=== PATIENT | male | born 1955 | race Caucasian/White ===

== ENCOUNTER 2016-09-08 05:26 | Inpatient (IN) | payer MEDICAID, MEDICARE ==
[~2016-09-08] VITALS: Ht 170.2 cm; Wt 78.7 kg
[2016-09-08] MEDS ORDERED: MODA200T39 PO (05:39)
[2016-09-08] MEDS ORDERED: NFMET1000 PO (05:39)
[2016-09-08] MEDS ORDERED: LACT20SO2 PO (05:39)
[2016-09-08] MEDS ORDERED: PROP20TA5 PO (05:39)
[2016-09-08] MEDS ORDERED: INSU100V16 SQ (05:39)
[2016-09-08] MEDS ORDERED: LOSA25TA21 PO (05:39)
[2016-09-08] MEDS ORDERED: ASPI-586 PO (05:39)
[2016-09-08] MEDS ORDERED: PARO30TA3 PO (05:39)
--- NOTE | 2016-09-08 05:45 | ED Fall/Injury ---
General Chief Complaint: Hip/Pelvic Problems Stated Complaint: HIP PAIN Source: patient, EMS Exam Limitations: no limitations (JOHN BARRON) History of Present Illness Time seen by provider: 05:44 Initial Comments Patient presents to ER by EMS, Michaela with chief complaint of being in the assisted found on the floor in the hallway complaining of pain in his right hip. EMS noted that his right hip was shortened and rotated outwards. He is received 150 g of fentanyl so far and fluids. Patient reportedly still having quite a bit of pain and would like more pain medicines however he is mostly nonverbal and not able to give a hypertensive review of systems. He does deny any chest pain or shortness of breath however he states he is having some pain in his arms as well. Everywhere I touch he indicates there is pain. The patient denies nausea. Nursing records indicate that he is allergic to lisinopril. (JOHN BARRON) Allergies and Home Medications Allergies Coded Allergies: lisinopril (Verified Allergy, Unknown, 09/08/16) Home Medications Aspirin 81 Mg Tablet.dr, 81 MG PO, (Reported) Insulin Aspart 100 Unit/1 Ml Susp, 1,000 UNIT SQ, (Reported) Lactulose 20 Gm/30 Ml Solution, 20 GM PO TID, (Reported) Losartan Potassium 25 Mg Tablet, 25 MG PO DAILY, (Reported) Metformin HCl 1,000 Mg Tab, 1,000 MG PO BID, (Reported) Modafinil 200 Mg Tablet, 200 MG PO, (Reported) Paroxetine HCl 30 Mg Tablet, 30 MG PO, (Reported) Propranolol HCl 20 Mg Tablet, 20 MG PO TID, (Reported) Constitutional: see HPI (unable to give a complete review of systems secondary to baseline nonverbal medication) Respiratory: No cough, No short of breath Cardiovascular: No chest pain, No syncope Gastrointestinal: No diarrhea, No nausea Genitourinary: No discharge, No dysuria Musculoskeletal: see HPI, joint pain (right hip) (JOHN BARRON) Past Kncteep-Oxolgk-Aelbmu Hx Patient Social History Alcohol Use: Denies Use Recreational Drug Use: No Smoking Status: Unknown if Ever Smoked Recent Foreign Travel: No Contact w/Someone Who Travel: No (JOHN BARRON) Surgeries HX Surgeries: Yes Surgeries: Orthopedic (ABHINAV BAHENA MD) Respiratory Hx Respiratory Disorders: No (ABHINAV BAHENA MD) Cardiovascular Hx Cardiac Disorders: Yes Cardiac Disorders: Hypertension (ABHINAV BAHENA MD) Neurological Hx Neurological Disorders: Yes (Dysphasia, Dysarthria) Neurological Disorders: Stroke, TIA (ABHINAV BAHENA MD) Endocrine Hx Endocrine Disorders: Yes Endocrine Disorders: Diabetes, Insulin dep (ABHINAV BAHENA MD) Psychosocial Hx Psychiatric Problems: Yes Behavioral Health Disorders: Sleep Difficulties, Depression (ABHINAV BAHENA MD) Physical Exam Vital Signs Vital Sign - Last 12Hours 09/08/16 05:26 Temp 97.8 Pulse 65 Resp 16 B/P (MAP) 175/93 Pulse Ox 94 O2 Delivery Nasal Cannula O2 Flow Rate 3.00 (ABHINAV BAHENA MD) Vital Signs Capillary Refill : (JOHN BARRON) General Appearance: WD/WN, no apparent distress HEENT: PERRL/EOMI, pharynx normal Neck: supple, normal inspection Cardiovascular: normal peripheral pulses, regular rate, rhythm Respiratory: chest non-tender, lungs clear, normal breath sounds Peripheral Pulses: 3+ Dorsalis Pedis (R), 3+ Left Dors-Pedis (L), 3+ Radial Pulses (R), 3+ Radial Pulses (L) Gastrointestinal: normal bowel sounds, non tender, soft Extremities: no pedal edema, normal capillary refill, other (right leg is shortened by one to 2 inches compared to left and rotated externally. Tenderness to palpation along the femur and hip) Neurologic/Psychiatric: no motor/sensory deficits, alert, oriented x 3 Skin: normal color, warm/dry (JOHN BARRON) Raoul Coma Score Best Eye Response: (4) Open Spontaneously Best Verbal Response: (5) Oriented (nonverbal communicates by shaking head yes or no) Best Motor Response: (6) Obeys Commands [place] Total: 15 (JOHN BARRON) Progress/Results/Core Measures Results/Orders Lab Results Laboratory Tests Test 09/08/16 06:12 09/08/16 07:01 Range/Units White Blood Count 7.5 4.3-11.0 10^3/uL Red Blood Count 3.88 L 4.35-5.85 10^6/uL Hemoglobin 12.9 L 13.3-17.7 G/DL Hematocrit 36 L 40-54 % Mean Corpuscular Volume 94 80-99 FL Mean Corpuscular Hemoglobin 33 25-34 PG Mean Corpuscular Hemoglobin Concent 36 32-36 G/DL Red Cell Distribution Width 14.1 10.0-14.5 % Platelet Count 94 L 130-400 10^3/uL Mean Platelet Volume 11.4 H 7.4-10.4 FL Neutrophils (%) (Auto) 67 42-75 % Lymphocytes (%) (Auto) 19 12-44 % Monocytes (%) (Auto) 10 0-12 % Eosinophils (%) (Auto) 3 0-10 % Basophils (%) (Auto) 1 0-10 % Neutrophils # (Auto) 5.1 1.8-7.8 X 10^3 Lymphocytes # (Auto) 1.4 1.0-4.0 X 10^3 Monocytes # (Auto) 0.8 0.0-1.0 X 10^3 Eosinophils # (Auto) 0.2 0.0-0.3 10^3/uL Basophils # (Auto) 0.0 0.0-0.1 10^3/uL Prothrombin Time 13.5 12.2-14.7 SEC INR Comment 1.1 0.8-1.4 Activated Partial Thromboplast Time 33 24-35 SEC Sodium Level 138 135-145 MMOL/L Potassium Level 4.2 3.6-5.0 MMOL/L Chloride Level 109 H 98-107 MMOL/L Carbon Dioxide Level 20 L 21-32 MMOL/L Anion Gap 9 5-14 MMOL/L Blood Urea Nitrogen 9 7-18 MG/DL Creatinine 0.68 0.60-1.30 MG/DL Estimat Glomerular Filtration Rate > 60 BUN/Creatinine Ratio 13 Glucose Level 156 H 70-105 MG/DL Calcium Level 9.0 8.5-10.1 MG/DL Phosphorus Level 2.8 2.3-4.7 MG/DL Magnesium Level 1.4 L 1.8-2.4 MG/DL Total Bilirubin 1.1 H 0.1-1.0 MG/DL Aspartate Amino Transf (AST/SGOT) 32 5-34 U/L Alanine Aminotransferase (ALT/SGPT) 30 0-55 U/L Alkaline Phosphatase 135 40-136 U/L C-Reactive Protein High Sensitivity 0.29 0.00-0.50 MG/DL Total Protein 6.7 6.4-8.2 GM/DL Albumin 3.4 3.2-4.5 GM/DL Urine Color YELLOW Urine Clarity CLEAR Urine pH 7 5-9 Urine Specific [place] 1.010 L 1.016-1.022 Urine Protein NEGATIVE NEGATIVE Urine Glucose (UA) NEGATIVE NEGATIVE Urine Ketones NEGATIVE NEGATIVE Urine Nitrite NEGATIVE NEGATIVE Urine Bilirubin NEGATIVE NEGATIVE Urine Urobilinogen NORMAL NORMAL MG/DL Urine Leukocyte Esterase NEGATIVE NEGATIVE Urine RBC (Auto) NEGATIVE NEGATIVE Urine RBC NONE /HPF Urine WBC NONE /HPF Urine Squamous Epithelial Cells 0-2 /HPF Urine Crystals NONE /LPF Urine Bacteria NEGATIVE /HPF Urine Casts NONE /LPF Urine Mucus NEGATIVE /LPF Urine Culture Indicated NO (ABHINAV BAHENA MD) My Orders Orders - ABHINAV BAHENA MD Ct Head/Cervical Spine Wo (09/08/16 06:18) Chest 1 View, Ap/Pa Only (09/08/16 06:18) Pelvis (09/08/16 06:18) Hs C Reactive Protein (09/08/16 06:53) Flores Cath Insertion (09/08/16 06:59) Ekg Tracing (09/08/16 06:59) Morphine Injection (Morphine Injection (09/08/16 07:15) (ABHINAV BAHENA MD) Medications Given in ED Current Medications Medications Dose Ordered Sig/[place] Route Start Time Stop Time Status Last Admin Dose Admin Morphine Sulfate 5 mg ONCE ONCE IVP 09/08/16 07:15 09/08/16 07:16 DC 09/08/16 07:30 5 MG Ondansetron HCl 4 mg ONCE ONCE IVP 09/08/16 06:00 09/08/16 06:01 DC 09/08/16 05:55 4 MG (ABHINAV BAHENA MD) Vital Signs/I&O Vital Sign - Last 12Hours 09/08/16 05:26 Temp 97.8 Pulse 65 Resp 16 B/P (MAP) 175/93 Pulse Ox 94 O2 Delivery Nasal Cannula O2 Flow Rate 3.00 (ABHINAV BAHENA MD) Progress Note : Time: 06:22 Progress Note We'll get x-rays of his hip and probably need referral to orthopedics. He is nonverbal so we'll look for reasons for his fall such as UTI or other infection. (JOHN BARRON) Progress Note #1: Time: 06:27 Progress Note Care of this patient was assumed from Dr. Barron at shift change checkout. He was reexamined by this provider. He was found to be alert and responsive. He elaborates that he is actually able to walk independently with walker or cane and fell while walking this morning. He reports that he did strike his head and has some headache. History is very limited due to patient's difficulty with verbal communication from prior CVA. Head was normocephalic and atraumatic. Tympanic membranes normal. Oropharynx normal. Chest was clear to auscultation bilaterally with normal effort. Abdomen was soft and nontender. Patient denies pain anywhere other than head and right hip. There was obvious disfigurement of the right hip. Movement, capillary refill, and sensation distally were intact. Pedal pulse is weakly palpable. CT of head and C-spine as well as pelvis x-ray were added to the orders. Labs are pending. Progress Note #2: Time: 07:38 Progress Note Patient has required additional pain medication. Morphine has been ordered. I spoke with the radiologist regarding CT of the head. There was question of subacute infarct. I discussed with the patient and he denies any new neurologic symptoms. He moves all 4 extremities. He has dysarthria and dysphasia at baseline. I have left multiple messages with Dr. Fernandez starting at 07:16 and am awaiting a call back. I spoke with his partner Dr. Yin who suggested contacting the office. I left a message with the answering service at the office phone number. Progress Note #3: Time: 08:23 Progress Note I was able to contact Dr. Fernandez and discussed the case. He does not perform hip surgeries but Dr. Mcrae will be available this evening. He will communicate the case information to Dr. Mcrae. He requests the patient be nothing by mouth after a breakfast. (ABHINAV BAHENA MD) ECG Initial ECG Impression Date: Sep 08, 2016 Initial ECG Impression Time: 07:05 Initial ECG Rate: 60 Initial ECG Rhythm: Normal Sinus Initial ECG Impression: Normal Comment Normal sinus rhythm with no ST elevation or depression. No abnormal intervals or axis deviation. (ABHINAV BAHENA MD) Diagnostic Imaging Diagonstic Imaging: CT Plain Films/CT/US/NM/MRI: c-spine, head Comments CT head and C-spine viewed by me and report reviewed. Discussed with radiologist. See report below: NAME: JONAH MILLARD [facility] REC#: [id number] PT STATUS: REG ER : 1955 PHYSICIAN: ABHINAV BAHENA MD ADMIT DATE: 09/08/16/ER Draft Date of Exam:09/08/16 CT HEAD/CERVICAL SPINE WO PROCEDURE: CT head and CT cervical spine without contrast. TECHNIQUE: Multiple contiguous axial images were obtained through the brain and cervical spine without the use of intravenous contrast. Sagittal and coronal reformations through the cervical spine were then performed. INDICATION: Status post fall, head pain. CORRELATION STUDY: None FINDINGS: CT HEAD: There is prominence of the ventricles and sulci compatible with atrophic changes. Scattered areas of decreased attenuation, nonspecific favor probable changes small vessel ischemic disease. Findings compatible with prior lacunar type infarct in the right basal ganglia and centrum semiovale. Also prior infarcts in the left basal ganglia extending into the caudate head. Additional low-density within the more posterior aspect left basal ganglia. There is an additional geographic area of decreased attenuation involving the inferior posterior left frontal lobe and posterior lateral temporal lobe. This area measures approximately 3.5 x 3 cm. No intracranial hemorrhage. There is presence of intracranial vascular calcification. Paranasal sinus and mastoid air cells are clear. CT CERVICAL SPINE: Straightening and reversal normal cervical lordosis present. Mild anterolisthesis C3 on C4. Cervical vertebral body heights demonstrate slight loss of height C4, C5-C6 levels. Moderate to marked disc space narrowing C3-C4, C5-C6 and C6-C7 levels. There does appear to be disc bulge at C4-C5 as well as C3-C4 levels resulting in spinal canal narrowing. Additional osseous encroachment on the foramina particularly at the C5-C6 and C6-C7 levels results in significant osseous narrowing of the neural foramina as well as spinal canal. Asymmetric hypertrophic facet arthropathy. A moderate calcification of the bilateral carotid bifurcations. Lung apices unremarkable. A few scattered small cervical lymph nodes are present. IMPRESSION: CT HEAD: 1. Negative for acute traumatic intracranial abnormality. 2. Changes likely chronic small vessel ischemic disease and generalized atrophic changes. Prior areas of infarct are noted. More focal area noted about the posterior inferior left frontal lobe and posterior lateral temporal lobe. While this could be reflective of a previous area of infarct, more subacute infarct would be difficult to exclude. If further assessment is desired, MRI would be recommended. CT CERVICAL SPINE: 1. Negative for acute fracture or traumatic subluxation. 2. Rather pronounced multilevel cervical spondylosis. Additional areas of asymmetric disc bulge particularly at C3-C4 and C4-C5 levels. Scattered areas of foraminal and canal stenosis are noted. Telephone call has been made to the emergency department. Dictated on workstation # [id number] Dict: 09/08/16 07 Trans: 09/08/16740 [facility] [place] [id number] Interpreted by: MAX ASHER DO Diagonstic Imaging: Xray Plain Films/CT/US/NM/MRI: pelvis Comments Pelvis x-ray viewed by me and report reviewed. See report below: NAME: VENICEJONAH [facility] REC#: [id number] PT STATUS: REG ER : 1955 PHYSICIAN: ABHINAV BAHENA MD ADMIT DATE: 09/08/16/ER Draft Date of Exam:09/08/16 PELVIS INDICATION: Fall, right hip pain. TECHNIQUE: AP pelvis 6:41 AM. CORRELATION STUDY: None FINDINGS: The pectineal lines and obturator rings maintained. Left hip joint is maintained. Advanced degenerative changes at the L4-L5 and L5-S1 disc space. SI joints with slight sclerosis. There is a comminuted impacted angulated right proximal femur fracture. IMPRESSION: 1. Comminuted impacted angulated right proximal femur fracture. Dictated on workstation # [id number] Dict: 09/08/1613 Trans: 09/08/16718 [id number] Interpreted by: MAX ASHER DO Diagonstic Imaging: Xray Plain Films/CT/US/NM/MRI: chest Comments Chest x-ray viewed by me and report reviewed. See report below: NAME: JONAH MILLARD [facility] REC#: [id number] PT STATUS: REG ER : 1955 PHYSICIAN: ABHINAV BAHENA MD ADMIT DATE: 09/08/16/ER Draft Date of Exam:09/08/16 CHEST 1 VIEW, AP/PA ONLY INDICATION: Trauma, hip fracture. TECHNIQUE: Single view chest 6:41 AM. CORRELATION STUDY: None FINDINGS: Heart size is enlarged. Mediastinum is prominent. Vasculature is slightly prominent as well. Lung pool demonstrate likely chronic type changes. Deformity about the left ribs compatible with prior fractures. Two screws over the scapula with degenerative changes of the left shoulder. High density in the right upper quadrant, nonspecific but could be reflective of perhaps a large gallstone or even perhaps a staghorn type calculus of the kidney. IMPRESSION: 1. Cardiac enlargement. Vasculature slightly prominent. Dictated on workstation # [id number] Dict: 09/08/16709 Trans: 09/08/16722 [facility] [phone] Interpreted by: MAX ASHER DO Diagonstic Imaging: Xray Plain Films/CT/US/NM/MRI: hip Comments Right hip x-ray viewed by me and report reviewed. See report below: NAME: JONAH MILLARD [facility] REC#: [id number] PT STATUS: REG ER : 1955 PHYSICIAN: JOHN BARRON MD ADMIT DATE: 09/08/16/ER Draft Date of Exam:09/08/16 HIP, RIGHT, 2 VIEWS INDICATION: Fall, pain, fracture. TECHNIQUE: 2 views right hip, 6:43 AM. CORRELATION STUDY: None FINDINGS: There is a multipart comminuted fracture of the right intertrochanteric portion of the proximal femur. Coxa Vera alignment is present. The shaft is retracted and displaced laterally. Lesser trochanter displaced medially. Femoral head acetabular relationship appears to be maintained. IMPRESSION: 1. Comminuted impacted and displaced proximal right femur fracture. Dictated on workstation # [id number] Dict: 09/08/16711 Trans: 09/08/16725 [id number] Interpreted by: MAX ASHER DO Diagonstic Imaging: Xray Plain Films/CT/US/NM/MRI: femur Comments Femur x-ray viewed by me and report reviewed. See report below: NAME: JONAH MILLARD [facility] REC#: [id number] PT STATUS: REG ER : 1955 PHYSICIAN: JOHN BARRON MD ADMIT DATE: 09/08/16/ER Draft Date of Exam:09/08/16 FEMUR, RIGHT, 2 VIEWS INDICATION: Fall, hip pain, fracture. TECHNIQUE: AP and lateral views of the right femur 6:54 AM. CORRELATION STUDY: None FINDINGS: There is a comminuted impacted multipart fracture through the right intertrochanteric region. Coxa vera alignment. Impaction noted. Femoral head acetabular relationship appears maintained. The shaft is displaced laterally. Lesser trochanter displaced medially. The remainder of the femur is intact. Degenerative changes and narrowing at the knee. Vascular calcifications present. IMPRESSION: 1. Comminuted impacted angulated and displaced right proximal femur fracture. Dictated on workstation # [id number] Dict: 09/08/16 0711 Trans: 09/08/16 0727 [facility] [phone] Interpreted by: MAX ASHER DO (ABHINAV BAHENA MD) Transfer of Care Transfer of Care Time: 06:22 Care transferred to: Deandre (JOHN BARRON) Departure Communication Time/Spoke to Admitting Phy: 08:[address] Crooks Time/Spoke to Consulting Physi: 08:20 Communication/Consulting Dr. Fernandez (ABHINAV BAHNEA MD) Impression Impression: Primary Impression: Closed right hip fracture Qualified Codes: S72.001A - Fracture of unspecified part of neck of right femur, initial encounter for closed fracture Additional Impression: Fall on same level Qualified Codes: W18.30XA - Fall on same level, unspecified, initial encounter Disposition: ADMITTED INPATIENT Condition: Stable Decision to Admit Reason: Admit from ER (General) Decision to Admit/Date: Sep 08, 2016 (JOHN BARRON) Decision to Admit Reason: Admit from ER (Trauma) (ABHINAV BAHENA MD) Departure-Patient Inst. Referrals: DARRICK SULTANA MD (PCP/Family) Primary Care Physician Copy Copies To 1: DARRICK SULTANA MD, TITUS J Sep 08, 2016 05:45 ABHINAV BAHENA MD Sep 08, 2016 06:29
[2016-09-08] MEDS ORDERED: KETOROLAC 30 MG/ML VIAL IVP STA (05:48)
[2016-09-08] MEDS ORDERED: ONDANSETRON 4 MG/2 ML (SDV) Z0FRAN IVP ONE (06:00)
[2016-09-08 06:22] LABS: BASOPHILS % (AUTO) 1 % (0-10); EOSINOPHILS # (AUTO) 0.2 10^3/uL (0.0-0.3); EOSINOPHILS % (AUTO) 3 % (0-10); LYMPHOCYTES # (AUTO) 1.4 X 10^3 (1.0-4.0); LYMPHOCYTES % (AUTO) 19 % (12-44); MEAN CORPUSCULAR HEMOGLOBIN 33 PG (25-34); MEAN CORPUSCULAR HGB CONC 36 G/DL (32-36); MEAN CORPUSCULAR VOLUME 94 FL (80-99); MEAN PLATELET VOLUME 11.4 FL (7.4-10.4); MONOCYTES # (AUTO) 0.8 X 10^3 (0.0-1.0); MONOCYTES % (AUTO) 10 % (0-12); NEUTROPHILS # (AUTO) 5.1 X 10^3 (1.8-7.8); NEUTROPHILS % (AUTO) 67 % (42-75); PLATELET COUNT 94 10^3/uL (130-400); RED BLOOD COUNT 3.88 10^6/uL (4.35-5.85); RED CELL DISTRIBUTION WIDTH 14.1 % (10.0-14.5); WHITE BLOOD COUNT 7.5 10^3/uL (4.3-11.0)
[2016-09-08 06:50] LABS: INR 1.1 (0.8-1.4); PROTHROMBIN TIME PATIENT 13.5 SEC (12.2-14.7)
[2016-09-08 07:03] LABS: ALANINE AMINOTRANSFERASE 30 U/L (0-55); ALBUMIN 3.4 GM/DL (3.2-4.5); ANION GAP 9 MMOL/L (5-14); ASPARTATE AMINO TRANSFERASE 32 U/L (5-34); BILIRUBIN,TOTAL 1.1 MG/DL (0.1-1.0); BLOOD UREA NITROGEN 9 MG/DL (7-18); BUN/CREATININE RATIO 13; CARBON DIOXIDE 20 MMOL/L (21-32); CHLORIDE 109 MMOL/L (98-107); CREATININE SERUM 0.68 MG/DL (0.60-1.30); GFR ESTIMATED > 60; GLUCOSE 156 MG/DL (70-105); MAGNESIUM 1.4 MG/DL (1.8-2.4); PHOSPHORUS 2.8 MG/DL (2.3-4.7); POTASSIUM 4.2 MMOL/L (3.6-5.0); SODIUM 138 MMOL/L (135-145); TOTAL PROTEIN 6.7 GM/DL (6.4-8.2)
[2016-09-08 07:12] LABS: BILIRUBIN,URINE NEGATIVE (NEGATIVE); KETONES,URINE NEGATIVE (NEGATIVE); LEUKOCYTE ESTERASE ,URINE NEGATIVE (NEGATIVE); NITRITE,URINE NEGATIVE (NEGATIVE); PH,URINE 7 (5-9); PROTEIN,URINE NEGATIVE (NEGATIVE); UROBILINOGEN,URINE NORMAL (NORMAL)
[2016-09-08] MEDS ORDERED: morphine INJ 10 MG/ML 1ML (SYR OR VIAL) IVP ONE (07:15)
--- NOTE | 2016-09-08 07:19 | Diagnostic Imaging Report ---
INDICATION: Fall, right hip pain. TECHNIQUE: AP pelvis 6:41 AM. CORRELATION STUDY: None FINDINGS: The pectineal lines and obturator rings maintained. Left hip joint is maintained. Advanced degenerative changes at the L4-L5 and L5-S1 disc space. SI joints with slight sclerosis. There is a comminuted impacted angulated right proximal femur fracture. IMPRESSION: 1. Comminuted impacted angulated right proximal femur fracture. Dictated by: Dictated on workstation # [id number]
[2016-09-08 07:20] LABS: SQUAMOUS EPITHELIAL CELL,UR 0-2 /HPF
--- NOTE | 2016-09-08 07:23 | Diagnostic Imaging Report ---
INDICATION: Trauma, hip fracture. TECHNIQUE: Single view chest 6:41 AM. CORRELATION STUDY: None FINDINGS: Heart size is enlarged. Mediastinum is prominent. Vasculature is slightly prominent as well. Lung pool demonstrate likely chronic type changes. Deformity about the left ribs compatible with prior fractures. Two screws over the scapula with degenerative changes of the left shoulder. High density in the right upper quadrant, nonspecific but could be reflective of perhaps a large gallstone or even perhaps a staghorn type calculus of the kidney. IMPRESSION: 1. Cardiac enlargement. Vasculature slightly prominent. Dictated by: Dictated on workstation # [id number]
--- NOTE | 2016-09-08 07:27 | Diagnostic Imaging Report ---
INDICATION: Fall, pain, fracture. TECHNIQUE: 2 views right hip, 6:43 AM. CORRELATION STUDY: None FINDINGS: There is a multipart comminuted fracture of the right intertrochanteric portion of the proximal femur. Coxa Vera alignment is present. The shaft is retracted and displaced laterally. Lesser trochanter displaced medially. Femoral head acetabular relationship appears to be maintained. IMPRESSION: 1. Comminuted impacted and displaced proximal right femur fracture. Dictated by: Dictated on workstation # [id number]
--- NOTE | 2016-09-08 07:27 | Diagnostic Imaging Report ---
INDICATION: Fall, hip pain, fracture. TECHNIQUE: AP and lateral views of the right femur 6:54 AM. CORRELATION STUDY: None FINDINGS: There is a comminuted impacted multipart fracture through the right intertrochanteric region. Coxa vera alignment. Impaction noted. Femoral head acetabular relationship appears maintained. The shaft is displaced laterally. Lesser trochanter displaced medially. The remainder of the femur is intact. Degenerative changes and narrowing at the knee. Vascular calcifications present. IMPRESSION: 1. Comminuted impacted angulated and displaced right proximal femur fracture. Dictated by: Dictated on workstation # [id number]
--- NOTE | 2016-09-08 07:41 | Diagnostic Imaging Report ---
PROCEDURE: CT head and CT cervical spine without contrast. TECHNIQUE: Multiple contiguous axial images were obtained through the brain and cervical spine without the use of intravenous contrast. Sagittal and coronal reformations through the cervical spine were then performed. INDICATION: Status post fall, head pain. CORRELATION STUDY: None FINDINGS: CT HEAD: There is prominence of the ventricles and sulci compatible with atrophic changes. Scattered areas of decreased attenuation, nonspecific favor probable changes small vessel ischemic disease. Findings compatible with prior lacunar type infarct in the right basal ganglia and centrum semiovale. Also prior infarcts in the left basal ganglia extending into the caudate head. Additional low-density within the more posterior aspect left basal ganglia. There is an additional geographic area of decreased attenuation involving the inferior posterior left frontal lobe and posterior lateral temporal lobe. This area measures approximately 3.5 x 3 cm. No intracranial hemorrhage. There is presence of intracranial vascular calcification. Paranasal sinus and mastoid air cells are clear. CT CERVICAL SPINE: Straightening and reversal normal cervical lordosis present. Mild anterolisthesis C3 on C4. Cervical vertebral body heights demonstrate slight loss of height C4, C5-C6 levels. Moderate to marked disc space narrowing C3-C4, C5-C6 and C6-C7 levels. There does appear to be disc bulge at C4-C5 as well as C3-C4 levels resulting in spinal canal narrowing. Additional osseous encroachment on the foramina particularly at the C5-C6 and C6-C7 levels results in significant osseous narrowing of the neural foramina as well as spinal canal. Asymmetric hypertrophic facet arthropathy. A moderate calcification of the bilateral carotid bifurcations. Lung apices unremarkable. A few scattered small cervical lymph nodes are present. IMPRESSION: CT HEAD: 1. Negative for acute traumatic intracranial abnormality. 2. Changes likely chronic small vessel ischemic disease and generalized atrophic changes. Prior areas of infarct are noted. More focal area noted about the posterior inferior left frontal lobe and posterior lateral temporal lobe. While this could be reflective of a previous area of infarct, more subacute infarct would be difficult to exclude. If further assessment is desired, MRI would be recommended. CT CERVICAL SPINE: 1. Negative for acute fracture or traumatic subluxation. 2. Rather pronounced multilevel cervical spondylosis. Additional areas of asymmetric disc bulge particularly at C3-C4 and C4-C5 levels. Scattered areas of foraminal and canal stenosis are noted. Telephone call has been made to the emergency department. Dictated by: Dictated on workstation # [id number]
[2016-09-08] MEDS ORDERED: ACET325T38 PO (09:53)
[2016-09-08 10:00] VITALS: BP 121/79
--- NOTE | 2016-09-08 11:58 | History & Physical-Hospitalist ---
HPI History of Present Illness: HPI/Chief Complaint CC: Acute right hip fracture HPI: This is a 61-year-old white male snf patient that presents after a fall at the snf sustaining a right hip fracture. He has had a stroke in the past and is aphasic so minimal details are obtained from the patient. He does smoke and he is willing to apply a nicotine patch. Wheezes are noted on exam so Nebs are ordered. Source: RN/MD Exam Limitations: language barrier (aphasic) Date Seen 09/08/16 Time Seen by Provider: 11:45 Attending Physician Melly Crooks Pankaj K MD Referring Physician Date of Admission Sep 08, 2016 at 08:42 Home Medications & Allergies Home Medications Reviewed patient Home Medication Reconciliation Form Allergies Allergies Coded Allergies lisinopril (Verified Allergy, Unknown, 09/08/16) Past Vkfngcr-Ghufxr-Ppxzce Hx Patient Social History Marrital Status: single Employed/Student: unemployed Alcohol Use: Denies Use Recreational Drug Use: No Smoking Status: Current Everyday Smoker Physical Abuse Screen: No Sexual Abuse: No Recent Foreign Travel: No Contact w/other who traveled: No Recent Hopitalizations: No Recent Infectious Disease Expo: No Seasonal Allergies Seasonal Allergies: No Surgeries HX Surgeries: Yes Surgeries: Orthopedic Respiratory Hx Respiratory Disorders: Yes Respiratory Disorders: COPD Cardiovascular Hx Cardiovascular Disorders: Yes Cardiac Disorders: High Cholesterol, Hypertension Neurological Hx Neurological Disorders: Yes (Dysphasia, Dysarthria) Neurological Disorders: Stroke, TIA Genitourinary Hx Genitourinary Disorders: No Gastrointestinal Hx Gastrointestinal Disorders: Yes Gastrointestinal Disorders: Chronic Constipation Musculoskeletal Hx Musculoskeletal Disorders: Yes Musculoskeletal Disorders: Fractures Endocrine Hx Endocrine Disorders: Yes Endocrine Disorders: Diabetes, Insulin dep HEENT HX ENT Disorders: No Loss of Vision: Denies Hearing Impairment: Denies Cancer Hx Cancer: No Psychosocial Hx Psychiatric Problems: Yes Behavioral Health Disorders: Sleep Difficulties, Depression Integumentary HX Skin/Integumentary Disorder: No Family Medical History Family Hx: Diabetes mellitus 19 FATHER Neoplasm 19 MOTHER (LUNG CANCER) Review of Systems ROS-Unable to Obtain: aphasia Constitutional: see HPI, weakness Musculoskeletal: joint pain Physical Exam Physical Exam Vital Signs Vital Sign - Last 12Hours 09/08/16 05:26 Temp 97.8 Pulse 65 Resp 16 B/P (MAP) 175/93 Pulse Ox 94 O2 Delivery Nasal Cannula O2 Flow Rate 3.00 Capillary Refill : Less Than 3 SecondsLess Than 3 Seconds General Appearance: No Apparent Distress, WD/WN, Chronically ill Eyes: Bilateral Eye Normal Inspection, Bilateral Eye PERRL HEENT: PERRL/EOMI, Normal ENT Inspection, Pharynx Normal Neck: Full Range of Motion, Normal Inspection, Non Tender, Supple, Carotid Bruit Respiratory: Chest Non Tender, Lungs Clear, Normal Breath Sounds, No Accessory Muscle Use, No Respiratory Distress Cardiovascular: Regular Rate, Rhythm, No Edema, No Gallop, No JVD, No Murmur, Normal Peripheral Pulses Gastrointestinal: Normal Bowel Sounds, No Organomegaly, No Pulsatile Mass, Non Tender, Soft Back: Normal Inspection, No CVA Tenderness, No Vertebral Tenderness Extremity: Normal Capillary Refill, Normal Inspection, Normal Range of Motion ( except right leg due to fx), Non Tender, No Calf Tenderness, No Pedal Edema Neurologic/Psychiatric: Alert, Oriented x3, Normal Mood/Affect, Aphasia Skin: Normal Color, Warm/Dry Lymphatic: No Adenopathy Results Results/Procedures Lab Laboratory Tests 09/08/16 06:12 Assessment/Plan Admission Diagnosis Assessment: Acute right hip fracture Diabetes mellitus insulin-dependent Current smoker with wheezing on exam Hypertension Remote stroke causing aphasia Assessment and Plan Plan: Reconcile all home meds Nebulizer treatments 4 times a day Pain medication Nicoderm Patch monitor labs Proceed on with surgery since benefits outweigh medical risks Clinical Quality Measures DVT/VTE Risk/Contraindication: Risk Factor Score Per Nursin RFS Level Per Nursing on Admit: 4+=Very High MELLY CROOKS DO Sep 08, 2016 11:58
[2016-09-08 12:00] VITALS: BP 133/88
[2016-09-08] MEDS ORDERED: ACETAMINOPHEN 325 MG TABLET/CAPLET (TYLENOL) PO PRN (12:00)
[2016-09-08] MEDS ORDERED: inSUlin ASPART (NovoLOG) 1 UNIT/0.01 ML (CHARGE PER UNIT) SQ PRN (12:00)
[2016-09-08] MEDS: RT-ALBUTEROL/IPRATROPIUM 3 ML (DUONEB) VIAL INH SCH ×4 (12:00→22:00)
[2016-09-08] MEDS ORDERED: CATHETER FLUSH 10 ML SYR IV PRN (12:30)
[2016-09-08] MEDS ORDERED: ONDANSETRON 4 MG/2 ML (SDV) Z0FRAN IV PRN (12:30)
[2016-09-08] MEDS: LACTULOSE SYRUP 10GM/15ML (ENULOSE) 30ML UDC PO SCH ×2 (12:54→16:13)
[2016-09-08] MEDS: NICOTINE 21 MG (NICODERM) PATCH TD SCH (12:54)
[2016-09-08] MEDS: PROPRANOLOL 20 MG (INDERAL) TABLET PO SCH ×2 (12:54→16:12)
[2016-09-08] MEDS: NS IV 1000 ML 1,000 ML IV SCH ×2 (12:54→22:52)
[2016-09-08] MEDS: morphine INJ 10 MG/ML 1ML (SYR OR VIAL) IV PRN ×2 (13:15→22:53)
[2016-09-08 16:00] VITALS: BP 108/64
[2016-09-08] MEDS: inSUlin ASPART (NovoLOG) 1 UNIT/0.01 ML (CHARGE PER UNIT) SC SCH ×2 (16:11→22:47)
[2016-09-08 19:20] VITALS: BP 130/72
[2016-09-08 23:50] VITALS: BP 126/56
[2016-09-09] MEDS: RT-ALBUTEROL/IPRATROPIUM 3 ML (DUONEB) VIAL INH SCH ×6 (02:19→21:55)
[2016-09-09 03:25] VITALS: BP 123/65
[2016-09-09] MEDS: inSUlin ASPART (NovoLOG) 1 UNIT/0.01 ML (CHARGE PER UNIT) SC SCH ×4 (05:44→20:45)
[2016-09-09 07:32] LABS: BASOPHILS % (AUTO) 0 % (0-10); EOSINOPHILS # (AUTO) 0.3 10^3/uL (0.0-0.3); EOSINOPHILS % (AUTO) 3 % (0-10); LYMPHOCYTES # (AUTO) 2.6 X 10^3 (1.0-4.0); LYMPHOCYTES % (AUTO) 30 % (12-44); MEAN CORPUSCULAR HEMOGLOBIN 34 PG (25-34); MEAN CORPUSCULAR HGB CONC 35 G/DL (32-36); MEAN CORPUSCULAR VOLUME 96 FL (80-99); MEAN PLATELET VOLUME 11.4 FL (7.4-10.4); MONOCYTES # (AUTO) 1.2 X 10^3 (0.0-1.0); MONOCYTES % (AUTO) 14 % (0-12); NEUTROPHILS # (AUTO) 4.6 X 10^3 (1.8-7.8); NEUTROPHILS % (AUTO) 53 % (42-75); PLATELET COUNT 77 10^3/uL (130-400); RED BLOOD COUNT 3.39 10^6/uL (4.35-5.85); RED CELL DISTRIBUTION WIDTH 14.3 % (10.0-14.5); WHITE BLOOD COUNT 8.7 10^3/uL (4.3-11.0)
[2016-09-09 07:48] LABS: ALANINE AMINOTRANSFERASE 23 U/L (0-55); ANION GAP 9 MMOL/L (5-14); ASPARTATE AMINO TRANSFERASE 26 U/L (5-34); BILIRUBIN,TOTAL 1.6 MG/DL (0.1-1.0); BLOOD UREA NITROGEN 13 MG/DL (7-18); BUN/CREATININE RATIO 19; CALCIUM 8.5 MG/DL (8.5-10.1); CARBON DIOXIDE 18 MMOL/L (21-32); CHLORIDE 111 MMOL/L (98-107); CREATININE SERUM 0.67 MG/DL (0.60-1.30); GFR ESTIMATED > 60; GLUCOSE 114 MG/DL (70-105); POTASSIUM 4.1 MMOL/L (3.6-5.0); SODIUM 138 MMOL/L (135-145); TOTAL PROTEIN 5.6 GM/DL (6.4-8.2)
[2016-09-09 08:00] VITALS: BP 121/74
--- NOTE | 2016-09-09 08:09 | CONSULTATION REPORT ---
DATE OF CONSULTATION: 09/08/2016 REFERRING PHYSICIAN: Dr. Fernandez Inpatient consultation at the request of Dr. Fernandez: Right hip fracture. HISTORY OF THE PRESENT ILLNESS: This gentleman apparently fell earlier today and Dr. Fernandez was called and he called myself to take over the patient. PERTINENT ORTHOPEDIC PAST MEDICAL HISTORY: The patient has sustained trauma in the past and is not verbal. He does appear to be alert and oriented and understands. ORTHOPEDIC: Right lower extremity is flexed and shortened and externally rotated. The skin is intact over the hip area. Distally, grossly, neurovascularly intact with some spontaneous motion present. X-RAY: X-ray shows a comminuted intertrochanteric fracture. The number of major pieces is difficult to visualize. PLAN: We would like to get him to the operating room tomorrow for open reduction and internal fixation with Synthes intertrochanteric nail. Due to the comminuted nature of the fracture, we are going to try to get a CT tonight or tomorrow morning prior to the procedure. He is tentatively scheduled for 12:45 tomorrow. CONSENT: I have discussed the diagnosis, procedure, risks, benefits, alternatives, likely brunson for success as well as rehab. The major risk is chronic discomfort, shortening of the leg, toes turned in or out, failure of the procedure and need to redo it again, damage to adjacent structures and the small chance of problems with the heart or lungs and other systems. The patient had all of his questions answered which he indicated by nodding that he had no questions. Job ID: [id number] Dictated Date: 09/08/2016 21:48:18 Supervisor [employer] Date: 09/09/2016 07:54:58/aguila
--- NOTE | 2016-09-09 08:24 | Diagnostic Imaging Report ---
PROCEDURE: CT right lower extremity without contrast. TECHNIQUE: Axially acquired CT was obtained through the right lower extremity without intravenous contrast. Coronal and sagittal reformations were also performed. INDICATION: Right hip fracture. FINDINGS: There is a displaced intertrochanteric right femur fracture with comminution seen at the lesser trochanter region. The femoral shaft is displaced superiorly and there is a slight coxa valga. There is no subluxation or dislocation of the hip joint. There is a significant joint space narrowing and subchondral sclerosis compatible with moderate osteoarthritis. There is a also an os acetabulum which is probably degenerative or from old injury. The possibility of an acute injury component, however, cannot be ruled out. This is located at the lateral margin of the acetabulum. There is a 1 cm sclerotic lesion in the right femoral neck, probably a bony island. The acetabulum itself otherwise is unremarkable. IMPRESSION: 1. Comminuted displaced right intertrochanteric fracture. 2. Near the lateral margin of the acetabulum, there is a subcentimeter ossification probably an os acetabulum from prior trauma or injury. An acute injury component is not ruled out. The rest of the acetabulum itself, however, demonstrated no fractures. 3. Moderate right hip osteoarthritis. Dictated by: Dictated on workstation # [id number]
[2016-09-09] MEDS: PARoxetine 10 MG (PAXIL) TAB PO SCH (08:55)
[2016-09-09] MEDS: LACTULOSE SYRUP 10GM/15ML (ENULOSE) 30ML UDC PO SCH ×3 (08:55→16:25)
[2016-09-09] MEDS: PROPRANOLOL 20 MG (INDERAL) TABLET PO SCH ×3 (08:55→16:25)
[2016-09-09] MEDS: PARoxetine 20 MG (PAXIL) TAB PO SCH (08:55)
[2016-09-09] MEDS: MODAFINIL 100 MG TAB (PROVIGIL) NON-FORMULARY PO SCH (08:56)
[2016-09-09] MEDS: NICOTINE 21 MG (NICODERM) PATCH TD SCH (08:56)
[2016-09-09] MEDS: NS IV 1000 ML 1,000 ML IV SCH ×2 (09:05→21:50)
[2016-09-09] MEDS: NICOTINE PATCH REMOVAL TP SCH (09:06)
[2016-09-09] MEDS: morphine INJ 10 MG/ML 1ML (SYR OR VIAL) IV PRN (09:06)
[2016-09-09] MEDS: LOSARTAN 25 MG (COZAAR) TAB PO SCH (09:08)
[2016-09-09 12:00] VITALS: BP 130/75
[2016-09-09] MEDS ORDERED: ROCURONIUM 50 MG/5 ML (ZEMURON) VIAL IV ONE (12:19)
[2016-09-09] MEDS ORDERED: LIDOCAINE PF 2% 5 ML (XYLOCAINE) VIAL ONE (12:19)
[2016-09-09] MEDS ORDERED: MIDAZOLAM 2 MG/2 ML (VERSED) VIAL ONE (12:19)
[2016-09-09] MEDS ORDERED: fentaNYL INJECTION 100 MCG/2 ML AMP ONE (12:19)
[2016-09-09] MEDS ORDERED: ONDANSETRON 4 MG/2 ML (SDV) Z0FRAN ONE (12:19)
[2016-09-09] MEDS ORDERED: proPOfol 200 MG/20 ML (DIPRIVAN) VIAL IV ONE (12:19)
[2016-09-09] MEDS ORDERED: LACTATED RINGERS 1,000 ML IV ONE (12:19)
[2016-09-09] MEDS ORDERED: ceFAZolin 1,000 MG (ANCEF) VIAL ONE (12:37)
--- NOTE | 2016-09-09 12:50 | Progress Note-Hospitalist ---
Progress Note HPI/CC on Admission CC: Acute right hip fracture HPI: This is a 61-year-old white male long term patient that presents after a fall at the long term sustaining a right hip fracture. He has had a stroke in the past and is aphasic so minimal details are obtained from the patient. He does smoke and he is willing to apply a nicotine patch. Wheezes are noted on exam so Nebs are ordered. Progress Notes/Assess & Plan Date Seen 09/09/16 Time Seen by Provider: 11:45 Admission Dx/Process Assessment: Acute right hip fracture Diabetes mellitus insulin-dependent Current smoker with wheezing on exam Hypertension Remote stroke causing aphasia Diagonsis/Assessment & Plan Patient ready for surgery Brief conversation due to aphasia Understands questions and nods appropriately Checked meds and labs AFVSS, Pleasant, O x 3, aphasic RRR, CTAB no edema Assessment: Acute right hip fracture in need of repair Diabetes mellitus insulin-dependent Current smoker with wheezing on exam yesterday so ordered Nebs and now improved Hypertension Remote stroke causing aphasia Plan: Reconciled all home meds Nebulizer treatments 4 times a day Pain medication Nicoderm Patch Monitor labs Proceed on with surgery since benefits outweigh medical risks LIBIA GARCIA DO Sep 09, 2016 12:50
[2016-09-09] MEDS ORDERED: TRANEXAMIC ACID 100 MG/ML 10 ML INJECTION IV ONE (12:52)
[2016-09-09] MEDS ORDERED: BUP/EPI 0.5% 1:200,000 (MARCAINE) 10ML VIAL IJ ONE (13:18)
[2016-09-09] MEDS ORDERED: SEVOFLURANE (ULTANE) 15 ML INHAL SOLN ONE ×4 (13:53→14:15)
[2016-09-09] MEDS ORDERED: morphine INJ 10 MG/ML 1ML (SYR OR VIAL) IVP PRN (14:45)
[2016-09-09] MEDS ORDERED: HYDROmorphone (DILAUDID) 2 MG/ML VIAL IVP PRN (14:45)
[2016-09-09] MEDS ORDERED: ONDANSETRON 4 MG/2 ML (SDV) Z0FRAN IVP PRN (14:45)
--- NOTE | 2016-09-09 14:59 | Progress Note-Post Operative ---
Post-Operative Progess Note Surgeon (s)/Burr Bench Operator (s) Surgeon DIANNA MC MD Burr Bench Operator: N/A Pre-Operative Diagnosis Intertroch fracture displaced unstable Post-Operative Diagnosis Same Procedure & Operative Findings Date of Procedure 09/09/16 Procedure Performed/Findings ORIF of rigt hip using synthes\ TFN intramedullary nail Anesthesia Type GETA Estimated Blood Loss Estimated blood loss (mL): 250ml Specimens/Packing Specimens Removed None Packing: None DIANNA MC MD Sep 09, 2016 14:59
[2016-09-09] MEDS ORDERED: ACETAMINOPHEN 325 MG TABLET/CAPLET (TYLENOL) PO PRN (15:00)
--- NOTE | 2016-09-09 15:10 | Physical Therapy Progress Note ---
Therapy Progress Note Patient currently in recovery. PT to begin in [facility] Moctez[place] PT Sep 09, 2016 15:10
[2016-09-09 16:00] VITALS: BP 156/80
[2016-09-09] MEDS: morphine INJ 4 MG/ML 1 ML (VIAL/SYRINGE) IV PRN ×2 (16:26→21:50)
[2016-09-09] MEDS: ceFAZolin INJECTION 1,000 MG in NS (IVPB) 50 ML IV SCH (18:51)
[2016-09-09] MEDS ORDERED: ceFAZolin INJECTION 1 MG in NS (IVPB) 50 ML IV SCH (19:00)
[2016-09-09] MEDS ORDERED: ceFAZolin 2 GM/50 ML NS 50 ML IV SCH (19:00)
--- NOTE | 2016-09-09 19:15 | Diagnostic Imaging Report ---
Clinical indication: Patient with internal fixation of right femur. Exam: There are 3 limited intraoperative spot x-ray images of the right femur. Comparison: CT scan of the right lower extremity dated 09/08/2016. Findings and impression: There are interval postop changes with placement of intramedullary nail internally fixing the right intertrochanteric fracture. Again seen is medially displaced lesser trochanter fracture fragment. Hardware appears to be in good position and fracture fragments are otherwise near anatomical. Please see surgeon's report for more detail. Fluoroscopy was provided for surgeons and a total of 133.5 seconds and 10.18 mGy was provided. Dictated by: Dictated on workstation # [id number]
[2016-09-09 19:23] VITALS: BP 118/74
[2016-09-10 00:08] VITALS: BP 138/83
[2016-09-10] MEDS: morphine INJ 4 MG/ML 1 ML (VIAL/SYRINGE) IV PRN (01:52)
[2016-09-10] MEDS: RT-ALBUTEROL/IPRATROPIUM 3 ML (DUONEB) VIAL INH SCH ×6 (02:15→22:22)
[2016-09-10] MEDS: ceFAZolin INJECTION 1,000 MG in NS (IVPB) 50 ML IV SCH ×2 (03:13→12:27)
[2016-09-10 04:15] VITALS: BP 115/65
[2016-09-10] MEDS: NS IV 1000 ML 1,000 ML IV SCH ×2 (04:57→08:24)
[2016-09-10] MEDS: inSUlin ASPART (NovoLOG) 1 UNIT/0.01 ML (CHARGE PER UNIT) SC SCH ×4 (05:43→20:24)
[2016-09-10 06:07] LABS: BASOPHILS % (AUTO) 0 % (0-10); EOSINOPHILS # (AUTO) 0.3 10^3/uL (0.0-0.3); EOSINOPHILS % (AUTO) 3 % (0-10); LYMPHOCYTES # (AUTO) 2.6 X 10^3 (1.0-4.0); LYMPHOCYTES % (AUTO) 23 % (12-44); MEAN CORPUSCULAR HEMOGLOBIN 33 PG (25-34); MEAN CORPUSCULAR HGB CONC 35 G/DL (32-36); MEAN CORPUSCULAR VOLUME 95 FL (80-99); MEAN PLATELET VOLUME 11.3 FL (7.4-10.4); MONOCYTES % (AUTO) 18 % (0-12); NEUTROPHILS # (AUTO) 6.3 X 10^3 (1.8-7.8); NEUTROPHILS % (AUTO) 56 % (42-75); PLATELET COUNT 103 10^3/uL (130-400); RED BLOOD COUNT 2.87 10^6/uL (4.35-5.85); WHITE BLOOD COUNT 11.2 10^3/uL (4.3-11.0)
[2016-09-10 06:31] LABS: ALANINE AMINOTRANSFERASE 19 U/L (0-55); ALBUMIN 2.8 GM/DL (3.2-4.5); ANION GAP 8 MMOL/L (5-14); ASPARTATE AMINO TRANSFERASE 29 U/L (5-34); BILIRUBIN,TOTAL 1.8 MG/DL (0.1-1.0); BLOOD UREA NITROGEN 14 MG/DL (7-18); BUN/CREATININE RATIO 22; CALCIUM 8.1 MG/DL (8.5-10.1); CARBON DIOXIDE 20 MMOL/L (21-32); CHLORIDE 108 MMOL/L (98-107); CREATININE SERUM 0.64 MG/DL (0.60-1.30); GFR ESTIMATED > 60; GLUCOSE 119 MG/DL (70-105); POTASSIUM 4.1 MMOL/L (3.6-5.0); SODIUM 136 MMOL/L (135-145); TOTAL PROTEIN 5.4 GM/DL (6.4-8.2)
[2016-09-10 08:00] VITALS: BP 106/59
[2016-09-10] MEDS: PARoxetine 20 MG (PAXIL) TAB PO SCH (08:22)
[2016-09-10] MEDS: LOSARTAN 25 MG (COZAAR) TAB PO SCH (08:22)
[2016-09-10] MEDS: oxyCODONE/APAP 5/325MG (PERCOCET 5) TABLET PO PRN ×3 (08:22→20:48)
[2016-09-10] MEDS: NICOTINE 21 MG (NICODERM) PATCH TD SCH (08:22)
[2016-09-10] MEDS: MODAFINIL 100 MG TAB (PROVIGIL) NON-FORMULARY PO SCH (08:22)
[2016-09-10] MEDS: PARoxetine 10 MG (PAXIL) TAB PO SCH (08:22)
[2016-09-10] MEDS: PROPRANOLOL 20 MG (INDERAL) TABLET PO SCH ×3 (08:22→18:07)
[2016-09-10] MEDS: NICOTINE PATCH REMOVAL TP SCH (08:23)
[2016-09-10] MEDS: LACTULOSE SYRUP 10GM/15ML (ENULOSE) 30ML UDC PO SCH ×3 (08:23→18:07)
--- NOTE | 2016-09-10 11:12 | Anesthesia-General Post-Op ---
General Patient Condition Mental Status/LOC: Same as Preop Cardiovascular: Satisfactory Nausea/Vomiting: Absent Respiratory: Satisfactory Pain: Controlled Complications: Absent Post Op Complications Complications None Follow Up Care/Instructions Patient Instructions None needed. Anesthesia/Patient Condition Patient Condition Patient is doing well, no complaints, stable vital signs, no apparent adverse anesthesia problems. No complications reported per nursing. JADEN ROSE CRNA Sep 10, 2016 11:12
--- NOTE | 2016-09-10 11:27 | Progress Note-Hospitalist ---
Progress Note HPI/CC on Admission CC: Acute right hip fracture HPI: This is a 61-year-old white male snf patient that presents after a fall at the snf sustaining a right hip fracture. He has had a stroke in the past and is aphasic so minimal details are obtained from the patient. He does smoke and he is willing to apply a nicotine patch. Wheezes are noted on exam so Nebs are ordered. Progress Notes/Assess & Plan Date Seen 09/10/16 Time Seen by Provider: 10:30 Admission Dx/Process Assessment: Acute right hip fracture Diabetes mellitus insulin-dependent Current smoker with wheezing on exam Hypertension Remote stroke causing aphasia Diagonsis/Assessment & Plan Patient had uncomplicated surgery yesterday to repair hip Brief conversation due to aphasia Understands questions and nods appropriately Checked meds and labs AFVSS, Pleasant, O x 3, aphasic RRR, CTAB no edema Assessment: Acute right hip fracture s/p uncomplicated repair POD # 1 Mild post op anemia Diabetes mellitus insulin-dependent Current smoker with wheezing on exam 2 days ago so ordered Nebs but now more coarse on exam requiring HLIVF and Lasix 20mg IV now Hypertension Remote stroke causing aphasia Plan: Nebulizer treatments 4 times a day HLIVF and give Lasix Pain medication Nicoderm Patch Monitor labs NH on Monday BM regimen LIBIA GARCIA DO Sep 10, 2016 11:27
[2016-09-10 12:00] VITALS: BP 98/64
[2016-09-10] MEDS: FUROSEMIDE 40 MG/4 ML INJ (LASIX) IVP SCH (12:28)
[2016-09-10] MEDS: SENNA W/DOCUSATE (SENOKOT S) TABLET PO SCH ×2 (12:28→20:48)
--- NOTE | 2016-09-10 12:48 | Physical Therapy Evaluation ---
PT Evaluation-General Medical Diagnosis Admission Date Sep 08, 2016 at 08:42 Medical Diagnosis: s/p (R) hip ORIF Onset Date: Sep 08, 2016 Therapy Diagnosis Therapy Diagnosis: limited mobility Height/Weight Height (Feet): 5 Height (Inches): 7.00 Weight (Pounds): 173 Weight (Ounces): 7.0 Precautions Precautions/Isolations: Fall Prevention, Standard Precautions Referral Reason for Referral: Evaluation/Treatment Medical History Pertinent Medical History: COPD, CVA, DM, HTN Additional Medical History insulin dependent, aphasic, depression Current History Fell at the alf where he resides. Reviewed History: Yes Social History Home: Group Home Current Living Status: Prior/Core FIM Prior Level of Function Functional [place] Measure 0=Not Assessed/NA 4=Minimal Assistance 1=Total Assistance 5=Supervision or Setup 2=Maximal Assistance 6=Modified [place] 3=Moderate Assistance 7=Complete [place] Bed Mobility: 5 Transfers (B,C,W/C) (FIM): 5 Gait: 5 Per nursing, he was ambulatory in the NH, but they were unsure if he used a walker. PT Evaluation-Current Subjective Pt is only able to intermittently respond verbally. He was able to nod appropriately to yes/no questions. Pain Numeric Pain Scale: 5-Moderate Pain Location: Right Location Body Site: Hip Pain Description: Sharp Comment: Based on his appearance during transfer. Pt/Family Goals Return to NH Objective Patient Orientation: Non-Verbal/Aphasic Problem Solving: Poor Attachments: Oxygen, IV ROM/Strength ROM Upper Extremities WFL ROM Lower Extremities Limited (R) hip ROM tolerance. Strength Upper Extremities 3/5 for shoulders, 4/5 biceps/triceps. Strenght Lower Extremities Pt was able to perform (R) heel slide with 25% assist, unable to perform SLR or hip abduct without at least 80% assist. Neuromuscular (Tone, Coordination, Reflexes) Reflexes for (B) LEs are intact. Sensory Vision: Functional Hearing: Functional Sensation Right Upper Extremit: Intact Sensation Left Upper Extremity: Intact Sensation Right Lower Extremit: Intact Sensation Left Lower Extremity: Intact Transfers Functional [place] Measure 0=Not Assessed/NA 4=Minimal Assistance 1=Total Assistance 5=Supervision or Setup 2=Maximal Assistance 6=Modified [place] 3=Moderate Assistance 7=Complete [place] Transfers (B, C, W/C) (FIM): 2 Scootin Rollin Supine to/from Sit: 2 Sit to/from Stand: 2 Gait Mode of Locomotion: Walk Anticipated Mode of Locomotion: Walk Distance (FIM): 1=up to 49 ft Distance: 2 steps to the (R) Gait Level of Assist: 1 Gait Persons Needed: 1 Gait Assistive Device: FWW Comments/Gait Description Very weak and limited by (R) hip pain. Balance Sitting Static: Fair (Pt able to sit edge of bed, but during first attempt to stand he lost balance to (L).) Sitting Dynamic: Poor Standing Static: Poor Standing Dynamic: Poor Assessment/Needs Pt has poor (B) LE strength and diminished balance. Rehab Potential: Fair PT Short Term Goals Short Term Goals Time Frame: Sep 24, 2016 Transfers (B,C,W/C) (FIM): 4 Gait (FIM): 3 Distance (FIM): 3=150 ft Gait Level of Assist: 3 Gait Assistive Device: FWW PT Plan Problem List Problem List: Activity Tolerance, Safety, Balance, Gait, Transfer, Bed Mobility , ROM Treatment/Plan Treatment Plan: Continue Plan of Care Treatment Plan: Bed Mobility, Functional Activity Mavis, Functional Strength, Gait, Safety, Therapeutic Exercise, Transfers Treatment Duration: Sep 24, 2016 Frequency: At least 5-7 days/Wk (IRF) Estimated Hrs Per Day: 1 hour per day Patient and/or Family Agrees t: Yes Time/GCodes Time In: 0915 Time Out: 0940 Total Billed Treatment Time: 25 Total Billed Treatment efe [place] Codes Necessary: VU Dougherty PT Sep 10, 2016 12:48
[2016-09-10 16:00] VITALS: BP 100/62
--- NOTE | 2016-09-10 16:05 | Progress Note-Standard ---
Standard Progress Note Progress Notes/Assess & Plan Date Seen by Provider: Sep 10, 2016 Time Seen by Provider: 15:57 Progress/Assessment & Plan Lab, HGB 9.6 Dressing: clean and dry. Hip: gentle PROM to hip without undue discomfort, and with smooth motion. Assessment: Stable POD #1 with post op anemia. Plan: Continue Phy Therapy, Full weight bearing. Final Diagnosis R Hip intertroch Fx, S/P ORIF, Stable DIANNA MC MD Sep 10, 2016 16:05
[2016-09-10 19:41] VITALS: BP 110/64
[2016-09-11 00:10] VITALS: BP 104/61
[2016-09-11] MEDS: oxyCODONE/APAP 5/325MG (PERCOCET 5) TABLET PO PRN ×3 (01:47→17:56)
[2016-09-11] MEDS: morphine INJ 4 MG/ML 1 ML (VIAL/SYRINGE) IV PRN (01:47)
[2016-09-11] MEDS: RT-ALBUTEROL/IPRATROPIUM 3 ML (DUONEB) VIAL INH SCH ×6 (02:07→22:28)
[2016-09-11] MEDS: inSUlin ASPART (NovoLOG) 1 UNIT/0.01 ML (CHARGE PER UNIT) SC SCH ×4 (05:33→21:47)
[2016-09-11 06:19] LABS: BASOPHILS % (AUTO) 0 % (0-10); EOSINOPHILS # (AUTO) 0.3 10^3/uL (0.0-0.3); EOSINOPHILS % (AUTO) 4 % (0-10); LYMPHOCYTES # (AUTO) 2.5 X 10^3 (1.0-4.0); LYMPHOCYTES % (AUTO) 30 % (12-44); MEAN CORPUSCULAR HEMOGLOBIN 33 PG (25-34); MEAN CORPUSCULAR HGB CONC 35 G/DL (32-36); MEAN CORPUSCULAR VOLUME 94 FL (80-99); MEAN PLATELET VOLUME 11.5 FL (7.4-10.4); MONOCYTES # (AUTO) 1.6 X 10^3 (0.0-1.0); MONOCYTES % (AUTO) 19 % (0-12); NEUTROPHILS # (AUTO) 3.8 X 10^3 (1.8-7.8); NEUTROPHILS % (AUTO) 47 % (42-75); PLATELET COUNT 83 10^3/uL (130-400); RED CELL DISTRIBUTION WIDTH 13.6 % (10.0-14.5); WHITE BLOOD COUNT 8.2 10^3/uL (4.3-11.0)
[2016-09-11 06:38] LABS: ALANINE AMINOTRANSFERASE 17 U/L (0-55); ALBUMIN 2.8 GM/DL (3.2-4.5); ANION GAP 9 MMOL/L (5-14); ASPARTATE AMINO TRANSFERASE 30 U/L (5-34); BILIRUBIN,TOTAL 1.9 MG/DL (0.1-1.0); BLOOD UREA NITROGEN 15 MG/DL (7-18); BUN/CREATININE RATIO 24; CALCIUM 8.3 MG/DL (8.5-10.1); CARBON DIOXIDE 19 MMOL/L (21-32); CHLORIDE 107 MMOL/L (98-107); CREATININE SERUM 0.62 MG/DL (0.60-1.30); GFR ESTIMATED > 60; GLUCOSE 109 MG/DL (70-105); POTASSIUM 3.7 MMOL/L (3.6-5.0); SODIUM 135 MMOL/L (135-145); TOTAL PROTEIN 5.5 GM/DL (6.4-8.2)
[2016-09-11 08:00] VITALS: BP 118/58
[2016-09-11] MEDS: PARoxetine 20 MG (PAXIL) TAB PO SCH (08:22)
[2016-09-11] MEDS: LACTULOSE SYRUP 10GM/15ML (ENULOSE) 30ML UDC PO SCH ×3 (08:22→17:56)
[2016-09-11] MEDS: PARoxetine 10 MG (PAXIL) TAB PO SCH (08:22)
[2016-09-11] MEDS: NICOTINE 21 MG (NICODERM) PATCH TD SCH (08:23)
[2016-09-11] MEDS: SENNA W/DOCUSATE (SENOKOT S) TABLET PO SCH ×2 (08:23→21:47)
[2016-09-11] MEDS: NICOTINE PATCH REMOVAL TP SCH (08:23)
[2016-09-11] MEDS: LOSARTAN 25 MG (COZAAR) TAB PO SCH (08:23)
[2016-09-11] MEDS: FUROSEMIDE 40 MG/4 ML INJ (LASIX) IVP SCH (08:23)
[2016-09-11] MEDS: MODAFINIL 100 MG TAB (PROVIGIL) NON-FORMULARY PO SCH (08:23)
[2016-09-11] MEDS: PROPRANOLOL 20 MG (INDERAL) TABLET PO SCH ×3 (08:23→17:59)
--- NOTE | 2016-09-11 09:19 | Physical Therapy Daily Note ---
PT Daily Note-Current Subjective Pt is aphasic. No signs of pain or distress on arrival or during treatment. Appearance Awake and alert Mental Status Attachments: Oxygen Transfers Functional [place] Measure 0=Not Assessed/NA 4=Minimal Assistance 1=Total Assistance 5=Supervision or Setup 2=Maximal Assistance 6=Modified [place] 3=Moderate Assistance 7=Complete IndependenceIRFPAI Quality Coding Scale 6 Independent with activity with or without an assistive device 5 Patient requires set up or clean up by helper. Patient completes activity by themselves 4 Supervision or touching assist (CGA). [place] provide cues , steadying assist 3 The helper provides less than half the effort to complete the activity 2 The helper provides more than half the effort to complete the activity 1 Dependent. The helper does all the effort to complete an activity 7 Patient refused to complete or attempt activity 9 The patient did not perform the activity before the current illness or injury 88 Not attempted due to Medical conditions or safety concerns Transfers (B, C, W/C) (FIM): 2 Scootin Rollin Supine to/from Sit: 2 Sit to/from Stand: 3 Bed to/from Chair: 3 Pt was able to stand and bear wt with only minimal assist once standing. Stand pivot transfer required more assist due to pt not wanting to turn due to (R) hip pain while turning. Weight Bearing Weight Bearing Restriction: Weight Bearing/Tolerated Location Restriction: R LE Exercises Supine Ex: Heel Slides Supine Reps: 20 Assessment Good strength once standing. Pt resists transfers and bed mobility due to pain. PT Short Term Goals Short Term Goals Time Frame: Sep 24, 2016 Transfers (B,C,W/C) (FIM): 4 Gait (FIM): 3 Distance (FIM): 3=150 ft Gait Level of Assist: 3 Gait Assistive Device: FWW PT Plan Treatment/Plan Treatment Plan: Continue Plan of Care Treatment Plan: Bed Mobility, Functional Activity Mavis, Functional Strength, Gait, Safety, Therapeutic Exercise, Transfers Treatment Duration: Sep 24, 2016 Frequency: At least 5-7 days/Wk (IRF) Estimated Hrs Per Day: 1 hour per day Patient and/or Family Agrees t: Yes Time/GCodes Time In: 0840 Time Out: 0855 Total Billed Treatment Time: 15 Total Billed Treatment 1, fa 15 VU EDDY PT Sep 11, 2016 09:19
--- NOTE | 2016-09-11 11:52 | Progress Note-Hospitalist ---
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 He has had a stroke in the past and is aphasic so minimal details are obtained from the patient. He does smoke and he is willing to apply a nicotine patch. Wheezes are noted on exam so Nebs are ordered. Progress Notes/Assess & Plan Date Seen 09/11/16 Time Seen by Provider: 11:00 Admission Dx/Process Assessment: Acute right hip fracture Diabetes mellitus insulin-dependent Current smoker with wheezing on exam Hypertension Remote stroke causing aphasia Diagonsis/Assessment & Plan Brief conversation due to aphasia Understands questions and nods appropriately Checked meds and labs Gave Lasix yesterday and HLIVF due to mild congestion on exam and it appears he is doing ok and some of this could be his recent smoking cessation since admission AFVSS, Pleasant, O x 3, aphasic RRR, CTAB no edema Laboratory Tests 09/11/16 05:50 Assessment: Acute right hip fracture s/p uncomplicated repair POD # 2 Mild post op anemia stable and no indication for transfusion Diabetes mellitus insulin-dependent Current smoker with wheezing on exam 3 days ago so ordered Nebs but was more coarse on exam yesterday requiring HLIVF and Lasix 20mg IV yesterday and today Hypertension Remote stroke causing aphasia Thrombocytopenia Post op constipation Plan: Nebulizer treatments 4 times a day HLIVF and maintain Lasix Pain medication Nicoderm Patch Monitor labs NH on Monday BM regimen with LIBIA SCHULTZ DO Sep 11, 2016 11:52
[2016-09-11 15:42] VITALS: BP 92/55
--- NOTE | 2016-09-11 15:44 | Progress Note-Standard ---
Standard Progress Note Progress Notes/Assess & Plan Date Seen by Provider: Sep 11, 2016 Time Seen by Provider: 15:39 Progress/Assessment & Plan Lab, HGB 9.6 Dressing: clean and dry. Hip: gentle PROM to hip without undue discomfort, and with smooth motion. Lab: HGb change from 9.6 - 8.6 Assessment: Stable POD #2 with post op anemia. Plan: Continue Phy Therapy, Full weight bearing. Final Diagnosis Status post ORIF of hip intertrochanteric Fracture DIANNA MC MD Sep 11, 2016 3:44 pm
[2016-09-11 23:55] VITALS: BP 116/61
[2016-09-12] MEDS: oxyCODONE/APAP 5/325MG (PERCOCET 5) TABLET PO PRN ×2 (00:32→08:50)
--- NOTE | 2016-09-12 01:05 | OPERATIVE REPORT ---
PROCEDURE PHYSICIAN: DIANNA MC DATE OF PROCEDURE: 09/09/2016 PREOPERATIVE DIAGNOSIS: Right hip intertrochanteric fracture, with comminution up into the greater trochanter. POSTOPERATIVE DIAGNOSIS: Right hip intertrochanteric fracture, with comminution up into the greater trochanter. PROCEDURE: Surgery on right hip to lineup bone and fix with hardware (open reduction and internal fixation). Synthes TFN was used. FINDINGS: The comminution made it difficult to get the right rotation. He may be a little externally rotated in the final count strike, (s/l that this way) the shaft and base of the femoral neck were the most lined up based on x-rays taken parallel to the neck which was not the standard flat lateral but about 20 to 25 degrees short of that. Final count strike looked good and adequate. I did get some compression of the femoral neck onto the shaft using the compression technique for this TFN nail with helical screw. ANESTHESIA: General endotracheal. COMPLICATIONS: None. BLOOD LOSS: 250 SPECIMENS: None. PERIOPERATIVE MEDICATIONS: 2 grams of Ancef preoperatively. Also a gram of tranexamic acid preoperatively. He was given local anesthetic into the area of the incision, 35 mL of 0.5% Marcaine with epinephrine. NARRATIVE SUMMARY: The patient was taken to operating room number 1 after the standard nursing and anesthesia, preoperative identification, evaluation and counseling, the patient's right lower extremity was prepared and draped in the usual orthopedic fashion. Using a vertical drape, timeout was completed and a longitudinal incision was made proximal to the greater trochanteric after determining the nail length using x-ray prior to the prep. Soft tissue dissection was accomplished down to the tip of the greater trochanter and C-arm was used to pick a good entry point with a guidewire. Guidewire was into the femur and then the position was checked and it was then reamed proximally. We ended up reaming the shaft because the intramedullary canal was only 10 mm wide and we were putting a 10 mm wide Synthes screw in. It was reamed up to 11 1/2 mm. This went down adequately and nicely. Alignment was good. We checked ____ (s/l orthoginal) [place] and got a wire down the neck in the inferior portion up into the central portion of the head. X-rays were taken all around a 90 degree ark and placement looked good. This was followed by placing a helical screw in the standard technique which was then dynamized. Traction was taken off of the leg and the fracture was compressed using the dynamization and compression technique specified by the manufacture. Attention was turned to the knee and a single static and a single dynamic screw were placed in the distal holes. The patient was then awakened and returned to the recovery room in stable condition after closing the wounds in 2 layers. Job ID: [id number] Dictated Date: 09/09/2016 15:54:24 T[employer] Manager Date: 09/12/2016 00:44:08 / aguila [facility]
[2016-09-12] MEDS: RT-ALBUTEROL/IPRATROPIUM 3 ML (DUONEB) VIAL INH SCH ×3 (02:09→11:04)
[2016-09-12] MEDS: inSUlin ASPART (NovoLOG) 1 UNIT/0.01 ML (CHARGE PER UNIT) SC SCH ×2 (06:09→11:21)
[2016-09-12 08:00] VITALS: BP 105/56
[2016-09-12] MEDS: LACTULOSE SYRUP 10GM/15ML (ENULOSE) 30ML UDC PO SCH ×2 (08:49→12:40)
[2016-09-12] MEDS: PARoxetine 10 MG (PAXIL) TAB PO SCH (08:49)
[2016-09-12] MEDS: PARoxetine 20 MG (PAXIL) TAB PO SCH (08:49)
[2016-09-12] MEDS: MODAFINIL 100 MG TAB (PROVIGIL) NON-FORMULARY PO SCH (08:49)
[2016-09-12] MEDS: LOSARTAN 25 MG (COZAAR) TAB PO SCH (08:49)
[2016-09-12] MEDS: SENNA W/DOCUSATE (SENOKOT S) TABLET PO SCH (08:50)
[2016-09-12] MEDS: PROPRANOLOL 20 MG (INDERAL) TABLET PO SCH ×2 (08:50→12:43)
[2016-09-12] MEDS: FUROSEMIDE 40 MG/4 ML INJ (LASIX) IVP SCH (08:50)
[2016-09-12] MEDS: NICOTINE 21 MG (NICODERM) PATCH TD SCH (08:50)
[2016-09-12] MEDS: NICOTINE PATCH REMOVAL TP SCH (09:00)
--- NOTE | 2016-09-12 09:22 | Physical Therapy Daily Note ---
PT Daily Note-Current Subjective Patient agrees to PT. Pain Numeric Pain Scale: 5-Moderate Pain Location: Right Location Body Site: Thigh Pain Description: Acute Comment: FLACC Mental Status Patient Orientation: Non-Verbal/Aphasic Transfers Functional [place] Measure 0=Not Assessed/NA 4=Minimal Assistance 1=Total Assistance 5=Supervision or Setup 2=Maximal Assistance 6=Modified [place] 3=Moderate Assistance 7=Complete IndependenceIRFPAI Quality Coding Scale 6 Independent with activity with or without an assistive device 5 Patient requires set up or clean up by helper. Patient completes activity by themselves 4 Supervision or touching assist (CGA). [place] provide cues , steadying assist 3 The helper provides less than half the effort to complete the activity 2 The helper provides more than half the effort to complete the activity 1 Dependent. The helper does all the effort to complete an activity 7 Patient refused to complete or attempt activity 9 The patient did not perform the activity before the current illness or injury 88 Not attempted due to Medical conditions or safety concerns Transfers (B, C, W/C) (FIM): 2 Scootin Rollin Supine to/from Sit: 2 Sit to/from Stand: 2 Bed to/from Chair: 2 Patient unable to weight shift to right to advance left LE. requires SPT max assist Weight Bearing Weight Bearing Restriction: Full Weight Bearing Location Restriction: R LE Exercises Supine Ex: Ankle pumps, Heel Slides Supine Reps: 15 (AAROM) Seated Therapy Exercises: Ankle pumps, Long arc quads Seated Reps: 15 (AAROM) Assessment Patient is up in recliner with breakfast in place. Patient tolerated treatment and was able to follow simple direction. PT Short Term Goals Short Term Goals Time Frame: Sep 24, 2016 Transfers (B,C,W/C) (FIM): 4 Gait (FIM): 3 Distance (FIM): 3=150 ft Gait Level of Assist: 3 Gait Assistive Device: FWW PT Plan Treatment/Plan Treatment Plan: Continue Plan of Care Treatment Plan: Bed Mobility, Functional Activity Mavis, Functional Strength, Gait, Safety, Therapeutic Exercise, Transfers Treatment Duration: Sep 24, 2016 Frequency: At least 5-7 days/Wk (IRF) Estimated Hrs Per Day: 1 hour per day Patient and/or Family Agrees t: Yes Time/GCodes Time In: 820 Time Out: 843 Total Billed Treatment Time: 23 Total Billed Treatment 1 visit FA 15 min EX 8 min THEA HORNE PT Sep 12, 2016 09:22
[2016-09-12] MEDS ORDERED: SENN-20 PO (09:51)
[2016-09-12] MEDS ORDERED: OXYC-471 PO (09:51)
--- NOTE | 2016-09-12 09:52 | Discharge Summary-Hospitalist ---
Diagnosis/Chief Complaint Date of Admission Sep 08, 2016 at 08:42 Date of Discharge Discharge Date: Sep 12, 2016 Admission Diagnosis Assessment: Acute right hip fracture Diabetes mellitus insulin-dependent Current smoker with wheezing on exam Hypertension Remote stroke causing aphasia Discharge Diagnosis Assessment: Acute right hip fracture s/p uncomplicated repair POD # 3 Mild post op anemia stable and no indication for transfusion Diabetes mellitus insulin-dependent Current smoker with wheezing on exam 4 days ago so ordered Nebs but was more coarse on exam requiring HLIVF and Lasix 20mg IV for 2 days now resolved Hypertension Remote stroke causing aphasia Thrombocytopenia Post op constipation resolved Plan: Nebulizer treatments 4 times a day HLIVF and maintain Lasix Pain medication Nicoderm Patch Monitor labs [place] on Monday BM regimen with SSE Hospital course: patient had an uneventful hospital course. He feel at [place] sustained a hip fracture and that was repaired in an uncomplicated manner. Aphasia precluded any details throughout the hospital course. Constipation was resolved with meds and eventhough hgb did drop to 8.6 there was no indication for transfusion. He will be placed on Lovenox 40mg SQ daily for 14 days at [place]. Nebs ordered for wheezing on exam and smoking cessation was counseled. Lasix was given for mild fluid overload due to IVF which resolved the rales on exam. Overall prognosis poor given prior CVA and high risk for more falls and continued smoking. Discharge Summary Discharge Physical Examination Allergies: Coded Allergies: lisinopril (Verified Allergy, Unknown, 09/08/16) Vitals & I&Os Vital Signs Date Time Temp Pulse Resp B/P (MAP) Pulse Ox O2 Delivery O2 Flow Rate FiO2 09/12/16 11:04 98 Room Air 09/12/16 08:00 99.7 64 16 105/56 09/12/16 07:06 2.00 Hospital Course Labs (last 24 hrs) Laboratory Tests 09/11/16 15:54: Glucometer 119H 09/11/16 21:10: Glucometer 234H 09/12/16 05:32: Glucometer 128H 09/12/16 11:08: Glucometer 243H Microbiology 09/08/16 MRSA Screen - Final, Complete MRSA not isolated Pending Labs Laboratory Tests 09/12/16 05:32: Glucometer 128 09/12/16 11:08: Glucometer 243 Discharge Home Medications: Active Scripts Active Ferrous Sulfate 325 Mg Tablet 325 Mg PO DAILY 30 Days Senna-Time S Tablet (Sennosides/Docusate Sodium) 1 Each Tablet 1 Ea PO BID 30 Days Oxycodone-Acetaminophen 5-325 (Oxycodone HCl/Acetaminophen) 1 Each Tablet 1-2 Tab PO Q4H PRN Reported Tylenol (Acetaminophen) 325 Mg Tablet 650 Mg PO Q6H PRN TAKES 2 (325MG) TABLETS Novolog (Insulin Aspart) 100 Unit/1 Ml Susp 15 Unit SQ AC PRN Modafinil 200 Mg Tablet 200 Mg PO DAILY Lactulose 20 Gm/30 Ml Solution 30 Ml PO 0800,1200,1700 Propranolol HCl 20 Mg Tablet 20 Mg PO 0800,1200,1700 Glucophage (Metformin HCl) 1,000 Mg Tab 1,000 Mg PO BID Paroxetine HCl 30 Mg Tablet 30 Mg PO DAILY Losartan Potassium 25 Mg Tablet 25 Mg PO DAILY Aspir 81 (Aspirin) 81 Mg Tablet.dr 81 Mg PO DAILY Instructions to patient/family Please see electonic discharge instructions given to patient. Clinical Quality Measures DVT/VTE Risk/Contraindication: Risk Factor Score Per Nursin RFS Level Per Nursing on Admit: 4+=Very High LIBIA GARCIA DO Sep 12, 2016 09:52
[2016-09-12] MEDS ORDERED: FERR-74 PO (09:54)
[2016-09-12] MEDS ORDERED: FERROUS SULF 325 MG (IRON) TAB PO SCH (09:55)
[2016-09-12] MEDS ORDERED: ENOX40DI13 SQ (11:53)
[2016-09-12 13:35] VITALS: BP 105/56
== END 2016-09-12 13:37 | DRG 482 ==
LOC: ER 05:36 → 4TH 08:42
PROVIDERS: ADMIT Internal Medicine; ATTEND Internal Medicine
PROC: 0QS606Z Reposition Right Upper Femur with Intramedullary Internal Fixation Device, Open Approach (ICD-10-PCS; principal; 2016-09-09 12:45)
DX: S72.141A Displaced intertrochanteric fracture of right femur, initial encounter for closed fracture (principal); S72.111A Displaced fracture of greater trochanter of right femur, initial encounter for closed fracture; I10 Essential (primary) hypertension; E11.9 Type 2 diabetes mellitus without complications; I69.320 Aphasia following cerebral infarction; I69.321 Dysphasia following cerebral infarction; I69.322 Dysarthria following cerebral infarction; F32.9 Major depressive disorder, single episode, unspecified; G47.9 Sleep disorder, unspecified; J44.9 Chronic obstructive pulmonary disease, unspecified; E78.00 Pure hypercholesterolemia, unspecified; K59.09 Other constipation; F17.200 Nicotine dependence, unspecified, uncomplicated; Z79.4 Long term (current) use of insulin; W18.30XA Fall on same level, unspecified, initial encounter; Y92.128 Other place in nursing home as the place of occurrence of the external cause; D64.9 Anemia, unspecified; D69.6 Thrombocytopenia, unspecified
CPT/HCPCS: 36415; 51702; 70450; 71010; 72125; 72170; 73502; 73552; 73700; 80053; 81000; 82962; 83735; 84100; 85025; 85610; 85730; 86141; 86850; 86900; 86901; 87081; 93005; 94640; 94664; 94760; 96374; 96375

== ENCOUNTER 2016-09-12 12:48 | Inpatient (IN) | payer MEDICARE ==
[~2016-09-12] VITALS: Ht 170.2 cm; Wt 71.0 kg
[~2016-09-12 12:48] MED LIST: ACET325T38 PO; ASPI-586 PO; ENOX40DI13 SQ; FERR-74 PO; INSU100V16 SQ; LACT20SO2 PO; LOSA25TA21 PO; MODA200T39 PO; NFMET1000 PO; OXYC-471 PO; PARO30TA3 PO; PROP20TA5 PO; SENN-20 PO
[2016-09-12 13:45] VITALS: BP 107/66
[2016-09-12] MEDS: RT-ALBUTEROL/IPRATROPIUM 3 ML (DUONEB) VIAL INH SCH ×3 (15:14→22:27)
[2016-09-12] MEDS: ENOXAPARIN 40 MG/0.4 ML (LOVENOX) SYR SC SCH (15:16)
[2016-09-12] MEDS: oxyCODONE/APAP 5/325MG (PERCOCET 5) TABLET PO PRN (15:17)
--- NOTE | 2016-09-12 16:09 | Occupational Therapy Eval ---
OT Evaluation-General/PLF Medical Diagnosis Admission Date Sep 12, 2016 at 14:21 Medical Diagnosis: Right hip fx s/p ORIF Onset Date: Sep 08, 2016 Therapy Diagnosis Therapy Diagnosis: Weakness Height/Weight Height (Feet): 5 Height (Inches): 7.00 Weight (Pounds): 173 Weight (Ounces): 7.0 Precautions Precautions/Isolations: Fall Prevention, Standard Precautions Weight Bear Status Weight Bearing Restriction: Weight Bearing/Tolerated Referral Physician: Dr. Mcrae Referral Reason: Activity Tolerance, Self Care, Evaluation/Treatment, Strengthening/ROM Medical History Pertinent Medical History: COPD, CVA, DM, HTN Additional Medical History Aphasia, Dysphagia, chronic constipation, depression Current History Pt. lives with niece. Had CVA and went to [place] for skilled treatment. Fell sustaining hip fx. Transferred to rehab to gain strength, and return to niece' s home. Social History Current Living Status: Other Family Pt. aphasic and unable to answer questions. No family here at this time. Unable to determine what pt's previous home set up was. ADL-Prior Level of Function ADL PLOF Comments Unable to determine prior level of function. Will speak to niece when available. DME/Equipment Comments Pt. is unable to state what equipment he has or uses at this time. OT Current Status Subjective Pt. will continually nod head during treatment. Does indicate that he is having pain, but unable to give a pain level. Nursing gives pt. pain medication. Appearance Pt. in bed. Alert during evaluation. Mental Status/Objective Patient Orientation: Unable to Assess Pt. aphasic. Does have a few words, but unintelligible most of the time. Difficult to understand. Current Hand Dominance: Left Upper Extremity ROM Pt. is able to follow the cue of raising his arms. Demonstrates 90 degrees of shoulder flexion in left UE, and 45 degrees of right shoulder flexion. Upper Extremity Coordination Unable to follow cues to test. Is able to hold a spoon. Upper Extremity Strength Unable to follow cues to test. ADL-Treatment Functional [place] Measure 0=Not Assessed/NA 4=Minimal Assistance 1=Total Assistance 5=Supervision or Setup 2=Maximal Assistance 6=Modified [place] 3=Moderate Assistance 7=Complete IndependenceIRFPAI Quality Coding Scale 6 Independent with activity with or without an assistive device 5 Patient requires set up or clean up by helper. Patient completes activity by themselves 4 Supervision or touching assist (CGA). [place] provide cues , steadying assist 3 The helper provides less than half the effort to complete the activity 2 The helper provides more than half the effort to complete the activity 1 Dependent. The helper does all the effort to complete an activity 7 Patient refused to complete or attempt activity 9 The patient did not perform the activity before the current illness or injury 88 Not attempted due to Medical conditions or safety concerns Eating (FIM): 4 (Pt. requires frequent cues and min assist at times to swallow his food, and to find his food on plate. Will stir his tea constantly without cues to move on, or will swirl meat on plate without cues to bring to his mouth. Will often masticate without swallowing, and requires cues to take drinks.) Eating (QC): 4 Bathing (FIM): 3 (Pt. needs constant CGA on side of bed to bathe self for balance. Requires assistance to bathe bilateral feet, and to bathe rear abelardo area in stance.) Shower/Bathe Self (QC): 2 Lower Body Dressing (FIM): 2 (Max assist to doff/don socks.) Lower Body Dressing (QC): 2 On/Off Footwear (QC): 2 Transfers (B, C, W/C) (FIM): 2 (Max assist stand pivot. ) Other Treatments Co-treat with PT/OT due to pt's fatigue level, and need for skilled assistance. PT focused on balance side of bed, dynamic and static balance, transfers, foot placement/strength, and sequencing. OT focused on feeding assessment while seated side of bed (PT worked on postural control during this task), ADL tasks with bathing, sequencing and following directions, and attention to task. Pt. fatigues easily, and at one point began to fall asleep. Pt. aphasic, and is unable to fully communicate. Will often nod head yes even if the answer is no. Will fully speak with family when present regarding previous set up, and discharge goals. Education OT Patient Education: Correct positioning, Modified ADL techniques, Progress toward Goal/Update tx plan, Purpose of tx/functional activities, Reviewed precautions, Rehab process, Transfer techniques Teaching Recipient: Patient Teaching Methods: Demonstration, Discussion Response to Teaching: Verbalize Understanding, Return Demonstration OT Short Term Goals Short Term Goals Time Frame: Sep 26, 2016 Eating(FIM): 5 Grooming(FIM): 4 Bathing(FIM): 4 Upper Body Dressing(FIM): 4 Lower Body Dressing(FIM): 4 Toileting(FIM): 3 Transfers (B,C,W/C) (FIM): 3 Toilet/Commode Transfer(FIM): 3 Shower Transfer(FIM): 3 Additional Short Term Goals: 1-Demonstrate ADL Tasks, 2-Verbalize Understanding , 3-ImproveStrength/Mavis 1=Demonstrate adherence to instructed precautions during ADL tasks. 2=Patient will verbalize/demonstrate understanding of assistive devices/ modifications for ADL. 3=Patient will improve strength/tolerance for activity to enable patient to perform ADL's. OT Spooling Machine Operator Goals Spooling Machine Operator Goals Time Frame: Oct 10, 2016 Eating (FIM): 5 Eating (QC): 5 Groomin Oral Hygiene (QC): 5 Bathing(FIM): 4 Shower/Bathe Self (QC): 4 Upper Body Dressing(FIM): 5 Upper Body Dressing (QC): 5 Lower Body Dressing(FIM): 4 Lower Body Dressing (QC): 4 On/Off Footwear (QC): 4 Toileting(FIM): 5 Toileting Hygiene (QC): 4 Transfers (B,C,W/C) (FIM): 5 Toilet/Commode Transfer(FIM): 5 Toilet/Commode Transfer (QC): 4 Shower Transfer(FIM): 4 Additional Goals: 1-Demonstrate ADL Tasks, 2-Verbalize Understanding, 3- ImproveStrength/Mavis 1=Demonstrate adherence to instructed precautions during ADL tasks. 2=Patient will verbalize/demonstrate understanding of assistive devices/ modifications for ADL. 3=Patient will improve strength/tolerance for activity to enable patient to perform ADL's. OT Education/Plan Problem List/Assessment Assessment: Decreased Activ Tolerance, Decreased UE Strength, Dependent Transfers, Impaired Bed Mobility, Impaired Cognition, Impaired Coordination, Impaired Funct Balance, Impaired I ADL's, Impaired Self-Care Skills, Restricted Funct UE ROM Discharge Recommendations Plan/Recommendations: Continue POC Therapy D/C Recommendations: Home w/ Family Support, Occupational Therapy Home Care, Scheduled Assistance Comment Will have better idea of equipment needs or set up needs for home when family is available to speak to. Treatment Plan/Plan of Care Treatment,Training & Education: Yes Patient would benefit from OT for education, treatment and training to promote independence in ADL's, mobility, safety and/or upper extremity function for ADL' s. Plan of Care: ADL Retraining, Caregiver Training, Cognitive Retraining, Functional Mobility, UE Funct Exercise/Act, UE Neuromus Re-Ed/Coord Treatment Duration: Oct 10, 2016 Frequency: At least 5-7 days/Wk (IRF) Estimated Hrs Per Day: 1.5 hours per day Agreement: Yes Rehab Potential: Fair Time/GCodes Start Time: 14:35 Stop Time: 16:05 Total Time Billed (hr/min): 90 Billed Treatment Time [id number]- OT eval 1, EVH x 10minutes 1200-0999 Co-treat with PT (Please see above for designated roles) ADL x 45minutes, FA x 35minutes ANNALISE SMITH OT Sep 12, 2016 16:09
[2016-09-12] MEDS: inSUlin ASPART (NovoLOG) 1 UNIT/0.01 ML (CHARGE PER UNIT) SC SCH (16:11)
[2016-09-12] MEDS: metFORMIN 500 MG (GLUCOPHAGE) TAB PO SCH (16:11)
[2016-09-12] MEDS: LACTULOSE SYRUP 10GM/15ML (ENULOSE) 30ML UDC PO SCH (16:11)
--- NOTE | 2016-09-12 16:12 | Physical Therapy Evaluation ---
PT Evaluation-General Medical Diagnosis Admission Date Sep 12, 2016 at 14:21 Medical Diagnosis: right hip fx Onset Date: Sep 10, 2016 Therapy Diagnosis Therapy Diagnosis: weakness; abn gait Height/Weight Height (Feet): 5 Height (Inches): 7.00 Weight (Pounds): 173 Weight (Ounces): 7.0 Precautions Precautions/Isolations: Fall Prevention, Standard Precautions Weight Bear Status Weight Bearing Restriction: Full Weight Bearing Location Restriction: R LE Referral Physician: adriano Reason for Referral: Evaluation/Treatment Medical History Pertinent Medical History: COPD, CVA, DM, HTN Additional Medical History Nurse reports hx of TBI as well. Current History This is a 61-year-old white male [facility] patient that presents after a [facility] sustaining a right hip fracture. He has had a stroke in the past and is aphasic. Post ORIF right hip. Reviewed History: Yes Social History Home: Care Home Chart notes that pt was recently admitted to [facility] post CVA, but his and his family plan is for him to discharge home to his Niece's home when completed stay on ARU> Prior/Core FIM Prior Level of Function Functional [place] Measure 0=Not Assessed/NA 4=Minimal Assistance 1=Total Assistance 5=Supervision or Setup 2=Maximal Assistance 6=Modified [place] 3=Moderate Assistance 7=Complete [place] Report indicates that he was ambulatory prior but exact function not obtained this visit as pt aphasic and unable to provide details. Pt nods but not sure of accuracy of information. PT Evaluation-Current Subjective Pt seems agreeable to PT. Nods to agree that he understands what therapy is. Pain Numeric Pain Scale: 5-Moderate Pain Location: Right Location Body Site: Hip Comment: [facility] Pt/Family Goals Chart indicates the pt and family plan for pt to discharge to his niece's home upon completion of ARU stay. Objective Patient Orientation: Person, Unable to Assess Problem Solving: Fair ROM/Strength ROM Lower Extremities Left LE is WFL with AAROM; right LE is functional for transfers in/out of bed but he is resistant to movement due to pain. ROM is limited at this time. Strenght Lower Extremities Did not fully assess as pt had difficulty following cues to participate in Manual muscle testing. Pt was able to stand and bear weight on both legs. Integumentary/Posture Integumentary Refer to nursing notes. Posture Tends to sit with rounded shoulders and head down, however is able to achieve normal and symmetrical posture. Neuromuscular (Tone, Coordination, Reflexes) Tone noted left LE with intentional or stressful movement such as transfers; diminshed coordination B LE's. Sensory Vision: Functional Hearing: Functional Hand Dominance: Left (pt indicates he is left handed.) Sensation Lower Extremities Unsure of sensation; appears intact and functional but pt does not appear to be able to give accurate information with testing. Transfers Functional [place] Measure 0=Not Assessed/NA 4=Minimal Assistance 1=Total Assistance 5=Supervision or Setup 2=Maximal Assistance 6=Modified [place] 3=Moderate Assistance 7=Complete IndependenceIRFPAI Quality Coding Scale 6 Independent with activity with or without an assistive device 5 Patient requires set up or clean up by helper. Patient completes activity by themselves 4 Supervision or touching assist (CGA). [place] provide cues , steadying assist 3 The helper provides less than half the effort to complete the activity 2 The helper provides more than half the effort to complete the activity 1 Dependent. The helper does all the effort to complete an activity 7 Patient refused to complete or attempt activity 9 The patient did not perform the activity before the current illness or injury 88 Not attempted due to Medical conditions or safety concerns Transfers (B, C, W/C) (FIM): 2 Scootin Roll Left to Right (QC): 2 Supine to/from Sit: 2 Sit to/from Stand: 2 Sit to Lying (QC): 2 Lying to Sitting/Side of Bed(Q: 2 Sit to Stand (QC): 2 Chair/Txx-yl-Mwyvj Xfer(QC): 2 (dance style with max assist; unable to use a FWW this visit ) Car Transfer (QC): 88 Pt requires near constant cues for transfer and sequencing and need cues to initiate as well. Gait Does the Patient Walk?: Yes Mode of Locomotion: Walk Anticipated Mode of Locomotion: Walk Gait (FIM): 0 Distance (FIM): 0=does not occure Walk 10 feet (QC): 88 Walk 50 ft with 2 Turns(QC): 88 Walk 150 ft (QC): 88 Walking 10ft/uneven surface-QC: 88 Comments/Gait Description Pt unable to unweight and weight shift to perform ambulation at this time. Wheelchair Training Does the Pt Use a Wheelchair?: No Wheelchair (FIM): 0 Stairs Stairs (FIM): 0 (unable to take a step to attempt.) 1 Step (curb) (QC): 88 4 Steps (QC): 88 12 Steps (QC): 88 If not tested on admit;explain Unable to take a step to even attempt Balance Sitting Static: Fair Sitting Dynamic: Fair Standing Static: Fair Standing Dynamic: Fair Picking up an Object (QC): 88 Special Test Comments Delayed anticipatory response but it is present. Treatment Co Treat with OT due to the need for near 100% cuing to complete all tasks. Worked on functional transfers, up to chair and seated EOB. PT addressed seated static and dynamic balance activities with verbal and tactile cues while OT addressed ADL"s and self care. Pt needed cues for safety awareness and min assist with seated balance as he performed dynamic UE activities to bathe himself. Pt tends to perseverate on 1 task, such as wash the same area of his leg over and over and required skilled to cues and tactile cues to re direct. PT focused on core control and awareness during dynamic mobility. Also worked on functional transfers, pt unable to take steps to transfer and ultimately requires max asssit at this time. PT/OT addressed overall functional care and mobility jointly as pt required heavy cues as well as heavy tactile/physical assist. Pt responded well to work together to fully treat his individual needs. Assessment/Needs Pt presents post fall with right hip fracture that has significantly impaired his mobility. In addition, he recently experienced a CVA and was receiving skilled PT intervention for htis. He currently has difficulty initiating and staying on task and needs much assist with functional mobility and self care. He may benefit from co treatment as well as individual treatment initially due to the high need of care and need for intensive skilled intervnetion. He needs assist with all functional mobility and demonstrates gross functional weakness that impairs his mobility status. Pt's plans are to discharge to his Niece's home and he will need to be able to mobilize with less assist to manage in her home. Eval of moderate intensity due to : Hx of TBI, recently in a NH, recent CVA; areas affected: Pain, LE weakness; decreased ability to transfer; decreased problem solving; changing characteristic due to recent hip fx as well as recent CVA. Rehab Potential: Guarded Post Rehab Potential-Barriers: Physician noted poor rehab potential in her acute documentation. PT Short Term Goals Short Term Goals Time Frame: Sep 26, 2016 Transfers (B,C,W/C) (FIM): 4 Gait (FIM): 2 Distance (FIM): 5=521-73 ft Gait Assistive Device: FWW PT [facility] Goals [facility] Goals PT [facility] Goals Time Frame: Oct 10, 2016 Transfers (B,C,W/C) (FIM): 5 Sit to Lying (QC): 5 Lying-Sitting on Side/Bed(QC): 5 Sit to Stand (QC): 5 Roll Left to Right (QC): 5 Chair/Pzz-ct-Llnds Xfer(QC): 5 Car Transfer (QC): 5 Does the Patient Walk: Yes Gait (FIM): 5 Gait distance (FIM): 3=150 ft Walk 10 feet (QC): 5 Walk 10ft-Uneven Surface(QC): 5 Walk 50ft with 2 Turns (QC): 5 Walk 150 ft (QC): 5 Gait Level of Assist: 5 Gait Assistive Device: FWW Does the Pt use WC or Scooter?: No Stairs (FIM): 5 # of Steps: 12 1 Step (curb) (QC): 5 4 Steps (QC): 5 12 Steps (QC): 5 Picking up an Object (QC): 88 All goals are set with the pt to be at a supervision level upon discharge; concern that he may not be mod indep due to need for cues and decreased safety awareness. PT Plan Problem List Problem List: Activity Tolerance, Functional Strength, Safety, Balance, Gait, Transfer, Bed Mobility, ROM Treatment/Plan Treatment Plan: Continue Plan of Care Treatment Plan: Bed Mobility, Education, Functional Activity Mavis, Functional Strength, Group Therapy, Gait, Safety, Therapeutic Exercise, Transfers Treatment Duration: Oct 10, 2016 Frequency: At least 5-7 days/Wk (IRF) Estimated Hrs Per Day: 1.5 hours per day Patient and/or Family Agrees t: Yes Safety Risks/Education Patient Education: Transfer Techniques, Safety Issues Teaching Recipient: Patient Teaching Methods: Demonstration, Discussion Response to Teaching: Reinforcement Needed Discharge Recommendations Therapy D/C Recommendations: Physical Therapy Home Care Time/GCodes Time In: 1425 (1445) Time Out: 1435 (1605) Total Billed Treatment Time: 90 Total Billed Treatment visit EVM 10 FA 80 Co treat with OT, see above for details. AISHWARYA ANDERSON PT Sep 12, 2016 16:12
[2016-09-12 17:25] VITALS: BP 89/56
[2016-09-12] MEDS: PROPRANOLOL 20 MG (INDERAL) TABLET PO SCH (17:25)
[2016-09-12] MEDS: SENNA W/DOCUSATE (SENOKOT S) TABLET PO SCH (20:38)
[2016-09-12] MEDS ORDERED: NICOTINE 21 MG (NICODERM) PATCH ONE (22:08)
[2016-09-12] MEDS: NICOTINE 21 MG (NICODERM) PATCH TD SCH (22:15)
[2016-09-13] MEDS: RT-ALBUTEROL/IPRATROPIUM 3 ML (DUONEB) VIAL INH SCH ×5 (02:32→21:56)
[2016-09-13 05:00] VITALS: BP 139/62
[2016-09-13] MEDS: FERROUS SULF 325 MG (IRON) TAB PO SCH (06:26)
[2016-09-13] MEDS: metFORMIN 500 MG (GLUCOPHAGE) TAB PO SCH ×2 (06:27→16:28)
[2016-09-13] MEDS: inSUlin ASPART (NovoLOG) 1 UNIT/0.01 ML (CHARGE PER UNIT) SC SCH ×3 (06:54→16:29)
[2016-09-13 07:51] LABS: BASOPHILS % (AUTO) 0 % (0-10); EOSINOPHILS # (AUTO) 0.4 10^3/uL (0.0-0.3); EOSINOPHILS % (AUTO) 4 % (0-10); LYMPHOCYTES # (AUTO) 2.9 X 10^3 (1.0-4.0); LYMPHOCYTES % (AUTO) 33 % (12-44); MEAN CORPUSCULAR HEMOGLOBIN 33 PG (25-34); MEAN CORPUSCULAR HGB CONC 35 G/DL (32-36); MEAN CORPUSCULAR VOLUME 95 FL (80-99); MEAN PLATELET VOLUME 10.3 FL (7.4-10.4); MONOCYTES # (AUTO) 1.3 X 10^3 (0.0-1.0); MONOCYTES % (AUTO) 15 % (0-12); NEUTROPHILS # (AUTO) 4.1 X 10^3 (1.8-7.8); NEUTROPHILS % (AUTO) 48 % (42-75); PLATELET COUNT 155 10^3/uL (130-400); RED BLOOD COUNT 2.52 10^6/uL (4.35-5.85); RED CELL DISTRIBUTION WIDTH 14.5 % (10.0-14.5); WHITE BLOOD COUNT 8.7 10^3/uL (4.3-11.0)
[2016-09-13 08:14] LABS: ALANINE AMINOTRANSFERASE 18 U/L (0-55); ALBUMIN 2.9 GM/DL (3.2-4.5); ANION GAP 10 MMOL/L (5-14); ASPARTATE AMINO TRANSFERASE 33 U/L (5-34); BILIRUBIN,TOTAL 1.7 MG/DL (0.1-1.0); BLOOD UREA NITROGEN 22 MG/DL (7-18); BUN/CREATININE RATIO 32; CALCIUM 8.7 MG/DL (8.5-10.1); CARBON DIOXIDE 21 MMOL/L (21-32); CHLORIDE 105 MMOL/L (98-107); CREATININE SERUM 0.68 MG/DL (0.60-1.30); GFR ESTIMATED > 60; GLUCOSE 103 MG/DL (70-105); POTASSIUM 3.5 MMOL/L (3.6-5.0); SODIUM 136 MMOL/L (135-145); TOTAL PROTEIN 6.1 GM/DL (6.4-8.2)
[2016-09-13] MEDS: MODAFINIL 100 MG TAB (PROVIGIL) NON-FORMULARY PO SCH (08:16)
[2016-09-13] MEDS: PARoxetine 10 MG (PAXIL) TAB PO SCH (08:16)
[2016-09-13] MEDS: SENNA W/DOCUSATE (SENOKOT S) TABLET PO SCH ×2 (08:16→20:54)
[2016-09-13] MEDS: PARoxetine 20 MG (PAXIL) TAB PO SCH (08:16)
[2016-09-13] MEDS: ASPIRIN E.C. 81 MG (ECOTRIN) TAB PO SCH (08:17)
[2016-09-13] MEDS: NICOTINE 21 MG (NICODERM) PATCH TD SCH (08:17)
[2016-09-13] MEDS: oxyCODONE/APAP 5/325MG (PERCOCET 5) TABLET PO PRN ×3 (08:18→16:30)
--- NOTE | 2016-09-13 08:33 | HISTORY AND PHYSICAL ---
DATE OF SERVICE: 09/12/2016 CHIEF COMPLAINT: The patient is aphasic. HISTORY OF PRESENT ILLNESS: The patient is a 61-year-old male recently [facility] to a prison due to decline in his functional independence following a stroke who is on a mechanical soft diet and thickened liquids who was reported to have been ambulatory prior to fall with a resulting right hip fracture but has had a decline in functional mobility since. He is aphasic due to a stroke. He is able to follow simple commands. He has a residual left-sided weakness, dysphagia and aphasia secondary to his stroke. He was followed by orthopedics and the hospitalist service while on surgical floor and had ORIF with a TFN on 09/09/[address] Mcrae. Currently he requires assistance for his ADLs and mobility skills.He is currently max assist for transfers and has difficulty bearing weight on lower extremities.He is max assist for bed mobility.He is min assist for eating Max assist for dressing.Mod assist for bathing.He is able to follow simple one step commands for the most part but has both expressive and receptive aphasia. PAST MEDICAL HISTORY: Hypertension, stroke with residual aphasia, dysphagia and left-sided weakness on modified consistency diet, insulin dependent diabetes mellitus, insomnia, depression, tobaccoism.COPD PAST SURGICAL HISTORY: As per above. ALLERGIES: LISINOPRIL. FAMILY HISTORY: Noncontributory. SOCIAL HISTORY: Had been residing in [facility] until recent admission to prison. PCP: Michaela Campos at [facility]. PLAN: To be discharged to his niece's home in [facility] upon completion of rehab program. REVIEW OF SYSTEMS: A 10-point review of systems significant for left-sided weakness, swallowing difficulty, aphasia, hip pain. MEDICATIONS: Nicotine patch 21 mg q. day, losartan 25 mg p.o. q. day, Provigil 200 mg p.o. q. day, Paxil 30 mg p.o. q. day, ASA 81 mg p.o. q. day, ferrous sulfate 325 mg p.o. q. day, Senokot S 1 tablet p.o. b.i.d., lactulose 20 gm p.o. t.i.d., NovoLog insulin 15 units with meals subcutaneous, Glucophage 1000 mg p.o. b.i.d., Lovenox 40 mg subcu q. day for DVT prophylaxis, DuoNeb treatments q. 4 hours and q. 2 hours p.r.n. shortness of breath or wheezing, Percocet 5/325 1-2 tablets p.o. q. 4 hours p.r.n. severe pain, Tylenol 325 mg p.o. q. 6 hours p.r.n. mild pain or fever. PHYSICAL EXAMINATION: GENERAL: Significant for a male lying in bed in no acute distress, largely mute. He does speak but it is not comprehendible. VITAL SIGNS: Blood pressure 89/56, respirations 20, pulse 66, he is afebrile, O2 sat 92% on room air. HEENT: Vision and hearing appear functional but the patient is aphasic so difficult to fully determine. No oral lesion is noted. NECK: Supple without mass. HEART: Regular rhythm. LUNGS: Clear. ABDOMEN: Soft, nontender. Bowel sounds present. EXTREMITIES: Trace edema right ankle, no calf tenderness. MUSCULOSKELETAL: He has a functional PROM all 4 limbs. . Strength is diminished to both lower legs, difficult to fully determine. The patient has difficulty when standing to bear weight on legs. He is left hand dominant. He is able to hold a spoon but has difficulty with following manual muscle testing exam. Sensation appears grossly intact to touch. Cognition difficult to fully assess.He has mild left HP and severe aphasia both expressive and receptive,He has a mild left labial droop.Dysphagia documented. IMPRESSION: 1. Ambulatory dysfunction secondary to fall with right hip fracture, intertrochanteric fracture with comminution status post TFN, open reduction internal fixation right hip, Dr. Mcrae. 2. Tobaccoism, currently abstaining. 3. Diabetes mellitus, insulin dependent. 4. Mild postoperative anemia. 5. Hypertension, controlled with medication. 6. Late effects of stroke with left-sided weakness, aphasia and dysphagia. 7. Thrombocytopenia. 8. Postoperative constipation, treated. 9. COPD PLAN: The patient is admitted to IRU for a comprehensive program of inpatient orthopedic rehabilitation with goal of maximizing level of functional dependence prior to discharge home with his niece in [facility] taking into consideration his Prior level of function due to previous stroke.. The patient will have PT and OT 90 minutes per day each discipline, 5 days a week for 2 weeks when not being seen by speech therapy for gait, strengthening, conditioning, energy conservation, ADLs and any patient family caregiver training as necessary, any adaptive equipment training as necessary, speech therapy to do ongoing speech and swallow assessment and treat as indicated 3-5 times a week for 30-45 minutes per session for 2 weeks. Rehabilitation nursing to assist with bowel, bladder, skin, wound care, medication administration, pain management. resident services manager to assist with discharge planning, community reentry . Follow up with Hospitalist service and orthopedics as per their schedule. Recheck blood pressure, may need to adjust medications as he had a somewhat hypotensive reading upon admission. Check labs in a.m. Continue Lovenox subcu for DVT prophylaxis. Estimated length of stay 2 weeks. REHAB PROGNOSIS: Appears fair for goal of enhancing level of functional independence, hopefully to standby assist for mobility and some of his ADLs prior to discharge home with his niece so as to lessen the burden of the caregivers. DIET: Mechanically altered, thickened liquids. CODE STATUS: Full code. Job ID: [id number] DocumentID: [id number] Dictated Date: 09/12/2016 20:57:30 Elephant Keeper Date: 09/13/2016 08:33:04 Dictated By: STEPHON ZAMORA MD [facility]
--- NOTE | 2016-09-13 08:42 | PM&R Post Admission Assessment ---
Post Admission Physician Asses The preadmission screen agrees with the post admission assessment that the patient is a good candidate for inpatient rehabilitation. The patient will have a comprehensive program of inpatient rehabilitation with a goal of maximizing level of functional independence prior to discharge home with his niece. The patient will have PT/OT ninety minutes per day, each discipline, five days a week for gait, strengthening, conditioning, balance, ADLs, any patient/family/caregiver training as necessary. Speech therapy to do cognitive speech and swallow assessment and treat 3 to 5 times a week for 2 weeks. Rehabilitation nursing to assist with bowel, bladder, skin, wound care, medication administration, pain management. Marine Diver to assist with discharge planning, community reentry. SCD's for DVT prophylaxis. He appears to be well motivated to participate in three hours of therapy a day. He should be able to tolerate three hours of therapy a day from a medical and orthopedic standpoint. He should benefit from the three hours of therapy a day. He has a reasonable discharge plan, reasonable discharge rehabilitation goals and a supportive family. He has various comorbidities that need to be closely monitored with medications and treatments adjusted on a daily basis as needed. These include: Prior stroke with aphasia and dysphagia HX of TBI Hypokalemia Postop anemia HTN Tobaccoism Insulin Dependent DM Barriers to discharge for this patient who had been independent prior to this are for him to be modified independent to supervision for ADLs and mobility skills prior to discharge home with his niece, so as to lessen the burden of the caregivers. Risks for this patient include: 1. Fall 2. Fracture 3. DVT 4. Pulmonary embolism 5. Wound infection 6. Skin breakdown 7. Contractures 8. Poorly controlled pain 9. Urinary retention 10. UTI 11. Respiratory infection 12. Aspiration 13. Poorly controlled HTN 14. Poorly controlled DM 15. recurrent stroke Estimated Length of Stay: 18 days Prognosis: Rehab prognosis appears good for goal of discharge home with niece modified independent to supervision for mobility skills. and at supervision to min assist for adls taking into consideration his PLOF due to prior stroke STEPHON ZAMORA MD Sep 13, 2016 08:42
[2016-09-13] MEDS ORDERED: KCL 20 MEQ TAB (K-DUR) PO NR (08:45)
--- NOTE | 2016-09-13 08:57 | Physical Therapy Daily Note ---
PT Daily Note-Current Subjective Patient in recliner pre tx, agrees to PT. He is non-verbal but shakes his head yes when asked if he has enough pain to warrant getting pain meds. Nurse notified. Appearance Patient in recliner post tx with nurse call, chair alarm, tray, all needs met. Mental Status Patient Orientation: Unable to Assess Transfers Functional [place] Measure 0=Not Assessed/NA 4=Minimal Assistance 1=Total Assistance 5=Supervision or Setup 2=Maximal Assistance 6=Modified [place] 3=Moderate Assistance 7=Complete IndependenceIRFPAI Quality Coding Scale 6 Independent with activity with or without an assistive device 5 Patient requires set up or clean up by helper. Patient completes activity by themselves 4 Supervision or touching assist (CGA). [place] provide cues , steadying assist 3 The helper provides less than half the effort to complete the activity 2 The helper provides more than half the effort to complete the activity 1 Dependent. The helper does all the effort to complete an activity 7 Patient refused to complete or attempt activity 9 The patient did not perform the activity before the current illness or injury 88 Not attempted due to Medical conditions or safety concerns Transfers (B, C, W/C) (FIM): 2 Sit to/from Stand: 2 Bed to/from Chair: 2 Wheelchair Training Wheelchair (FIM): 3 Distance: 100'x2 Wheelchair Level of Assist: 3 Wheel 50 ft with 2 turns (QC): 2 Wheel 150 ft (QC): 88 Type of Wheelchair: Manual Patient propels a manual wheelchair 100' with mod assist. He can assist with both arms but the left is weaker and he tends to turn in circles and needs quite a bit of therapist assist to correct and keep on track. Exercises Seated Therapy Exercises: Ankle pumps, Hip flexion Seated Reps: 20 Standing in parallel bars x4 for approx 1 min each time with rest breaks between , LAQ for 5 min Treatments transfers, wheelchair mobility, functional strengthening, standing in parallel bars Assessment Current Status: Poor Progress no change in mobility PT Short Term Goals Short Term Goals Time Frame: Sep 26, 2016 Transfers (B,C,W/C) (FIM): 4 Gait (FIM): 2 Distance (FIM): 4=739-56 ft Gait Assistive Device: FWW PT Duct Cleaner Goals Prison Goals PT Duct Cleaner Goals Time Frame: Oct 10, 2016 Transfers (B,C,W/C) (FIM): 5 Sit to Lying (QC): 5 Lying-Sitting on Side/Bed(QC): 5 Sit to Stand (QC): 5 Roll Left to Right (QC): 5 Chair/Shw-wh-Uinqo Xfer(QC): 5 Car Transfer (QC): 5 Does the Patient Walk: Yes Gait (FIM): 5 Gait distance (FIM): 3=150 ft Walk 10 feet (QC): 5 Walk 10ft-Uneven Surface(QC): 5 Walk 50ft with 2 Turns (QC): 5 Walk 150 ft (QC): 5 Gait Level of Assist: 5 Gait Assistive Device: FWW Does the Pt use WC or Scooter?: No Stairs (FIM): 5 # of Steps: 12 1 Step (curb) (QC): 5 4 Steps (QC): 5 12 Steps (QC): 5 Picking up an Object (QC): 88 PT Plan Problem List Problem List: Activity Tolerance, Functional Strength, Safety, Balance, Gait, Transfer, Bed Mobility, ROM Treatment/Plan Treatment Plan: Continue Plan of Care Treatment Plan: Bed Mobility, Education, Functional Activity Mavis, Functional Strength, Group Therapy, Gait, Safety, Therapeutic Exercise, Transfers Treatment Duration: Oct 10, 2016 Frequency: At least 5-7 days/Wk (IRF) Estimated Hrs Per Day: 1.5 hours per day Patient and/or Family Agrees t: Yes Safety Risks/Education Patient Education: Transfer Techniques, Correct Positioning, W/C Management, Safety Issues Teaching Recipient: Patient Teaching Methods: Demonstration, Discussion Response to Teaching: Reinforcement Needed Time/GCodes Time In: 800 Time Out: 900 Total Billed Treatment Time: 60 Total Billed Treatment 1 visit EX 15' FA 15' WCH 30' RUSSELL KNOWLES PT Sep 13, 2016 08:57
[2016-09-13] MEDS ORDERED: LOSARTAN 25 MG (COZAAR) TAB PO SCH (09:00)
[2016-09-13] MEDS ORDERED: IRON SUCROSE INJECTION 200 MG in NS (IVPB) 100 ML IV NR (09:15)
--- NOTE | 2016-09-13 09:39 | ST Cognitive Linguistic Eval ---
Speech Evaluation-General Medical Diagnosis Right Hip Fracture Onset Date: Sep 08, 2016 Therapy Diagnosis Therapy Diagnosis: Moderate Expressive and Receptive Aphasia, Moderate Dysarthria Precautions Precautions/Isolations: Fall Prevention, Standard Precautions Referral Referring Physician: Dr. Perry Stover Reason for Referral: Evaluation/Treatment Cognitive, Speech, and Language Evaluation Medical History Pertinent Medical History: COPD, CVA, DM, HTN Reviewed History: Yes Social History Current Living Status: Other Family Speech PLF-Current Status Prior Level of Function The patient recently experienced a CVA [place] in [facility]. Upon admission, the patient demonstrated dysphagia, aphasia, and dysarthria. Subjective The patient was recently admitted to [facility] with a diagnosis of a right hip fracture. The patient recently resided in a [facility] [place] following a CVA which resulted in aphasia, dysphagia, and dysarthria. The patient was seated upright in bed upon entrance. The patient made eye contact upon entrance and was agreeable to participation in the cognitive evaluation on this date. Language Eval: Auditory Comprehends Simple Yes/No Ques: Functional (The patient completes a more exaggerated head nod "yes" for yes responses, however, is able to verbalize yes and no, as well. The patient demonstrates a "tic" like behavior of "yes" head nodding at rest.) Indent/Objects Multiple Jacob: Moderate (The patient makes eye gaze towards the accurate object, however, does not specifically identify the object by name or touch.) Follows 1-Step Commands: Functional Follows Complex Directions: Moderate (The patient is able to follow simple, two step commands, however, is unable to follow two step complex ideas.) Follows General Conversations: Severe Language Eval: Verbal Language Completes Spontaneous Greeting: Moderate Produces Auto, Serial Info: Severe Imitates Simple Words/Phrases: Moderate (The patient demonstrates a five to ten second delay with responses, however, is able to repeat single words with additional time.) Word Finding: Severe Requests Basic Needs: Moderate States Basic Personal Info: Moderate (The patient is able to identify personal information with yes and no responses.) Expresses Complex Ideas: Severe Language Evaluation: Reading Comprehends Single Nouns: Functional Follows Simple Written Direct: Moderate Language Evaluation: Writing Writes Personal Information: Severe (The patient was unable to write his name legibly for the clinician.) Cognitive Patient Orientation The patient accurately stated the year. The patient stated the month was May and the day of the week was Monday. Objective Cognitive Domain Memory: Moderate (The patient was able to recall one of three single words following a five minute delay.) Clock Drawing Severity Rating: Moderate (The patient transcribed an accurate saint regis, however, demonstrated slight right neglect, as well as, displayed numbers in reverse order.) Objective Oral Motor/Speech Production The patient demonstrated a slight left, labial droop, as well as, imprecise articulation throughout single word repetition. Impression The patient demonstrates moderate to severe expressive aphasia, moderate receptive aphasia, and moderate dysarthria. Communication/Social Cognition Comprehension: 2 Expression: 1 Social Interaction: 2 Problem Solvin Memory: 2 Speech Patient Assess Expression of Ideas/Wants: Rarely/Never (1) Understanding [place]al Content: Sometimes Understands(2) Brief Interview-Mental Status: Yes Repetition of Three Words: Three (3) Temporal Orientation: Year: Correct (3) Temporal Orientation: Month: No answer (0) Temporal Orientation: Day: Incorrect or No Answer(0) Recall : Wear to say "Sock": No, could not recall (0) Recall : Color: Yes, after cueing (1) Recall : Bed: No, could not recall (0) Speech Short Term Goals Short Term Goals Short Term Goals 1. The patient will repeat functional phrases with 90% accuracy and moderate clinician verbal prompting. 2. The patient will verbally identify ADL items with 90% accuracy and mild clinician verbal prompting. 3. The patient will state basic orientation information (including personal information) with 90% accuracy and mild clinician verbal prompting. Time Frame-STG: One Week Speech Longterm Goals Crayon Grader Goals 1. The patient will improve expressive and receptive communication for increased function and safety with ADL's in the least restrictive setting. Time Frame: Three Weeks Comprehension: 3 Expression: 2 Social Interaction: 3 Problem Solvin Memory: 3 Speech-Plan Treatment Plan Speech Therapy Treatment Plan: Continue Plan of Care Continue skilled speech pathology to target verbal and receptive communication improvement. Frequency: Modified Program (IRF) (Five Times per Week) Estimated Hrs Per Day: .5 hour per day (45 Minutes Per Day) Rehab Potential: Guarded Safety Risks/Education Teaching Recipient: Patient Teaching Methods: Discussion Response to Teaching: Reinforcement Needed Education Topics Provided: Results, Recommendations, Plan of Care Time Speech Therapy Time In: 09:00 Speech Therapy Time Out: 09:15 Total Billed Time: 15 Billed Treatment Time 1, MILAD ROCA Sep 13, 2016 09:39
[2016-09-13] MEDS: LACTULOSE SYRUP 10GM/15ML (ENULOSE) 30ML UDC PO SCH ×3 (09:53→16:28)
--- NOTE | 2016-09-13 09:59 | ST Dysphagia Evaluation ---
Speech Evaluation-General Medical Diagnosis Right Hip Fracture Onset Date: Sep 08, 2016 Therapy Diagnosis Therapy Diagnosis: Moderate Oropharyngeal Dysphagia Precautions Precautions: Aspiration Precautions/Isolations: Fall Prevention, Standard Precautions Referral Referring Physician: Dr. Perry Stover Reason for Referral: Evaluation/Treatment Clinical Bedside Swallowing Evaluation Medical History Pertinent Medical History: COPD, CVA, DM, HTN Reviewed History: Yes Social History Current Living Status: Other Family Speech PLF/Current-Dysphagia Prior Level of Function The patient recently experienced a CVA and was admitted to a skilled nursing in [facility]. Upon admission, the patient demonstrated dysphagia, aphasia, and dysarthria. The patient was admitted on a mechanical soft diet with honey-thick liquids. Subjective The patient was recently admitted to [facility] with a diagnosis of a right hip fracture. The patient recently resided in a [facility] skilled nursing following a CVA which resulted in aphasia, dysphagia, and dysarthria. The patient was seated upright in bed upon entrance. The patient made eye contact upon entrance and was agreeable to participation in the cognitive evaluation on this date. Cognitive Status Patient Orientation: Person Oral Motor Skills Dentition: Edentalous Current Food Consistancy: Mechanical Soft, Honey Liquids Ability to Follow Directions: Fair Oral Expression Ability: Moderate Impairment Voice Voice Phonatory-Based Quality: Harsh, Glottal Barry Voice Pitch: Normal Voice Loudness: Normal Face Facial Symmetry: Asymmetrical (Left labial droop.) Oral-Facial Assessment Oral-Facial Dentition: Normal Labial Seal Description: Droops Left Smile: Droops Left Puff Cheeks: Reduced Strength (Left) Lingual Protrusion: Abnormal Lingual ROM: Normal Lingual Strength: Abnormal (Reduced left-sided, lingual strength.) Pharynx Velopharyngeal Move.: Normal Volitional Dry Swallow: Yes Dysphagia Evaluation Consistencies Presented: Mechanical Soft, Gotham Thick Liquid, Honey Thick Liquid, Pureed Oral Phase: Oral Residue - The patient demonstrated mild lingual residue with puree and mechanical soft consistencies following the swallow. While pocketing was not visualized, due to the patient's reduced awareness and left buccal weakness, assessment for left pocketing of residual material is recommended following intake. - Delayed laryngeal elevation was noted with all consistencies tested during the evaluation. - Gotham-Thick Liquid: While no signs/symptoms of aspiration were demonstrated with teaspoons, the patient demonstrated an immediate cough with nectar-thick liquids via straw. - Honey-Thick Liquid: No signs/symptoms of aspiration were demonstrated with multiple boluses of honey-thick liquid via teaspoon or straw. - Puree: No signs/symptoms of aspiration were demonstrated with multiple boluses of puree consistency. - Mechanical Soft (crushed ellie cracker/pudding): No signs/symptoms of aspiration were demonstrated with mechanical soft consistencies. Dietary Recommendations: Mechanical Soft Liquid Recommendations: Honey Consistancy Swallowing Precautions: Small Bites and Sips, Sitting Upright 90 Degrees - Crush medication and place in puree for administration. - Assess for left oral pocketing following intake. Dysphagia Evaluation Summary The patient presents with moderate oropharyngeal dysphagia. Speech Short Term Goals Short Term Goals Short Term Goals 1. The patient will repeat functional phrases with 90% accuracy and moderate clinician verbal prompting. 2. The patient will verbally identify ADL items with 90% accuracy and mild clinician verbal prompting. 3. The patient will state basic orientation information (including personal information) with 90% accuracy and mild clinician verbal prompting. 4. The patient will demonstrate swallowing strategies with 80% accuracy and mild clinician verbal prompting. 5. The patient will demonstrate laryngeal, pharyngeal, and base of tongue strengthening exercises with 80% accuracy and moderate clinician verbal prompting. Time Frame-STG: One Week Speech Diploma Medical Assistant Goals Diploma Medical Assistant Goals 1. The patient will improve expressive and receptive communication for increased function and safety with ADL's in the least restrictive setting. 2. The patient will tolerate the least restrictive diet without signs/symptoms of aspiration or laryngeal penetration. Time Frame: Three Weeks Comprehension: 3 Expression: 2 Social Interaction: 3 Problem Solvin Memory: 3 Speech-Plan Treatment Plan Speech Therapy Treatment Plan: Continue Plan of Care Skilled speech pathology to target dysphagia exercises and swallowing safety. Treatment Duration: Oct 04, 2016 Frequency: Modified Program (IRF) (Five Times per Week) Estimated Hrs Per Day: .5 hour per day (45 Minutes Per Day) Rehab Potential: Guarded Safety Risks/Education Teaching Recipient: Patient Teaching Methods: Handout, Discussion Response to Teaching: Reinforcement Needed Education Topics Provided: Results, Recommendations, Plan of Care Time Speech Therapy Time In: 09:15 Speech Therapy Time Out: 09:30 Total Billed Time: 15 Billed Treatment Time ALVAREZ Sabillon ELIZABETH Sep 13, 2016 09:59
--- NOTE | 2016-09-13 11:42 | PM & R (SOAP) Progress Note ---
Subjective Time Seen by Provider: 08:00 Subjective/Events-last exam Patient was seen in his room this AM Patient more alert and responsive this AM Labs noted Patient anemic Iron sucrose ordered Patient with mild hypokalemia K supplement ordered,Patient max assist for transfers PT/OT/ST notes reviewed Review of Systems Musculoskeletal: leg pain Neurological: Change in speech, Weakness Objective Exam Last Set of Vital Signs Vital Signs Date Time Temp Pulse Resp B/P (MAP) Pulse Ox O2 Delivery O2 Flow Rate FiO2 09/13/16 09:00 Room Air 09/13/16 06:37 93 09/13/16 05:00 99.6 80 20 139/62 Capillary Refill : Less Than 3 Seconds I&O Bad tableGeneral: Alert, Cooperative HEENT: Atraumatic, PERRLA, EOMI, Mucous Memb Moist/[place], Other (mild left labila droop) Neck: Supple, No JVD Lungs: Clear to Auscultation Heart: Regular Rate Abdomen: Normal Bowel Sounds, Soft, No Tenderness Extremities: Other (trace edema rt ankle) Neuro: Other (Mild left HP Aphasia and dysphagia Weakness prox rt leg due to frx and repair) Results Lab Laboratory Tests 09/12/16 15:59: Glucometer 145H 09/12/16 17:11: Glucometer 168H 09/12/16 20:27: Glucometer 130H 09/13/16 05:14: Glucometer 146H 09/13/16 07:31: White Blood Count 8.7, Red Blood Count 2.52L, Hemoglobin 8.4L, Hematocrit 24L, Mean Corpuscular Volume 95, Mean Corpuscular Hemoglobin 33, Mean Corpuscular Hemoglobin Concent 35, Red Cell Distribution Width 14.5, Platelet Count 155, Mean Platelet Volume 10.3, Neutrophils (%) (Auto) 48, Lymphocytes (%) (Auto) 33 , Monocytes (%) (Auto) 15H, Eosinophils (%) (Auto) 4, Basophils (%) (Auto) 0, Neutrophils # (Auto) 4.1, Lymphocytes # (Auto) 2.9, Monocytes # (Auto) 1.3H, Eosinophils # (Auto) 0.4H, Basophils # (Auto) 0.0, Sodium Level 136, Potassium Level 3.5L, Chloride Level 105, Carbon Dioxide Level 21, Anion Gap 10, Blood Urea Nitrogen 22H, Creatinine 0.68, Estimat Glomerular Filtration Rate > 60, BUN /Creatinine Ratio 32, Glucose Level 103, Calcium Level 8.7, Total Bilirubin 1.7H , Aspartate Amino Transf (AST/SGOT) 33, Alanine Aminotransferase (ALT/SGPT) 18, Alkaline Phosphatase 86, Total Protein 6.1L, Albumin 2.9L Assessment/Plan Assessment Fall with rt hip frx s/p repair ortho 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
--- NOTE | 2016-09-13 11:46 | Physical Therapy Daily Note ---
PT Daily Note-Current Subjective Patient in bed pre tx, just got through with OT. Appearance Patient in bed post tx with nurse call, phone, tray, bed alarm on. Mental Status Patient Orientation: Unable to Assess Transfers Functional [place] Measure 0=Not Assessed/NA 4=Minimal Assistance 1=Total Assistance 5=Supervision or Setup 2=Maximal Assistance 6=Modified [place] 3=Moderate Assistance 7=Complete IndependenceIRFPAI Quality Coding Scale 6 Independent with activity with or without an assistive device 5 Patient requires set up or clean up by helper. Patient completes activity by themselves 4 Supervision or touching assist (CGA). [place] provide cues , steadying assist 3 The helper provides less than half the effort to complete the activity 2 The helper provides more than half the effort to complete the activity 1 Dependent. The helper does all the effort to complete an activity 7 Patient refused to complete or attempt activity 9 The patient did not perform the activity before the current illness or injury 88 Not attempted due to Medical conditions or safety concerns Exercises Supine Ex: Ankle pumps, Quad Set, Glut sets, Heel Slides, Short Arc Quads, Straight leg raise, Hip abd/add Supine Reps: 20 Treatments functional strengthening Assessment Current Status: Poor Progress Patient participated very minimally during these exercises PT Short Term Goals Short Term Goals Time Frame: Sep 26, 2016 Transfers (B,C,W/C) (FIM): 4 Gait (FIM): 2 Distance (FIM): 6=294-10 ft Gait Assistive Device: FWW Wheelchair Distance: 100'x2 PT [facility] Goals [facility] Goals PT [facility] Goals Time Frame: Oct 10, 2016 Transfers (B,C,W/C) (FIM): 5 Sit to Lying (QC): 5 Lying-Sitting on Side/Bed(QC): 5 Sit to Stand (QC): 5 Roll Left to Right (QC): 5 Chair/Iip-ld-Robli Xfer(QC): 5 Car Transfer (QC): 5 Does the Patient Walk: Yes Gait (FIM): 5 Gait distance (FIM): 3=150 ft Walk 10 feet (QC): 5 Walk 10ft-Uneven Surface(QC): 5 Walk 50ft with 2 Turns (QC): 5 Walk 150 ft (QC): 5 Gait Level of Assist: 5 Gait Assistive Device: FWW Does the Pt use WC or Scooter?: No Stairs (FIM): 5 # of Steps: 12 1 Step (curb) (QC): 5 4 Steps (QC): 5 12 Steps (QC): 5 Picking up an Object (QC): 88 PT Plan Problem List Problem List: Activity Tolerance, Functional Strength, Safety, Balance, Gait, Transfer, Bed Mobility, ROM Treatment/Plan Treatment Plan: Continue Plan of Care Treatment Plan: Bed Mobility, Education, Functional Activity Mavis, Functional Strength, Group Therapy, Gait, Safety, Therapeutic Exercise, Transfers Treatment Duration: Oct 10, 2016 Frequency: At least 5-7 days/Wk (IRF) Estimated Hrs Per Day: 1.5 hours per day Patient and/or Family Agrees t: Yes Safety Risks/Education Patient Education: Correct Positioning, Safety Issues Teaching Recipient: Patient Teaching Methods: Demonstration, Discussion Response to Teaching: Reinforcement Needed Time/GCodes Time In: 1130 Time Out: 1145 Total Billed Treatment Time: 15 Total Billed Treatment 1 visit EX 15' RUSSELL KNOWLES PT Sep 13, 2016 11:46
--- NOTE | 2016-09-13 11:47 | Occupational Ther Daily Note ---
OT Current Status-Daily Note Subjective Pt alert, lying in bed. Pt agreed to therapy. Unable to make known, at this time, any c/o pain. Mental Status/Objective Patient Orientation: Non-Verbal/Aphasic Functional [place] Measure 0=Not Assessed/NA 4=Minimal Assistance 1=Total Assistance 5=Supervision or Setup 2=Maximal Assistance 6=Modified [place] 3=Moderate Assistance 7=Complete [place] ADL-Treatment Pt was eating food lying in bed. Pt was able to scoop and bring food to mouth by self. Pt was able to reach all over tray, no cues needed during breakfast. With cue of ' if finished with (item) hand it to me', pt was able to do this consistently. Max A for supine to sitting EOB. SBA for sitting EOB. Min A to go from sit to stand, Max A with stand pivot transfer (dancing movement). Physician and lab was in room during treatment. Set up pt with sponge bath. Pt able to complete upper body and abelardo area in sitting. Nrsg assisted pt to stand while assist was given to cleanse buttocks and hike pants over hips. Pt does not have clothing here at hospital. Hospital gown donned and shorts given to pt to wear. Max A for donning lower body clothing. After therapy, pt sitting in recliner with call light/phone in reach. All needs met in room. Functional [place] Measure 0=Not Assessed/NA 4=Minimal Assistance 1=Total Assistance 5=Supervision or Setup 2=Maximal Assistance 6=Modified [place] 3=Moderate Assistance 7=Complete IndependenceIRFPAI Quality Coding Scale 6 Independent with activity with or without an assistive device 5 Patient requires set up or clean up by helper. Patient completes activity by themselves 4 Supervision or touching assist (CGA). [place] provide cues , steadying assist 3 The helper provides less than half the effort to complete the activity 2 The helper provides more than half the effort to complete the activity 1 Dependent. The helper does all the effort to complete an activity 7 Patient refused to complete or attempt activity 9 The patient did not perform the activity before the current illness or injury 88 Not attempted due to Medical conditions or safety concerns Eating (FIM): 5 Eating (QC): 5 Bathing (FIM): 3 Bathing Location: L Arm, R Arm, Chest, Abdomen, Perineal Area Lower Body Dressing (FIM): 2 OT Short Term Goals Short Term Goals Time Frame: Sep 26, 2016 Eating(FIM): 5 Grooming(FIM): 4 Bathing(FIM): 4 Upper Body Dressing(FIM): 4 Lower Body Dressing(FIM): 4 Toileting(FIM): 3 Transfers (B,C,W/C) (FIM): 4 Toilet/Commode Transfer(FIM): 3 Shower Transfer(FIM): 3 Additional Short Term Goals: 1-Demonstrate ADL Tasks, 2-Verbalize Understanding , 3-ImproveStrength/Mavis 1=Demonstrate adherence to instructed precautions during ADL tasks. 2=Patient will verbalize/demonstrate understanding of assistive devices/ modifications for ADL. 3=Patient will improve strength/tolerance for activity to enable patient to perform ADL's. OT Whiskey Regauger Goals Whiskey Regauger Goals Time Frame: Oct 10, 2016 Eating (FIM): 6 Eating (QC): 5 Groomin Oral Hygiene (QC): 5 Bathing(FIM): 4 Shower/Bathe Self (QC): 4 Upper Body Dressing(FIM): 5 Upper Body Dressing (QC): 5 Lower Body Dressing(FIM): 4 Lower Body Dressing (QC): 4 On/Off Footwear (QC): 4 Toileting(FIM): 5 Toileting Hygiene (QC): 4 Transfers (B,C,W/C) (FIM): 5 Toilet/Commode Transfer(FIM): 5 Toilet/Commode Transfer (QC): 4 Shower Transfer(FIM): 4 Comprehension(FIM): 3 Expression (FIM): 2 Social Interaction(FIM): 3 Problem Solving(FIM): 3 Memory(FIM): 3 Additional Goals: 1-Demonstrate ADL Tasks, 2-Verbalize Understanding, 3- ImproveStrength/Mavis 1=Demonstrate adherence to instructed precautions during ADL tasks. 2=Patient will verbalize/demonstrate understanding of assistive devices/ modifications for ADL. 3=Patient will improve strength/tolerance for activity to enable patient to perform ADL's. OT Education/Plan Discharge Recommendations Plan/Recommendations: Continue POC Treatment Plan/Plan of Care Patient would benefit from OT for education, treatment and training to promote independence in ADL's, mobility, safety and/or upper extremity function for ADL' s. Plan of Care: ADL Retraining, Caregiver Training, Cognitive Retraining, Functional Mobility, UE Funct Exercise/Act, UE Neuromus Re-Ed/Coord Treatment Duration: Oct 10, 2016 Frequency: At least 5-7 days/Wk (IRF) Estimated Hrs Per Day: 1.5 hours per day Agreement: Yes Rehab Potential: Guarded Time/GCodes Start Time: 07:00 Stop Time: 08:00 Total Time Billed (hr/min): 60 Billed Treatment Time 1 visit-FA 3 (45 min) ADL 1 (15 min) AISHWARYA VÁZQUEZ Sep 13, 2016 11:47
--- NOTE | 2016-09-13 11:57 | Occupational Ther Daily Note ---
OT Current Status-Daily Note Subjective Pt alert, lying in bed. Pt unable to voice pain. Mental Status/Objective Patient Orientation: Person, Place, Time, Situation Functional [place] Measure 0=Not Assessed/NA 4=Minimal Assistance 1=Total Assistance 5=Supervision or Setup 2=Maximal Assistance 6=Modified [place] 3=Moderate Assistance 7=Complete [place] ADL-Treatment Functional [place] Measure 0=Not Assessed/NA 4=Minimal Assistance 1=Total Assistance 5=Supervision or Setup 2=Maximal Assistance 6=Modified [place] 3=Moderate Assistance 7=Complete IndependenceIRFPAI Quality Coding Scale 6 Independent with activity with or without an assistive device 5 Patient requires set up or clean up by helper. Patient completes activity by themselves 4 Supervision or touching assist (CGA). [place] provide cues , steadying assist 3 The helper provides less than half the effort to complete the activity 2 The helper provides more than half the effort to complete the activity 1 Dependent. The helper does all the effort to complete an activity 7 Patient refused to complete or attempt activity 9 The patient did not perform the activity before the current illness or injury 88 Not attempted due to Medical conditions or safety concerns Other Treatment Pt able to follow simple one step directions. Pt was able to bend L LE up to assist scooting up in bed, assist x2. Pt then was able to follow directions for UE exercises. Pt was able to stay on task up to 5 reps then needed to be redirected to finish 10 reps and directed to stop at 10. Pt was able to make a choice between two options if given a visual to look at to choose or reach towards. After therapy, pt in bed with nrsg present in room. Call light/phone in reach. All needs met in room. OT Short Term Goals Short Term Goals Time Frame: Sep 26, 2016 Eating(FIM): 5 Grooming(FIM): 4 Bathing(FIM): 4 Upper Body Dressing(FIM): 4 Lower Body Dressing(FIM): 4 Toileting(FIM): 3 Transfers (B,C,W/C) (FIM): 4 Toilet/Commode Transfer(FIM): 3 Shower Transfer(FIM): 3 Additional Short Term Goals: 1-Demonstrate ADL Tasks, 2-Verbalize Understanding , 3-ImproveStrength/Mavis 1=Demonstrate adherence to instructed precautions during ADL tasks. 2=Patient will verbalize/demonstrate understanding of assistive devices/ modifications for ADL. 3=Patient will improve strength/tolerance for activity to enable patient to perform ADL's. OT [facility] Goals Usp Goals Time Frame: Oct 10, 2016 Eating (FIM): 6 Eating (QC): 5 Groomin Oral Hygiene (QC): 5 Bathing(FIM): 4 Shower/Bathe Self (QC): 4 Upper Body Dressing(FIM): 5 Upper Body Dressing (QC): 5 Lower Body Dressing(FIM): 4 Lower Body Dressing (QC): 4 On/Off Footwear (QC): 4 Toileting(FIM): 5 Toileting Hygiene (QC): 4 Transfers (B,C,W/C) (FIM): 5 Toilet/Commode Transfer(FIM): 5 Toilet/Commode Transfer (QC): 4 Shower Transfer(FIM): 4 Comprehension(FIM): 3 Expression (FIM): 2 Social Interaction(FIM): 3 Problem Solving(FIM): 3 Memory(FIM): 3 Additional Goals: 1-Demonstrate ADL Tasks, 2-Verbalize Understanding, 3- ImproveStrength/Mavis 1=Demonstrate adherence to instructed precautions during ADL tasks. 2=Patient will verbalize/demonstrate understanding of assistive devices/ modifications for ADL. 3=Patient will improve strength/tolerance for activity to enable patient to perform ADL's. OT Education/Plan Discharge Recommendations Plan/Recommendations: Continue POC Treatment Plan/Plan of Care Patient would benefit from OT for education, treatment and training to promote independence in ADL's, mobility, safety and/or upper extremity function for ADL' s. Plan of Care: ADL Retraining, Caregiver Training, Cognitive Retraining, Functional Mobility, UE Funct Exercise/Act, UE Neuromus Re-Ed/Coord Treatment Duration: Oct 10, 2016 Frequency: At least 5-7 days/Wk (IRF) Estimated Hrs Per Day: 1.5 hours per day Agreement: Yes Rehab Potential: Guarded Time/GCodes Start Time: 11:00 Stop Time: 11:30 Total Time Billed (hr/min): 30 Billed Treatment Time 1 visit-NM 2 (30 min) AISHWARYA VÁZQUEZ Sep 13, 2016 11:57
[2016-09-13] MEDS: ENOXAPARIN 40 MG/0.4 ML (LOVENOX) SYR SC SCH (16:29)
[2016-09-13 18:19] VITALS: BP 98/56
[2016-09-14 06:15] VITALS: BP 119/78
[2016-09-14] MEDS: FERROUS SULF 325 MG (IRON) TAB PO SCH (06:54)
[2016-09-14] MEDS: metFORMIN 500 MG (GLUCOPHAGE) TAB PO SCH ×2 (06:57→16:59)
[2016-09-14] MEDS: RT-ALBUTEROL/IPRATROPIUM 3 ML (DUONEB) VIAL INH SCH ×3 (07:00→20:10)
[2016-09-14] MEDS: inSUlin ASPART (NovoLOG) 1 UNIT/0.01 ML (CHARGE PER UNIT) SC SCH ×3 (07:02→17:26)
[2016-09-14] MEDS: MODAFINIL 100 MG TAB (PROVIGIL) NON-FORMULARY PO SCH (09:09)
[2016-09-14] MEDS: ASPIRIN E.C. 81 MG (ECOTRIN) TAB PO SCH (09:10)
[2016-09-14] MEDS: PARoxetine 10 MG (PAXIL) TAB PO SCH (09:10)
[2016-09-14] MEDS: SENNA W/DOCUSATE (SENOKOT S) TABLET PO SCH ×2 (09:10→20:44)
[2016-09-14] MEDS: PARoxetine 20 MG (PAXIL) TAB PO SCH (09:10)
[2016-09-14] MEDS: oxyCODONE/APAP 5/325MG (PERCOCET 5) TABLET PO PRN ×2 (09:10→18:45)
[2016-09-14] MEDS: LACTULOSE SYRUP 10GM/15ML (ENULOSE) 30ML UDC PO SCH ×3 (09:10→16:22)
[2016-09-14] MEDS: NICOTINE 21 MG (NICODERM) PATCH TD SCH (09:10)
--- NOTE | 2016-09-14 09:28 | PM & R (SOAP) Progress Note ---
Subjective Time Seen by Provider: 08:10 Subjective/Events-last exam Patient was seen in his room this AM Patient Max assist for transfers Objective Exam Last Set of Vital Signs Vital Signs Date Time Temp Pulse Resp B/P (MAP) Pulse Ox O2 Delivery O2 Flow Rate FiO2 09/14/16 07:00 92 Room Air 09/14/16 06:15 98.4 87 20 119/78 Capillary Refill : Less Than 3 Seconds I&O Intake and Output 09/14/16 00:00 Intake Total 300 ml Balance 300 ml Intake Oral 200 ml IV Total 100 ml # Voids 3 General: Alert, Cooperative HEENT: Atraumatic, PERRLA, EOMI, Mucous Memb Moist/[place], Other (mild left labila droop) Neck: Supple, No JVD Lungs: Clear to Auscultation Heart: Regular Rate Abdomen: Normal Bowel Sounds, Soft, No Tenderness Extremities: Other (trace edema rt ankle) Neuro: Other (Mild left HP Aphasia and dysphagia Weakness prox rt leg due to frx and repair) Results Lab Laboratory Tests 09/12/16 15:59: Glucometer 145H 09/12/16 17:11: Glucometer 168H 09/12/16 20:27: Glucometer 130H 09/13/16 05:14: Glucometer 146H 09/13/16 07:31: White Blood Count 8.7, Red Blood Count 2.52L, Hemoglobin 8.4L, Hematocrit 24L, Mean Corpuscular Volume 95, Mean Corpuscular Hemoglobin 33, Mean Corpuscular Hemoglobin Concent 35, Red Cell Distribution Width 14.5, Platelet Count 155, Mean Platelet Volume 10.3, Neutrophils (%) (Auto) 48, Lymphocytes (%) (Auto) 33 , Monocytes (%) (Auto) 15H, Eosinophils (%) (Auto) 4, Basophils (%) (Auto) 0, Neutrophils # (Auto) 4.1, Lymphocytes # (Auto) 2.9, Monocytes # (Auto) 1.3H, Eosinophils # (Auto) 0.4H, Basophils # (Auto) 0.0, Sodium Level 136, Potassium Level 3.5L, Chloride Level 105, Carbon Dioxide Level 21, Anion Gap 10, Blood Urea Nitrogen 22H, Creatinine 0.68, Estimat Glomerular Filtration Rate > 60, BUN /Creatinine Ratio 32, Glucose Level 103, Calcium Level 8.7, Total Bilirubin 1.7H , Aspartate Amino Transf (AST/SGOT) 33, Alanine Aminotransferase (ALT/SGPT) 18, Alkaline Phosphatase 86, Total Protein 6.1L, Albumin 2.9L 09/13/16 12:04: Glucometer 139H 09/13/16 16:03: Glucometer 102 09/13/16 20:18: Glucometer 152H 09/14/16 05:36: Glucometer 134H Assessment/Plan Assessment Fall with rt hip frx s/p repair ortho 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
--- NOTE | 2016-09-14 09:57 | Speech Therapy Daily Note ---
Speech Daily Progress Note Subjective Date Seen by Provider: Sep 14, 2016 Time Seen by Provider: 08:45 The patient was laying in bed, asleep, upon entrance. The patient was easily roused with minimal verbal prompting. The patient agreed to participate in the speech, language, and dysphagia therapy session on this date via eye gaze and "yes" head nod. To note, The patient demonstrated significant fatigue on this date, requiring maximum verbal prompting for continued alertness. In correlation, the patient displayed reduced accuracy, comprehension, and expression which may be secondary to the noted fatigue. Objective Orientation Information: The patient was unable to independently state or repeat simple orientation information. The day prior the patient was able to state the year, as well as, repeat accurate information provided by the clinician. The patient's white board was reviewed on this date, as well as, discussion of use. Regardless of maximum repetition and prompts, the patient was unable to repeat orientation information. Phrase Completion: The patient was provided short, simple phrases and was asked to complete the phrases with one word. The patient demonstrated poor accuracy on this task, regardless of repetition (26%). Confrontational Naming: The patient was provided physical ADL objects (cup, straw, brush, toothbrush, and socks). The patient was able to name cup and spoon. The patient was unable to name remaining objects, however, consistently identified objects in a field of two. Dysphagia Exercises: Base of tongue, pharyngeal contraction, and laryngeal elevation exercises were initiated and attempted on this date. The patient displayed poor accuracy with all exercises, being able to minimally complete/ follow instructions and direct modeling for lingual protrusion. Assessment Assessment Current Status: Poor Progress Treatment Plan Continue Plan of Care Communication Comprehension: 2 Expression: 1 Social Cognition Social Interaction: 1 Problem Solvin Memory: 1 Speech Short Term Goals Short Term Goals Short Term Goals 1. The patient will repeat functional phrases with 90% accuracy and moderate clinician verbal prompting. 2. The patient will verbally identify ADL items with 90% accuracy and mild clinician verbal prompting. 3. The patient will state basic orientation information (including personal information) with 90% accuracy and mild clinician verbal prompting. 4. The patient will demonstrate swallowing strategies with 80% accuracy and mild clinician verbal prompting. 5. The patient will demonstrate laryngeal, pharyngeal, and base of tongue strengthening exercises with 80% accuracy and moderate clinician verbal prompting. Time Frame-STG: One Week Speech Vascular Ultrasound Technician Goals Half-Way Goals 1. The patient will improve expressive and receptive communication for increased function and safety with ADL's in the least restrictive setting. 2. The patient will tolerate the least restrictive diet without signs/symptoms of aspiration or laryngeal penetration. Time Frame: Three Weeks Comprehension: 3 Expression: 2 Social Interaction: 3 Problem Solvin Memory: 3 Speech-Plan Treatment Plan Speech Therapy Treatment Plan: Continue Plan of Care Continue skilled speech pathology to target oral expression and receptive language improvement. Treatment Duration: Oct 04, 2016 Frequency: Modified Program (IRF) (Five Times per Week) Estimated Hrs Per Day: .5 hour per day (45 Minutes Per Day) Rehab Potential: Guarded Safety Risks/Education Teaching Recipient: Patient Teaching Methods: Demonstration, Discussion Response to Teaching: Reinforcement Needed Education Topics Provided: Orientation Strategies/Information, Repetion of Single Words, Phrase Completion Time Speech Therapy Time In: 08:45 Speech Therapy Time Out: 09:45 Total Billed Time: 60 Billed Treatment Time 1, RAÚL, MILAD REED Sep 14, 2016 09:57
[2016-09-14] MEDS: PATCH REMOVAL TP SCH (10:16)
--- NOTE | 2016-09-14 10:36 | Progress Note-Hospitalist ---
Progress Note Progress Notes/Assess & Plan Date Seen 09/14/16 Time Seen by Provider: 10:00 Diagonsis/Assessment & Plan Chart Review: BP vika all around presser: Pt cannot talk Pt is still having breathing treatments Last BM on 09/12 Venofer administered once dose to help post op anemia along with PO supp Pain meds will be given after pt interview Patient Interview: Pt confirms experiencing pain in his hip. Pt appears to be in a considerable amount of pain. Physical exam stable AFVSS, in distress due to pain RRR, CTAB no rales noted Assessment: Acute right hip fracture s/p uncomplicated repair Mild post op anemia stable and no indication for transfusion Diabetes mellitus insulin-dependent Current smoker with wheezing on exam so ordered Nebs but was more coarse on exam requiring HLIVF and Lasix 20mg IV for 2 days now resolved Hypertension Remote stroke causing aphasia Thrombocytopenia Post op constipation resolved Plan: Continue pain meds Monitor pt Scribed by Sintia Reyes under the direct supervision of Dr. Crooks. LIBIA CROOKS DO Sep 14, 2016 10:36
--- NOTE | 2016-09-14 13:19 | Occupational Ther Daily Note ---
OT Current Status-Daily Note Subjective Pt. is unable to report pain, but does indicate pain when right LE is moved by wincing. Appearance Pt. in bed. Agrees to shower. Mental Status/Objective Patient Orientation: Unable to Assess Functional [place] Measure 0=Not Assessed/NA 4=Minimal Assistance 1=Total Assistance 5=Supervision or Setup 2=Maximal Assistance 6=Modified [place] 3=Moderate Assistance 7=Complete [place] Pt. nods continually during treatment. Is able to follow some cues, but does require frequent to continue with tasks, or to transition to another task. Pt.' s comprehension seems inconsistent. ADL-Treatment Functional [place] Measure 0=Not Assessed/NA 4=Minimal Assistance 1=Total Assistance 5=Supervision or Setup 2=Maximal Assistance 6=Modified [place] 3=Moderate Assistance 7=Complete IndependenceIRFPAI Quality Coding Scale 6 Independent with activity with or without an assistive device 5 Patient requires set up or clean up by helper. Patient completes activity by themselves 4 Supervision or touching assist (CGA). Rewey provide cues , steadying assist 3 The helper provides less than half the effort to complete the activity 2 The helper provides more than half the effort to complete the activity 1 Dependent. The helper does all the effort to complete an activity 7 Patient refused to complete or attempt activity 9 The patient did not perform the activity before the current illness or injury 88 Not attempted due to Medical conditions or safety concerns Bathing (FIM): 3 (With cues, pt. able to wash right UE, chest, front abelardo area , and upper leg region. Requires assist to wash all other parts.) Shower/Bathe Self (QC): 3 Upper Body (FIM): 4 (Pt. able to don shirt over head and put arms through holes , but requires assist to pull down in back.) Upper Body Dressing (QC): 4 Lower Body Dressing (FIM): 2 (Pt. requires max assist overall to don socks, underwear, and pants. Pt. is able to pull up on grab bars in shower to stand while OT pulls pants up over hips.) Lower Body Dressing (QC): 2 On/Off Footwear (QC): 1 Transfers (B, C, W/C) (FIM): 2 (Mod assist for supine-sit, max assist for sit- stand and transfer to shower chair.) Shower Transfer(FIM): 1 (Dependent to roll into shower.) Other Treatment After shower task, pt. is taken to gym via wheelchair. Is able to complete bilateral UE task on armbike. Tolerated 10 minutes to increase overall strength and independence. Pt. began to fall asleep at armbike. Required cues to stay awake. All needs met and PT took over. Education OT Patient Education: Correct positioning, Exercise program, Modified ADL techniques, Progress toward Goal/Update tx plan, Purpose of tx/functional activities, Reviewed precautions, Rehab process, Transfer techniques Teaching Recipient: Patient Teaching Methods: Demonstration, Discussion Response to Teaching: Verbalize Understanding, Return Demonstration OT Short Term Goals Short Term Goals Time Frame: Sep 26, 2016 Eating(FIM): 5 Grooming(FIM): 4 Bathing(FIM): 4 Upper Body Dressing(FIM): 4 Lower Body Dressing(FIM): 4 Toileting(FIM): 3 Transfers (B,C,W/C) (FIM): 4 Toilet/Commode Transfer(FIM): 3 Shower Transfer(FIM): 3 Additional Short Term Goals: 1-Demonstrate ADL Tasks, 2-Verbalize Understanding , 3-ImproveStrength/Mavis 1=Demonstrate adherence to instructed precautions during ADL tasks. 2=Patient will verbalize/demonstrate understanding of assistive devices/ modifications for ADL. 3=Patient will improve strength/tolerance for activity to enable patient to perform ADL's. OT Mcfp Goals Mcfp Goals Time Frame: Oct 10, 2016 Eating (FIM): 6 Eating (QC): 5 Groomin Oral Hygiene (QC): 5 Bathing(FIM): 4 Shower/Bathe Self (QC): 4 Upper Body Dressing(FIM): 5 Upper Body Dressing (QC): 5 Lower Body Dressing(FIM): 4 Lower Body Dressing (QC): 4 On/Off Footwear (QC): 4 Toileting(FIM): 5 Toileting Hygiene (QC): 4 Transfers (B,C,W/C) (FIM): 5 Toilet/Commode Transfer(FIM): 5 Toilet/Commode Transfer (QC): 4 Shower Transfer(FIM): 4 Comprehension(FIM): 3 Expression (FIM): 2 Social Interaction(FIM): 3 Problem Solving(FIM): 3 Memory(FIM): 3 Additional Goals: 1-Demonstrate ADL Tasks, 2-Verbalize Understanding, 3- ImproveStrength/Mavis 1=Demonstrate adherence to instructed precautions during ADL tasks. 2=Patient will verbalize/demonstrate understanding of assistive devices/ modifications for ADL. 3=Patient will improve strength/tolerance for activity to enable patient to perform ADL's. OT Education/Plan Problem List/Assessment Assessment: Decreased Activ Tolerance, Decreased Safety Aware, Decreased UE Strength, Dependent Transfers, Impaired Bed Mobility, Impaired Cognition, Impaired Funct Balance, Impaired I ADL's, Impaired Self-Care Skills, Restricted Funct UE ROM Discharge Recommendations Plan/Recommendations: Continue POC Therapy D/C Recommendations: Bath Aide, Home w/ Family Support, Occupational Therapy Home Care, Scheduled Assistance Treatment Plan/Plan of Care Treatment,Training & Education: Yes Patient would benefit from OT for education, treatment and training to promote independence in ADL's, mobility, safety and/or upper extremity function for ADL' s. Plan of Care: ADL Retraining, Caregiver Training, Cognitive Retraining, Functional Mobility, UE Funct Exercise/Act, UE Neuromus Re-Ed/Coord Treatment Duration: Oct 10, 2016 Frequency: At least 5-7 days/Wk (IRF) Estimated Hrs Per Day: 1.5 hours per day Agreement: Yes Rehab Potential: Fair Time/GCodes Start Time: 10:00 Stop Time: 11:00 Total Time Billed (hr/min): 60 Billed Treatment Time 1, ADL x 45minutes, Ex x 15minutes ANNALISE SMITH OT Sep 14, 2016 13:18
--- NOTE | 2016-09-14 15:09 | Physical Therapy Daily Note ---
PT Daily Note-Current Subjective Pt sitting in [facility] in Therapy Gym after just finishing w/OT tx. Pt agrees to PT. Pain Location: Right Location Body Site: Hip Comment: Pt unable to vocalize pain level but will grimace and groan w/pain. Mental Status Patient Orientation: Person, Unable to Assess Transfers Functional [place] Measure 0=Not Assessed/NA 4=Minimal Assistance 1=Total Assistance 5=Supervision or Setup 2=Maximal Assistance 6=Modified [place] 3=Moderate Assistance 7=Complete IndependenceIRFPAI Quality Coding Scale 6 Independent with activity with or without an assistive device 5 Patient requires set up or clean up by helper. Patient completes activity by themselves 4 Supervision or touching assist (CGA). [place] provide cues , steadying assist 3 The helper provides less than half the effort to complete the activity 2 The helper provides more than half the effort to complete the activity 1 Dependent. The helper does all the effort to complete an activity 7 Patient refused to complete or attempt activity 9 The patient did not perform the activity before the current illness or injury 88 Not attempted due to Medical conditions or safety concerns Scootin Rollin Supine to/from Sit: 2 Sit to/from Stand: 2 Sit to Stand (QC): 2 Chair/Dxn-zm-Hliyu Xfer(QC): 2 Bed to/from Chair: 2 Weight Bearing Weight Bearing Restriction: Full Weight Bearing Location Restriction: LE Bilateral Wheelchair Training Does the Pt Use a Wheelchair?: Yes Wheelchair Distance: 3=150 ft Distance: 150' Wheelchair Level of Assist: 3 Wheel 50 ft with 2 turns (QC): 3 Wheel 150 ft (QC): 3 Type of Wheelchair: Manual Pt needs Mod A to help make adjustments keeping WC in straight line. Pt tends to propel toward L side due to L side weakness. Exercises Supine Ex: Ankle pumps, Quad Set, Heel Slides, Straight leg raise, Hip abd/add Supine Reps: 15 Seated Therapy Exercises: Ankle pumps, Long arc quads, Hip flexion, Kicking activity Seated Reps: 10 Treatments Pt transfers from [facility] to [facility] using SPT at [facility]. Pt completes Supine EX followed by Seated Ex in [facility]. Pt practices propelling [facility] in hallway. Pt returns to room to rest at end of tx with all needs met. Assessment Current Status: Fair Progress Pt is very drowsy due to pain med given as well as seeing OT & ST for tx already this morning. Pt needs to keep being awoken during tx. PT Short Term Goals Short Term Goals Time Frame: Sep 26, 2016 Transfers (B,C,W/C) (FIM): 4 Gait (FIM): 2 Distance (FIM): 0=715-87 ft Gait Assistive Device: FWW Wheelchair Distance: 100'x2 PT Boat Detailer Goals Boat Detailer Goals PT Boat Detailer Goals Time Frame: Oct 10, 2016 Transfers (B,C,W/C) (FIM): 5 Sit to Lying (QC): 5 Lying-Sitting on Side/Bed(QC): 5 Sit to Stand (QC): 5 Roll Left to Right (QC): 5 Chair/Kjg-dz-Xijuu Xfer(QC): 5 Car Transfer (QC): 5 Does the Patient Walk: Yes Gait (FIM): 5 Gait distance (FIM): 3=150 ft Walk 10 feet (QC): 5 Walk 10ft-Uneven Surface(QC): 5 Walk 50ft with 2 Turns (QC): 5 Walk 150 ft (QC): 5 Gait Level of Assist: 5 Gait Assistive Device: FWW Does the Pt use WC or Scooter?: No Stairs (FIM): 5 # of Steps: 12 1 Step (curb) (QC): 5 4 Steps (QC): 5 12 Steps (QC): 5 Picking up an Object (QC): 88 PT Plan Problem List Problem List: Activity Tolerance, Functional Strength, Safety, Balance, Gait, Transfer, Bed Mobility Treatment/Plan Treatment Plan: Continue Plan of Care Treatment Plan: Bed Mobility, Education, Functional Activity Mavis, Functional Strength, Group Therapy, Gait, Safety, Therapeutic Exercise, Transfers Treatment Duration: Oct 10, 2016 Frequency: At least 5-7 days/Wk (IRF) Estimated Hrs Per Day: 1.5 hours per day Patient and/or Family Agrees t: Yes Safety Risks/Education Patient Education: Transfer Techniques, Correct Positioning, W/C Management, Safety Issues Teaching Recipient: Patient Teaching Methods: Discussion Response to Teaching: Reinforcement Needed Time/GCodes Time In: 1100 Time Out: 1200 Total Billed Treatment Time: 60 Total Billed Treatment visit, EX x2 (30m), [facility]CH (20m) & FA (10m) ENRIQUE SOLIS PTA Sep 14, 2016 15:09
[2016-09-14] MEDS: ENOXAPARIN 40 MG/0.4 ML (LOVENOX) SYR SC SCH (16:22)
[2016-09-14 18:29] VITALS: BP 115/72
[2016-09-14] MEDS: MELATONIN 3 MG TABLET PO SCH (20:44)
[2016-09-15] MEDS: oxyCODONE/APAP 5/325MG (PERCOCET 5) TABLET PO PRN ×5 (00:01→23:28)
[2016-09-15 05:42] VITALS: BP 157/78
[2016-09-15] MEDS: inSUlin ASPART (NovoLOG) 1 UNIT/0.01 ML (CHARGE PER UNIT) SC SCH ×4 (06:29→17:42)
[2016-09-15] MEDS: metFORMIN 500 MG (GLUCOPHAGE) TAB PO SCH ×2 (06:30→17:42)
[2016-09-15] MEDS: FERROUS SULF 325 MG (IRON) TAB PO SCH (06:30)
--- NOTE | 2016-09-15 07:29 | PM & R (SOAP) Progress Note ---
Subjective Time Seen by Provider: 07:10 Subjective/Events-last exam Patient was seen in his room this AM Patient more alert and animated Eating breakfast with set up in his bed this AM Patient Max assist for transfers. Objective Exam Last Set of Vital Signs Vital Signs Date Time Temp Pulse Resp B/P (MAP) Pulse Ox O2 Delivery O2 Flow Rate FiO2 09/15/16 05:42 98.9 81 18 157/78 93 Room Air Capillary Refill : Less Than 3 Seconds I&O Intake and Output 09/15/16 00:00 Intake Total 740 ml Balance 740 ml Intake Oral 640 ml Tube Feeding 100 ml # Voids 8 # Bowel Movements 1 General: Alert, Cooperative HEENT: Atraumatic, PERRLA, EOMI, Mucous Memb Moist/[place], Other (mild left labila droop) Neck: Supple, No JVD Lungs: Clear to Auscultation Heart: Regular Rate Abdomen: Normal Bowel Sounds, Soft, No Tenderness Extremities: Other (trace edema rt ankle) Neuro: Other (Mild left HP Aphasia and dysphagia Weakness prox rt leg due to frx and repair) Results Lab Laboratory Tests 09/12/16 15:59: Glucometer 145H 09/12/16 17:11: Glucometer 168H 09/12/16 20:27: Glucometer 130H 09/13/16 05:14: Glucometer 146H 09/13/16 07:31: White Blood Count 8.7, Red Blood Count 2.52L, Hemoglobin 8.4L, Hematocrit 24L, Mean Corpuscular Volume 95, Mean Corpuscular Hemoglobin 33, Mean Corpuscular Hemoglobin Concent 35, Red Cell Distribution Width 14.5, Platelet Count 155, Mean Platelet Volume 10.3, Neutrophils (%) (Auto) 48, Lymphocytes (%) (Auto) 33 , Monocytes (%) (Auto) 15H, Eosinophils (%) (Auto) 4, Basophils (%) (Auto) 0, Neutrophils # (Auto) 4.1, Lymphocytes # (Auto) 2.9, Monocytes # (Auto) 1.3H, Eosinophils # (Auto) 0.4H, Basophils # (Auto) 0.0, Sodium Level 136, Potassium Level 3.5L, Chloride Level 105, Carbon Dioxide Level 21, Anion Gap 10, Blood Urea Nitrogen 22H, Creatinine 0.68, Estimat Glomerular Filtration Rate > 60, BUN /Creatinine Ratio 32, Glucose Level 103, Calcium Level 8.7, Total Bilirubin 1.7H , Aspartate Amino Transf (AST/SGOT) 33, Alanine Aminotransferase (ALT/SGPT) 18, Alkaline Phosphatase 86, Total Protein 6.1L, Albumin 2.9L 09/13/16 12:04: Glucometer 139H 09/13/16 16:03: Glucometer 102 09/13/16 20:18: Glucometer 152H 09/14/16 05:36: Glucometer 134H 09/14/16 11:05: Glucometer 123H 09/14/16 16:11: Glucometer 76 09/14/16 21:05: Glucometer 122H 09/15/16 05:30: Glucometer 109 Assessment/Plan Assessment Fall with rt hip frx s/p repair ortho 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
--- NOTE | 2016-09-15 07:34 | Individualized Plan of Care ---
Individualized Plan of Care Rehab Nursing IPOC Order Admission Date Sep 12, 2016 at 14:21 Current Orders Orders Patient Visit (09/14/16 ) Exercise Therap, Ea 15 Min (09/14/16 ) Wheelchair Mgmt/Propulsn 15min (09/14/16 ) Functional Activities, Ea 15 (09/14/16 ) Melatonin Tablet (Melatonin Tablet) (09/14/16 21:00) Other Nursing Orders: Monitor for postop urinary retention and constipation PT IPOC Problem List: Activity Tolerance, Functional Strength, Safety, Balance, Gait, Transfer, Bed Mobility Treatment Plan: Continue Plan of Care Bed Mobility, Education, Functional Activity Mavis, Functional Strength, Group Therapy, Gait, Safety, Therapeutic Exercise, Transfers Treatment Duration: Oct 10, 2016 Frequency: At least 5-7 days/Wk (IRF) Estimated Hrs Per Day: 1.5 hours per day OT IPOC Problems: Decreased Activ Tolerance, Decreased Safety Aware, Decreased UE Strength, Dependent Transfers, Impaired Bed Mobility, Impaired Cognition, Impaired Funct Balance, Impaired I ADL's, Impaired Self-Care Skills, Restricted Funct UE ROM Plan of Care: ADL Retraining, Caregiver Training, Cognitive Retraining, Functional Mobility, UE Funct Exercise/Act, UE Neuromus Re-Ed/Coord Treatment Duration: Oct 10, 2016 Frequency: At least 5-7 days/Wk (IRF) Estimated Hrs Per Day: 1.[address] IPOC Speech Therapy Treatment Plan: Continue Plan of Care Treatment Duration: Oct 04, 2016 Frequency: Modified Program (IRF) (Five Times per Week) Estimated Hrs Per Day: .5 hour per day (45 Minutes Per Day) Physician IPOC Medical Issues being managed closely and that require the 24 hour availability of a physician:Postop anemia Hypokalemia DM Medical Issues: DVT Prophylaxis, Falls Precautions, Fluid/Electrolyte/ Nutrition Balance, Infection Protection, Pain Management, Swallowing Precautions , Wound Care, Other (List) (as per above) Brief Synthesis of Preadmission Screen, Post-Admission Evaluation, and Therapy Evaluations:61 yo male with prior hx of stroke who fell with rsulting hip frx and a decline in Functional [place] Patient had been living with niece until recently and was reported to have been Modified Independent for transfers with a gait aide.Currently has postop anmeia and is on modified diet for Dysphagia Has fairly severe aphasia as well but able to follow simple commands Medical Prognosis: good Anticipated Length of Stay: 10-04-16 Rehab Goals Return to PLOF Anticipated discharge destinat: Home with niece and HHC STEPHON ZAMORA MD Sep 15, 2016 07:34
[2016-09-15] MEDS: RT-ALBUTEROL/IPRATROPIUM 3 ML (DUONEB) VIAL INH SCH ×3 (08:00→21:15)
--- NOTE | 2016-09-15 09:17 | Speech Therapy Daily Note ---
Speech Daily Progress Note Subjective Date Seen by Provider: Sep 15, 2016 Time Seen by Provider: 08:05 The patient was laying in bed, asleep, upon entrance. The patient was easily roused with minimal verbal prompting. The patient agreed to participate in the speech, language, and dysphagia therapy session on this date via eye gaze and "yes" head nod. Objective Orientation Information: The patient was able to state name, month (with yes and no) and year (with phonemic cue). The patient was unable to recall the rationale for his hospitalization, however, could state he was in the hospital with a yes or no response. At the close of the session, the patient was able to state the day was "." Phrase Completion: The patient was provided short, simple phrases and was asked to complete the phrases with one word. The patient demonstrated poor accuracy on this task, regardless of repetition (7%). Confrontational Naming: The patient was provided physical ADL objects (cup, straw, brush, toothbrush, and socks). The patient demonstrated 56% accuracy with maximum clinician cueing including phonemic cues and repetition. Dysphagia Exercises: Base of tongue, pharyngeal contraction, and laryngeal elevation exercises were initiated and attempted on this date. The patient displayed poor accuracy with all exercises, being able to minimally complete/ follow instructions and direct modeling for lingual protrusion (consistent). Melodic Training and Automatics: Oral expressive therapy techniques were initiated on this date with limited accuracy. Assessment Assessment Current Status: Poor Progress Treatment Plan Continue Plan of Care Communication Comprehension: 3 Expression: 1 Social Cognition Social Interaction: 1 Problem Solvin Memory: 1 Speech Short Term Goals Short Term Goals Short Term Goals 1. The patient will repeat functional phrases with 90% accuracy and moderate clinician verbal prompting. 2. The patient will verbally identify ADL items with 90% accuracy and mild clinician verbal prompting. 3. The patient will state basic orientation information (including personal information) with 90% accuracy and mild clinician verbal prompting. 4. The patient will demonstrate swallowing strategies with 80% accuracy and mild clinician verbal prompting. 5. The patient will demonstrate laryngeal, pharyngeal, and base of tongue strengthening exercises with 80% accuracy and moderate clinician verbal prompting. Time Frame-STG: One Week Speech Long-Term Goals Log Tumbler Goals 1. The patient will improve expressive and receptive communication for increased function and safety with ADL's in the least restrictive setting. 2. The patient will tolerate the least restrictive diet without signs/symptoms of aspiration or laryngeal penetration. Time Frame: Three Weeks Comprehension: 3 Expression: 2 Social Interaction: 3 Problem Solvin Memory: 3 Speech-Plan Treatment Plan Speech Therapy Treatment Plan: Continue Plan of Care Continue skilled speech pathology to target improved expressive and receptive communication. Treatment Duration: Oct 04, 2016 Frequency: Modified Program (IRF) (Five Times per Week) Estimated Hrs Per Day: .5 hour per day (45 Minutes Per Day) Rehab Potential: Fair Safety Risks/Education Teaching Recipient: Patient Teaching Methods: Demonstration, Discussion Response to Teaching: Reinforcement Needed Education Topics Provided: Phrase Completion, Automatics Time Speech Therapy Time In: 08:05 Speech Therapy Time Out: 09:05 Total Billed Time: 60 Billed Treatment Time 1MICAELA ELIZABETH ST Sep 15, 2016 09:17
[2016-09-15] MEDS: NICOTINE 21 MG (NICODERM) PATCH TD SCH (09:51)
[2016-09-15] MEDS: SENNA W/DOCUSATE (SENOKOT S) TABLET PO SCH ×2 (09:51→20:10)
[2016-09-15] MEDS: MODAFINIL 100 MG TAB (PROVIGIL) NON-FORMULARY PO SCH (09:51)
[2016-09-15] MEDS: ASPIRIN E.C. 81 MG (ECOTRIN) TAB PO SCH (09:51)
[2016-09-15] MEDS: PARoxetine 20 MG (PAXIL) TAB PO SCH (09:51)
[2016-09-15] MEDS: PARoxetine 10 MG (PAXIL) TAB PO SCH (09:51)
[2016-09-15] MEDS: LACTULOSE SYRUP 10GM/15ML (ENULOSE) 30ML UDC PO SCH ×3 (09:52→17:42)
[2016-09-15] MEDS: PATCH REMOVAL TP SCH (09:52)
--- NOTE | 2016-09-15 10:57 | Physical Therapy Daily Note ---
PT Daily Note-Current Subjective Pt laying Supine in bed upon arrival. Pt communicating by shaking head to yes/ no questions. Pt needs to use urinal but is unable to go. Pt agrees to PT. Pain Comment: Pt shakes head yes to pain but can't rate or indicate where. Mental Status Patient Orientation: Person, Unable to Assess Transfers Functional [place] Measure 0=Not Assessed/NA 4=Minimal Assistance 1=Total Assistance 5=Supervision or Setup 2=Maximal Assistance 6=Modified [place] 3=Moderate Assistance 7=Complete IndependenceIRFPAI Quality Coding Scale 6 Independent with activity with or without an assistive device 5 Patient requires set up or clean up by helper. Patient completes activity by themselves 4 Supervision or touching assist (CGA). [place] provide cues , steadying assist 3 The helper provides less than half the effort to complete the activity 2 The helper provides more than half the effort to complete the activity 1 Dependent. The helper does all the effort to complete an activity 7 Patient refused to complete or attempt activity 9 The patient did not perform the activity before the current illness or injury 88 Not attempted due to Medical conditions or safety concerns Scootin Rollin Roll Left to Right (QC): 2 Supine to/from Sit: 2 Sit to/from Stand: 3 Sit to Stand (QC): 2 Chair/Uwh-fu-Udjcb Xfer(QC): 2 Bed to/from Chair: 2 Pt needs assistance for advancing feet for SPT to [facility] from [facility]. Weight Bearing Weight Bearing Restriction: Full Weight Bearing Location Restriction: LE Bilateral Exercises Supine Ex: Ankle pumps, Rolling, Hip abd/add Supine Reps: 15 Treatments Pt needs urinal upon entering room for tx. Pt attempts for a while but is unable to urinate. Pt's daughter (Nel from ) inquires as to how pt is doing, medication use, how pt is communicating with staff. Pt gives nod to being able to talk to daughter and this information is given to nursing & ST. Pt rolls from side to side to remove dirty brief and replace with new one. Pt completes Supine to [facility] transfer then SPT into [facility] at [facility] and needs assist to advance feet and weight shift. Pt sits in [facility] at end of tx with all needs met to see OT shortly. Assessment Current Status: Fair Progress Pt is again drowsy and trouble following directions during tx. PT Short Term Goals Short Term Goals Time Frame: Sep 26, 2016 Transfers (B,C,W/C) (FIM): 4 Gait (FIM): 2 Distance (FIM): 4=269-90 ft Gait Assistive Device: FWW Wheelchair Distance: 150' PT Custodial Goals Custodial Goals PT Language Assistant Goals Time Frame: Oct 10, 2016 Transfers (B,C,W/C) (FIM): 5 Sit to Lying (QC): 5 Lying-Sitting on Side/Bed(QC): 5 Sit to Stand (QC): 5 Rollin Roll Left to Right (QC): 5 Chair/Uwh-wx-Iwsyn Xfer(QC): 5 Car Transfer (QC): 5 Does the Patient Walk: Yes Gait (FIM): 5 Gait distance (FIM): 3=150 ft Walk 10 feet (QC): 5 Walk 10ft-Uneven Surface(QC): 5 Walk 50ft with 2 Turns (QC): 5 Walk 150 ft (QC): 5 Gait Level of Assist: 5 Gait Assistive Device: FWW Does the Pt use WC or Scooter?: No Stairs (FIM): 5 # of Steps: 12 1 Step (curb) (QC): 5 4 Steps (QC): 5 12 Steps (QC): 5 Picking up an Object (QC): 88 PT Plan Problem List Problem List: Activity Tolerance, Functional Strength, Safety, Balance, Gait, Transfer, Bed Mobility Treatment/Plan Treatment Plan: Continue Plan of Care Treatment Plan: Bed Mobility, Education, Functional Activity Mavis, Functional Strength, Group Therapy, Gait, Safety, Therapeutic Exercise, Transfers Treatment Duration: Oct 10, 2016 Frequency: At least 5-7 days/Wk (IRF) Estimated Hrs Per Day: 1.5 hours per day Patient and/or Family Agrees t: Yes Safety Risks/Education Patient Education: Transfer Techniques, Correct Positioning, Safety Issues Teaching Recipient: Patient Teaching Methods: Discussion Response to Teaching: Reinforcement Needed Time/GCodes Time In: 915 Time Out: 1000 Total Billed Treatment Time: 45 Total Billed Treatment visit, FA x2 (30m) & Ex (15m) ENRIQUE SOLIS SOFTWARE CONFIGURATION ENGINEER Sep 15, 2016 10:57
--- NOTE | 2016-09-15 14:06 | Occupational Ther Daily Note ---
OT Current Status-Daily Note Subjective Pt winces with pain when right LE is moved, but does not report a pain level. Nursing has given pt. pain medicine. Appearance Pt. up in wheelchair. Agrees to work with OT. Mental Status/Objective Patient Orientation: Person Functional [place] Measure 0=Not Assessed/NA 4=Minimal Assistance 1=Total Assistance 5=Supervision or Setup 2=Maximal Assistance 6=Modified [place] 3=Moderate Assistance 7=Complete [place] Pt. is unable to verbalize throughout most of treatment session. However, when asked how many kids he has, he is able to state, "three." ADL-Treatment Functional [place] Measure 0=Not Assessed/NA 4=Minimal Assistance 1=Total Assistance 5=Supervision or Setup 2=Maximal Assistance 6=Modified [place] 3=Moderate Assistance 7=Complete IndependenceIRFPAI Quality Coding Scale 6 Independent with activity with or without an assistive device 5 Patient requires set up or clean up by helper. Patient completes activity by themselves 4 Supervision or touching assist (CGA). [place] provide cues , steadying assist 3 The helper provides less than half the effort to complete the activity 2 The helper provides more than half the effort to complete the activity 1 Dependent. The helper does all the effort to complete an activity 7 Patient refused to complete or attempt activity 9 The patient did not perform the activity before the current illness or injury 88 Not attempted due to Medical conditions or safety concerns Bathing (FIM): 3 (Pt. is able to wash bilateral UE, trunk, front abelardo area, and upper thighs while seated in wheelchair. OT bathes rear abelardo area, bilateral feet.) Shower/Bathe Self (QC): 3 Upper Body (FIM): 4 (Pt. is able to don shirt. Is able to pull down over back and chest. However, is unable to situate it for comfort. OT does this for him.) Upper Body Dressing (QC): 4 Lower Body Dressing (FIM): 2 (Pt. requires max assist overall to don depends, shorts, socks, and shoes with AFO brace.) Lower Body Dressing (QC): 2 On/Off Footwear (QC): 1 Transfers (B, C, W/C) (FIM): 2 (Pt. is able to stand out of wheelchair with max assist. Is able to transfer to bed with max assist to pivot. Has difficulty picking up left LE and moving it. Requires max assist to lay supine. All needs met in bed.) Other Treatment After initial ADL session, pt. agrees to go to therapy gym. Pt. given fine motor task to complete, in which pt. had to problem solve and attend to match colors of small clothespins. Pt. able to do this approximately 75% of time. Noted that pt. falling asleep throughout treatment. When asked if he was tired , pt. nods yes. Nursing states that pt. slept much better last night. Pt. practices self propelling wheelchair to room. Has difficulty initiating use of left UE to propel wheelchair forward. Requires mod assistance to do this. Once to room, transferred to bed. Please see above for level of skilled care required for transfer. Education OT Patient Education: Correct positioning, Exercise program, Modified ADL techniques, Progress toward Goal/Update tx plan, Purpose of tx/functional activities, Reviewed precautions, Rehab process, Transfer techniques Teaching Recipient: Patient Teaching Methods: Demonstration, Discussion Response to Teaching: Verbalize Understanding, Return Demonstration OT Short Term Goals Short Term Goals Time Frame: Sep 26, 2016 Eating(FIM): 5 Grooming(FIM): 4 Bathing(FIM): 4 Upper Body Dressing(FIM): 4 Lower Body Dressing(FIM): 4 Toileting(FIM): 3 Transfers (B,C,W/C) (FIM): 4 Toilet/Commode Transfer(FIM): 3 Shower Transfer(FIM): 3 Additional Short Term Goals: 1-Demonstrate ADL Tasks, 2-Verbalize Understanding , 3-ImproveStrength/Mavis 1=Demonstrate adherence to instructed precautions during ADL tasks. 2=Patient will verbalize/demonstrate understanding of assistive devices/ modifications for ADL. 3=Patient will improve strength/tolerance for activity to enable patient to perform ADL's. OT Senior Care Goals Senior Care Goals Time Frame: Oct 10, 2016 Eating (FIM): 6 Eating (QC): 5 Groomin Oral Hygiene (QC): 5 Bathing(FIM): 4 Shower/Bathe Self (QC): 4 Upper Body Dressing(FIM): 5 Upper Body Dressing (QC): 5 Lower Body Dressing(FIM): 4 Lower Body Dressing (QC): 4 On/Off Footwear (QC): 4 Toileting(FIM): 5 Toileting Hygiene (QC): 4 Transfers (B,C,W/C) (FIM): 5 Toilet/Commode Transfer(FIM): 5 Toilet/Commode Transfer (QC): 4 Shower Transfer(FIM): 4 Comprehension(FIM): 3 Expression (FIM): 2 Social Interaction(FIM): 3 Problem Solving(FIM): 3 Memory(FIM): 3 Additional Goals: 1-Demonstrate ADL Tasks, 2-Verbalize Understanding, 3- ImproveStrength/Mavis 1=Demonstrate adherence to instructed precautions during ADL tasks. 2=Patient will verbalize/demonstrate understanding of assistive devices/ modifications for ADL. 3=Patient will improve strength/tolerance for activity to enable patient to perform ADL's. OT Education/Plan Problem List/Assessment Assessment: Decreased Activ Tolerance, Decreased UE Strength, Dependent Transfers, Impaired Bed Mobility, Impaired Cognition, Impaired Coordination, Impaired Funct Balance, Impaired I ADL's, Impaired Self-Care Skills Discharge Recommendations Plan/Recommendations: Continue POC Therapy D/C Recommendations: 24 hr Supervision, Home w/ Family Support, Occupational Therapy Home Care, Scheduled Assistance Treatment Plan/Plan of Care Treatment,Training & Education: Yes Patient would benefit from OT for education, treatment and training to promote independence in ADL's, mobility, safety and/or upper extremity function for ADL' s. Plan of Care: ADL Retraining, Caregiver Training, Cognitive Retraining, Functional Mobility, UE Funct Exercise/Act, UE Neuromus Re-Ed/Coord Treatment Duration: Oct 10, 2016 Frequency: At least 5-7 days/Wk (IRF) Estimated Hrs Per Day: 1.5 hours per day Agreement: Yes Rehab Potential: Fair Time/GCodes Start Time: 10:00 Stop Time: 11:00 Total Time Billed (hr/min): 60 Billed Treatment Time 1, ADL x 30minutes, FA x 30minutes ANNALISE SMITH OT Sep 15, 2016 14:06
--- NOTE | 2016-09-15 14:10 | Physical Therapy Daily Note ---
PT Daily Note-Current Subjective Pt sitting up at 90' and assisted with lunch by Aide. Pt fatigues easy, falling asleep. Pt shakes head yes for agreement to PT. Pain Numeric Pain Scale: 5-Moderate Pain Location: Right, Incisional Location Body Site: Thigh Comment: Pt doesn't verbally communicate other than shaking head. Mental Status Patient Orientation: Person, Unable to Assess Transfers Functional [place] Measure 0=Not Assessed/NA 4=Minimal Assistance 1=Total Assistance 5=Supervision or Setup 2=Maximal Assistance 6=Modified [place] 3=Moderate Assistance 7=Complete IndependenceIRFPAI Quality Coding Scale 6 Independent with activity with or without an assistive device 5 Patient requires set up or clean up by helper. Patient completes activity by themselves 4 Supervision or touching assist (CGA). [place] provide cues , steadying assist 3 The helper provides less than half the effort to complete the activity 2 The helper provides more than half the effort to complete the activity 1 Dependent. The helper does all the effort to complete an activity 7 Patient refused to complete or attempt activity 9 The patient did not perform the activity before the current illness or injury 88 Not attempted due to Medical conditions or safety concerns Scootin Rollin Roll Left to Right (QC): 2 Exercises Supine Ex: Ankle pumps, Quad Set, Heel Slides, Hip abd/add Supine Reps: 15 Treatments Pt completes Supine Ex in bed due to drowsiness. PT assisted aide with rolling pt to take dirty brief off. Pt resting Supine in bed with all needs met at end of tx. Assessment Current Status: Fair Progress Pt fatigues easy, continues to have lack of strength and very drowsy. PT Short Term Goals Short Term Goals Time Frame: Sep 26, 2016 Transfers (B,C,W/C) (FIM): 4 Gait (FIM): 2 Distance (FIM): 8=690-76 ft Gait Assistive Device: FWW Wheelchair Distance: 150' PT Customer Resource Specialist Goals [place] Goals PT Customer Resource Specialist Goals Time Frame: Oct 10, 2016 Transfers (B,C,W/C) (FIM): 5 Sit to Lying (QC): 5 Lying-Sitting on Side/Bed(QC): 5 Sit to Stand (QC): 5 Rollin Roll Left to Right (QC): 5 Chair/Rni-we-Vwgpd Xfer(QC): 5 Car Transfer (QC): 5 Does the Patient Walk: Yes Gait (FIM): 5 Gait distance (FIM): 3=150 ft Walk 10 feet (QC): 5 Walk 10ft-Uneven Surface(QC): 5 Walk 50ft with 2 Turns (QC): 5 Walk 150 ft (QC): 5 Gait Level of Assist: 5 Gait Assistive Device: FWW Does the Pt use WC or Scooter?: No Stairs (FIM): 5 # of Steps: 12 1 Step (curb) (QC): 5 4 Steps (QC): 5 12 Steps (QC): 5 Picking up an Object (QC): 88 PT Plan Problem List Problem List: Activity Tolerance, Functional Strength, Safety, Balance, Gait, Transfer, Bed Mobility Treatment/Plan Treatment Plan: Continue Plan of Care Treatment Plan: Bed Mobility, Education, Functional Activity Mavis, Functional Strength, Group Therapy, Gait, Safety, Therapeutic Exercise, Transfers Treatment Duration: Oct 10, 2016 Frequency: At least 5-7 days/Wk (IRF) Estimated Hrs Per Day: 1.5 hours per day Patient and/or Family Agrees t: Yes Safety Risks/Education Patient Education: Transfer Techniques, Correct Positioning, Safety Issues Teaching Recipient: Patient Teaching Methods: Discussion Response to Teaching: Reinforcement Needed Time/GCodes Time In: 1345 Time Out: 1400 Total Billed Treatment Time: 15 Total Billed Treatment visit, EX (15m) ENRIQUE SOLIS PTA Sep 15, 2016 14:10
[2016-09-15] MEDS: ENOXAPARIN 40 MG/0.4 ML (LOVENOX) SYR SC SCH (16:07)
[2016-09-15 16:28] LABS: KETONES,URINE 1+ (NEGATIVE); LEUKOCYTE ESTERASE ,URINE 2+ (NEGATIVE); NITRITE,URINE NEGATIVE (NEGATIVE); PH,URINE 7 (5-9); PROTEIN,URINE 1+ (NEGATIVE); UROBILINOGEN,URINE 12 MG/DL (NORMAL)
[2016-09-15 16:39] LABS: WBC,URINE 25-50 /HPF
[2016-09-15 17:11] VITALS: BP 127/80
[2016-09-15] MEDS: MELATONIN 3 MG TABLET PO SCH (20:10)
[2016-09-16 05:00] VITALS: BP 119/61
[2016-09-16] MEDS: FERROUS SULF 325 MG (IRON) TAB PO SCH (06:25)
[2016-09-16] MEDS: metFORMIN 500 MG (GLUCOPHAGE) TAB PO SCH ×2 (06:26→17:51)
[2016-09-16] MEDS: RT-ALBUTEROL/IPRATROPIUM 3 ML (DUONEB) VIAL INH SCH ×3 (06:43→21:26)
[2016-09-16 07:09] LABS: BILIRUBIN,URINE 2+ (NEGATIVE)
[2016-09-16 07:57] LABS: BASOPHILS % (AUTO) 0 % (0-10); EOSINOPHILS # (AUTO) 0.1 10^3/uL (0.0-0.3); EOSINOPHILS % (AUTO) 1 % (0-10); LYMPHOCYTES # (AUTO) 2.2 X 10^3 (1.0-4.0); LYMPHOCYTES % (AUTO) 18 % (12-44); MEAN CORPUSCULAR HEMOGLOBIN 34 PG (25-34); MEAN CORPUSCULAR HGB CONC 34 G/DL (32-36); MEAN CORPUSCULAR VOLUME 99 FL (80-99); MEAN PLATELET VOLUME 9.3 FL (7.4-10.4); MONOCYTES # (AUTO) 1.2 X 10^3 (0.0-1.0); MONOCYTES % (AUTO) 10 % (0-12); NEUTROPHILS # (AUTO) 8.9 X 10^3 (1.8-7.8); NEUTROPHILS % (AUTO) 72 % (42-75); PLATELET COUNT 188 10^3/uL (130-400); RED BLOOD COUNT 2.75 10^6/uL (4.35-5.85); RED CELL DISTRIBUTION WIDTH 16.2 % (10.0-14.5); WHITE BLOOD COUNT 12.4 10^3/uL (4.3-11.0)
[2016-09-16] MEDS: MODAFINIL 100 MG TAB (PROVIGIL) NON-FORMULARY PO SCH (08:02)
[2016-09-16] MEDS: PARoxetine 10 MG (PAXIL) TAB PO SCH (08:02)
[2016-09-16] MEDS: NICOTINE 21 MG (NICODERM) PATCH TD SCH (08:02)
[2016-09-16] MEDS: SENNA W/DOCUSATE (SENOKOT S) TABLET PO SCH ×2 (08:03→20:22)
[2016-09-16] MEDS: oxyCODONE/APAP 5/325MG (PERCOCET 5) TABLET PO PRN ×4 (08:03→23:30)
[2016-09-16] MEDS: ASPIRIN E.C. 81 MG (ECOTRIN) TAB PO SCH (08:03)
[2016-09-16] MEDS: LACTULOSE SYRUP 10GM/15ML (ENULOSE) 30ML UDC PO SCH ×3 (08:05→17:51)
[2016-09-16] MEDS: PATCH REMOVAL TP SCH (08:05)
[2016-09-16] MEDS: inSUlin ASPART (NovoLOG) 1 UNIT/0.01 ML (CHARGE PER UNIT) SC SCH ×3 (08:05→17:50)
[2016-09-16] MEDS: PARoxetine 20 MG (PAXIL) TAB PO SCH (08:06)
[2016-09-16 08:18] LABS: ALANINE AMINOTRANSFERASE 24 U/L (0-55); ALBUMIN 3.1 GM/DL (3.2-4.5); ANION GAP 10 MMOL/L (5-14); ASPARTATE AMINO TRANSFERASE 42 U/L (5-34); BLOOD UREA NITROGEN 18 MG/DL (7-18); BUN/CREATININE RATIO 27; CALCIUM 8.9 MG/DL (8.5-10.1); CARBON DIOXIDE 19 MMOL/L (21-32); CHLORIDE 109 MMOL/L (98-107); CREATININE SERUM 0.67 MG/DL (0.60-1.30); GFR ESTIMATED > 60; GLUCOSE 148 MG/DL (70-105); POTASSIUM 3.9 MMOL/L (3.6-5.0); SODIUM 138 MMOL/L (135-145); TOTAL PROTEIN 6.8 GM/DL (6.4-8.2)
--- NOTE | 2016-09-16 09:22 | PM & R (SOAP) Progress Note ---
Subjective Time Seen by Provider: 08:15 Subjective/Events-last exam Patient was seen in his room this AM Discussed case with RN Called by Evening RN at 3AM repatient spiking a fever to>101.CXR ordered as well as labs U/A abnormal WBC count elevated DR Crooks to asess this AM.Patient warm to touch calves nontender Review of Systems Musculoskeletal: leg pain Neurological: Weakness Objective Exam Last Set of Vital Signs Vital Signs Date Time Temp Pulse Resp B/P (MAP) Pulse Ox O2 Delivery O2 Flow Rate FiO2 09/16/16 06:43 94 Room Air 09/16/16 05:00 98.9 107 24 119/61 Capillary Refill : Less Than 3 Seconds I&O Intake and Output 09/16/16 00:00 Intake Total 1050 ml Output Total 400 ml Balance 650 ml Intake Oral 1050 ml Output Urine Total 400 ml # Voids 7 # Urine Diapers 3 # Bowel Movements 1 General: Alert, Cooperative HEENT: Atraumatic, PERRLA, EOMI, Mucous Memb Moist/[place], Other (mild left labila droop) Neck: Supple, No JVD Lungs: Clear to Auscultation Heart: Regular Rate Abdomen: Normal Bowel Sounds, Soft, No Tenderness Extremities: Other (trace edema rt ankle) Neuro: Other (Mild left HP Aphasia and dysphagia Weakness prox rt leg due to frx and repair) Results Lab Laboratory Tests 09/13/16 12:04: Glucometer 139H 09/13/16 16:03: Glucometer 102 09/13/16 20:18: Glucometer 152H 09/14/16 05:36: Glucometer 134H 09/14/16 11:05: Glucometer 123H 09/14/16 16:11: Glucometer 76 09/14/16 21:05: Glucometer 122H 09/15/16 05:30: Glucometer 109 09/15/16 10:57: Glucometer 111H 09/15/16 15:43: Glucometer 142H 09/15/16 16:17: Urine Color AMBERH, Urine Clarity CLEAR, Urine pH 7, Urine Specific [place] 1.010L, Urine Protein 1+H, Urine Glucose (UA) NEGATIVE, Urine Ketones 1+H, Urine Nitrite NEGATIVE, Urine Bilirubin 2+H, Urine Urobilinogen 12H, Urine Leukocyte Esterase 2+H, Urine RBC (Auto) NEGATIVE, Urine RBC NONE, Urine WBC 25- 50H, Urine Squamous Epithelial Cells 2-5, Urine Crystals NONE, Urine Bacteria LARGEH, Urine Casts NONE, Urine Mucus SMALLH, Urine Culture Indicated YES 09/15/16 21:35: Glucometer 126H 09/16/16 06:24: Glucometer 213H 09/16/16 07:50: White Blood Count 12.4H, Red Blood Count 2.75L, Hemoglobin 9.3L, Hematocrit 27L , Mean Corpuscular Volume 99, Mean Corpuscular Hemoglobin 34, Mean Corpuscular Hemoglobin Concent 34, Red Cell Distribution Width 16.2H, Platelet Count 188, Mean Platelet Volume 9.3, Neutrophils (%) (Auto) 72, Lymphocytes (%) (Auto) 18, Monocytes (%) (Auto) 10, Eosinophils (%) (Auto) 1, Basophils (%) (Auto) 0, Neutrophils # (Auto) 8.9H, Lymphocytes # (Auto) 2.2, Monocytes # (Auto) 1.2H, Eosinophils # (Auto) 0.1, Basophils # (Auto) 0.0, Sodium Level 138, Potassium Level 3.9, Chloride Level 109H, Carbon Dioxide Level 19L, Anion Gap 10, Blood Urea Nitrogen 18, Creatinine 0.67, Estimat Glomerular Filtration Rate > 60, BUN/ Creatinine Ratio 27, Glucose Level 148H, Calcium Level 8.9, Total Bilirubin 2.0H , Aspartate Amino Transf (AST/SGOT) 42H, Alanine Aminotransferase (ALT/SGPT) 24 , Alkaline Phosphatase 101, Total Protein 6.8, Albumin 3.1L Microbiology 09/15/16 Urine Culture - Preliminary, Resulted Enterococcus Species Assessment/Plan Assessment Fall with rt hip frx s/p repair ortho 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
--- NOTE | 2016-09-16 09:53 | Speech Therapy Daily Note ---
Speech Daily Progress Note Subjective Date Seen by Provider: Sep 16, 2016 Time Seen by Provider: 08:00 The patient was laying in bed, asleep, upon entrance. The patient was easily roused with minimal verbal prompting. The patient agreed to participate in the dysphagia therapy session on this date via eye gaze and "yes" head nod. Objective - The patient was observed consuming his morning meal (banana, Cheerios (with honey-thickened milk), biscuit, and scrambled eggs). Following the initial evaluation, the speech pathologist recommended a mechanical soft diet (which is currently entered into the computer accurately) due to the patient's edentulous state and left oral pocketing. Due to this recommendation, the biscuit was set aside and the RN was notified. - The patient's banana was cut-up by the clinician, however, the patient was able to self-feed. Moderate left oral pocketing was noted, however, the patient was able to clear the material following verbal prompting with a left lingual sweep. No signs/symptoms of aspiration were demonstrated with the banana, cereal , or honey-thickened milk. The patient consumed morning medications crushed and in puree without difficulty. The patient received lactulose in liquid form which caused immediate coughing. The RN stated she would request an alternative for the liquid medication. - The patient's family members have provided jell-o to the patient, as well as, requested vanilla milk shakes. The speech pathologist placed the jell-o in the refrigerator and discussed with the RN the rationale behind not providing the patient with jell-o or milkshakes (both of these consistencies melt into a thin liquid). Assessment Assessment Current Status: Fair Progress Treatment Plan Continue Plan of Care Communication Comprehension: 3 Expression: 1 Social Cognition Social Interaction: 2 Problem Solvin Memory: 1 Speech Short Term Goals Short Term Goals Short Term Goals 1. The patient will repeat functional phrases with 90% accuracy and moderate clinician verbal prompting. 2. The patient will verbally identify ADL items with 90% accuracy and mild clinician verbal prompting. 3. The patient will state basic orientation information (including personal information) with 90% accuracy and mild clinician verbal prompting. 4. The patient will demonstrate swallowing strategies with 80% accuracy and mild clinician verbal prompting. 5. The patient will demonstrate laryngeal, pharyngeal, and base of tongue strengthening exercises with 80% accuracy and moderate clinician verbal prompting. Time Frame-STG: One Week Speech Intermediate Goals Sugar Chipper Machine Operator Goals 1. The patient will improve expressive and receptive communication for increased function and safety with ADL's in the least restrictive setting. 2. The patient will tolerate the least restrictive diet without signs/symptoms of aspiration or laryngeal penetration. Time Frame: Three Weeks Comprehension: 3 Expression: 2 Social Interaction: 3 Problem Solvin Memory: 3 Speech-Plan Treatment Plan Speech Therapy Treatment Plan: Continue Plan of Care Continue skilled speech pathology to target improved swallowing safety and oral lingual strengthening. Treatment Duration: Oct 04, 2016 Frequency: Modified Program (IRF) (Five Times per Week) Estimated Hrs Per Day: .5 hour per day (45 Minutes Per Day) Rehab Potential: Fair Safety Risks/Education Teaching Recipient: Patient Teaching Methods: Handout, Discussion Response to Teaching: Reinforcement Needed Education Topics Provided: Swallowing Strategies Time Speech Therapy Time In: 08:00 Speech Therapy Time Out: 09:00 Total Billed Time: 60 Billed Treatment Time 1RAÚL MILAD LIU Sep 16, 2016 09:53
--- NOTE | 2016-09-16 09:55 | Physical Therapy Daily Note ---
PT Daily Note-Current Subjective Patient in recliner pre tx, agrees to PT, seems to have some pain but cannot verbalize how much. Appearance Patient in bed post tx with nurse call, phone, tray, bed alarm on. Mental Status Patient Orientation: Unable to Assess Transfers Functional [place] Measure 0=Not Assessed/NA 4=Minimal Assistance 1=Total Assistance 5=Supervision or Setup 2=Maximal Assistance 6=Modified [place] 3=Moderate Assistance 7=Complete IndependenceIRFPAI Quality Coding Scale 6 Independent with activity with or without an assistive device 5 Patient requires set up or clean up by helper. Patient completes activity by themselves 4 Supervision or touching assist (CGA). [place] provide cues , steadying assist 3 The helper provides less than half the effort to complete the activity 2 The helper provides more than half the effort to complete the activity 1 Dependent. The helper does all the effort to complete an activity 7 Patient refused to complete or attempt activity 9 The patient did not perform the activity before the current illness or injury 88 Not attempted due to Medical conditions or safety concerns Transfers (B, C, W/C) (FIM): 3 Scootin Rollin Supine to/from Sit: 3 Sit to/from Stand: 4 Bed to/from Chair: 4 Cues for safety and hand placement, needs min assist to stand from low surfaces Weight Bearing Weight Bearing Restriction: Weight Bearing/Tolerated Location Restriction: R LE Gait Training Gait (FIM): 1 Distance: 5', 15', 20' Gait Level of Assist: 1 Gait Persons Needed: 1 Gait Assistive Device: FWW Min assist to help guide walker and cues for safety and positioning. Patient has a hard time advancing his left leg. Exercises NuStep Minutes: 15 NuStep Workload: 4 Treatments bed mobility and transfers, ambulation, functional strengthening Assessment Current Status: Fair Progress improving ambulation PT Short Term Goals Short Term Goals Time Frame: Sep 26, 2016 Transfers (B,C,W/C) (FIM): 4 Gait (FIM): 2 Distance (FIM): 4=868-98 ft Gait Assistive Device: FWW Wheelchair Distance: 150' PT Building Construction Supervisor Goals Senior Care Goals PT Senior Care Goals Time Frame: Oct 10, 2016 Transfers (B,C,W/C) (FIM): 5 Sit to Lying (QC): 5 Lying-Sitting on Side/Bed(QC): 5 Sit to Stand (QC): 5 Rollin Roll Left to Right (QC): 5 Chair/Djd-mm-Cpofp Xfer(QC): 5 Car Transfer (QC): 5 Does the Patient Walk: Yes Gait (FIM): 5 Gait distance (FIM): 3=150 ft Walk 10 feet (QC): 5 Walk 10ft-Uneven Surface(QC): 5 Walk 50ft with 2 Turns (QC): 5 Walk 150 ft (QC): 5 Gait Level of Assist: 5 Gait Assistive Device: FWW Does the Pt use WC or Scooter?: No Stairs (FIM): 5 # of Steps: 12 1 Step (curb) (QC): 5 4 Steps (QC): 5 12 Steps (QC): 5 Picking up an Object (QC): 88 PT Plan Problem List Problem List: Activity Tolerance, Functional Strength, Safety, Balance, Gait, Transfer, Bed Mobility, ROM Treatment/Plan Treatment Plan: Continue Plan of Care Treatment Plan: Bed Mobility, Education, Functional Activity Mavis, Functional Strength, Group Therapy, Gait, Safety, Therapeutic Exercise, Transfers Treatment Duration: Oct 10, 2016 Frequency: At least 5-7 days/Wk (IRF) Estimated Hrs Per Day: 1.5 hours per day Patient and/or Family Agrees t: Yes Safety Risks/Education Patient Education: Gait Training, Transfer Techniques, Correct Positioning, Safety Issues Teaching Recipient: Patient Teaching Methods: Demonstration, Discussion Response to Teaching: Reinforcement Needed Time/GCodes Time In: 900 Time Out: 1000 Total Billed Treatment Time: 60 Total Billed Treatment 1 visit EX 15' FA 15' GT 30' RUSSELL KNOWLES PT Sep 16, 2016 09:55
--- NOTE | 2016-09-16 10:22 | Occupational Ther Daily Note ---
OT Current Status-Daily Note Subjective Pt sleeping in bed. Woke to name. Pt agreed to therapy. Mental Status/Objective Patient Orientation: Person, Non-Verbal/Aphasic Functional [place] Measure 0=Not Assessed/NA 4=Minimal Assistance 1=Total Assistance 5=Supervision or Setup 2=Maximal Assistance 6=Modified [place] 3=Moderate Assistance 7=Complete [place] ADL-Treatment Functional [place] Measure 0=Not Assessed/NA 4=Minimal Assistance 1=Total Assistance 5=Supervision or Setup 2=Maximal Assistance 6=Modified [place] 3=Moderate Assistance 7=Complete IndependenceIRFPAI Quality Coding Scale 6 Independent with activity with or without an assistive device 5 Patient requires set up or clean up by helper. Patient completes activity by themselves 4 Supervision or touching assist (CGA). Hanna provide cues , steadying assist 3 The helper provides less than half the effort to complete the activity 2 The helper provides more than half the effort to complete the activity 1 Dependent. The helper does all the effort to complete an activity 7 Patient refused to complete or attempt activity 9 The patient did not perform the activity before the current illness or injury 88 Not attempted due to Medical conditions or safety concerns Eating (FIM): 5 (Set up for eating and requires thickened liquid for swallowing precautions. Pt is able to use regular utensils to feed self and cut food.) Bathing (FIM): 3 (Using shower bench, hand held shower and grabbar pt was able to bathe most of self. Assist needed for lower legs and buttocks. Assist to dry buttocks and lower legs.) Bathing Location: L Arm, R Arm, L Upper Leg, R Upper Leg, Chest, Abdomen, Perineal Area Upper Body (FIM): 5 (After set up, pt able to complete upper body dressing.) Lower Body Dressing (FIM): 2 (Pt required assistance to don/doff lower body clothing. Pt able to stand with FWW while assist to manipulate clothing.) Transfers (B, C, W/C) (FIM): 2 (Pt attempted to use FWW for stand pivot transfer but unable to lift LE to take step. Max A to transfer.) Shower Transfer(FIM): 3 (Using w/c, shower bench and grabbar pt able to complete transfer with mod A for stand pivot transfer.) After therapy, pt sitting in recliner with call light/phone in reach. All needs met in room. OT Short Term Goals Short Term Goals Time Frame: Sep 26, 2016 Eating(FIM): 5 Grooming(FIM): 4 Bathing(FIM): 4 Upper Body Dressing(FIM): 4 Lower Body Dressing(FIM): 4 Toileting(FIM): 3 Transfers (B,C,W/C) (FIM): 4 Toilet/Commode Transfer(FIM): 3 Shower Transfer(FIM): 3 Additional Short Term Goals: 1-Demonstrate ADL Tasks, 2-Verbalize Understanding , 3-ImproveStrength/Mavis 1=Demonstrate adherence to instructed precautions during ADL tasks. 2=Patient will verbalize/demonstrate understanding of assistive devices/ modifications for ADL. 3=Patient will improve strength/tolerance for activity to enable patient to perform ADL's. OT Assisted Goals Commodity Specialist Goals Time Frame: Oct 10, 2016 Eating (FIM): 6 Eating (QC): 5 Groomin Oral Hygiene (QC): 5 Bathing(FIM): 4 Shower/Bathe Self (QC): 4 Upper Body Dressing(FIM): 5 Upper Body Dressing (QC): 5 Lower Body Dressing(FIM): 4 Lower Body Dressing (QC): 4 On/Off Footwear (QC): 4 Toileting(FIM): 5 Toileting Hygiene (QC): 4 Transfers (B,C,W/C) (FIM): 5 Toilet/Commode Transfer(FIM): 5 Toilet/Commode Transfer (QC): 4 Shower Transfer(FIM): 4 Comprehension(FIM): 3 Expression (FIM): 2 Social Interaction(FIM): 3 Problem Solving(FIM): 3 Memory(FIM): 3 Additional Goals: 1-Demonstrate ADL Tasks, 2-Verbalize Understanding, 3- ImproveStrength/Mavis 1=Demonstrate adherence to instructed precautions during ADL tasks. 2=Patient will verbalize/demonstrate understanding of assistive devices/ modifications for ADL. 3=Patient will improve strength/tolerance for activity to enable patient to perform ADL's. OT Education/Plan Discharge Recommendations Plan/Recommendations: Continue POC Treatment Plan/Plan of Care Patient would benefit from OT for education, treatment and training to promote independence in ADL's, mobility, safety and/or upper extremity function for ADL' s. Plan of Care: ADL Retraining, Caregiver Training, Cognitive Retraining, Functional Mobility, UE Funct Exercise/Act, UE Neuromus Re-Ed/Coord Treatment Duration: Oct 10, 2016 Frequency: At least 5-7 days/Wk (IRF) Estimated Hrs Per Day: 1.5 hours per day Agreement: Yes Rehab Potential: Fair Time/GCodes Start Time: 07:00 Stop Time: 08:00 Total Time Billed (hr/min): 60 Billed Treatment Time 1 visit-ADL 4 (60 min) AISHWARYA VÁZQUEZ Sep 16, 2016 10:22
--- NOTE | 2016-09-16 11:21 | Diagnostic Imaging Report ---
2 views of the chest. INDICATION: Fever. COMPARISON: 09/08/16. FINDINGS: There is elevation of the left hemidiaphragm with pleural thickening seen. There is patchy left lower lobe infiltrate. The right lung is clear. The heart size is normal. No effusion or pneumothorax. The mediastinum and audrey appear unremarkable. IMPRESSION: Left lower lobe infiltrates. Dictated by: Dictated on workstation # [id number]
--- NOTE | 2016-09-16 11:32 | Progress Note-Hospitalist ---
Progress Note Progress Notes/Assess & Plan Date Seen 09/16/16 Time Seen by Provider: 11:15 Diagonsis/Assessment & Plan Had a fever last night 0300 and given tylenol and UA was abnl and prelim Cx revealed Enterococcus Will place on Ampicillin Pt will have bladder scan to assure he is not retaining. AFVSS, sleepy, just completed PT RRR, CTAB no rales noted Assessment: Fever last night due to UTI Enterococcus on prelim Cx Acute right hip fracture s/p uncomplicated repair Mild post op anemia stable and no indication for transfusion Diabetes mellitus insulin-dependent Current smoker with wheezing on exam so ordered Nebs but was more coarse on exam requiring HLIVF and Lasix 20mg IV for 2 days now resolved Hypertension Remote stroke causing aphasia Thrombocytopenia Post op constipation resolved Plan: Tylenol Ampicillin Follow UCx LIBIA GARCIA DO Sep 16, 2016 11:32
[2016-09-16] MEDS: AMPICILLIN INJECTION 1,000 MG in NS (IVPB) 50 ML IV SCH ×2 (12:26→18:53)
[2016-09-16] MEDS: ENOXAPARIN 40 MG/0.4 ML (LOVENOX) SYR SC SCH (14:10)
[2016-09-16] MEDS: CATHETER FLUSH 10 ML SYR IV SCH (14:12)
[2016-09-16 18:00] VITALS: BP 116/58
[2016-09-16] MEDS: NS IV 1000 ML 1,000 ML IV SCH (18:06)
[2016-09-16] MEDS: MELATONIN 3 MG TABLET PO SCH (20:22)
[2016-09-17] MEDS: AMPICILLIN INJECTION 1,000 MG in NS (IVPB) 50 ML IV SCH ×2 (03:37→11:14)
[2016-09-17] MEDS: NS IV 1000 ML 1,000 ML IV SCH ×2 (05:27→06:50)
[2016-09-17] MEDS: CATHETER FLUSH 10 ML SYR IV SCH ×3 (05:27→20:37)
[2016-09-17 05:39] VITALS: BP 121/73
[2016-09-17 05:59] LABS: MEAN PLATELET VOLUME 9.4 FL (7.4-10.4); RED BLOOD COUNT 2.55 10^6/uL (4.35-5.85); RED CELL DISTRIBUTION WIDTH 16.4 % (10.0-14.5); WHITE BLOOD COUNT 5.9 10^3/uL (4.3-11.0)
[2016-09-17 06:12] LABS: ALANINE AMINOTRANSFERASE 22 U/L (0-55); ALBUMIN 2.8 GM/DL (3.2-4.5); ANION GAP 9 MMOL/L (5-14); ASPARTATE AMINO TRANSFERASE 38 U/L (5-34); BILIRUBIN,TOTAL 1.8 MG/DL (0.1-1.0); BLOOD UREA NITROGEN 16 MG/DL (7-18); BUN/CREATININE RATIO 26; CALCIUM 8.5 MG/DL (8.5-10.1); CARBON DIOXIDE 19 MMOL/L (21-32); CHLORIDE 112 MMOL/L (98-107); CREATININE SERUM 0.61 MG/DL (0.60-1.30); GFR ESTIMATED > 60; GLUCOSE 97 MG/DL (70-105); SODIUM 140 MMOL/L (135-145)
[2016-09-17] MEDS: FERROUS SULF 325 MG (IRON) TAB PO SCH (06:35)
[2016-09-17] MEDS: metFORMIN 500 MG (GLUCOPHAGE) TAB PO SCH ×2 (06:35→17:31)
[2016-09-17] MEDS: ASPIRIN E.C. 81 MG (ECOTRIN) TAB PO SCH (08:04)
[2016-09-17] MEDS: PARoxetine 20 MG (PAXIL) TAB PO SCH (08:04)
[2016-09-17] MEDS: NICOTINE 21 MG (NICODERM) PATCH TD SCH (08:04)
[2016-09-17] MEDS: MODAFINIL 100 MG TAB (PROVIGIL) NON-FORMULARY PO SCH (08:05)
[2016-09-17] MEDS: SENNA W/DOCUSATE (SENOKOT S) TABLET PO SCH ×2 (08:05→19:30)
[2016-09-17] MEDS: PATCH REMOVAL TP SCH (08:05)
[2016-09-17] MEDS: PARoxetine 10 MG (PAXIL) TAB PO SCH (08:05)
[2016-09-17] MEDS: inSUlin ASPART (NovoLOG) 1 UNIT/0.01 ML (CHARGE PER UNIT) SC SCH ×3 (08:05→17:31)
[2016-09-17] MEDS: LACTULOSE SYRUP 10GM/15ML (ENULOSE) 30ML UDC PO SCH ×3 (08:05→17:31)
[2016-09-17] MEDS: oxyCODONE/APAP 5/325MG (PERCOCET 5) TABLET PO PRN ×4 (08:23→23:50)
[2016-09-17] MEDS: RT-ALBUTEROL/IPRATROPIUM 3 ML (DUONEB) VIAL INH SCH ×3 (08:41→18:46)
--- NOTE | 2016-09-17 09:04 | Progress Note-Hospitalist ---
Progress Note Progress Notes/Assess & Plan Date Seen 09/17/16 Time Seen by Provider: 08:30 Diagonsis/Assessment & Plan No fever since treating UTI Enterococcus Reviewed Sensitivity Will maintain on Ampicillin Had bladder scan and no evidence of retention UOP good this morning I started gentle IVF yesterday and that has improved status and will DC tomorrow. AFVSS, awake and improved, just eating bfast RRR, CTAB no rales noted Assessment: UTI Enterococcus on Ampicillin Acute right hip fracture s/p uncomplicated repair Mild post op anemia stable and no indication for transfusion Diabetes mellitus insulin-dependent Current smoker with wheezing on exam so ordered Nebs but was more coarse on exam requiring HLIVF and Lasix 20mg IV for 2 days now resolved Hypertension Remote stroke causing aphasia Thrombocytopenia Post op constipation resolved Plan: Tylenol Ampicillin DC IVF tomorrow LIBIA GARCIA DO Sep 17, 2016 09:04
--- NOTE | 2016-09-17 09:39 | Physical Therapy Daily Note ---
PT Daily Note-Current Subjective Pt. shakes head yes and no in seemingly appropriate response this date but no words. Follows all direction Pain Location: No Pain Reported Mental Status Patient Orientation: Non-Verbal/Aphasic Attachments: IV IV wet, leaking, bleeding, reported to nursing who took care of this after Rx. Transfers Functional [place] Measure 0=Not Assessed/NA 4=Minimal Assistance 1=Total Assistance 5=Supervision or Setup 2=Maximal Assistance 6=Modified [place] 3=Moderate Assistance 7=Complete IndependenceIRFPAI Quality Coding Scale 6 Independent with activity with or without an assistive device 5 Patient requires set up or clean up by helper. Patient completes activity by themselves 4 Supervision or touching assist (CGA). [place]mann provide cues , steadying assist 3 The helper provides less than half the effort to complete the activity 2 The helper provides more than half the effort to complete the activity 1 Dependent. The helper does all the effort to complete an activity 7 Patient refused to complete or attempt activity 9 The patient did not perform the activity before the current illness or injury 88 Not attempted due to Medical conditions or safety concerns Transfers (B, C, W/C) (FIM): 3 Scootin Rollin Supine to/from Sit: 3 Sit to/from Stand: 4 used bed pad to assist pt to slide to EOB. Weight Bearing Weight Bearing Restriction: Weight Bearing/Tolerated Location Restriction: R LE Gait Training Does the Patient Walk?: Yes Distance (FIM): 1=up to 49 ft (25ftx2) Gait Level of Assist: 3 Gait Persons Needed: 1 Gait Assistive Device: FWW w/c to f/u, AFO and shoes insitu, narrow RUSLAN required cues to attempt to correct Wheelchair Training Does the Pt Use a Wheelchair?: Yes Wheelchair Distance: 1=up to 49 ft (25x2) Wheelchair Level of Assist: 3 Type of Wheelchair: Manual Treatments max assist to edmund brief and pants as well as AFO and shoes Assessment Current Status: Good Progress PT Short Term Goals Short Term Goals Time Frame: Sep 26, 2016 Transfers (B,C,W/C) (FIM): 4 Gait (FIM): 2 Distance (FIM): 5=027-65 ft Gait Assistive Device: FWW Wheelchair Distance: 150' PT Senior Electrical Controls Engineer Goals Senior Electrical Controls Engineer Goals PT Senior Electrical Controls Engineer Goals Time Frame: Oct 10, 2016 Transfers (B,C,W/C) (FIM): 5 Sit to Lying (QC): 5 Lying-Sitting on Side/Bed(QC): 5 Sit to Stand (QC): 5 Rollin Roll Left to Right (QC): 5 Chair/[id number] Xfer(QC): 5 Car Transfer (QC): 5 Does the Patient Walk: Yes Gait (FIM): 5 Gait distance (FIM): 3=150 ft Walk 10 feet (QC): 5 Walk 10ft-Uneven Surface(QC): 5 Walk 50ft with 2 Turns (QC): 5 Walk 150 ft (QC): 5 Gait Level of Assist: 5 Gait Assistive Device: FWW Does the Pt use WC or Scooter?: No Stairs (FIM): 5 # of Steps: 12 1 Step (curb) (QC): 5 4 Steps (QC): 5 12 Steps (QC): 5 Picking up an Object (QC): 88 PT Plan Treatment/Plan Treatment Plan: Continue Plan of Care Treatment Plan: Bed Mobility, Education, Functional Activity Mavis, Functional Strength, Group Therapy, Gait, Safety, Therapeutic Exercise, Transfers Treatment Duration: Oct 10, 2016 Frequency: At least 5-7 days/Wk (IRF) Estimated Hrs Per Day: 1.5 hours per day Patient and/or Family Agrees t: Yes Safety Risks/Education Patient Education: Gait Training, Transfer Techniques, Correct Positioning, W/ C Management, Safety Issues Teaching Recipient: Patient Teaching Methods: Demonstration Response to Teaching: Return Demonstration, Reinforcement Needed Time/GCodes Time In: 910 Time Out: 935 Total Billed Treatment Time: 25 Total Billed Treatment 1,GT10,FA15 G Codes Necessary: DANIEL Rodríguez ATLASSIAN ADMINISTRATOR Sep 17, 2016 09:39
[2016-09-17] MEDS: ENOXAPARIN 40 MG/0.4 ML (LOVENOX) SYR SC SCH (16:01)
[2016-09-17 17:29] VITALS: BP 111/72
[2016-09-17] MEDS: MELATONIN 3 MG TABLET PO SCH (19:30)
[2016-09-17 20:21] VITALS: BP 162/92
[2016-09-17 21:10] VITALS: BP 117/77
[2016-09-18 05:22] VITALS: BP 140/88
[2016-09-18 06:00] VITALS: BP 120/85
[2016-09-18] MEDS: FERROUS SULF 325 MG (IRON) TAB PO SCH (06:41)
[2016-09-18] MEDS: AUGMENTIN 500 MG TAB (AMOXICILLIN/CLAVULANATE) PO SCH ×2 (06:41→16:00)
[2016-09-18] MEDS: CATHETER FLUSH 10 ML SYR IV SCH ×2 (06:42→12:58)
[2016-09-18] MEDS: metFORMIN 500 MG (GLUCOPHAGE) TAB PO SCH ×2 (06:42→16:00)
[2016-09-18] MEDS: oxyCODONE/APAP 5/325MG (PERCOCET 5) TABLET PO PRN ×5 (06:42→20:30)
[2016-09-18] MEDS: RT-ALBUTEROL/IPRATROPIUM 3 ML (DUONEB) VIAL INH SCH ×3 (06:43→19:16)
[2016-09-18] MEDS ORDERED: BISACODYL 10 MG SUPP (DULCOLAX) PR NR (07:49)
[2016-09-18] MEDS: LACTULOSE SYRUP 10GM/15ML (ENULOSE) 30ML UDC PO SCH ×3 (08:29→20:38)
[2016-09-18] MEDS: inSUlin ASPART (NovoLOG) 1 UNIT/0.01 ML (CHARGE PER UNIT) SC SCH ×3 (08:30→16:05)
[2016-09-18] MEDS: PARoxetine 10 MG (PAXIL) TAB PO SCH (08:30)
[2016-09-18] MEDS: SENNA W/DOCUSATE (SENOKOT S) TABLET PO SCH ×2 (08:30→20:41)
[2016-09-18] MEDS: MODAFINIL 100 MG TAB (PROVIGIL) NON-FORMULARY PO SCH (08:30)
[2016-09-18] MEDS: NICOTINE 21 MG (NICODERM) PATCH TD SCH (08:31)
[2016-09-18] MEDS: PARoxetine 20 MG (PAXIL) TAB PO SCH (08:31)
[2016-09-18] MEDS: ASPIRIN E.C. 81 MG (ECOTRIN) TAB PO SCH (08:31)
[2016-09-18] MEDS: PATCH REMOVAL TP SCH (08:31)
--- NOTE | 2016-09-18 09:25 | Physician Progress Note ---
Progress Note Assessment/Plan Date Seen by Provider: Sep 18, 2016 Time Seen by Provider: 09:20 Events since last exam Call because patient had fallen with increase in pain and change on xray. Pt examined. Mild swelling present. Extensive old resolving ecchymosis. Incisions healing well with out sign of infection. Skin clips remain in place. Pt aphasic but understands and can follow instructions. xrays from today reviewed and compared to post op images. No significant change in fracture or hardware position. Reduction and fixation maintained with out screw cut out. 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 Postop anemia COPD Tobaccoism DM HTN Hypokalemia-replaced FUO probable UTI Vitals Last set of Vitals Signs Vital Signs Date Time Temp Pulse Resp B/P (MAP) Pulse Ox O2 Delivery O2 Flow Rate FiO2 09/18/16 06:48 96 Room Air 09/18/16 06:00 97.0 95 24 120/85 09/17/16 21:10 4.00 I&O I&O Intake and Output 09/18/16 00:00 Intake Total 1610 ml Output Total 480 ml Balance 1130 ml Intake Oral 560 ml IV Total 1050 ml Output Urine Total 480 ml # Voids 4 Labs Laboratory Tests 09/17/16 11:12: Glucometer 126H 09/17/16 16:28: Glucometer 116H 09/17/16 20:57: Glucometer 100 09/18/16 05:56: Glucometer 107 Microbiology 09/15/16 Urine Culture - Final, Complete Enterococcus Faecalis Radiology As above Medications Meds Plan: Continue protected WB, touch down on right with walker and gait belt to avoid falls. DC skin clips from all 4 incisions tomorrow Clinical Quality Measures DVT/VTE Risk/Contraindication: Risk Factor Score Per Nursin RFS Level Per Nursing on Admit: 4+=Very High MARIA DE JESUS RENAE MD Sep 18, 2016 09:25
--- NOTE | 2016-09-18 10:13 | Diagnostic Imaging Report ---
EXAMINATION: Portable erect AP chest at 7:07 AM. INDICATION: Fell. FINDINGS: There is shallow inspiration when compared to the prior exam of 09/16/2016. Allowing for this technical factor, the heart size is stable when compared to the prior exam. The area of increased density in the left cardiac region seen previously is again visualized although not quite as conspicuous. The left upper lung and right lung remain generally clear. The mediastinum is not widened. The osseous structures are intact. The fractures of the surgical neck of the right humerus and the left rib seen previously are again evident. Two orthopedic fixation screws are also again seen overlying the left scapula. IMPRESSION: There is persistent involvement of the left lung base by pneumonia/atelectasis. When compared to the previous study, there does not appear to have been any significant change. A followup study would be recommended for continued evaluation. Dictated by: Dictated on workstation # [id number]
--- NOTE | 2016-09-18 10:22 | Diagnostic Imaging Report ---
EXAMINATION: Right hip at 7:09 AM. INDICATION: Fell. FINDINGS: The previous right femur exam of 09/08/2016 noted a comminuted impacted angulated and displaced fracture of the proximal right femur. The patient subsequently underwent a surgical repair of the right femur and the fluoroscopic exam of 09/09/2016 revealed that there was an intramedullary yemi and an orthopedic fixation screw in place. The orthopedic hardware is seen in good position and the main fracture fragments were near anatomic alignment. On this exam, the orthopedic hardware remains in good position. However, the fracture fragments do seem more conspicuous than on the prior exam. Reportedly, the patient has fallen in the interval since the prior exam and consequently it does appear that smaller fracture fragments have moved since the previous study. The main fracture fragments seen near anatomic in alignment. There is no fracture of the distal femur. No other bony abnormality is identified. The soft tissues are unremarkable. IMPRESSION: 1. The smaller fracture fragments about the fracture site have moved in the interval since the prior exam. However the main fracture fragments seem near anatomic in alignment and the orthopedic hardware is stable. Even so, an orthopedic consult would be recommended. 2. These results were discussed with Dr. Melly Crooks. Dictated by: Dictated on workstation # [id number]
[2016-09-18] MEDS ORDERED: RT-ALBUTEROL/IPRATROPIUM 3 ML (DUONEB) VIAL INH SCH (11:00)
[2016-09-18 11:59] LABS: BASOPHILS % (AUTO) 0 % (0-10); EOSINOPHILS # (AUTO) 0.3 10^3/uL (0.0-0.3); EOSINOPHILS % (AUTO) 3 % (0-10); LYMPHOCYTES # (AUTO) 1.5 X 10^3 (1.0-4.0); LYMPHOCYTES % (AUTO) 18 % (12-44); MEAN CORPUSCULAR HEMOGLOBIN 34 PG (25-34); MEAN CORPUSCULAR HGB CONC 34 G/DL (32-36); MEAN CORPUSCULAR VOLUME 100 FL (80-99); MEAN PLATELET VOLUME 9.4 FL (7.4-10.4); MONOCYTES # (AUTO) 0.9 X 10^3 (0.0-1.0); MONOCYTES % (AUTO) 11 % (0-12); NEUTROPHILS # (AUTO) 5.8 X 10^3 (1.8-7.8); NEUTROPHILS % (AUTO) 68 % (42-75); PLATELET COUNT 163 10^3/uL (130-400); RED BLOOD COUNT 2.83 10^6/uL (4.35-5.85); RED CELL DISTRIBUTION WIDTH 16.8 % (10.0-14.5); WHITE BLOOD COUNT 8.5 10^3/uL (4.3-11.0)
--- NOTE | 2016-09-18 12:07 | Progress Note-Hospitalist ---
Progress Note Progress Notes/Assess & Plan Date Seen 09/18/16 Time Seen by Provider: 12:00 Diagonsis/Assessment & Plan Pt has had a fall every night the past 2-3 nights and he has h/o falls at [place] Pt then has "panic attacks" that resolved quickly but requires me to be notified in day care assistant hours and this is occurring consistently Pt likely will need to go back to [place] if he can't progress and improve on the IRU and has recurrent falls Ortho reviewed xray and I appreciate Dr Fajardo's expertise after Dr Carrera recommended an expert to review. Augmentin tolerated well since his IV infiltrated and was not replaced at my order. Drinking well and eating well today Family dynamics is an issue and continues to be an issue with the niece stating that his daughter and other family cannot call or see him... AFVSS, awake and improved, just eating lunch in chair at the table RRR, CTAB no rales noted Aphasic Laboratory Tests 09/18/16 11:50 Assessment: UTI Enterococcus on Ampicillin initially then changed to PO Augmentin and it is tolerated Acute right hip fracture s/p uncomplicated repair s/p 2 falls and xray was stable per ortho as recommended by radiology Mild post op anemia stable and no indication for transfusion Diabetes mellitus insulin-dependent Current smoker with wheezing periodically ordered Nebs Hypertension Remote stroke causing aphasia Thrombocytopenia Post op constipation resolved today after supp Plan: Tylenol Augmentin Needs to be DC to [facility] soon Fall risk LIBIA GARCIA DO Sep 18, 2016 12:07
[2016-09-18 12:21] LABS: ALANINE AMINOTRANSFERASE 32 U/L (0-55); ALBUMIN 3.1 GM/DL (3.2-4.5); ANION GAP 10 MMOL/L (5-14); ASPARTATE AMINO TRANSFERASE 53 U/L (5-34); BILIRUBIN,TOTAL 1.7 MG/DL (0.1-1.0); BLOOD UREA NITROGEN 14 MG/DL (7-18); BUN/CREATININE RATIO 23; CALCIUM 9.1 MG/DL (8.5-10.1); CARBON DIOXIDE 20 MMOL/L (21-32); CHLORIDE 108 MMOL/L (98-107); CREATININE SERUM 0.62 MG/DL (0.60-1.30); GFR ESTIMATED > 60; GLUCOSE 107 MG/DL (70-105); POTASSIUM 4.2 MMOL/L (3.6-5.0); SODIUM 138 MMOL/L (135-145); TOTAL PROTEIN 6.8 GM/DL (6.4-8.2)
[2016-09-18] MEDS: ENOXAPARIN 40 MG/0.4 ML (LOVENOX) SYR SC SCH (15:10)
[2016-09-18 16:39] VITALS: BP 124/81
[2016-09-18] MEDS: DIAZEPAM 2 MG (VALIUM) TAB ONE ×2 (18:09→18:11)
[2016-09-18] MEDS: MELATONIN 3 MG TABLET PO SCH (20:39)
[2016-09-18] MEDS ORDERED: DIAZEPAM 5 MG (VALIUM) TABLET ONE (23:39)
[2016-09-19] MEDS: oxyCODONE/APAP 5/325MG (PERCOCET 5) TABLET PO PRN ×4 (00:34→15:35)
[2016-09-19 05:37] VITALS: BP 135/81
[2016-09-19] MEDS: FERROUS SULF 325 MG (IRON) TAB PO SCH (06:02)
[2016-09-19] MEDS: metFORMIN 500 MG (GLUCOPHAGE) TAB PO SCH ×2 (06:02→17:09)
[2016-09-19] MEDS: AUGMENTIN 500 MG TAB (AMOXICILLIN/CLAVULANATE) PO SCH ×2 (06:02→17:09)
[2016-09-19] MEDS: inSUlin ASPART (NovoLOG) 1 UNIT/0.01 ML (CHARGE PER UNIT) SC SCH ×3 (06:04→17:36)
[2016-09-19] MEDS: RT-ALBUTEROL/IPRATROPIUM 3 ML (DUONEB) VIAL INH SCH ×3 (06:33→21:32)
[2016-09-19] MEDS: ASPIRIN E.C. 81 MG (ECOTRIN) TAB PO SCH (07:56)
[2016-09-19] MEDS: PARoxetine 20 MG (PAXIL) TAB PO SCH (07:56)
[2016-09-19] MEDS: NICOTINE 21 MG (NICODERM) PATCH TD SCH (07:57)
[2016-09-19] MEDS: PARoxetine 10 MG (PAXIL) TAB PO SCH (07:57)
[2016-09-19] MEDS: MODAFINIL 100 MG TAB (PROVIGIL) NON-FORMULARY PO SCH (07:57)
[2016-09-19] MEDS: LACTULOSE SYRUP 10GM/15ML (ENULOSE) 30ML UDC PO SCH ×3 (07:57→20:44)
[2016-09-19] MEDS: SENNA W/DOCUSATE (SENOKOT S) TABLET PO SCH ×2 (07:57→20:44)
[2016-09-19] MEDS: PATCH REMOVAL TP SCH (08:02)
[2016-09-19] MEDS: ACETAMINOPHEN 325 MG TABLET/CAPLET (TYLENOL) PO PRN (09:01)
[2016-09-19] MEDS: DIAZEPAM 2 MG (VALIUM) TAB PO PRN (09:01)
--- NOTE | 2016-09-19 09:59 | Speech Therapy Daily Note ---
Speech Daily Progress Note Subjective Date Seen by Provider: Sep 19, 2016 Time Seen by Provider: 08:15 The patient was laying in bed, asleep, upon entrance. The patient was easily roused with minimal verbal prompting. The patient agreed to participate in the speech, language, and dysphagia therapy session on this date via eye gaze and "yes" head nod. The patient's involuntary tremulous head and right hand activity have appeared to increase in comparison to Monday's session (09/16/16). Additionally, the patient demonstrated increased difficulty following clinician's prompts, as well as, one-step simple directions. Per RN, the patient demonstrated increased swallowing difficulty over the weekend. The patient was observed swallowing honey-thick liquid via straw, as well as, crushed medication with puree without signs/symptoms of aspiration. Due to the patient's fluctuating swallowing safety, a modified barium swallow has been scheduled for September 21 at 08:45. Objective Orientation Information: The patient was able to state name, month (with yes and no) and year (with phonemic cue). The patient stated, "no" when asked to identify the day of week. Phrase Completion: The patient was provided short, simple phrases and was asked to complete the phrases with one word. The patient demonstrated increased accuracy on this task, with maximum clinician verbal cueing (repetition, initial phoneme) (72% accuracy). Melodic Training and Automatics: Oral expressive therapy techniques were continued on this date with limited accuracy, however, the patient was able to independently count to thirteen. Assessment Assessment Current Status: Poor Progress Treatment Plan Continue Plan of Care Communication Comprehension: 3 Expression: 1 Social Cognition Social Interaction: 2 Problem Solvin Memory: 1 Speech Short Term Goals Short Term Goals Short Term Goals 1. The patient will repeat functional phrases with 90% accuracy and moderate clinician verbal prompting. 2. The patient will verbally identify ADL items with 90% accuracy and mild clinician verbal prompting. 3. The patient will state basic orientation information (including personal information) with 90% accuracy and mild clinician verbal prompting. 4. The patient will demonstrate swallowing strategies with 80% accuracy and mild clinician verbal prompting. 5. The patient will demonstrate laryngeal, pharyngeal, and base of tongue strengthening exercises with 80% accuracy and moderate clinician verbal prompting. Time Frame-STG: One Week Speech Child Welfare Caseworker Goals Prison Goals 1. The patient will improve expressive and receptive communication for increased function and safety with ADL's in the least restrictive setting. 2. The patient will tolerate the least restrictive diet without signs/symptoms of aspiration or laryngeal penetration. Time Frame: Three Weeks Comprehension: 3 Expression: 2 Social Interaction: 3 Problem Solvin Memory: 3 Speech-Plan Treatment Plan Speech Therapy Treatment Plan: Continue Plan of Care Continue skilled speech pathology treatment to target improved oral and receptive communication. Treatment Duration: Oct 04, 2016 Frequency: Modified Program (IRF) (Five Times per Week) Estimated Hrs Per Day: .5 hour per day (45 Minutes Per Day) Rehab Potential: Fair Safety Risks/Education Teaching Recipient: Patient Teaching Methods: Discussion Response to Teaching: Reinforcement Needed Education Topics Provided: Phrase Completion, Orientation Strategies Time Speech Therapy Time In: 08:15 Speech Therapy Time Out: 09:15 Total Billed Time: 60 Billed Treatment Time RamandeepMICAELA ELIZABETH ST Sep 19, 2016 09:59
--- NOTE | 2016-09-19 09:59 | Physical Therapy Daily Note ---
PT Daily Note-Current Subjective Patient in bed pre tx, agrees to PT, has pain but is unable to rate. Patient had a couple of falls over the weekend and was checked out by an orthopedic doctor and his weight bearing status is now TTWB. Appearance Patient in wheelchair at bedside post tx with nurse call, teddy, has OT right after PT. Mental Status Patient Orientation: Unable to Assess Transfers Functional [place] Measure 0=Not Assessed/NA 4=Minimal Assistance 1=Total Assistance 5=Supervision or Setup 2=Maximal Assistance 6=Modified [place] 3=Moderate Assistance 7=Complete IndependenceIRFPAI Quality Coding Scale 6 Independent with activity with or without an assistive device 5 Patient requires set up or clean up by helper. Patient completes activity by themselves 4 Supervision or touching assist (CGA). [place] provide cues , steadying assist 3 The helper provides less than half the effort to complete the activity 2 The helper provides more than half the effort to complete the activity 1 Dependent. The helper does all the effort to complete an activity 7 Patient refused to complete or attempt activity 9 The patient did not perform the activity before the current illness or injury 88 Not attempted due to Medical conditions or safety concerns Transfers (B, C, W/C) (FIM): 3 Scootin Rollin Supine to/from Sit: 4 Sit to/from Stand: 3 Bed to/from Chair: 3 cues for safety and hand placement, patient tends to put too much weight on right leg Wheelchair Training Wheelchair (FIM): 2 Distance: 100'x2 Wheelchair Level of Assist: 4 Type of Wheelchair: Manual cues for safety and direction, his weaker left side causes him to constantly turn to the left side Exercises NuStep Minutes: 15 NuStep Workload: 1 (no resistance to keep in compliance with WBS) Treatments bed mobility and transfers, ROM, wheelchair training, patient was dressed at the edge of the bed with max assist for lowers and min A for upper Assessment Current Status: Poor Progress no change in mobility PT Short Term Goals Short Term Goals Time Frame: Sep 26, 2016 Transfers (B,C,W/C) (FIM): 4 Gait (FIM): 2 Distance (FIM): 7=533-15 ft Gait Assistive Device: FWW Wheelchair Distance: 150' PT Plastic Extruding Machine Operator Goals Plastic Extruding Machine Operator Goals PT Plastic Extruding Machine Operator Goals Time Frame: Oct 10, 2016 Transfers (B,C,W/C) (FIM): 5 Sit to Lying (QC): 5 Lying-Sitting on Side/Bed(QC): 5 Sit to Stand (QC): 5 Rollin Roll Left to Right (QC): 5 Chair/Clg-vq-Quieo Xfer(QC): 5 Car Transfer (QC): 5 Does the Patient Walk: Yes Gait (FIM): 5 Gait distance (FIM): 3=150 ft Walk 10 feet (QC): 5 Walk 10ft-Uneven Surface(QC): 5 Walk 50ft with 2 Turns (QC): 5 Walk 150 ft (QC): 5 Gait Level of Assist: 5 Gait Assistive Device: FWW Does the Pt use WC or Scooter?: No Stairs (FIM): 5 # of Steps: 12 1 Step (curb) (QC): 5 4 Steps (QC): 5 12 Steps (QC): 5 Picking up an Object (QC): 88 PT Plan Problem List Problem List: Activity Tolerance, Functional Strength, Safety, Balance, Gait, Transfer, Bed Mobility, ROM Treatment/Plan Treatment Plan: Continue Plan of Care Treatment Plan: Bed Mobility, Education, Functional Activity Mavis, Functional Strength, Group Therapy, Gait, Safety, Therapeutic Exercise, Transfers Treatment Duration: Oct 10, 2016 Frequency: At least 5-7 days/Wk (IRF) Estimated Hrs Per Day: 1.5 hours per day Patient and/or Family Agrees t: Yes Safety Risks/Education Patient Education: Transfer Techniques, Correct Positioning, W/C Management, Safety Issues Teaching Recipient: Patient Teaching Methods: Demonstration, Discussion Response to Teaching: Reinforcement Needed Time/GCodes Time In: 915 Time Out: 1000 Total Billed Treatment Time: 45 Total Billed Treatment 1 visit FA 15' EX 15' WCH 15' RUSSELL KNOWLES PT Sep 19, 2016 09:59
[2016-09-19] MEDS ORDERED: LIDOCAINE UROJET 2% GEL 10 ML PKG ONE (11:07)
--- NOTE | 2016-09-19 13:42 | Occupational Ther Daily Note ---
OT Current Status-Daily Note Subjective No pain reported. Dr. meyer states that pt. fell over weekend. New orders for pt. to be TTWB on right LE. Appearance Pt. in bed. Has a sitter now. Mental Status/Objective Functional [place] Measure 0=Not Assessed/NA 4=Minimal Assistance 1=Total Assistance 5=Supervision or Setup 2=Maximal Assistance 6=Modified [place] 3=Moderate Assistance 7=Complete [place] Pt. is able to shake his head no, and nod yes when questions are asked of him. ADL-Treatment Functional [place] Measure 0=Not Assessed/NA 4=Minimal Assistance 1=Total Assistance 5=Supervision or Setup 2=Maximal Assistance 6=Modified [place] 3=Moderate Assistance 7=Complete IndependenceIRFPAI Quality Coding Scale 6 Independent with activity with or without an assistive device 5 Patient requires set up or clean up by helper. Patient completes activity by themselves 4 Supervision or touching assist (CGA). [place] provide cues , steadying assist 3 The helper provides less than half the effort to complete the activity 2 The helper provides more than half the effort to complete the activity 1 Dependent. The helper does all the effort to complete an activity 7 Patient refused to complete or attempt activity 9 The patient did not perform the activity before the current illness or injury 88 Not attempted due to Medical conditions or safety concerns Transfers (B, C, W/C) (FIM): 2 (Pt. requires mod assist for supine-sit, Max sit -stand, Mod to pivot to chair, and mod to pivot back to bed. Mod assist to transfer back to bed.) Other Treatment Pt. is dressed already. Sitter states that PT put clean clothing on him this date. Pt. is asked if he would like to shower, or take a spongebath. Pt. shakes his head no. Taken to rehab gym. Completes 10 minutes on armbike at min resistance to increase overall strength with bilateral UE. Pt. falling asleep throughout treatment. OT donned 1 lb. wrist weights on pt. and engaged pt. in therapy peg activity to increase overall UE strength task. Pt. able to alternate UE and put pegs into board, wearing wrist weights. Tolerated well. Pt. sleepy however, and has to be gently woke up. Pt. and OT went out into [place]. Pt. engaged in activity to practice self propulsion in wheelchair in hallway, as now he will most likely have to be independent in wheelchair due to TTWB precautions. Note that pt. is neglectful on left side. Will often run into objects on left side, and requires cues to attend to left side. Spoke with social worker delinquency prevention regarding pt. being more independent in wheelchair, and possible need to speak with niece regarding this. Will continue to work on this , as status has changed. Education OT Patient Education: Correct positioning, Modified ADL techniques, Progress toward Goal/Update tx plan, Purpose of tx/functional activities, Reviewed precautions, Rehab process, Transfer techniques Teaching Recipient: Patient Teaching Methods: Demonstration, Discussion Response to Teaching: Verbalize Understanding, Return Demonstration OT Short Term Goals Short Term Goals Time Frame: Sep 26, 2016 Eating(FIM): 5 Grooming(FIM): 4 Bathing(FIM): 4 Upper Body Dressing(FIM): 4 Lower Body Dressing(FIM): 4 Toileting(FIM): 3 Transfers (B,C,W/C) (FIM): 4 Toilet/Commode Transfer(FIM): 3 Shower Transfer(FIM): 3 Additional Short Term Goals: 1-Demonstrate ADL Tasks, 2-Verbalize Understanding , 3-ImproveStrength/Mavis 1=Demonstrate adherence to instructed precautions during ADL tasks. 2=Patient will verbalize/demonstrate understanding of assistive devices/ modifications for ADL. 3=Patient will improve strength/tolerance for activity to enable patient to perform ADL's. OT Mcc Goals Mcc Goals Time Frame: Oct 10, 2016 Eating (FIM): 6 Eating (QC): 5 Groomin Oral Hygiene (QC): 5 Bathing(FIM): 4 Shower/Bathe Self (QC): 4 Upper Body Dressing(FIM): 5 Upper Body Dressing (QC): 5 Lower Body Dressing(FIM): 4 Lower Body Dressing (QC): 4 On/Off Footwear (QC): 4 Toileting(FIM): 5 Toileting Hygiene (QC): 4 Transfers (B,C,W/C) (FIM): 5 Toilet/Commode Transfer(FIM): 5 Toilet/Commode Transfer (QC): 4 Shower Transfer(FIM): 4 Comprehension(FIM): 3 Expression (FIM): 2 Social Interaction(FIM): 3 Problem Solving(FIM): 3 Memory(FIM): 3 Additional Goals: 1-Demonstrate ADL Tasks, 2-Verbalize Understanding, 3- ImproveStrength/Mavis 1=Demonstrate adherence to instructed precautions during ADL tasks. 2=Patient will verbalize/demonstrate understanding of assistive devices/ modifications for ADL. 3=Patient will improve strength/tolerance for activity to enable patient to perform ADL's. OT Education/Plan Problem List/Assessment Assessment: Decreased Activ Tolerance, Decreased Safety Aware, Decreased UE Strength, Dependent Transfers, Impaired Bed Mobility, Impaired Cognition, Impaired Funct Balance, Impaired I ADL's, Impaired Self-Care Skills, Visual- Perceptual Deficit Discharge Recommendations Plan/Recommendations: Continue POC Therapy D/C Recommendations: 24 hr Supervision Treatment Plan/Plan of Care Treatment,Training & Education: Yes Patient would benefit from OT for education, treatment and training to promote independence in ADL's, mobility, safety and/or upper extremity function for ADL' s. Plan of Care: ADL Retraining, Caregiver Training, Cognitive Retraining, Functional Mobility, UE Funct Exercise/Act, UE Neuromus Re-Ed/Coord Treatment Duration: Oct 10, 2016 Frequency: At least 5-7 days/Wk (IRF) Estimated Hrs Per Day: 1.5 hours per day Agreement: Yes Rehab Potential: Fair Time/GCodes Start Time: 10:00 Stop Time: 11:00 Total Time Billed (hr/min): 60 Billed Treatment Time 1, Ex x 4 ANNALISE SMITH OT Sep 19, 2016 13:42
--- NOTE | 2016-09-19 14:25 | Therapy Group Daily Note ---
Therapy Daily Group Note Patient Education Topic Home Safety, Fall Prevention Exercises LE Seated Exercise, UE Exercise Other/Notes Pt transported via w/c to OT group. Group consisted of introductions (name, place,name first car), socialization, education for fall prevention and home safety, and UE/LE seated exercises. Pt was able to acknowledge name with head nod then was able to verbalize place living. Pt was attentive though quiet throughout group, due to aphasia. Pt attempted to verbalize the story of how he fell. Pt followed directions and was able to complete UE/LE seated exercises by self. Pt demonstrated understanding of educational topic by answering questions with head nod and smile. Pt then was transported back to room and transferred into bed. Call light/phone in reach. All needs met in room. Start Time: 13:00 Stop Time: 14:10 Total Billed Treatment Time: 70 Total Billed Treatment 1-GRP AISHWARYA VÁZQUEZ Sep 19, 2016 14:25
[2016-09-19] MEDS: ENOXAPARIN 40 MG/0.4 ML (LOVENOX) SYR SC SCH (14:56)
[2016-09-19 17:08] VITALS: BP 112/72
[2016-09-19] MEDS: MELATONIN 3 MG TABLET PO SCH (20:44)
--- NOTE | 2016-09-19 20:50 | PM & R (SOAP) Progress Note ---
Subjective Time Seen by Provider: 20:10 Subjective/Events-last exam Patient was seen in his room this evening. RN reports that patient now has sitter due to 2 falls over weekend-No apparent injury sustained,CXR appreciated and U C&S-shows E Coli Patient on oral antibiotics .Patient mod assist for transfers Objective Exam Last Set of Vital Signs Vital Signs Date Time Temp Pulse Resp B/P (MAP) Pulse Ox O2 Delivery O2 Flow Rate FiO2 09/19/16 17:08 97.5 96 20 112/72 93 Room Air 09/17/16 21:10 4.00 Capillary Refill : Less Than 3 Seconds I&O Intake and Output 09/19/16 00:00 Intake Total 1350 ml Output Total 225 ml Balance 1125 ml Intake Oral 750 ml IV Total 600 ml Output Urine Total 225 ml # Voids 4 # Urine Diapers 5 # Bowel Movements 1 General: Alert, Cooperative HEENT: Atraumatic, PERRLA, EOMI, Mucous Memb Moist/Royal, Other (mild left labila droop) Neck: Supple, No JVD Lungs: Clear to Auscultation Heart: Regular Rate Abdomen: Normal Bowel Sounds, Soft, No Tenderness Extremities: Other (trace edema rt ankle) Neuro: Other (Mild left HP Aphasia and dysphagia Weakness prox rt leg due to frx and repair) Results Lab Laboratory Tests 09/16/16 21:19: Glucometer 109 09/17/16 05:32: White Blood Count 5.9, Red Blood Count 2.55L, Hemoglobin 8.4L, Hematocrit 25L, Mean Corpuscular Volume 99, Mean Corpuscular Hemoglobin 33, Mean Corpuscular Hemoglobin Concent 33, Red Cell Distribution Width 16.4H, Platelet Count 148, Mean Platelet Volume 9.4, Sodium Level 140, Potassium Level 4.0, Chloride Level 112H, Carbon Dioxide Level 19L, Anion Gap 9, Blood Urea Nitrogen 16, Creatinine 0.61, Estimat Glomerular Filtration Rate > 60, BUN/Creatinine Ratio 26, Glucose Level 97, Calcium Level 8.5, Total Bilirubin 1.8H, Aspartate Amino Transf (AST/ SGOT) 38H, Alanine Aminotransferase (ALT/SGPT) 22, Alkaline Phosphatase 87, Total Protein 6.0L, Albumin 2.8L 09/17/16 06:31: Glucometer 105 09/17/16 11:12: Glucometer 126H 09/17/16 16:28: Glucometer 116H 09/17/16 20:57: Glucometer 100 09/18/16 05:56: Glucometer 107 09/18/16 10:59: Glucometer 94 09/18/16 11:50: White Blood Count 8.5, Red Blood Count 2.83L, Hemoglobin 9.6L, Hematocrit 28L, Mean Corpuscular Volume 100H, Mean Corpuscular Hemoglobin 34, Mean Corpuscular Hemoglobin Concent 34, Red Cell Distribution Width 16.8H, Platelet Count 163, Mean Platelet Volume 9.4, Neutrophils (%) (Auto) 68, Lymphocytes (%) (Auto) 18, Monocytes (%) (Auto) 11, Eosinophils (%) (Auto) 3, Basophils (%) (Auto) 0, Neutrophils # (Auto) 5.8, Lymphocytes # (Auto) 1.5, Monocytes # (Auto) 0.9, Eosinophils # (Auto) 0.3, Basophils # (Auto) 0.0, Sodium Level 138, Potassium Level 4.2, Chloride Level 108H, Carbon Dioxide Level 20L, Anion Gap 10, Blood Urea Nitrogen 14, Creatinine 0.62, Estimat Glomerular Filtration Rate > 60, BUN/ Creatinine Ratio 23, Glucose Level 107H, Calcium Level 9.1, Total Bilirubin 1.7H , Aspartate Amino Transf (AST/SGOT) 53H, Alanine Aminotransferase (ALT/SGPT) 32 , Alkaline Phosphatase 127, Total Protein 6.8, Albumin 3.1L 09/18/16 15:55: Glucometer 116H 09/18/16 22:08: Glucometer 85 09/19/16 05:33: Glucometer 93 09/19/16 10:52: Glucometer 120H 09/19/16 16:12: Glucometer 79 Microbiology 09/15/16 Urine Culture - Final, Complete Enterococcus Faecalis Assessment/Plan Assessment Fall with rt hip frx s/p repair ortho 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
[2016-09-20] MEDS: DIAZEPAM 2 MG (VALIUM) TAB PO PRN ×2 (00:38→16:08)
[2016-09-20] MEDS: oxyCODONE/APAP 5/325MG (PERCOCET 5) TABLET PO PRN ×4 (02:33→17:15)
[2016-09-20 06:30] VITALS: BP 122/77
[2016-09-20] MEDS: RT-ALBUTEROL/IPRATROPIUM 3 ML (DUONEB) VIAL INH SCH ×3 (07:17→20:02)
[2016-09-20] MEDS: PARoxetine 10 MG (PAXIL) TAB PO SCH (08:59)
[2016-09-20] MEDS: AUGMENTIN 500 MG TAB (AMOXICILLIN/CLAVULANATE) PO SCH ×2 (08:59→16:08)
[2016-09-20] MEDS: PARoxetine 20 MG (PAXIL) TAB PO SCH (08:59)
[2016-09-20] MEDS: MODAFINIL 100 MG TAB (PROVIGIL) NON-FORMULARY PO SCH (08:59)
[2016-09-20] MEDS: metFORMIN 500 MG (GLUCOPHAGE) TAB PO SCH ×2 (08:59→16:08)
[2016-09-20] MEDS: ASPIRIN E.C. 81 MG (ECOTRIN) TAB PO SCH (08:59)
[2016-09-20] MEDS: SENNA W/DOCUSATE (SENOKOT S) TABLET PO SCH ×2 (08:59→21:03)
[2016-09-20] MEDS: FERROUS SULF 325 MG (IRON) TAB PO SCH (08:59)
[2016-09-20] MEDS: LACTULOSE SYRUP 10GM/15ML (ENULOSE) 30ML UDC PO SCH ×3 (09:00→21:03)
[2016-09-20] MEDS: inSUlin ASPART (NovoLOG) 1 UNIT/0.01 ML (CHARGE PER UNIT) SC SCH ×3 (09:19→17:46)
[2016-09-20] MEDS: PATCH REMOVAL TP SCH (09:32)
[2016-09-20] MEDS: NICOTINE 21 MG (NICODERM) PATCH TD SCH (09:32)
--- NOTE | 2016-09-20 10:20 | Speech Therapy Daily Note ---
Speech Daily Progress Note Subjective Date Seen by Provider: Sep 20, 2016 Time Seen by Provider: 08:00 The patient was laying in bed, asleep, upon entrance. The patient was easily roused with minimal verbal prompting. The patient agreed to participate in the dysphagia therapy session on this date via eye gaze and "yes" head nod. Objective - The patient was observed consuming his morning meal (banana, oatmeal, honey- thickened water, and scrambled eggs). - The patient's banana was cut-up by the clinician, however, the patient was able to self-feed. Mild left oral pocketing was noted, however, the patient was able to clear the material following verbal prompting (moderate) with a left lingual sweep. The patient deferred all trials of the scrambled eggs. One rigorous cough was demonstrated following one bite of oatmeal, however, no additional signs/symptoms of aspiration were demonstrated with the remaining bowl of oatmeal, full banana, or honey-thickened water. - The patient displayed increased fatigue on this date, however, was easily roused with verbal prompts. Assessment Assessment Current Status: Fair Progress Treatment Plan Continue Plan of Care Communication Comprehension: 3 Expression: 1 Social Cognition Social Interaction: 2 Problem Solvin Memory: 1 Speech Short Term Goals Short Term Goals Short Term Goals 1. The patient will repeat functional phrases with 90% accuracy and moderate clinician verbal prompting. 2. The patient will verbally identify ADL items with 90% accuracy and mild clinician verbal prompting. 3. The patient will state basic orientation information (including personal information) with 90% accuracy and mild clinician verbal prompting. 4. The patient will demonstrate swallowing strategies with 80% accuracy and mild clinician verbal prompting. 5. The patient will demonstrate laryngeal, pharyngeal, and base of tongue strengthening exercises with 80% accuracy and moderate clinician verbal prompting. Time Frame-STG: One Week Speech Skilled Nursing Goals Skilled Nursing Goals 1. The patient will improve expressive and receptive communication for increased function and safety with ADL's in the least restrictive setting. 2. The patient will tolerate the least restrictive diet without signs/symptoms of aspiration or laryngeal penetration. Time Frame: Three Weeks Comprehension: 3 Expression: 2 Social Interaction: 3 Problem Solvin Memory: 3 Speech-Plan Treatment Plan Speech Therapy Treatment Plan: Continue Plan of Care Continue skilled speech pathology intervention to target increased swallowing safety. Treatment Duration: Oct 04, 2016 Frequency: Modified Program (IRF) (Five Times per Week) Estimated Hrs Per Day: .5 hour per day (45 Minutes Per Day) Rehab Potential: Fair Safety Risks/Education Teaching Recipient: Patient Teaching Methods: Discussion Response to Teaching: Reinforcement Needed Education Topics Provided: Swallowing Strategies Time Speech Therapy Time In: 08:00 Speech Therapy Time Out: 09:00 Total Billed Time: 60 Billed Treatment Time 1ALVAREZ ELIZABETH ST Sep 20, 2016 10:19
--- NOTE | 2016-09-20 10:35 | Occupational Ther Daily Note ---
OT Current Status-Daily Note Subjective Pt alert, lying in bed. Pt needed head in agreement to participate in therapy. Nrsg reported pt just had pain pills. Mental Status/Objective Patient Orientation: Person, Place, Time, Situation Functional [place] Measure 0=Not Assessed/NA 4=Minimal Assistance 1=Total Assistance 5=Supervision or Setup 2=Maximal Assistance 6=Modified [place] 3=Moderate Assistance 7=Complete [place] ADL-Treatment Pt required mod A for supine to sitting EOB then max A to transfer into rolling shower chair. Used shower chair to transfer into shower. Applied moist heat pack to back of neck for 20 min. After therapy, pt sitting in w/c with nrsg marketing administrative assistant. All needs met in room. Functional [place] Measure 0=Not Assessed/NA 4=Minimal Assistance 1=Total Assistance 5=Supervision or Setup 2=Maximal Assistance 6=Modified [place] 3=Moderate Assistance 7=Complete IndependenceIRFPAI Quality Coding Scale 6 Independent with activity with or without an assistive device 5 Patient requires set up or clean up by helper. Patient completes activity by themselves 4 Supervision or touching assist (CGA). [place] provide cues , steadying assist 3 The helper provides less than half the effort to complete the activity 2 The helper provides more than half the effort to complete the activity 1 Dependent. The helper does all the effort to complete an activity 7 Patient refused to complete or attempt activity 9 The patient did not perform the activity before the current illness or injury 88 Not attempted due to Medical conditions or safety concerns Bathing (FIM): 4 (Using rolling shower chair and hand held shower to complete bathing. Pt required assistance to dry lower legs. Able to cleanse buttocks in sitting with shower chair seat cutout.) Bathing Location: L Arm, R Arm, L Upper Leg, R Upper Leg, Chest, Abdomen, Buttocks, Perineal Area Upper Body (FIM): 5 (After set up, pt is able to complete upper body dressing.) Lower Body Dressing (FIM): 2 (Assistance to don/doff clothing over feet. Assist to stand and keep wt bearing status while pt attempted to hike pants over hips.) OT Short Term Goals Short Term Goals Time Frame: Sep 26, 2016 Eating(FIM): 5 Grooming(FIM): 4 Bathing(FIM): 4 Upper Body Dressing(FIM): 4 Lower Body Dressing(FIM): 4 Toileting(FIM): 3 Transfers (B,C,W/C) (FIM): 4 Toilet/Commode Transfer(FIM): 3 Shower Transfer(FIM): 3 Additional Short Term Goals: 1-Demonstrate ADL Tasks, 2-Verbalize Understanding , 3-ImproveStrength/Mavis 1=Demonstrate adherence to instructed precautions during ADL tasks. 2=Patient will verbalize/demonstrate understanding of assistive devices/ modifications for ADL. 3=Patient will improve strength/tolerance for activity to enable patient to perform ADL's. OT Nursing Home Goals [employer] C[employer] Worker Goals Time Frame: Oct 10, 2016 Eating (FIM): 6 Eating (QC): 5 Groomin Oral Hygiene (QC): 5 Bathing(FIM): 4 Shower/Bathe Self (QC): 4 Upper Body Dressing(FIM): 5 Upper Body Dressing (QC): 5 Lower Body Dressing(FIM): 4 Lower Body Dressing (QC): 4 On/Off Footwear (QC): 4 Toileting(FIM): 5 Toileting Hygiene (QC): 4 Transfers (B,C,W/C) (FIM): 5 Toilet/Commode Transfer(FIM): 5 Toilet/Commode Transfer (QC): 4 Shower Transfer(FIM): 4 Comprehension(FIM): 3 Expression (FIM): 2 Social Interaction(FIM): 3 Problem Solving(FIM): 3 Memory(FIM): 3 Additional Goals: 1-Demonstrate ADL Tasks, 2-Verbalize Understanding, 3- ImproveStrength/Mavis 1=Demonstrate adherence to instructed precautions during ADL tasks. 2=Patient will verbalize/demonstrate understanding of assistive devices/ modifications for ADL. 3=Patient will improve strength/tolerance for activity to enable patient to perform ADL's. OT Education/Plan Discharge Recommendations Plan/Recommendations: Continue POC Treatment Plan/Plan of Care Patient would benefit from OT for education, treatment and training to promote independence in ADL's, mobility, safety and/or upper extremity function for ADL' s. Plan of Care: ADL Retraining, Caregiver Training, Cognitive Retraining, Functional Mobility, UE Funct Exercise/Act, UE Neuromus Re-Ed/Coord Treatment Duration: Oct 10, 2016 Frequency: At least 5-7 days/Wk (IRF) Estimated Hrs Per Day: 1.5 hours per day Agreement: Yes Rehab Potential: Fair Time/GCodes Start Time: :00 Stop Time: 10:00 Total Time Billed (hr/min): 60 Billed Treatment Time 1-ADL 3 (40 min) FA 1 (20 min) AISHWARYA VÁZQUEZ Sep 20, 2016 10:35
--- NOTE | 2016-09-20 13:15 | Physical Therapy Daily Note ---
PT Daily Note-Current Subjective Pt sitting up in [facility] upon arrival with Aide sitting with pt. Pt is reported to be fatigued/tired from OT, ST and pain meds making pt drowsy. Pt agrees to PT. Pain Numeric Pain Scale: 7 Location: Right Location Body Site: Hip Comment: Pt showed where pain is and answer yes/no questions but not description. Mental Status Patient Orientation: Person, Unable to Assess Transfers Functional [place] Measure 0=Not Assessed/NA 4=Minimal Assistance 1=Total Assistance 5=Supervision or Setup 2=Maximal Assistance 6=Modified [place] 3=Moderate Assistance 7=Complete IndependenceIRFPAI Quality Coding Scale 6 Independent with activity with or without an assistive device 5 Patient requires set up or clean up by helper. Patient completes activity by themselves 4 Supervision or touching assist (CGA). [place] provide cues , steadying assist 3 The helper provides less than half the effort to complete the activity 2 The helper provides more than half the effort to complete the activity 1 Dependent. The helper does all the effort to complete an activity 7 Patient refused to complete or attempt activity 9 The patient did not perform the activity before the current illness or injury 88 Not attempted due to Medical conditions or safety concerns Scootin Supine to/from Sit: 4 Sit to/from Stand: 3 Sit to Stand (QC): 3 Weight Bearing Weight Bearing Restriction: Touch Toe Bearing Location Restriction: R LE Wheelchair Training Does the Pt Use a Wheelchair?: Yes Wheelchair Distance: 4=617-80 ft Distance: 125' Wheelchair Level of Assist: 4 Wheel 50 ft with 2 turns (QC): 4 Type of Wheelchair: Manual Pt needs assistance managing [facility] since pt will drift to L w/o help. Exercises Seated Therapy Exercises: Ankle pumps, Long arc quads, Hip flexion, Kicking activity, Hip abd/add Seated Reps: 15 NuStep Minutes: 10 NuStep Workload: 2 Treatments Pt transfers from [facility] at Min-Mod A to completes SPT to NuStep as well as sit at EOB at end of tx. Pt completes Seated Ex as well as NuStep for 10m at Workload 2. Pt propels [facility] w/Min-Mod A to assist pt w/drifting L. Assessment Current Status: Fair Progress Pt takes time to process directions given and lacks strength in LE. Pt will complete activities to the best of his abilities. PT Short Term Goals Short Term Goals Time Frame: Sep 26, 2016 Transfers (B,C,W/C) (FIM): 4 Gait (FIM): 2 Distance (FIM): 9=593-77 ft Gait Assistive Device: FWW Wheelchair Distance: 100'x2 PT Acupuncturist Goals Acupuncturist Goals PT Alf Goals Time Frame: Oct 10, 2016 Transfers (B,C,W/C) (FIM): 5 Sit to Lying (QC): 5 Lying-Sitting on Side/Bed(QC): 5 Sit to Stand (QC): 5 Rollin Roll Left to Right (QC): 5 Chair/Ila-oi-Zbozb Xfer(QC): 5 Car Transfer (QC): 5 Does the Patient Walk: Yes Gait (FIM): 5 Gait distance (FIM): 3=150 ft Walk 10 feet (QC): 5 Walk 10ft-Uneven Surface(QC): 5 Walk 50ft with 2 Turns (QC): 5 Walk 150 ft (QC): 5 Gait Level of Assist: 5 Gait Assistive Device: FWW Does the Pt use WC or Scooter?: No Stairs (FIM): 5 # of Steps: 12 1 Step (curb) (QC): 5 4 Steps (QC): 5 12 Steps (QC): 5 Picking up an Object (QC): 88 PT Plan Problem List Problem List: Activity Tolerance, Functional Strength, Safety, Balance, Gait, Transfer, Bed Mobility Treatment/Plan Treatment Plan: Continue Plan of Care Treatment Plan: Bed Mobility, Education, Functional Activity Mavis, Functional Strength, Group Therapy, Gait, Safety, Therapeutic Exercise, Transfers Treatment Duration: Oct 10, 2016 Frequency: At least 5-7 days/Wk (IRF) Estimated Hrs Per Day: 1.5 hours per day Patient and/or Family Agrees t: Yes Safety Risks/Education Patient Education: Gait Training, Transfer Techniques, Correct Positioning, W/ C Management, Safety Issues Teaching Recipient: Patient Teaching Methods: Discussion Response to Teaching: Reinforcement Needed Time/GCodes Time In: 1115 Time Out: 1215 Total Billed Treatment Time: 60 Total Billed Treatment visit, EX x2 (30m), WCH (15m) & FA (15m) ENRIQUE SOLIS SENIOR MAINTENANCE TECHNICIAN Sep 20, 2016 13:14
[2016-09-20 15:53] VITALS: BP 127/72
--- NOTE | 2016-09-20 15:53 | PM & R (SOAP) Progress Note ---
Subjective Time Seen by Provider: 08:10 Subjective/Events-last exam Patient was seen in his room this AM Patient with tremors shaking head and arms Patients niece states that patient took propranolol for this at home Currently on hold Defer to DR Crooks re resuming this Current meds reviewed . Will taper Nicotine patch see orders Patient is on provigil a stimulant and using Diazepam for spasms Patient Mod assist for transfers Review of Systems Neurological: Other (as per above) Objective Exam Last Set of Vital Signs Vital Signs Date Time Temp Pulse Resp B/P (MAP) Pulse Ox O2 Delivery O2 Flow Rate FiO2 09/20/16 15:39 91 Room Air 09/20/16 06:30 97.3 78 20 122/77 09/17/16 21:10 4.00 Capillary Refill : Less Than 3 Seconds I&O Intake and Output 09/20/16 00:00 Intake Total 1000 ml Output Total 600 ml Balance 400 ml Intake Oral 1000 ml Output Urine Total 600 ml # Urine Diapers 3 General: Alert, Cooperative HEENT: Atraumatic, PERRLA, EOMI, Mucous Memb Moist/[place], Other (mild left labila droop) Neck: Supple, No JVD Lungs: Clear to Auscultation Heart: Regular Rate Abdomen: Normal Bowel Sounds, Soft, No Tenderness Extremities: Other (trace edema rt ankle) Neuro: Other (Mild left HP Aphasia and dysphagia Weakness prox rt leg due to frx and repair) Results Lab Laboratory Tests 09/17/16 16:28: Glucometer 116H 09/17/16 20:57: Glucometer 100 09/18/16 05:56: Glucometer 107 09/18/16 10:59: Glucometer 94 09/18/16 11:50: White Blood Count 8.5, Red Blood Count 2.83L, Hemoglobin 9.6L, Hematocrit 28L, Mean Corpuscular Volume 100H, Mean Corpuscular Hemoglobin 34, Mean Corpuscular Hemoglobin Concent 34, Red Cell Distribution Width 16.8H, Platelet Count 163, Mean Platelet Volume 9.4, Neutrophils (%) (Auto) 68, Lymphocytes (%) (Auto) 18, Monocytes (%) (Auto) 11, Eosinophils (%) (Auto) 3, Basophils (%) (Auto) 0, Neutrophils # (Auto) 5.8, Lymphocytes # (Auto) 1.5, Monocytes # (Auto) 0.9, Eosinophils # (Auto) 0.3, Basophils # (Auto) 0.0, Sodium Level 138, Potassium Level 4.2, Chloride Level 108H, Carbon Dioxide Level 20L, Anion Gap 10, Blood Urea Nitrogen 14, Creatinine 0.62, Estimat Glomerular Filtration Rate > 60, BUN/ Creatinine Ratio 23, Glucose Level 107H, Calcium Level 9.1, Total Bilirubin 1.7H , Aspartate Amino Transf (AST/SGOT) 53H, Alanine Aminotransferase (ALT/SGPT) 32 , Alkaline Phosphatase 127, Total Protein 6.8, Albumin 3.1L 09/18/16 15:55: Glucometer 116H 09/18/16 22:08: Glucometer 85 09/19/16 05:33: Glucometer 93 09/19/16 10:52: Glucometer 120H 09/19/16 16:12: Glucometer 79 09/19/16 20:28: Glucometer 64L 09/19/16 21:36: Glucometer 103 09/20/16 06:28: Glucometer 99 09/20/16 09:53: Glucometer 213H 09/20/16 10:58: Glucometer 177H Microbiology 09/15/16 Urine Culture - Final, Complete Enterococcus Faecalis Assessment/Plan Assessment Fall with rt hip frx s/p repair ortho 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
[2016-09-20] MEDS: ENOXAPARIN 40 MG/0.4 ML (LOVENOX) SYR SC SCH (15:58)
[2016-09-20 18:32] VITALS: BP 130/69
[2016-09-20] MEDS: ACETAMINOPHEN 325 MG TABLET/CAPLET (TYLENOL) PO PRN (20:03)
[2016-09-20] MEDS: MELATONIN 3 MG TABLET PO SCH (21:03)
[2016-09-21] MEDS: oxyCODONE/APAP 5/325MG (PERCOCET 5) TABLET PO PRN ×4 (00:10→23:57)
[2016-09-21 06:00] VITALS: BP 136/74
[2016-09-21] MEDS: AUGMENTIN 500 MG TAB (AMOXICILLIN/CLAVULANATE) PO SCH ×2 (06:45→17:18)
[2016-09-21] MEDS: inSUlin ASPART (NovoLOG) 1 UNIT/0.01 ML (CHARGE PER UNIT) SC SCH ×3 (06:45→17:18)
[2016-09-21] MEDS: metFORMIN 500 MG (GLUCOPHAGE) TAB PO SCH ×2 (06:45→17:18)
[2016-09-21] MEDS: FERROUS SULF 325 MG (IRON) TAB PO SCH (06:45)
[2016-09-21] MEDS: RT-ALBUTEROL/IPRATROPIUM 3 ML (DUONEB) VIAL INH SCH ×3 (07:40→21:48)
[2016-09-21] MEDS: PATCH REMOVAL TP SCH (09:21)
[2016-09-21] MEDS: NICOTINE 14 MG (NICODERM) PATCH TD SCH (09:21)
[2016-09-21] MEDS: LACTULOSE SYRUP 10GM/15ML (ENULOSE) 30ML UDC PO SCH ×3 (09:21→20:25)
[2016-09-21] MEDS: SENNA W/DOCUSATE (SENOKOT S) TABLET PO SCH ×2 (09:23→20:25)
[2016-09-21] MEDS: ASPIRIN E.C. 81 MG (ECOTRIN) TAB PO SCH (09:23)
[2016-09-21] MEDS: PARoxetine 10 MG (PAXIL) TAB PO SCH (09:24)
[2016-09-21] MEDS: MODAFINIL 100 MG TAB (PROVIGIL) NON-FORMULARY PO SCH (09:24)
[2016-09-21] MEDS: PROPRANOLOL 20 MG (INDERAL) TABLET PO SCH ×3 (09:24→17:18)
[2016-09-21] MEDS: PARoxetine 20 MG (PAXIL) TAB PO SCH (09:26)
--- NOTE | 2016-09-21 09:58 | Diagnostic Imaging Report ---
Modified barium swallow. INDICATION: Dysphagia. There are no prior studies available for comparison. This study was performed in the presence of a speech pathologist, Jackelyn. The patient was given barium-impregnated substances to swallow including honey, nectar, pudding, and banana. He did aspirate with the nectar consistency. The aspiration did produce a cough. He also showed penetration with the honey consistency. He was able to swallow the pudding and the banana without aspiration or penetration; however, it did require a great effort for him to swallow those substances. IMPRESSION: The swallowing mechanism is compromised. There was aspiration with the nectar consistency and penetration with the honey consistency. Dictated by: Dictated on workstation # [id number]
--- NOTE | 2016-09-21 10:05 | ST Mod Barium Swallow ---
Speech Evaluation-General Medical Diagnosis Right Hip Fracture Onset Date: Sep 08, 2016 Therapy Diagnosis Therapy Diagnosis: Moderate Oropharyngeal Dysphagia Precautions Precautions: Aspiration Precautions/Isolations: Fall Prevention, Standard Precautions Referral Referring Physician: Dr. Perry Stover Reason for Referral: Evaluation/Treatment Modified Barium Swallow Evaluation Medical History Pertinent Medical History: COPD, CVA, DM, HTN Reviewed History: Yes Social History Current Living Status: Other Family Speech Mod Barium Swallow Prior Level of Function Prior level of function (dietary consistency) is unknown to this clinician. Upon admission, the patient was placed on a mechanical soft consistency diet with honey-thick liquids (outside facility recommendation). Following a bedside swallowing evaluation, the patient remained on a mechanical soft consistency diet with honey-thick liquids. Due to intermittent signs/symptoms of aspiration observed by nursing throughout the most recent weekend, a video swallow was recommended by speech pathology to definitively rule out aspiration. Oral Motor Skills Dentition Comments: The patient is edentulous. Lingual Protrusion: Normal Lingual ROM: Normal Lingual Strength: Abnormal (Reduced strength noted, bilaterally.) Textures-Lateral View Lateral View Food Presentation: Benicia Liquid via Spoon, Benicia Liquid via Straw, Honey Liquid via Spoon, Honey Liquid via Cup, Pureed Solids, Mechanial Soft Solids Oral Phase Labial Closure: Left Side (Mildly reduced left, labial closure.) Bolus Formation Pooling L/R: Moderate Impairment (The patient demonstrated poor bolus formation and reduced coordination of the lingual structure resulting in piece meal deglutition and premature spillage of all bolus material to the pyriform sinus region.) Bolus Formation Placement: Moderate Impairment Mastication Rotary Chew: Moderate Impairment (Mashing was noted of mechanical soft consistency. Poorly coordinated mastication rotary movement noted.) A/P Lingual Propulsion: Moderate Impairment (Lingual "pumping" was noted on several occasions with loss of bolus material prematurely.) Lingual Movement: Moderate Impairment Oral Phase Residue: Moderate Impairment Pharyngeal Phase Swallow Response: Moderate Impairment (Bolus material consistently reached the pyriform sinuses prior to swallow initiation with all consistencies tested.) Base of Tongue: Mild Impairment Epiglottic Movement: Mild Impairment Laryngeal Elevation: Mild Impairment Vallecular Residue: Moderate (With all consistencies.) Pharyngeal Wall Residue: Mild (With all consistencies.) Piriform Sinus Residue: Moderate (With all consistencies.) Laryngeal Penetration: Mild (Honey-Thick Liquid.) Aspiration Observations: Mild (Benicia-Thick Liquid.) Other Pharyngeal Observations: Mild to moderate aspiration was noted with nectar-thick liquid (straw) during the swallow. An immediate cough was demonstrated by the patient, however, was not efficient at clearing the material from the proximal airway. Trace laryngeal penetration was visualized with honey-thick liquid via teaspoon and cup sip during the swallow. No laryngeal penetration or aspiration was visualized with puree or mechanical soft consistencies tested. Moderate vallecular and pyriform sinus residue was noted with all consistencies tested. The residual material was minimally reduced with a subsequent honey-thick liquid swallow. Performed-A/P View Not Applicable/Performed Summary/Impressions Oral Phase Impression: Moderate Impairment The patient demonstrated moderate oropharyngeal dysphagia characterized by an uncoordinated and weak swallow mechanism. Additionally, reduced pharyngeal wall contraction, decreased laryngeal elevation, and reduced base of tongue retraction was noted. Aspiration was noted with nectar-thick liquids during the swallow. Speech Short Term Goals Short Term Goals Short Term Goals 1. The patient will repeat functional phrases with 90% accuracy and moderate clinician verbal prompting. REGRESSING 2. The patient will verbally identify ADL items with 90% accuracy and mild clinician verbal prompting. PROGRESSING 3. The patient will state basic orientation information (including personal information) with 90% accuracy and mild clinician verbal prompting. MAINTAINING 4. The patient will demonstrate swallowing strategies with 80% accuracy and mild clinician verbal prompting. PROGRESSING 5. The patient will demonstrate laryngeal, pharyngeal, and base of tongue strengthening exercises with 80% accuracy and moderate clinician verbal prompting. REGRESSING Time Frame-STG: One Week Speech Retirement Goals Manager Portable Goals 1. The patient will improve expressive and receptive communication for increased function and safety with ADL's in the least restrictive setting. MAINTAINING 2. The patient will tolerate the least restrictive diet without signs/symptoms of aspiration or laryngeal penetration. PROGRESSING Time Frame: Three Weeks Comprehension: 3 Expression: 2 Social Interaction: 3 Problem Solvin Memory: 3 Speech-Plan Treatment Plan Speech Therapy Treatment Plan: Continue Plan of Care Continue skilled speech pathology to target swallowing safety, swallowing strategies, and speech/language therapy. Treatment Duration: Oct 04, 2016 Frequency: Modified Program (IRF) (Five Times per Week) Estimated Hrs Per Day: .5 hour per day (45 Minutes Per Day) Rehab Potential: Fair Safety Risks/Education Teaching Recipient: Patient Teaching Methods: Handout, Discussion, Audiovisual Response to Teaching: Reinforcement Needed Education Topics Provided: Modified Barium Swallow Results Time Speech Therapy Time In: :45 Speech Therapy Time Out: 09:45 Total Billed Time: 60 Billed Treatment Time 1, MILAD JORGENSEN Sep 21, 2016 10:05
--- NOTE | 2016-09-21 12:00 | Occupational Ther Daily Note ---
OT Current Status-Daily Note Subjective Pt. alert, sitting in bed. Pt. agreed to therapy. Asked if pt. needed pain meds and pt. nodded in agreement, did not rate. Reported to nrsg, nrsg brought pain. Mental Status/Objective Patient Orientation: Person, Place, Time, Situation Functional [place] Measure 0=Not Assessed/NA 4=Minimal Assistance 1=Total Assistance 5=Supervision or Setup 2=Maximal Assistance 6=Modified [place] 3=Moderate Assistance 7=Complete [place] ADL-Treatment Functional [place] Measure 0=Not Assessed/NA 4=Minimal Assistance 1=Total Assistance 5=Supervision or Setup 2=Maximal Assistance 6=Modified [place] 3=Moderate Assistance 7=Complete IndependenceIRFPAI Quality Coding Scale 6 Independent with activity with or without an assistive device 5 Patient requires set up or clean up by helper. Patient completes activity by themselves 4 Supervision or touching assist (CGA). [place] provide cues , steadying assist 3 The helper provides less than half the effort to complete the activity 2 The helper provides more than half the effort to complete the activity 1 Dependent. The helper does all the effort to complete an activity 7 Patient refused to complete or attempt activity 9 The patient did not perform the activity before the current illness or injury 88 Not attempted due to Medical conditions or safety concerns Eating (FIM): 5 (Pt. completed eating after set up. Pt perseverated on stirring cereal. Pt has honey thick nectar for all liquid, no straws. Pt takes increased time to eat.) Upper Body (FIM): 5 (Pt. completed dressing after set up. ) Lower Body Dressing (FIM): 3 (Pt. required education and assistance to use dressing stick and sock aid to don/doff lower body clothing. Pt. required mod A when standing to hike pants over hips. Required assistance to don and tie shoes. ) Transfers (B, C, W/C) (FIM): 3 (Pt. transferred from bed to w/c with min-mod A. Pt. does not adhere to TTWB. ) Other Treatment Pt. required mod A with HOB raised to go from supine to sitting EOB. Sat EOB by self. Pt. was pushed in w/c to therapy gym where activity was completed to work on fine motor coordination and strengthening for ADLs and functional activities. After therapy, pt in therapy gym, left in care of PT. All needs met. OT Short Term Goals Short Term Goals Time Frame: Sep 26, 2016 Eating(FIM): 5 Grooming(FIM): 4 Bathing(FIM): 4 Upper Body Dressing(FIM): 4 Lower Body Dressing(FIM): 4 Toileting(FIM): 3 Transfers (B,C,W/C) (FIM): 4 Toilet/Commode Transfer(FIM): 3 Shower Transfer(FIM): 3 Additional Short Term Goals: 1-Demonstrate ADL Tasks, 2-Verbalize Understanding , 3-ImproveStrength/Mavis 1=Demonstrate adherence to instructed precautions during ADL tasks. 2=Patient will verbalize/demonstrate understanding of assistive devices/ modifications for ADL. 3=Patient will improve strength/tolerance for activity to enable patient to perform ADL's. OT Pantograph Watcher Goals Jail Goals Time Frame: Oct 10, 2016 Eating (FIM): 6 Eating (QC): 5 Groomin Oral Hygiene (QC): 5 Bathing(FIM): 4 Shower/Bathe Self (QC): 4 Upper Body Dressing(FIM): 5 Upper Body Dressing (QC): 5 Lower Body Dressing(FIM): 4 Lower Body Dressing (QC): 4 On/Off Footwear (QC): 4 Toileting(FIM): 5 Toileting Hygiene (QC): 4 Transfers (B,C,W/C) (FIM): 5 Toilet/Commode Transfer(FIM): 5 Toilet/Commode Transfer (QC): 4 Shower Transfer(FIM): 4 Comprehension(FIM): 3 Expression (FIM): 2 Social Interaction(FIM): 3 Problem Solving(FIM): 3 Memory(FIM): 3 Additional Goals: 1-Demonstrate ADL Tasks, 2-Verbalize Understanding, 3- ImproveStrength/Mavis 1=Demonstrate adherence to instructed precautions during ADL tasks. 2=Patient will verbalize/demonstrate understanding of assistive devices/ modifications for ADL. 3=Patient will improve strength/tolerance for activity to enable patient to perform ADL's. OT Education/Plan Discharge Recommendations Plan/Recommendations: Continue POC Treatment Plan/Plan of Care Patient would benefit from OT for education, treatment and training to promote independence in ADL's, mobility, safety and/or upper extremity function for ADL' s. Plan of Care: ADL Retraining, Caregiver Training, Cognitive Retraining, Functional Mobility, UE Funct Exercise/Act, UE Neuromus Re-Ed/Coord Treatment Duration: Oct 10, 2016 Frequency: At least 5-7 days/Wk (IRF) Estimated Hrs Per Day: 1.5 hours per day Agreement: Yes Rehab Potential: Fair Time/GCodes Start Time: 10:00 Stop Time: 11:00 Total Time Billed (hr/min): 60 Billed Treatment Time 1 visit - ADL 3 (45 minutes) FA 1 (15 minutes) AISHWARYA VÁZQUEZ Sep 21, 2016 12:00
--- NOTE | 2016-09-21 13:01 | Physical Therapy Daily Note ---
PT Daily Note-Current Subjective Pt sitting in [facility] in Therapy Gym finishing with OT upon arrival. Pt appears more alert but Nurse is giving pain med which has tendency to make pt drowsy. Pt agrees to PT. Mental Status Patient Orientation: Person, Unable to Assess Transfers Functional [place] Measure 0=Not Assessed/NA 4=Minimal Assistance 1=Total Assistance 5=Supervision or Setup 2=Maximal Assistance 6=Modified [place] 3=Moderate Assistance 7=Complete IndependenceIRFPAI Quality Coding Scale 6 Independent with activity with or without an assistive device 5 Patient requires set up or clean up by helper. Patient completes activity by themselves 4 Supervision or touching assist (CGA). [place] provide cues , steadying assist 3 The helper provides less than half the effort to complete the activity 2 The helper provides more than half the effort to complete the activity 1 Dependent. The helper does all the effort to complete an activity 7 Patient refused to complete or attempt activity 9 The patient did not perform the activity before the current illness or injury 88 Not attempted due to Medical conditions or safety concerns Scootin Supine to/from Sit: 4 Sit to/from Stand: 3 Sit to Stand (QC): 3 Chair/Igw-ra-Ggued Xfer(QC): 3 Bed to/from Chair: 3 Weight Bearing Weight Bearing Restriction: Weight Bearing/Tolerated Location Restriction: R LE Wheelchair Training Does the Pt Use a Wheelchair?: Yes Wheelchair Distance: 6=949-15 ft Distance: 125' Wheelchair Level of Assist: 4 Wheel 50 ft with 2 turns (QC): 4 Type of Wheelchair: Manual Due to weakness of L side, Pt needs assistance to keep [facility] from drifting to L. Exercises Seated Therapy Exercises: Ankle pumps, Long arc quads, Hip flexion, Kicking activity NuStep Minutes: 10 NuStep Workload: 3 Treatments Pt transfers from [facility] to NuStep as well as from to EOB using SPT at Mod A. with VC for sequencing and foot advancement. Pt completes NuStep for 10m at Workload 3 then completes Seated Ex in [facility]. Pt also propels [facility] in hallway at Min A due to drifting to L side. Pt returns to room at [facility] to Supine in bed, head raised to 90' for eating lunch. Pt is with Nurse and all needs are met at end of tx. Assessment Current Status: Fair Progress Pt is able to vocalize a little when asked questions. Pt is following directions during tx a little better today. PT Short Term Goals Short Term Goals Time Frame: Sep 26, 2016 Transfers (B,C,W/C) (FIM): 4 Gait (FIM): 2 Distance (FIM): 4=461-99 ft Gait Assistive Device: FWW Wheelchair Distance: 125' PT Senior Living Goals Obiee Report Developer Goals PT Obiee Report Developer Goals Time Frame: Oct 10, 2016 Transfers (B,C,W/C) (FIM): 5 Sit to Lying (QC): 5 Lying-Sitting on Side/Bed(QC): 5 Sit to Stand (QC): 5 Rollin Roll Left to Right (QC): 5 Chair/Znb-fr-Zyvru Xfer(QC): 5 Car Transfer (QC): 5 Does the Patient Walk: Yes Gait (FIM): 5 Gait distance (FIM): 3=150 ft Walk 10 feet (QC): 5 Walk 10ft-Uneven Surface(QC): 5 Walk 50ft with 2 Turns (QC): 5 Walk 150 ft (QC): 5 Gait Level of Assist: 5 Gait Assistive Device: FWW Does the Pt use WC or Scooter?: No Stairs (FIM): 5 # of Steps: 12 1 Step (curb) (QC): 5 4 Steps (QC): 5 12 Steps (QC): 5 Picking up an Object (QC): 88 PT Plan Problem List Problem List: Activity Tolerance, Functional Strength, Safety, Balance, Gait, Transfer, Bed Mobility Treatment/Plan Treatment Plan: Continue Plan of Care Treatment Plan: Bed Mobility, Education, Functional Activity Mavis, Functional Strength, Group Therapy, Gait, Safety, Therapeutic Exercise, Transfers Treatment Duration: Oct 10, 2016 Frequency: At least 5-7 days/Wk (IRF) Estimated Hrs Per Day: 1.5 hours per day Patient and/or Family Agrees t: Yes Safety Risks/Education Patient Education: Transfer Techniques, Correct Positioning, W/C Management, Safety Issues Teaching Recipient: Patient Teaching Methods: Discussion Response to Teaching: Verbalize Understanding Time/GCodes Time In: 1100 Time Out: 1200 Total Billed Treatment Time: 60 Total Billed Treatment visit, EX x2 (30m), FA (15m) & WCH (15m) ENRIQUE SOLIS PTA Sep 21, 2016 13:01
[2016-09-21] MEDS: ENOXAPARIN 40 MG/0.4 ML (LOVENOX) SYR SC SCH (16:04)
--- NOTE | 2016-09-21 16:50 | PM & R (SOAP) Progress Note ---
Subjective Time Seen by Provider: 08:15 Subjective/Events-last exam Patient was seen in his room earlier today Doing better today Propranolol resumed for tremors.Due to fall over this past weekend and changes on hip Xray Ortho has changed WBS on leg to TTWB. Objective Exam Last Set of Vital Signs Vital Signs Date Time Temp Pulse Resp B/P (MAP) Pulse Ox O2 Delivery O2 Flow Rate FiO2 09/21/16 14:41 90 Room Air 09/21/16 06:00 97.6 90 18 136/74 2.00 Capillary Refill : Less Than 3 Seconds I&O Intake and Output 09/22/16 00:00 Intake Total 260 ml Output Total 300 ml Balance -40 ml Intake Oral 260 ml Output Urine Total 300 ml # Voids 3 General: Alert, Cooperative HEENT: Atraumatic, PERRLA, EOMI, Mucous Memb Moist/[place], Other (mild left labila droop) Neck: Supple, No JVD Lungs: Clear to Auscultation Heart: Regular Rate Abdomen: Normal Bowel Sounds, Soft, No Tenderness Extremities: Other (trace edema rt ankle) Neuro: Other (Mild left HP Aphasia and dysphagia Weakness prox rt leg due to frx and repair) Results Lab Laboratory Tests 09/18/16 22:08: Glucometer 85 09/19/16 05:33: Glucometer 93 09/19/16 10:52: Glucometer 120H 09/19/16 16:12: Glucometer 79 09/19/16 20:28: Glucometer 64L 09/19/16 21:36: Glucometer 103 09/20/16 06:28: Glucometer 99 09/20/16 09:53: Glucometer 213H 09/20/16 10:58: Glucometer 177H 09/20/16 15:59: Glucometer 94 09/20/16 20:17: Glucometer 62L 09/20/16 21:21: Glucometer 111H 09/21/16 06:21: Glucometer 108 09/21/16 11:07: Glucometer 181H Microbiology 09/15/16 Urine Culture - Final, Complete Enterococcus Faecalis Assessment/Plan Assessment Fall with rt hip frx s/p repair ortho 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 Postop anemia COPD Tobaccoism-on patch-now tapered to 14 strength DM HTN Hypokalemia-replaced UTI-under treatment Tremors-propranolol resumed Fall on unit this past weekend with changes on rt hip Xray WBS changed to TTWB Plan Continue PT/OT/ST as tolerated today F/u with DR Crooks prn Iron sucrose and K replacement as per ord Appreciate DR Reddy note and orders Consider resuming Propranolol-done Decrease Patch to 14 strength-done Team Conference held earlier today-See report for full functional update and POC and ELOS SW to follow up with patient caregiver-his niece-She may wish to consider SNU placement until WBS advanced by Ortho. STEPHON ZAMORA MD Sep 21, 2016 16:50
[2016-09-21 18:04] VITALS: BP 128/70
[2016-09-21] MEDS: MELATONIN 3 MG TABLET PO SCH (20:25)
[2016-09-22 05:37] VITALS: BP 128/83
[2016-09-22] MEDS: AUGMENTIN 500 MG TAB (AMOXICILLIN/CLAVULANATE) PO SCH ×2 (06:17→16:40)
[2016-09-22] MEDS: FERROUS SULF 325 MG (IRON) TAB PO SCH (06:17)
[2016-09-22] MEDS: oxyCODONE/APAP 5/325MG (PERCOCET 5) TABLET PO PRN ×4 (06:18→20:41)
[2016-09-22] MEDS: metFORMIN 500 MG (GLUCOPHAGE) TAB PO SCH ×2 (06:18→16:41)
[2016-09-22] MEDS: RT-ALBUTEROL/IPRATROPIUM 3 ML (DUONEB) VIAL INH SCH ×3 (07:14→19:43)
--- NOTE | 2016-09-22 09:02 | PM & R (SOAP) Progress Note ---
Subjective Time Seen by Provider: 07:50 Subjective/Events-last exam Patient was seen in his room this AM Patient seen last evening self propelling his manual w/c on unit.Patient more alert and having less tremors as UTI treated and Propranolol resumed Objective Exam Last Set of Vital Signs Vital Signs Date Time Temp Pulse Resp B/P (MAP) Pulse Ox O2 Delivery O2 Flow Rate FiO2 09/22/16 07:15 91 Room Air 09/22/16 05:37 97.5 78 20 128/83 09/21/16 06:00 2.00 Capillary Refill : Less Than 3 Seconds I&O Intake and Output 09/23/16 00:00 Intake Total 480 ml Output Total 350 ml Balance 130 ml Intake Oral 480 ml Output Urine Total 350 ml # Voids 3 General: Alert, Cooperative HEENT: Atraumatic, PERRLA, EOMI, Mucous Memb Moist/[place], Other (mild left labila droop) Neck: Supple, No JVD Lungs: Clear to Auscultation Heart: Regular Rate Abdomen: Normal Bowel Sounds, Soft, No Tenderness Extremities: Other (trace edema rt ankle) Neuro: Other (Mild left HP Aphasia and dysphagia Weakness prox rt leg due to frx and repair) Results Lab Laboratory Tests 09/19/16 10:52: Glucometer 120H 09/19/16 16:12: Glucometer 79 09/19/16 20:28: Glucometer 64L 09/19/16 21:36: Glucometer 103 09/20/16 06:28: Glucometer 99 09/20/16 09:53: Glucometer 213H 09/20/16 10:58: Glucometer 177H 09/20/16 15:59: Glucometer 94 09/20/16 20:17: Glucometer 62L 09/20/16 21:21: Glucometer 111H 09/21/16 06:21: Glucometer 108 09/21/16 11:07: Glucometer 181H 09/21/16 17:21: Glucometer 93 09/21/16 20:24: Glucometer 136H 09/22/16 05:34: Glucometer 97 Microbiology 09/15/16 Urine Culture - Final, Complete Enterococcus Faecalis Assessment/Plan Assessment Fall with rt hip frx s/p repair ortho 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 Postop anemia COPD Tobaccoism-on patch-now tapered to 14 strength DM HTN Hypokalemia-replaced UTI-under treatment Tremors-propranolol resumed Fall on unit this past weekend with changes on rt hip Xray WBS changed to TTWB Plan Continue PT/OT/ST as tolerated today F/u with DR Crooks prn Iron sucrose and K replacement as per ord Appreciate DR Reddy note and orders Consider resuming Propranolol-done Decrease Gigi Patch to 14 strength-done Team Conference held yesterday-See report for full functional update and POC and ELOS SW to follow up with patient caregiver-his niece-She may wish to consider SNU placement until WBS advanced by Ortho. STEPHON ZAMORA MD Sep 22, 2016 09:01
[2016-09-22] MEDS: PARoxetine 20 MG (PAXIL) TAB PO SCH (09:25)
[2016-09-22] MEDS: LACTULOSE SYRUP 10GM/15ML (ENULOSE) 30ML UDC PO SCH ×3 (09:25→20:18)
[2016-09-22] MEDS: PROPRANOLOL 20 MG (INDERAL) TABLET PO SCH ×3 (09:25→16:41)
[2016-09-22] MEDS: NICOTINE 14 MG (NICODERM) PATCH TD SCH (09:26)
[2016-09-22] MEDS: MODAFINIL 100 MG TAB (PROVIGIL) NON-FORMULARY PO SCH (09:26)
[2016-09-22] MEDS: PARoxetine 10 MG (PAXIL) TAB PO SCH (09:26)
[2016-09-22] MEDS: ASPIRIN E.C. 81 MG (ECOTRIN) TAB PO SCH (09:26)
[2016-09-22] MEDS: inSUlin ASPART (NovoLOG) 1 UNIT/0.01 ML (CHARGE PER UNIT) SC SCH ×3 (09:27→18:01)
[2016-09-22] MEDS: PATCH REMOVAL TP SCH (09:27)
--- NOTE | 2016-09-22 09:34 | Progress Note-Hospitalist ---
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 Pt is no longer using straws Pt on Lactulose TID and bowels are moving Abx about finished for UTI Patient Interview: Pt confirms he is still experiencing pain. Physical exam stable. AFVSS, awake and improved, in bed, tic noted right sided no changes and restarted Propranolol RRR, CTAB no rales noted Aphasic Assessment: UTI Enterococcus on Ampicillin initially then changed to PO Augmentin and it is tolerated and will be completed this weekend Acute right hip fracture s/p uncomplicated repair s/p 2 falls and xray was stable per ortho as recommended by radiology Mild post op anemia stable and no indication for transfusion Diabetes mellitus insulin-dependent Current smoker with wheezing periodically ordered Nebs Hypertension Remote stroke causing aphasia Thrombocytopenia Post op constipation resolved maintained on Lactulose chronic right sided tic Plan: Augmentin to be completed Fall risk Continue Lactulose Scribed by Sintia Reyes under the direct supervision of Dr. Crooks. LIBIA CROOKS DO Sep 22, 2016 09:34
[2016-09-22] MEDS: SENNA W/DOCUSATE (SENOKOT S) TABLET PO SCH ×2 (09:38→20:18)
--- NOTE | 2016-09-22 09:53 | Speech Therapy Daily Note ---
Speech Daily Progress Note Subjective Date Seen by Provider: Sep 22, 2016 Time Seen by Provider: 08:15 The patient was laying in bed, asleep, upon entrance. The patient was easily roused with minimal verbal prompting. The patient agreed to participate in the dysphagia therapy session on this date via eye gaze and "yes" head nod. Objective - The patient was observed consuming his morning meal (honey-thickened Ensure, honey-thickened milk, honey-thickened water, mixed pureed berries, a waffle, and scrambled eggs). - The patient's waffle was cut-up by the clinician, however, the patient was able to self-feed. Mild left oral pocketing was noted, however, the patient was able to clear the material following verbal prompting (mild) with a left lingual sweep. The patient deferred all trials of the scrambled eggs and requested no eggs for future meals (discussed with RN). One rigorous cough was demonstrated following one teaspoon size drink of Ensure, however, no additional signs/symptoms of aspiration were demonstrated with the remaining consistencies. - The patient displayed increased verbalizations on this date. Stating yes and no to specific food items, as well as, requested his urinal on two occasions. Assessment Assessment Current Status: Fair Progress Treatment Plan Continue Plan of Care Communication Comprehension: 3 Expression: 1 Social Cognition Social Interaction: 2 Problem Solvin Memory: 1 Speech Short Term Goals Short Term Goals Short Term Goals 1. The patient will repeat functional phrases with 90% accuracy and moderate clinician verbal prompting. REGRESSING 2. The patient will verbally identify ADL items with 90% accuracy and mild clinician verbal prompting. PROGRESSING 3. The patient will state basic orientation information (including personal information) with 90% accuracy and mild clinician verbal prompting. MAINTAINING 4. The patient will demonstrate swallowing strategies with 80% accuracy and mild clinician verbal prompting. PROGRESSING 5. The patient will demonstrate laryngeal, pharyngeal, and base of tongue strengthening exercises with 80% accuracy and moderate clinician verbal prompting. REGRESSING Time Frame-STG: One Week Speech Weft Straightener Goals Weft Straightener Goals 1. The patient will improve expressive and receptive communication for increased function and safety with ADL's in the least restrictive setting. MAINTAINING 2. The patient will tolerate the least restrictive diet without signs/symptoms of aspiration or laryngeal penetration. PROGRESSING Time Frame: Three Weeks Comprehension: 3 Expression: 2 Social Interaction: 3 Problem Solvin Memory: 3 Speech-Plan Treatment Plan Speech Therapy Treatment Plan: Continue Plan of Care Continue skilled speech pathology to target swallowing safety and swallowing strategies. Treatment Duration: Oct 04, 2016 Frequency: Modified Program (IRF) (Five Times per Week) Estimated Hrs Per Day: .5 hour per day (45 Minutes Per Day) Rehab Potential: Fair Safety Risks/Education Teaching Recipient: Patient Teaching Methods: Discussion Response to Teaching: Reinforcement Needed Education Topics Provided: Swallowing Strategies Time Speech Therapy Time In: 08:15 Speech Therapy Time Out: 09:15 Total Billed Time: 60 Billed Treatment Time Ramandeep RAÚL MILAD LIU Sep 22, 2016 09:53
--- NOTE | 2016-09-22 10:33 | Occupational Ther Daily Note ---
OT Current Status-Daily Note Subjective Pt. alert, sitting in bed. Pt agreed to therapy. C/o pain but cannot rate, asked pt if needed pain meds and pt nodded. Reported to nrsing. Nrsing reported it was not time for pain meds. Due to pt's pain, decreased level of independence during session. Mental Status/Objective Patient Orientation: Person, Place, Time, Situation Functional [place] Measure 0=Not Assessed/NA 4=Minimal Assistance 1=Total Assistance 5=Supervision or Setup 2=Maximal Assistance 6=Modified [place] 3=Moderate Assistance 7=Complete [place] ADL-Treatment Functional [place] Measure 0=Not Assessed/NA 4=Minimal Assistance 1=Total Assistance 5=Supervision or Setup 2=Maximal Assistance 6=Modified [place] 3=Moderate Assistance 7=Complete IndependenceIRFPAI Quality Coding Scale 6 Independent with activity with or without an assistive device 5 Patient requires set up or clean up by helper. Patient completes activity by themselves 4 Supervision or touching assist (CGA). [place] provide cues , steadying assist 3 The helper provides less than half the effort to complete the activity 2 The helper provides more than half the effort to complete the activity 1 Dependent. The helper does all the effort to complete an activity 7 Patient refused to complete or attempt activity 9 The patient did not perform the activity before the current illness or injury 88 Not attempted due to Medical conditions or safety concerns Bathing (FIM): 4 (Pt. completed bathing with SBA using shower chair, grab bars , and handheld shower. Pt washed and rinsed all body parts, needed assistance drying lower legs and feet. ) Bathing Location: L Arm, R Arm, L Upper Leg, R Upper Leg, Chest, Abdomen, Buttocks, Perineal Area Upper Body (FIM): 5 (After set up, pt completed upper body dressing with SBA.) Upper Body Dressing (QC): 5 (After set up, pt completed upper body dressing. ) Lower Body Dressing (FIM): 1 (Pt. completed lower body dressing with mod A while standing and required another helper to pull pants over hips. Pt used sock aid to don one sock and requested helper to don other sock. ) Lower Body Dressing (QC): 1 (Pt. completed lower body dressing with mod A while standing and required another helper to pull pants over hips. Pt used sock aid to don one sock and requested helper to don other sock. ) Transfers (B, C, W/C) (FIM): 3 (Pt required mod A for stand pivot transfer. ) Shower Transfer(FIM): 2 (Pt transferring to and from shower chair required max assist. ) OT Short Term Goals Short Term Goals Time Frame: Sep 26, 2016 Eating(FIM): 5 Grooming(FIM): 4 Bathing(FIM): 4 Upper Body Dressing(FIM): 4 Lower Body Dressing(FIM): 4 Toileting(FIM): 3 Transfers (B,C,W/C) (FIM): 4 Toilet/Commode Transfer(FIM): 3 Shower Transfer(FIM): 3 Additional Short Term Goals: 1-Demonstrate ADL Tasks, 2-Verbalize Understanding , 3-ImproveStrength/Mavis 1=Demonstrate adherence to instructed precautions during ADL tasks. 2=Patient will verbalize/demonstrate understanding of assistive devices/ modifications for ADL. 3=Patient will improve strength/tolerance for activity to enable patient to perform ADL's. OT Tool Grinder Operator Goals Tool Grinder Operator Goals Time Frame: Oct 10, 2016 Eating (FIM): 6 Eating (QC): 5 Groomin Oral Hygiene (QC): 5 Bathing(FIM): 4 Shower/Bathe Self (QC): 4 Upper Body Dressing(FIM): 5 Upper Body Dressing (QC): 5 Lower Body Dressing(FIM): 4 Lower Body Dressing (QC): 4 On/Off Footwear (QC): 4 Toileting(FIM): 5 Toileting Hygiene (QC): 4 Transfers (B,C,W/C) (FIM): 5 Toilet/Commode Transfer(FIM): 5 Toilet/Commode Transfer (QC): 4 Shower Transfer(FIM): 4 Comprehension(FIM): 3 Expression (FIM): 2 Social Interaction(FIM): 3 Problem Solving(FIM): 3 Memory(FIM): 3 Additional Goals: 1-Demonstrate ADL Tasks, 2-Verbalize Understanding, 3- ImproveStrength/Mavis 1=Demonstrate adherence to instructed precautions during ADL tasks. 2=Patient will verbalize/demonstrate understanding of assistive devices/ modifications for ADL. 3=Patient will improve strength/tolerance for activity to enable patient to perform ADL's. OT Education/Plan Discharge Recommendations Plan/Recommendations: Continue POC Treatment Plan/Plan of Care Patient would benefit from OT for education, treatment and training to promote independence in ADL's, mobility, safety and/or upper extremity function for ADL' s. Plan of Care: ADL Retraining, Caregiver Training, Cognitive Retraining, Functional Mobility, UE Funct Exercise/Act, UE Neuromus Re-Ed/Coord Treatment Duration: Oct 10, 2016 Frequency: At least 5-7 days/Wk (IRF) Estimated Hrs Per Day: 1.5 hours per day Agreement: Yes Rehab Potential: Fair Time/GCodes Start Time: 09:30 Stop Time: 10:30 Total Time Billed (hr/min): 60 Billed Treatment Time 1 visit - ADL 4 (60 minutes) AISHWARYA VÁZQUEZ Sep 22, 2016 10:33
--- NOTE | 2016-09-22 12:03 | Physical Therapy Daily Note ---
PT Daily Note-Current Subjective Patient in wheelchair at bedside pre tx, agrees to PT, he is able to verbalize that he has 6/10 pain in right leg. Appearance Patient in bed post tx with nurse call, phone, tray, bed alarm on, all needs met. Mental Status Patient Orientation: Unable to Assess Transfers Functional [place] Measure 0=Not Assessed/NA 4=Minimal Assistance 1=Total Assistance 5=Supervision or Setup 2=Maximal Assistance 6=Modified [place] 3=Moderate Assistance 7=Complete IndependenceIRFPAI Quality Coding Scale 6 Independent with activity with or without an assistive device 5 Patient requires set up or clean up by helper. Patient completes activity by themselves 4 Supervision or touching assist (CGA). [place] provide cues , steadying assist 3 The helper provides less than half the effort to complete the activity 2 The helper provides more than half the effort to complete the activity 1 Dependent. The helper does all the effort to complete an activity 7 Patient refused to complete or attempt activity 9 The patient did not perform the activity before the current illness or injury 88 Not attempted due to Medical conditions or safety concerns Transfers (B, C, W/C) (FIM): 2 Scootin Rollin Supine to/from Sit: 2 Sit to/from Stand: 2 Bed to/from Chair: 2 Patient is not compliant with his weight bearing status during transfers, needs cues for safety, WB status, and hand placement. Wheelchair Training Does the Pt Use a Wheelchair?: Yes Wheelchair (FIM): 4 Distance: 120'x2 Wheelchair Level of Assist: 4 Type of Wheelchair: Manual Patient needs min assist to help with turning around obstacles, drifts to the left. Exercises Supine Ex: Ankle pumps, Quad Set, Glut sets, Heel Slides, Short Arc Quads, Straight leg raise, Hip abd/add Supine Reps: 15 LAQ right side for 5 min NuStep Minutes: 15 NuStep Workload: 1 (no resistance to comply with WB status) Treatments bed mobility and transfers, functional strengthening, wheelchair mobility Assessment Current Status: Poor Progress no change in mobility, poor compliance with weight bearing status PT Short Term Goals Short Term Goals Time Frame: Sep 26, 2016 Transfers (B,C,W/C) (FIM): 4 Gait (FIM): 2 Distance (FIM): 5=151-21 ft Gait Assistive Device: FWW Wheelchair Distance: 125' PT Jail Goals Jail Goals PT Jail Goals Time Frame: Oct 10, 2016 Transfers (B,C,W/C) (FIM): 5 Sit to Lying (QC): 5 Lying-Sitting on Side/Bed(QC): 5 Sit to Stand (QC): 5 Rollin Roll Left to Right (QC): 5 Chair/[id number] Xfer(QC): 5 Car Transfer (QC): 5 Does the Patient Walk: Yes Gait (FIM): 5 Gait distance (FIM): 3=150 ft Walk 10 feet (QC): 5 Walk 10ft-Uneven Surface(QC): 5 Walk 50ft with 2 Turns (QC): 5 Walk 150 ft (QC): 5 Gait Level of Assist: 5 Gait Assistive Device: FWW Does the Pt use WC or Scooter?: No Stairs (FIM): 5 # of Steps: 12 1 Step (curb) (QC): 5 4 Steps (QC): 5 12 Steps (QC): 5 Picking up an Object (QC): 88 PT Plan Problem List Problem List: Activity Tolerance, Functional Strength, Safety, Balance, Gait, Transfer, Bed Mobility, ROM Treatment/Plan Treatment Plan: Continue Plan of Care Treatment Plan: Bed Mobility, Education, Functional Activity Mavis, Functional Strength, Group Therapy, Gait, Safety, Therapeutic Exercise, Transfers Treatment Duration: Oct 10, 2016 Frequency: At least 5-7 days/Wk (IRF) Estimated Hrs Per Day: 1.5 hours per day Patient and/or Family Agrees t: Yes Safety Risks/Education Patient Education: Transfer Techniques, Reviewed Precautions, Correct Positioning, W/C Management, Safety Issues Teaching Recipient: Patient Teaching Methods: Demonstration, Discussion Response to Teaching: Reinforcement Needed Time/GCodes Time In: 1100 Time Out: 1200 Total Billed Treatment Time: 60 Total Billed Treatment 1 visit EX 30' WCH 15' FA 15' RUSSELL KNOWLES PT Sep 22, 2016 12:03
[2016-09-22] MEDS: ENOXAPARIN 40 MG/0.4 ML (LOVENOX) SYR SC SCH (16:40)
[2016-09-22 18:10] VITALS: BP 128/79
[2016-09-22] MEDS: MELATONIN 3 MG TABLET PO SCH (20:18)
[2016-09-23 05:32] VITALS: BP 122/81
[2016-09-23] MEDS: FERROUS SULF 325 MG (IRON) TAB PO SCH (05:47)
[2016-09-23] MEDS: oxyCODONE/APAP 5/325MG (PERCOCET 5) TABLET PO PRN ×4 (05:47→20:34)
[2016-09-23] MEDS: metFORMIN 500 MG (GLUCOPHAGE) TAB PO SCH ×2 (05:47→16:11)
[2016-09-23] MEDS: RT-ALBUTEROL/IPRATROPIUM 3 ML (DUONEB) VIAL INH SCH ×3 (08:00→20:49)
[2016-09-23] MEDS: inSUlin ASPART (NovoLOG) 1 UNIT/0.01 ML (CHARGE PER UNIT) SC SCH ×3 (08:27→17:33)
[2016-09-23] MEDS: SENNA W/DOCUSATE (SENOKOT S) TABLET PO SCH ×2 (08:28→20:33)
[2016-09-23] MEDS: PROPRANOLOL 20 MG (INDERAL) TABLET PO SCH ×3 (08:28→16:12)
[2016-09-23] MEDS: MODAFINIL 100 MG TAB (PROVIGIL) NON-FORMULARY PO SCH (08:28)
[2016-09-23] MEDS: NICOTINE 14 MG (NICODERM) PATCH TD SCH (08:28)
[2016-09-23] MEDS: LACTULOSE SYRUP 10GM/15ML (ENULOSE) 30ML UDC PO SCH ×3 (08:28→20:47)
[2016-09-23] MEDS: PARoxetine 10 MG (PAXIL) TAB PO SCH (08:28)
[2016-09-23] MEDS: ASPIRIN E.C. 81 MG (ECOTRIN) TAB PO SCH (08:29)
[2016-09-23] MEDS: PATCH REMOVAL TP SCH (08:29)
[2016-09-23] MEDS: PARoxetine 20 MG (PAXIL) TAB PO SCH (08:29)
--- NOTE | 2016-09-23 08:57 | PM & R (SOAP) Progress Note ---
Subjective Time Seen by Provider: 07:55 Subjective/Events-last exam Patient was seen in his room this AM Patient Mod to max assist for transfers Current labs and Vital signs noted Patient tolerating Propranolol well for Tremors and appears to be doing better with that med resumed. Objective Exam Last Set of Vital Signs Vital Signs Date Time Temp Pulse Resp B/P (MAP) Pulse Ox O2 Delivery O2 Flow Rate FiO2 09/23/16 05:32 98.4 65 18 122/81 93 Room Air 09/21/16 06:00 2.00 Capillary Refill : Less Than 3 Seconds I&O Intake and Output 09/24/16 00:00 Intake Total 440 ml Output Total 300 ml Balance 140 ml Intake Oral 440 ml Output Urine Total 300 ml General: Alert, Cooperative HEENT: Atraumatic, PERRLA, EOMI, Mucous Memb Moist/[place], Other (mild left labila droop) Neck: Supple, No JVD Lungs: Clear to Auscultation Heart: Regular Rate Abdomen: Normal Bowel Sounds, Soft, No Tenderness Extremities: Other (trace edema rt ankle) Neuro: Other (Mild left HP Aphasia and dysphagia Weakness prox rt leg due to frx and repair) Results Lab Laboratory Tests 09/20/16 09:53: Glucometer 213H 09/20/16 10:58: Glucometer 177H 09/20/16 15:59: Glucometer 94 09/20/16 20:17: Glucometer 62L 09/20/16 21:21: Glucometer 111H 09/21/16 06:21: Glucometer 108 09/21/16 11:07: Glucometer 181H 09/21/16 17:21: Glucometer 93 09/21/16 20:24: Glucometer 136H 09/22/16 05:34: Glucometer 97 09/22/16 10:52: Glucometer 119H 09/22/16 16:02: Glucometer 102 09/22/16 20:17: Glucometer 93 09/23/16 05:19: Glucometer 120H Microbiology 09/15/16 Urine Culture - Final, Complete Enterococcus Faecalis Assessment/Plan Assessment Fall with rt hip frx s/p repair ortho 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 Postop anemia COPD Tobaccoism-on patch-now tapered to 14 strength DM HTN Hypokalemia-replaced UTI-under treatment Tremors-propranolol resumed Fall on unit this past weekend with changes on rt hip Xray WBS changed to TTWB Plan Continue PT/OT/ST as tolerated today F/u with DR Crooks prn Iron sucrose and K replacement as per orders Appreciate DR Reddy note and orders Consider resuming Propranolol-done Decrease Gigi Patch to 14 strength-done Team Conference held 09-21-16-See report for full functional update and POC and ELOS SW to follow up with patient caregiver-his niece-She may wish to consider SNU placement until WBS advanced by Ortho. Discharge set tentatively for next week 09/30/16 STEPHON ZAMORA MD Sep 23, 2016 08:57
--- NOTE | 2016-09-23 10:04 | Speech Therapy Daily Note ---
Speech Daily Progress Note Subjective Date Seen by Provider: Sep 23, 2016 Time Seen by Provider: 08:15 The patient was laying in bed, asleep, upon entrance. The patient was easily roused with minimal verbal prompting. The patient agreed to participate in the dysphagia therapy session on this date via eye gaze and "yes" head nod. Objective - The patient was observed consuming his morning meal (honey-thickened Ensure, honey-thickened milk, cereal, and banana). - The patient's banana was cut-up by the clinician, however, the patient was able to self-feed. Moderate left oral pocketing was noted, however, the patient was able to clear the material following verbal prompting (moderate, increased from the day prior) with a left lingual sweep. The patient deferred all trials of the scrambled eggs. No signs/symptoms of aspiration were demonstrated with any consistency tested. Assessment Assessment Current Status: Fair Progress Treatment Plan Continue Plan of Care Communication Comprehension: 3 Expression: 1 Social Cognition Social Interaction: 2 Problem Solvin Memory: 1 Speech Short Term Goals Short Term Goals Short Term Goals 1. The patient will repeat functional phrases with 90% accuracy and moderate clinician verbal prompting. REGRESSING 2. The patient will verbally identify ADL items with 90% accuracy and mild clinician verbal prompting. PROGRESSING 3. The patient will state basic orientation information (including personal information) with 90% accuracy and mild clinician verbal prompting. MAINTAINING 4. The patient will demonstrate swallowing strategies with 80% accuracy and mild clinician verbal prompting. PROGRESSING 5. The patient will demonstrate laryngeal, pharyngeal, and base of tongue strengthening exercises with 80% accuracy and moderate clinician verbal prompting. REGRESSING Time Frame-STG: One Week Speech Skilled Nursing Goals Skilled Nursing Goals 1. The patient will improve expressive and receptive communication for increased function and safety with ADL's in the least restrictive setting. MAINTAINING 2. The patient will tolerate the least restrictive diet without signs/symptoms of aspiration or laryngeal penetration. PROGRESSING Time Frame: Three Weeks Comprehension: 3 Expression: 2 Social Interaction: 3 Problem Solvin Memory: 3 Speech-Plan Treatment Plan Speech Therapy Treatment Plan: Continue Plan of Care Continue skilled speech pathology to target swallowing strategies and safety. Treatment Duration: Oct 04, 2016 Frequency: Modified Program (IRF) (Five Times per Week) Estimated Hrs Per Day: .5 hour per day (45 Minutes Per Day) Rehab Potential: Fair Safety Risks/Education Teaching Recipient: Patient Teaching Methods: Discussion Response to Teaching: Reinforcement Needed Education Topics Provided: Swallowing Strategies Time Speech Therapy Time In: 08:15 Speech Therapy Time Out: 09:15 Total Billed Time: 60 Billed Treatment Time 1, MILAD MARROQUIN Sep 23, 2016 10:04
--- NOTE | 2016-09-23 10:50 | Occupational Ther Daily Note ---
OT Current Status-Daily Note Subjective Pt alert, sitting in bed. Agreed to therapy. Pt reported pain and rated it 10/ 10. Reported to nrsing, pain pill was given. Pt expressed frustration by throwing sock aid and socks. Pt declined shower today and chose to only get dressed. Mental Status/Objective Patient Orientation: Person, Place, Time, Situation Functional [place] Measure 0=Not Assessed/NA 4=Minimal Assistance 1=Total Assistance 5=Supervision or Setup 2=Maximal Assistance 6=Modified [place] 3=Moderate Assistance 7=Complete [place] ADL-Treatment Functional [place] Measure 0=Not Assessed/NA 4=Minimal Assistance 1=Total Assistance 5=Supervision or Setup 2=Maximal Assistance 6=Modified [place] 3=Moderate Assistance 7=Complete IndependenceIRFPAI Quality Coding Scale 6 Independent with activity with or without an assistive device 5 Patient requires set up or clean up by helper. Patient completes activity by themselves 4 Supervision or touching assist (CGA). [place] provide cues , steadying assist 3 The helper provides less than half the effort to complete the activity 2 The helper provides more than half the effort to complete the activity 1 Dependent. The helper does all the effort to complete an activity 7 Patient refused to complete or attempt activity 9 The patient did not perform the activity before the current illness or injury 88 Not attempted due to Medical conditions or safety concerns Upper Body (FIM): 5 (After set up, pt is able to dress upper body while sitting in w/c with SBA. ) Upper Body Dressing (QC): 4 (After set up, pt is able to dress upper body while sitting in w/c with SBA. ) Lower Body Dressing (FIM): 1 (Pt was able to get clothing on by self. Required mod A x2 to stand and hike pants over hips. Pt donned one sock and requested helper to don other sock. ) Lower Body Dressing (QC): 2 (Pt was able to get clothing on by self. Required mod A x2 to stand and hike pants over hips. Pt donned one sock and requested helper to don other sock. ) On/Off Footwear (QC): 2 (Pt donned one sock and requested helper to don other sock. Pt requested shoes to be put on by helper. ) Other Treatment Pt was pushed in w/c to therapy gym where activity was completed with dowel bar and 3 lb weight to increase B UE strength, ROM, and activity tolerance. Pt performed elbow and shoulder flexion against gravity, performing 3 sets, 10x each. Pt tolerated activity well. Pt. then worked on gross motor grasp by squeezing resistive hand international student counselor 30x each. Pt worked on R FM skills by using a screwdriver to fix the dumbbell. Pt attempted to propel self back to room, drifted L into wall then Pt was wheeled in w/c back to room. After therapy Pt in w/c with feet propped up, call light and phone within reach and safety measures in place. All needs were met in room. OT Short Term Goals Short Term Goals Time Frame: Sep 26, 2016 Eating(FIM): 5 Grooming(FIM): 4 Bathing(FIM): 4 Upper Body Dressing(FIM): 4 Lower Body Dressing(FIM): 4 Toileting(FIM): 3 Transfers (B,C,W/C) (FIM): 4 Toilet/Commode Transfer(FIM): 3 Shower Transfer(FIM): 3 Additional Short Term Goals: 1-Demonstrate ADL Tasks, 2-Verbalize Understanding , 3-ImproveStrength/Mavis 1=Demonstrate adherence to instructed precautions during ADL tasks. 2=Patient will verbalize/demonstrate understanding of assistive devices/ modifications for ADL. 3=Patient will improve strength/tolerance for activity to enable patient to perform ADL's. OT Nursing Home Goals Nursing Home Goals Time Frame: Oct 10, 2016 Eating (FIM): 6 Eating (QC): 5 Groomin Oral Hygiene (QC): 5 Bathing(FIM): 4 Shower/Bathe Self (QC): 4 Upper Body Dressing(FIM): 5 Upper Body Dressing (QC): 5 Lower Body Dressing(FIM): 4 Lower Body Dressing (QC): 4 On/Off Footwear (QC): 4 Toileting(FIM): 5 Toileting Hygiene (QC): 4 Transfers (B,C,W/C) (FIM): 5 Toilet/Commode Transfer(FIM): 5 Toilet/Commode Transfer (QC): 4 Shower Transfer(FIM): 4 Comprehension(FIM): 3 Expression (FIM): 2 Social Interaction(FIM): 3 Problem Solving(FIM): 3 Memory(FIM): 3 Additional Goals: 1-Demonstrate ADL Tasks, 2-Verbalize Understanding, 3- ImproveStrength/Mavis 1=Demonstrate adherence to instructed precautions during ADL tasks. 2=Patient will verbalize/demonstrate understanding of assistive devices/ modifications for ADL. 3=Patient will improve strength/tolerance for activity to enable patient to perform ADL's. OT Education/Plan Discharge Recommendations Plan/Recommendations: Continue POC Treatment Plan/Plan of Care Patient would benefit from OT for education, treatment and training to promote independence in ADL's, mobility, safety and/or upper extremity function for ADL' s. Plan of Care: ADL Retraining, Caregiver Training, Cognitive Retraining, Functional Mobility, UE Funct Exercise/Act, UE Neuromus Re-Ed/Coord Treatment Duration: Oct 10, 2016 Frequency: At least 5-7 days/Wk (IRF) Estimated Hrs Per Day: 1.5 hours per day Agreement: Yes Rehab Potential: Fair Time/GCodes Start Time: 09:30 Stop Time: 10:30 Total Time Billed (hr/min): 60 Billed Treatment Time 1 visit, ADL 2 (30 minutes) EX 2 (30 minutes) AISHWARYA VÁZQUEZ Sep 23, 2016 10:50
--- NOTE | 2016-09-23 11:33 | Physical Therapy Daily Note ---
PT Daily Note-Current Subjective Patient in wheelchair at bedside pre tx. He is sleeping and is very lethargic upon waking. Has pain of 5/10 in right leg. Appearance Patient BTB post tx with nurse call, tray, bed alarm on. Mental Status Patient Orientation: Unable to Assess Transfers Functional [place] Measure 0=Not Assessed/NA 4=Minimal Assistance 1=Total Assistance 5=Supervision or Setup 2=Maximal Assistance 6=Modified [place] 3=Moderate Assistance 7=Complete IndependenceIRFPAI Quality Coding Scale 6 Independent with activity with or without an assistive device 5 Patient requires set up or clean up by helper. Patient completes activity by themselves 4 Supervision or touching assist (CGA). [place] provide cues , steadying assist 3 The helper provides less than half the effort to complete the activity 2 The helper provides more than half the effort to complete the activity 1 Dependent. The helper does all the effort to complete an activity 7 Patient refused to complete or attempt activity 9 The patient did not perform the activity before the current illness or injury 88 Not attempted due to Medical conditions or safety concerns Transfers (B, C, W/C) (FIM): 2 Scootin Rollin Supine to/from Sit: 2 Sit to/from Stand: 2 Bed to/from Chair: 2 Patient needs cues for safety and hand placement. Wheelchair Training Does the Pt Use a Wheelchair?: Yes Wheelchair (FIM): 2 Distance: 100'x2 Wheelchair Level of Assist: 4 Type of Wheelchair: Manual Patient needs assist keeping wheelchair going strait and for turning around obstacles. Exercises NuStep Minutes: 10 NuStep Workload: 1 (no reistance in order to comply with his weight bearing status) Treatments bed mobility and transfers, functional strengthening/ROM, wheelchair mobility Assessment Current Status: Poor Progress No change in mobility. Patient was very lethargic and falling asleep on the Nustep, he could not keep awake even after he had already performed some activity so he was taken back to his room and put to bed. We will complete his therapy time this afternoon. Apparently he had pain meds and became lethargic from that. PT Short Term Goals Short Term Goals Time Frame: Sep 26, 2016 Transfers (B,C,W/C) (FIM): 4 Gait (FIM): 2 Distance (FIM): 5=487-81 ft Gait Assistive Device: FWW Wheelchair Distance: 120'x2 PT Custodial Goals Hardboard Factory Worker Goals PT Custodial Goals Time Frame: Oct 10, 2016 Transfers (B,C,W/C) (FIM): 5 Sit to Lying (QC): 5 Lying-Sitting on Side/Bed(QC): 5 Sit to Stand (QC): 5 Rollin Roll Left to Right (QC): 5 Chair/Jrx-uz-Zejxm Xfer(QC): 5 Car Transfer (QC): 5 Does the Patient Walk: Yes Gait (FIM): 5 Gait distance (FIM): 3=150 ft Walk 10 feet (QC): 5 Walk 10ft-Uneven Surface(QC): 5 Walk 50ft with 2 Turns (QC): 5 Walk 150 ft (QC): 5 Gait Level of Assist: 5 Gait Assistive Device: FWW Does the Pt use WC or Scooter?: No Stairs (FIM): 5 # of Steps: 12 1 Step (curb) (QC): 5 4 Steps (QC): 5 12 Steps (QC): 5 Picking up an Object (QC): 88 PT Plan Problem List Problem List: Activity Tolerance, Functional Strength, Safety, Balance, Gait, Transfer, Bed Mobility, ROM Treatment/Plan Treatment Plan: Continue Plan of Care Treatment Plan: Bed Mobility, Education, Functional Activity Mavis, Functional Strength, Group Therapy, Gait, Safety, Therapeutic Exercise, Transfers Treatment Duration: Oct 10, 2016 Frequency: At least 5-7 days/Wk (IRF) Estimated Hrs Per Day: 1.5 hours per day Patient and/or Family Agrees t: Yes Safety Risks/Education Patient Education: Transfer Techniques, Reviewed Precautions, Correct Positioning, W/C Management, Safety Issues Teaching Recipient: Patient Teaching Methods: Demonstration, Discussion Response to Teaching: Reinforcement Needed Time/GCodes Time In: 1100 Time Out: 1130 Total Billed Treatment Time: 30 Total Billed Treatment 1 visit EX 10' [facility] 20' RUSSELL KNOWLES PT Sep 23, 2016 11:33
--- NOTE | 2016-09-23 15:09 | Physical Therapy Daily Note ---
PT Daily Note-Current Subjective Patient in bed sleeping pre tx, agrees to PT reluctantly, very lethargic. He voices no complaints of pain, or indications of pain. Appearance Patient in wheelchair at bedside with RT post tx, has nurse call and chair alarm on. Mental Status Patient Orientation: Unable to Assess Transfers Functional [place] Measure 0=Not Assessed/NA 4=Minimal Assistance 1=Total Assistance 5=Supervision or Setup 2=Maximal Assistance 6=Modified [place] 3=Moderate Assistance 7=Complete IndependenceIRFPAI Quality Coding Scale 6 Independent with activity with or without an assistive device 5 Patient requires set up or clean up by helper. Patient completes activity by themselves 4 Supervision or touching assist (CGA). [place] provide cues , steadying assist 3 The helper provides less than half the effort to complete the activity 2 The helper provides more than half the effort to complete the activity 1 Dependent. The helper does all the effort to complete an activity 7 Patient refused to complete or attempt activity 9 The patient did not perform the activity before the current illness or injury 88 Not attempted due to Medical conditions or safety concerns Transfers (B, C, W/C) (FIM): 2 Scootin Rollin Supine to/from Sit: 2 Sit to/from Stand: 2 Bed to/from Chair: 2 Patient performs bed mobility with max assist except for rolling, transfers with max assist. Cues for safety and hand placement. Patient is not compliant with his weight bearing status. Weight Bearing Weight Bearing Restriction: Touch Toe Bearing Location Restriction: R LE Wheelchair Training Does the Pt Use a Wheelchair?: Yes Wheelchair (FIM): 4 Distance: 150'x2, 30' Wheelchair Level of Assist: 4 Type of Wheelchair: Manual Patient had wheelchair training in an outdoors environment, up and down a ramp and uneven bridge. Patient continued to be very lethargic and needed constant encouragement to participate. Treatments wheelchair mobility, bed mobility and transfers Assessment Current Status: Poor Progress No change in mobility, poor participation, patient needed constant encouragement to participate PT Short Term Goals Short Term Goals Time Frame: Sep 26, 2016 Transfers (B,C,W/C) (FIM): 4 Gait (FIM): 2 Distance (FIM): 0=501-07 ft Gait Assistive Device: FWW Wheelchair Distance: 100'x2 PT Retirement Goals Frankfurter Inspector Goals PT Retirement Goals Time Frame: Oct 10, 2016 Transfers (B,C,W/C) (FIM): 5 Sit to Lying (QC): 5 Lying-Sitting on Side/Bed(QC): 5 Sit to Stand (QC): 5 Rollin Roll Left to Right (QC): 5 Chair/Tov-qf-Gbodm Xfer(QC): 5 Car Transfer (QC): 5 Does the Patient Walk: Yes Gait (FIM): 5 Gait distance (FIM): 3=150 ft Walk 10 feet (QC): 5 Walk 10ft-Uneven Surface(QC): 5 Walk 50ft with 2 Turns (QC): 5 Walk 150 ft (QC): 5 Gait Level of Assist: 5 Gait Assistive Device: FWW Does the Pt use WC or Scooter?: No Stairs (FIM): 5 # of Steps: 12 1 Step (curb) (QC): 5 4 Steps (QC): 5 12 Steps (QC): 5 Picking up an Object (QC): 88 PT Plan Problem List Problem List: Activity Tolerance, Functional Strength, Safety, Balance, Gait, Transfer, Bed Mobility, ROM Treatment/Plan Treatment Plan: Continue Plan of Care Treatment Plan: Bed Mobility, Education, Functional Activity Mavis, Functional Strength, Group Therapy, Gait, Safety, Therapeutic Exercise, Transfers Treatment Duration: Oct 10, 2016 Frequency: At least 5-7 days/Wk (IRF) Estimated Hrs Per Day: 1.5 hours per day Patient and/or Family Agrees t: Yes Safety Risks/Education Patient Education: Transfer Techniques, Reviewed Precautions, Correct Positioning, W/C Management, Safety Issues Teaching Recipient: Patient Teaching Methods: Demonstration, Discussion Response to Teaching: Reinforcement Needed Time/GCodes Time In: 1440 Time Out: 1510 Total Billed Treatment Time: 30 Total Billed Treatment 1 visit [facility] 30' RUSSELL KNOWLES PT Sep 23, 2016 15:09
[2016-09-23] MEDS: ENOXAPARIN 40 MG/0.4 ML (LOVENOX) SYR SC SCH (15:16)
[2016-09-23 19:00] VITALS: BP 110/65
[2016-09-23] MEDS: MELATONIN 3 MG TABLET PO SCH (20:33)
[2016-09-24] MEDS: oxyCODONE/APAP 5/325MG (PERCOCET 5) TABLET PO PRN ×4 (02:17→20:31)
[2016-09-24 06:23] VITALS: BP 121/66
[2016-09-24] MEDS: FERROUS SULF 325 MG (IRON) TAB PO SCH (06:44)
[2016-09-24] MEDS: metFORMIN 500 MG (GLUCOPHAGE) TAB PO SCH ×2 (06:44→17:36)
[2016-09-24] MEDS: RT-ALBUTEROL/IPRATROPIUM 3 ML (DUONEB) VIAL INH SCH ×3 (07:02→19:57)
[2016-09-24] MEDS: LACTULOSE SYRUP 10GM/15ML (ENULOSE) 30ML UDC PO SCH ×3 (08:26→20:31)
[2016-09-24] MEDS: PROPRANOLOL 20 MG (INDERAL) TABLET PO SCH ×3 (08:26→17:36)
[2016-09-24] MEDS: MODAFINIL 100 MG TAB (PROVIGIL) NON-FORMULARY PO SCH (08:26)
[2016-09-24] MEDS: inSUlin ASPART (NovoLOG) 1 UNIT/0.01 ML (CHARGE PER UNIT) SC SCH ×3 (08:26→17:37)
[2016-09-24] MEDS: PARoxetine 10 MG (PAXIL) TAB PO SCH (08:26)
[2016-09-24] MEDS: PARoxetine 20 MG (PAXIL) TAB PO SCH (08:27)
[2016-09-24] MEDS: DIAZEPAM 2 MG (VALIUM) TAB PO PRN (08:27)
[2016-09-24] MEDS: ASPIRIN E.C. 81 MG (ECOTRIN) TAB PO SCH (08:28)
[2016-09-24] MEDS: PATCH REMOVAL TP SCH (08:28)
[2016-09-24] MEDS: NICOTINE 14 MG (NICODERM) PATCH TD SCH (08:28)
[2016-09-24] MEDS: SENNA W/DOCUSATE (SENOKOT S) TABLET PO SCH ×2 (08:28→20:31)
--- NOTE | 2016-09-24 12:12 | Physical Therapy Daily Note ---
PT Daily Note-Current Subjective Pt laying Supine in bed with head raised. Pt agreed (head nod) to PT. Mental Status Patient Orientation: Person, Unable to Assess Transfers Functional [place] Measure 0=Not Assessed/NA 4=Minimal Assistance 1=Total Assistance 5=Supervision or Setup 2=Maximal Assistance 6=Modified [place] 3=Moderate Assistance 7=Complete IndependenceIRFPAI Quality Coding Scale 6 Independent with activity with or without an assistive device 5 Patient requires set up or clean up by helper. Patient completes activity by themselves 4 Supervision or touching assist (CGA). [place] provide cues , steadying assist 3 The helper provides less than half the effort to complete the activity 2 The helper provides more than half the effort to complete the activity 1 Dependent. The helper does all the effort to complete an activity 7 Patient refused to complete or attempt activity 9 The patient did not perform the activity before the current illness or injury 88 Not attempted due to Medical conditions or safety concerns Scootin Supine to/from Sit: 2 Sit to/from Stand: 3 Sit to Stand (QC): 3 Chair/Uqw-nh-Mvmrx Xfer(QC): 3 Bed to/from Chair: 3 Weight Bearing Weight Bearing Restriction: Touch Toe Bearing Location Restriction: R LE Treatments Pt transferred from Supine to EOB at Mod A then EOB to standing at Mod A. Pt transferred to [facility] using SPT. Pt was then wheeled to other side of bed to eat lunch that was awaiting him. Pt was assisted with opening lids and was attempting eating at end of tx with all needs met. Assessment Current Status: Fair Progress Pt appeared very drowsy and didn't open eyes during tx. Nursing was notified that lunch had arrived and pt was attempting to eat although drowsy. PT Short Term Goals Short Term Goals Time Frame: Sep 26, 2016 Transfers (B,C,W/C) (FIM): 4 Gait (FIM): 2 Distance (FIM): 6=615-61 ft Gait Assistive Device: FWW Wheelchair Distance: 150'x2, 30' PT Shelter Goals Catering Staff Member Goals PT Shelter Goals Time Frame: Oct 10, 2016 Transfers (B,C,W/C) (FIM): 5 Sit to Lying (QC): 5 Lying-Sitting on Side/Bed(QC): 5 Sit to Stand (QC): 5 Rollin Roll Left to Right (QC): 5 Chair/Dwa-dr-Pfoqo Xfer(QC): 5 Car Transfer (QC): 5 Does the Patient Walk: Yes Gait (FIM): 5 Gait distance (FIM): 3=150 ft Walk 10 feet (QC): 5 Walk 10ft-Uneven Surface(QC): 5 Walk 50ft with 2 Turns (QC): 5 Walk 150 ft (QC): 5 Gait Level of Assist: 5 Gait Assistive Device: FWW Does the Pt use WC or Scooter?: No Stairs (FIM): 5 # of Steps: 12 1 Step (curb) (QC): 5 4 Steps (QC): 5 12 Steps (QC): 5 Picking up an Object (QC): 88 PT Plan Problem List Problem List: Activity Tolerance, Functional Strength, Safety, Balance, Gait, Transfer, Bed Mobility Treatment/Plan Treatment Plan: Continue Plan of Care Treatment Plan: Bed Mobility, Education, Functional Activity Mavis, Functional Strength, Group Therapy, Gait, Safety, Therapeutic Exercise, Transfers Treatment Duration: Oct 10, 2016 Frequency: At least 5-7 days/Wk (IRF) Estimated Hrs Per Day: 1.5 hours per day Patient and/or Family Agrees t: Yes Safety Risks/Education Patient Education: Transfer Techniques, Correct Positioning, Safety Issues Teaching Recipient: Patient Teaching Methods: Discussion Response to Teaching: Reinforcement Needed Time/GCodes Time In: 1145 Time Out: 1200 Total Billed Treatment Time: 15 Total Billed Treatment visit, FA (15m) ENRIQUE SOLIS KEYMODULE ASSEMBLY SUPERVISOR Sep 24, 2016 12:12
[2016-09-24] MEDS: ENOXAPARIN 40 MG/0.4 ML (LOVENOX) SYR SC SCH (15:46)
[2016-09-24 18:12] VITALS: BP 120/62
[2016-09-24] MEDS: MELATONIN 3 MG TABLET PO SCH (20:31)
[2016-09-25] MEDS: oxyCODONE/APAP 5/325MG (PERCOCET 5) TABLET PO PRN ×3 (04:02→15:48)
[2016-09-25] MEDS: FERROUS SULF 325 MG (IRON) TAB PO SCH (06:09)
[2016-09-25] MEDS: metFORMIN 500 MG (GLUCOPHAGE) TAB PO SCH ×2 (06:09→17:31)
[2016-09-25] MEDS: inSUlin ASPART (NovoLOG) 1 UNIT/0.01 ML (CHARGE PER UNIT) SC SCH ×3 (06:41→17:32)
[2016-09-25 06:43] VITALS: BP 124/71
[2016-09-25] MEDS: RT-ALBUTEROL/IPRATROPIUM 3 ML (DUONEB) VIAL INH SCH ×3 (07:09→20:10)
[2016-09-25] MEDS: PARoxetine 10 MG (PAXIL) TAB PO SCH (08:15)
[2016-09-25] MEDS: ASPIRIN E.C. 81 MG (ECOTRIN) TAB PO SCH (08:15)
[2016-09-25] MEDS: PROPRANOLOL 20 MG (INDERAL) TABLET PO SCH ×3 (08:15→17:29)
[2016-09-25] MEDS: MODAFINIL 100 MG TAB (PROVIGIL) NON-FORMULARY PO SCH (08:15)
[2016-09-25] MEDS: SENNA W/DOCUSATE (SENOKOT S) TABLET PO SCH ×2 (08:15→21:00)
[2016-09-25] MEDS: LACTULOSE SYRUP 10GM/15ML (ENULOSE) 30ML UDC PO SCH ×4 (08:15→21:00)
[2016-09-25] MEDS: PARoxetine 20 MG (PAXIL) TAB PO SCH (08:15)
[2016-09-25] MEDS: NICOTINE 14 MG (NICODERM) PATCH TD SCH (08:15)
[2016-09-25] MEDS: PATCH REMOVAL TP SCH (08:16)
[2016-09-25] MEDS: ENOXAPARIN 40 MG/0.4 ML (LOVENOX) SYR SC SCH (15:38)
[2016-09-25 18:09] VITALS: BP 137/92
[2016-09-25] MEDS ORDERED: DEXTROSE 50% 50 ML (IMS) SYR ONE (20:11)
[2016-09-25] MEDS ORDERED: GLUCAGON EMERGENCY 1 MG/KIT ONE (20:28)
[2016-09-25] MEDS: MELATONIN 3 MG TABLET PO SCH (21:00)
[2016-09-25] MEDS ORDERED: GLUCAGON EMERGENCY 1 MG/KIT IM ONE (21:15)
[2016-09-26] MEDS: oxyCODONE/APAP 5/325MG (PERCOCET 5) TABLET PO PRN ×5 (00:15→23:21)
[2016-09-26 06:00] VITALS: BP 133/57
[2016-09-26] MEDS: metFORMIN 500 MG (GLUCOPHAGE) TAB PO SCH ×2 (06:08→17:39)
[2016-09-26] MEDS: FERROUS SULF 325 MG (IRON) TAB PO SCH (06:08)
[2016-09-26] MEDS: RT-ALBUTEROL/IPRATROPIUM 3 ML (DUONEB) VIAL INH SCH ×3 (06:44→20:16)
[2016-09-26] MEDS: inSUlin ASPART (NovoLOG) 1 UNIT/0.01 ML (CHARGE PER UNIT) SC SCH ×3 (07:58→17:39)
[2016-09-26] MEDS: PARoxetine 20 MG (PAXIL) TAB PO SCH (07:59)
[2016-09-26] MEDS: LACTULOSE SYRUP 10GM/15ML (ENULOSE) 30ML UDC PO SCH ×3 (07:59→21:20)
[2016-09-26] MEDS: SENNA W/DOCUSATE (SENOKOT S) TABLET PO SCH ×2 (07:59→21:20)
[2016-09-26] MEDS: NICOTINE 14 MG (NICODERM) PATCH TD SCH (08:00)
[2016-09-26] MEDS: MODAFINIL 100 MG TAB (PROVIGIL) NON-FORMULARY PO SCH (08:00)
[2016-09-26] MEDS: PATCH REMOVAL TP SCH (08:00)
[2016-09-26] MEDS: PARoxetine 10 MG (PAXIL) TAB PO SCH (08:00)
[2016-09-26] MEDS: ASPIRIN E.C. 81 MG (ECOTRIN) TAB PO SCH (08:00)
[2016-09-26] MEDS: PROPRANOLOL 20 MG (INDERAL) TABLET PO SCH ×3 (08:00→17:39)
--- NOTE | 2016-09-26 09:33 | Speech Therapy Daily Note ---
Speech Daily Progress Note Subjective Date Seen by Provider: Sep 26, 2016 Time Seen by Provider: 08:10 The patient was sitting upright in bed, eating breakfast upon entrance. The patient greeted the clinician with an eye gaze and was agreeable to dysphagia and speech/language therapy via head nod, "yes." Objective - The patient was observed consuming peaches (diced by the RN), a pureed pancake , cereal with honey-thickened milk, and honey-thickened milk. The patient displayed pocketing with peaches and required mild prompting by the clinician for swallowing and clearing. The patient expectorated one bite of peaches due to his inability and increased effort to "mash." No signs/symptoms of aspiration were displayed with any consistency present. - The patient was able to repeat single words immediately, repeat short phrases , and four numbers forward. Multiple repetitions of the information was provided by the clinician, as well as, consistent verbal prompting for continued participation. The patient was unable to recall any of the five words provided approximately five minutes earlier. The patient was oriented to day of week and city. The patient was not oriented to month, date, or year. Assessment Assessment Current Status: Fair Progress Treatment Plan Continue Plan of Care Communication Comprehension: 3 Expression: 1 Social Cognition Social Interaction: 2 Problem Solvin Memory: 1 Speech Short Term Goals Short Term Goals Short Term Goals 1. The patient will repeat functional phrases with 90% accuracy and moderate clinician verbal prompting. REGRESSING 2. The patient will verbally identify ADL items with 90% accuracy and mild clinician verbal prompting. PROGRESSING 3. The patient will state basic orientation information (including personal information) with 90% accuracy and mild clinician verbal prompting. MAINTAINING 4. The patient will demonstrate swallowing strategies with 80% accuracy and mild clinician verbal prompting. PROGRESSING 5. The patient will demonstrate laryngeal, pharyngeal, and base of tongue strengthening exercises with 80% accuracy and moderate clinician verbal prompting. REGRESSING Time Frame-STG: One Week Speech Longterm Goals [place] Goals 1. The patient will improve expressive and receptive communication for increased function and safety with ADL's in the least restrictive setting. MAINTAINING 2. The patient will tolerate the least restrictive diet without signs/symptoms of aspiration or laryngeal penetration. PROGRESSING Time Frame: Three Weeks Comprehension: 3 Expression: 2 Social Interaction: 3 Problem Solvin Memory: 3 Speech-Plan Treatment Plan Speech Therapy Treatment Plan: Continue Plan of Care Continue skilled speech pathology to target swallowing safety, swallowing strategies, and expressive communication. Treatment Duration: Oct 04, 2016 Frequency: Modified Program (IRF) (Five Times per Week) Estimated Hrs Per Day: .5 hour per day (45 Minutes Per Day) Rehab Potential: Fair Safety Risks/Education Teaching Recipient: Patient Teaching Methods: Discussion Response to Teaching: Reinforcement Needed Education Topics Provided: Swallowing Strategies, Orientation Strategies Time Speech Therapy Time In: 08:10 Speech Therapy Time Out: 09:10 Total Billed Time: 60 Billed Treatment Time , , MILAD REED Sep 26, 2016 09:33
--- NOTE | 2016-09-26 10:12 | Occupational Ther Daily Note ---
OT Current Status-Daily Note Subjective Pt alert, sitting in bed. Agreed to therapy. C/o pain. Reported to nrsing, nrsing getting pain pill. Mental Status/Objective Patient Orientation: Person, Place, Time, Situation Functional [place] Measure 0=Not Assessed/NA 4=Minimal Assistance 1=Total Assistance 5=Supervision or Setup 2=Maximal Assistance 6=Modified [place] 3=Moderate Assistance 7=Complete [place] Attachments: IV ADL-Treatment Functional [place] Measure 0=Not Assessed/NA 4=Minimal Assistance 1=Total Assistance 5=Supervision or Setup 2=Maximal Assistance 6=Modified [place] 3=Moderate Assistance 7=Complete IndependenceIRFPAI Quality Coding Scale 6 Independent with activity with or without an assistive device 5 Patient requires set up or clean up by helper. Patient completes activity by themselves 4 Supervision or touching assist (CGA). [place] provide cues , steadying assist 3 The helper provides less than half the effort to complete the activity 2 The helper provides more than half the effort to complete the activity 1 Dependent. The helper does all the effort to complete an activity 7 Patient refused to complete or attempt activity 9 The patient did not perform the activity before the current illness or injury 88 Not attempted due to Medical conditions or safety concerns Bathing (FIM): 4 (Pt completed bathing using rolling shower chair and handheld shower. Pt has IV in R foot, assistance needed to wash. Pt rinsed R foot, assistance drying. Washed and dryed rest of body by self. ) Bathing Location: L Arm, R Arm, L Upper Leg, R Upper Leg, L Lower Leg ( including foot), Chest, Abdomen, Buttocks, Perineal Area Shower/Bathe Self (QC): 3 (Pt completed bathing using rolling shower chair and handheld shower. Pt has IV in R foot, assistance needed to wash. Pt rinsed R foot, assistance drying. Washed and dryed rest of body by self. ) Upper Body (FIM): 5 (After set up, pt able to dress upper body. ) Upper Body Dressing (QC): 5 (After set up, pt is able to complete upper body dressing. ) Lower Body Dressing (FIM): 1 (Assistance putting briefs and pants over R foot due to IV. Pt requests helper don socks for him. Compromise by pt donning one, helper donning other. Refuses to use adaptive equiptment for dressing. Requires mod A while standing, requiring another helper to hike pants over hips. ) Lower Body Dressing (QC): 2 (Assistance putting briefs and pants over R foot due to IV. Pt requests helper don socks for him. Compromise by pt donning one, helper donning other. Refuses to use adaptive equiptment for dressing. Requires mod A while standing, requiring another helper to hike pants over hips.) On/Off Footwear (QC): 3 (Pt dons L sock. Requires assistance donning R sock due to IV in R foot. Pt refuses to use sock aid, only dons sock after compromise helper will do other. ) Transfers (B, C, W/C) (FIM): 3 (Pt requires mod A transferring. Pt not adhering to TTWB. Pt does not push up from surface with arms to assist while transferring. ) Shower Transfer(FIM): 3 (Pt requires mod A transferring. Pt not adhering to TTWB. Pt does not push up from surface with arms to assist while transferring. Using rolling shower chair. ) OT Short Term Goals Short Term Goals Time Frame: Sep 26, 2016 Eating(FIM): 5 Grooming(FIM): 4 Bathing(FIM): 4 Upper Body Dressing(FIM): 4 Lower Body Dressing(FIM): 4 Toileting(FIM): 3 Transfers (B,C,W/C) (FIM): 4 Toilet/Commode Transfer(FIM): 3 Shower Transfer(FIM): 3 Additional Short Term Goals: 1-Demonstrate ADL Tasks, 2-Verbalize Understanding , 3-ImproveStrength/Mavis 1=Demonstrate adherence to instructed precautions during ADL tasks. 2=Patient will verbalize/demonstrate understanding of assistive devices/ modifications for ADL. 3=Patient will improve strength/tolerance for activity to enable patient to perform ADL's. OT Prison Goals Photographer Goals Time Frame: Oct 10, 2016 Eating (FIM): 6 Eating (QC): 5 Groomin Oral Hygiene (QC): 5 Bathing(FIM): 4 Shower/Bathe Self (QC): 4 Upper Body Dressing(FIM): 5 Upper Body Dressing (QC): 5 Lower Body Dressing(FIM): 4 Lower Body Dressing (QC): 4 On/Off Footwear (QC): 4 Toileting(FIM): 5 Toileting Hygiene (QC): 4 Transfers (B,C,W/C) (FIM): 5 Toilet/Commode Transfer(FIM): 5 Toilet/Commode Transfer (QC): 4 Shower Transfer(FIM): 4 Comprehension(FIM): 3 Expression (FIM): 2 Social Interaction(FIM): 3 Problem Solving(FIM): 3 Memory(FIM): 3 Additional Goals: 1-Demonstrate ADL Tasks, 2-Verbalize Understanding, 3- ImproveStrength/Mavis 1=Demonstrate adherence to instructed precautions during ADL tasks. 2=Patient will verbalize/demonstrate understanding of assistive devices/ modifications for ADL. 3=Patient will improve strength/tolerance for activity to enable patient to perform ADL's. OT Education/Plan Discharge Recommendations Plan/Recommendations: Continue POC Treatment Plan/Plan of Care Patient would benefit from OT for education, treatment and training to promote independence in ADL's, mobility, safety and/or upper extremity function for ADL' s. Plan of Care: ADL Retraining, Caregiver Training, Cognitive Retraining, Functional Mobility, UE Funct Exercise/Act, UE Neuromus Re-Ed/Coord Treatment Duration: Oct 10, 2016 Frequency: At least 5-7 days/Wk (IRF) Estimated Hrs Per Day: 1.5 hours per day Agreement: Yes Rehab Potential: Fair Time/GCodes Start Time: 09:15 Stop Time: 10:15 Total Time Billed (hr/min): 60 Billed Treatment Time 1 visit, ADL 4 (60 minutes) AISHWARYA VÁZQUEZ Sep 26, 2016 10:12
--- NOTE | 2016-09-26 11:10 | Physical Therapy Daily Note ---
PT Daily Note-Current Subjective Patient in wheelchair pre tx, agrees to PT, he indicates that he does have pain in his right leg but is unable to quantify it. Patient did get pain meds during tx. Appearance Patient BTB post tx with nurse call, tray, bed alarm on. Mental Status Patient Orientation: Unable to Assess Transfers Functional [place] Measure 0=Not Assessed/NA 4=Minimal Assistance 1=Total Assistance 5=Supervision or Setup 2=Maximal Assistance 6=Modified [place] 3=Moderate Assistance 7=Complete IndependenceIRFPAI Quality Coding Scale 6 Independent with activity with or without an assistive device 5 Patient requires set up or clean up by helper. Patient completes activity by themselves 4 Supervision or touching assist (CGA). [place] provide cues , steadying assist 3 The helper provides less than half the effort to complete the activity 2 The helper provides more than half the effort to complete the activity 1 Dependent. The helper does all the effort to complete an activity 7 Patient refused to complete or attempt activity 9 The patient did not perform the activity before the current illness or injury 88 Not attempted due to Medical conditions or safety concerns Transfers (B, C, W/C) (FIM): 3 Scootin Rollin Supine to/from Sit: 3 Sit to/from Stand: 3 Bed to/from Chair: 3 Patient performed bed mobility and transfers with mod assist, cues for positioning and hand placement. Wheelchair Training Wheelchair (FIM): 2 Distance: 100'x2 Wheelchair Level of Assist: 4 Type of Wheelchair: Manual Cues for direction, operation of wheelchair, has tendency to veer to the left side. Exercises Standing in parallel bars x3 for about 2 min each time. NuStep Minutes: 15 NuStep Workload: 1 (No resistance to comply with weight bearing status, ROM to right leg/hip.) Treatments bed mobility and transfers, ROM, standing in parallel bars Assessment Current Status: Fair Progress Improved transfers and bed mobility. Patient did have too much weight on right leg during standing but would adjust with verbal cues. PT Short Term Goals Short Term Goals Time Frame: Sep 26, 2016 Transfers (B,C,W/C) (FIM): 4 Gait (FIM): 2 Distance (FIM): 6=785-95 ft Gait Assistive Device: FWW Wheelchair Distance: 150'x2, 30' PT Appliquer Goals Snf Goals PT Appliquer Goals Time Frame: Oct 10, 2016 Transfers (B,C,W/C) (FIM): 5 Sit to Lying (QC): 5 Lying-Sitting on Side/Bed(QC): 5 Sit to Stand (QC): 5 Rollin Roll Left to Right (QC): 5 Chair/Lzv-fa-Jtqyw Xfer(QC): 5 Car Transfer (QC): 5 Does the Patient Walk: Yes Gait (FIM): 5 Gait distance (FIM): 3=150 ft Walk 10 feet (QC): 5 Walk 10ft-Uneven Surface(QC): 5 Walk 50ft with 2 Turns (QC): 5 Walk 150 ft (QC): 5 Gait Level of Assist: 5 Gait Assistive Device: FWW Does the Pt use WC or Scooter?: No Stairs (FIM): 5 # of Steps: 12 1 Step (curb) (QC): 5 4 Steps (QC): 5 12 Steps (QC): 5 Picking up an Object (QC): 88 PT Plan Problem List Problem List: Activity Tolerance, Functional Strength, Safety, Balance, Gait, Transfer, Bed Mobility, ROM Treatment/Plan Treatment Plan: Continue Plan of Care Treatment Plan: Bed Mobility, Education, Functional Activity Mavis, Functional Strength, Group Therapy, Gait, Safety, Therapeutic Exercise, Transfers Treatment Duration: Oct 10, 2016 Frequency: At least 5-7 days/Wk (IRF) Estimated Hrs Per Day: 1.5 hours per day Patient and/or Family Agrees t: Yes Safety Risks/Education Patient Education: Transfer Techniques, Correct Positioning, W/C Management, Safety Issues Teaching Recipient: Patient Teaching Methods: Demonstration, Discussion Response to Teaching: Reinforcement Needed Time/GCodes Time In: 1015 Time Out: 1115 Total Billed Treatment Time: 60 Total Billed Treatment 1 visit [facility] 15' EX 15' FA 30' RUSSELL KNOWLES PT Sep 26, 2016 11:10
[2016-09-26 17:19] VITALS: BP 118/76
[2016-09-26] MEDS: MELATONIN 3 MG TABLET PO SCH (21:20)
--- NOTE | 2016-09-26 21:27 | PM & R (SOAP) Progress Note ---
Subjective Time Seen by Provider: 21:30 Subjective/Events-last exam Patient was seen in his room this evening Patient mod assist with transfers Tremores much decreased with Propranolol on board Objective Exam Last Set of Vital Signs Vital Signs Date Time Temp Pulse Resp B/P (MAP) Pulse Ox O2 Delivery O2 Flow Rate FiO2 09/26/16 20:16 92 Room Air 09/26/16 17:19 98.5 71 18 118/76 09/21/16 06:00 2.00 Capillary Refill : Less Than 3 Seconds I&O Intake and Output 09/27/16 00:00 Intake Total 950 ml Output Total 500 ml Balance 450 ml Intake Oral 950 ml Output Urine Total 500 ml # Voids 5 General: Alert, Cooperative HEENT: Atraumatic, PERRLA, EOMI, Mucous Memb Moist/[place], Other (mild left labila droop) Neck: Supple, No JVD Lungs: Clear to Auscultation Heart: Regular Rate Abdomen: Normal Bowel Sounds, Soft, No Tenderness Extremities: Other (trace edema rt ankle) Neuro: Other (Mild left HP Aphasia and dysphagia Weakness prox rt leg due to frx and repair) Results Lab Laboratory Tests 09/24/16 06:42: Glucometer 126H 09/24/16 11:00: Glucometer 102 09/24/16 16:04: Glucometer 140H 09/24/16 20:10: Glucometer 125H 09/25/16 05:04: Glucometer 148H 09/25/16 11:04: Glucometer 84 09/25/16 15:59: Glucometer 145H 09/25/16 20:14: Glucometer 43*L 09/25/16 20:32: Glucometer 37*L 09/25/16 20:42: Glucometer 64L 09/25/16 20:59: Glucometer 161H 09/25/16 22:04: Glucometer 208H 09/26/16 01:35: Glucometer 93 09/26/16 05:20: Glucometer 104 09/26/16 10:57: Glucometer 93 09/26/16 15:40: Glucometer 128H 09/26/16 21:07: Glucometer 97 Microbiology 09/15/16 Urine Culture - Final, Complete Enterococcus Faecalis Assessment/Plan Assessment Fall with rt hip frx s/p repair ortho 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 Discharge set tentatively for Monday09/30/16-will f/u with SW in AM STEPHON ZAMORA MD Sep 26, 2016 21:27
[2016-09-27] MEDS: metFORMIN 500 MG (GLUCOPHAGE) TAB PO SCH ×2 (05:58→17:24)
[2016-09-27] MEDS: oxyCODONE/APAP 5/325MG (PERCOCET 5) TABLET PO PRN ×2 (05:58→18:24)
[2016-09-27] MEDS: FERROUS SULF 325 MG (IRON) TAB PO SCH (05:58)
[2016-09-27 06:00] VITALS: BP 135/74
[2016-09-27] MEDS: RT-ALBUTEROL/IPRATROPIUM 3 ML (DUONEB) VIAL INH SCH ×3 (07:22→20:33)
[2016-09-27] MEDS: PROPRANOLOL 20 MG (INDERAL) TABLET PO SCH ×3 (08:33→17:24)
[2016-09-27] MEDS: inSUlin ASPART (NovoLOG) 1 UNIT/0.01 ML (CHARGE PER UNIT) SC SCH ×3 (08:34→17:19)
--- NOTE | 2016-09-27 09:42 | PM & R (SOAP) Progress Note ---
Subjective Time Seen by Provider: 08:05 Subjective/Events-last exam Patient was seen in his room this AM Patient Mod assist for transfers Objective Exam Last Set of Vital Signs Vital Signs Date Time Temp Pulse Resp B/P (MAP) Pulse Ox O2 Delivery O2 Flow Rate FiO2 09/27/16 08:06 Room Air 09/27/16 07:25 93 09/27/16 06:00 98.3 75 20 135/74 09/21/16 06:00 2.00 Capillary Refill : Less Than 3 Seconds I&O Intake and Output 09/28/16 00:00 Intake Total 240 ml Output Total 150 ml Balance 90 ml Intake Oral 240 ml Output Urine Total 150 ml General: Alert, Cooperative HEENT: Atraumatic, PERRLA, EOMI, Mucous Memb Moist/[place], Other (mild left labila droop) Neck: Supple, No JVD Lungs: Clear to Auscultation Heart: Regular Rate Abdomen: Normal Bowel Sounds, Soft, No Tenderness Extremities: Other (trace edema rt ankle) Neuro: Other (Mild left HP Aphasia and dysphagia Weakness prox rt leg due to frx and repair) Results Lab Laboratory Tests 09/24/16 11:00: Glucometer 102 09/24/16 16:04: Glucometer 140H 09/24/16 20:10: Glucometer 125H 09/25/16 05:04: Glucometer 148H 09/25/16 11:04: Glucometer 84 09/25/16 15:59: Glucometer 145H 09/25/16 20:14: Glucometer 43*L 09/25/16 20:32: Glucometer 37*L 09/25/16 20:42: Glucometer 64L 09/25/16 20:59: Glucometer 161H 09/25/16 22:04: Glucometer 208H 09/26/16 01:35: Glucometer 93 09/26/16 05:20: Glucometer 104 09/26/16 10:57: Glucometer 93 09/26/16 15:40: Glucometer 128H 09/26/16 21:07: Glucometer 97 09/27/16 04:36: Glucometer 103 Microbiology 09/15/16 Urine Culture - Final, Complete Enterococcus Faecalis Assessment/Plan Assessment Fall with rt hip frx s/p repair ortho 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 Discharge set tentatively for later this week Team Conference tomorrow 09/28/16-Will f/u with SW/Staff re discharge plans STEPHON ZAMORA MD Sep 27, 2016 09:42
[2016-09-27] MEDS: PARoxetine 10 MG (PAXIL) TAB PO SCH (09:43)
[2016-09-27] MEDS: MODAFINIL 100 MG TAB (PROVIGIL) NON-FORMULARY PO SCH (09:43)
[2016-09-27] MEDS: ASPIRIN E.C. 81 MG (ECOTRIN) TAB PO SCH (09:43)
[2016-09-27] MEDS: NICOTINE 14 MG (NICODERM) PATCH TD SCH (09:43)
[2016-09-27] MEDS: SENNA W/DOCUSATE (SENOKOT S) TABLET PO SCH ×2 (09:43→20:38)
[2016-09-27] MEDS: PARoxetine 20 MG (PAXIL) TAB PO SCH (09:43)
[2016-09-27] MEDS: PATCH REMOVAL TP SCH (09:44)
[2016-09-27] MEDS: LACTULOSE SYRUP 10GM/15ML (ENULOSE) 30ML UDC PO SCH ×3 (09:44→20:38)
--- NOTE | 2016-09-27 09:52 | Occupational Ther Daily Note ---
OT Current Status-Daily Note Subjective Pt in therapy gym for PT. Pt appears tired and in pain. At end of pain pill, nrsng to bring pt pill. Mental Status/Objective Patient Orientation: Person, Place, Time, Situation Functional [place] Measure 0=Not Assessed/NA 4=Minimal Assistance 1=Total Assistance 5=Supervision or Setup 2=Maximal Assistance 6=Modified [place] 3=Moderate Assistance 7=Complete [place] ADL-Treatment Functional [place] Measure 0=Not Assessed/NA 4=Minimal Assistance 1=Total Assistance 5=Supervision or Setup 2=Maximal Assistance 6=Modified [place] 3=Moderate Assistance 7=Complete IndependenceIRFPAI Quality Coding Scale 6 Independent with activity with or without an assistive device 5 Patient requires set up or clean up by helper. Patient completes activity by themselves 4 Supervision or touching assist (CGA). [place] provide cues , steadying assist 3 The helper provides less than half the effort to complete the activity 2 The helper provides more than half the effort to complete the activity 1 Dependent. The helper does all the effort to complete an activity 7 Patient refused to complete or attempt activity 9 The patient did not perform the activity before the current illness or injury 88 Not attempted due to Medical conditions or safety concerns Other Treatment Pt completed arm bike duration set for15 minutes at 20 foss resistance, completing in 30 minutes. Pt began to fatigue, needing several rest breaks. Using to increase strength, AROM, and activity tolerance for daily functional tasks. Pt completed wrist flexion/extension using 3 lb dumbbell, 3 sets 10x. R wrist tolerated well. L wrist began to fatigue after second set, needing assistance to obtain full ROM. Pt took increased time to complete therapeutic activities due to decreased activity tolerance, increased fatigue, and increased pain. During treatment, pt head hanging low, appeared to be falling asleep. When offered to do last exercise, pt shook head no. Pt attempted to propel self back to room, needing assistance due to left drift. After therapy, pt sitting in bed call button and phone within reach and safety measures in place. All needs met in room. OT Short Term Goals Short Term Goals Time Frame: Sep 26, 2016 Eating(FIM): 5 Grooming(FIM): 4 Bathing(FIM): 4 Upper Body Dressing(FIM): 4 Lower Body Dressing(FIM): 4 Toileting(FIM): 3 Transfers (B,C,W/C) (FIM): 4 Toilet/Commode Transfer(FIM): 3 Shower Transfer(FIM): 3 Additional Short Term Goals: 1-Demonstrate ADL Tasks, 2-Verbalize Understanding , 3-ImproveStrength/Mavis 1=Demonstrate adherence to instructed precautions during ADL tasks. 2=Patient will verbalize/demonstrate understanding of assistive devices/ modifications for ADL. 3=Patient will improve strength/tolerance for activity to enable patient to perform ADL's. OT Correction Goals Correction Goals Time Frame: Oct 10, 2016 Eating (FIM): 6 Eating (QC): 5 Groomin Oral Hygiene (QC): 5 Bathing(FIM): 4 Shower/Bathe Self (QC): 4 Upper Body Dressing(FIM): 5 Upper Body Dressing (QC): 5 Lower Body Dressing(FIM): 4 Lower Body Dressing (QC): 4 On/Off Footwear (QC): 4 Toileting(FIM): 5 Toileting Hygiene (QC): 4 Transfers (B,C,W/C) (FIM): 5 Toilet/Commode Transfer(FIM): 5 Toilet/Commode Transfer (QC): 4 Shower Transfer(FIM): 4 Comprehension(FIM): 3 Expression (FIM): 2 Social Interaction(FIM): 3 Problem Solving(FIM): 3 Memory(FIM): 3 Additional Goals: 1-Demonstrate ADL Tasks, 2-Verbalize Understanding, 3- ImproveStrength/Mavis 1=Demonstrate adherence to instructed precautions during ADL tasks. 2=Patient will verbalize/demonstrate understanding of assistive devices/ modifications for ADL. 3=Patient will improve strength/tolerance for activity to enable patient to perform ADL's. OT Education/Plan Discharge Recommendations Plan/Recommendations: Continue POC Treatment Plan/Plan of Care Patient would benefit from OT for education, treatment and training to promote independence in ADL's, mobility, safety and/or upper extremity function for ADL' s. Plan of Care: ADL Retraining, Caregiver Training, Cognitive Retraining, Functional Mobility, UE Funct Exercise/Act, UE Neuromus Re-Ed/Coord Treatment Duration: Oct 10, 2016 Frequency: At least 5-7 days/Wk (IRF) Estimated Hrs Per Day: 1.5 hours per day Agreement: Yes Rehab Potential: Fair Time/GCodes Start Time: 09:00 Stop Time: 10:00 Total Time Billed (hr/min): 60 Billed Treatment Time 1 visit, EX 4 (60 minutes) AISHWARYA VÁZQUEZ Sep 27, 2016 09:52
--- NOTE | 2016-09-27 10:40 | Progress Note-Hospitalist ---
Progress Note Progress Notes/Assess & Plan Date Seen 09/27/16 Time Seen by Provider: 09:30 Diagonsis/Assessment & Plan Pt doing well and working with PT Urinating well BM + AFVSS, awake and improved, in bed, tic noted right sided no changes and restarted Propranolol RRR, CTAB no rales noted Aphasic Assessment: UTI Enterococcus on Ampicillin initially then changed to PO Augmentin and it is tolerated and will be completed last weekend Acute right hip fracture s/p uncomplicated repair s/p 2 falls and xray was stable per ortho as recommended by radiology Mild post op anemia stable and no indication for transfusion Diabetes mellitus insulin-dependent Current smoker with wheezing periodically ordered Nebs Hypertension Remote stroke causing aphasia Thrombocytopenia Post op constipation resolved maintained on Lactulose chronic right sided tic Plan: Fall risk Continue Lactulose LIBIA GARCIA DO Sep 27, 2016 10:40
--- NOTE | 2016-09-27 11:09 | Physical Therapy Daily Note ---
PT Daily Note-Current Subjective Pt sitting up in bed upon arrival. Pt was finishing breakfast at start of tx. Nurse to bring med including Insulin to pt. Pt agreed to PT. Pain Numeric Pain Scale: 7 Location: Right, Incisional Location Body Site: Thigh Comment: Pt can't describe but answers yes/no to questions. Mental Status Patient Orientation: Person, Unable to Assess Transfers Functional [place] Measure 0=Not Assessed/NA 4=Minimal Assistance 1=Total Assistance 5=Supervision or Setup 2=Maximal Assistance 6=Modified [place] 3=Moderate Assistance 7=Complete IndependenceIRFPAI Quality Coding Scale 6 Independent with activity with or without an assistive device 5 Patient requires set up or clean up by helper. Patient completes activity by themselves 4 Supervision or touching assist (CGA). [place] provide cues , steadying assist 3 The helper provides less than half the effort to complete the activity 2 The helper provides more than half the effort to complete the activity 1 Dependent. The helper does all the effort to complete an activity 7 Patient refused to complete or attempt activity 9 The patient did not perform the activity before the current illness or injury 88 Not attempted due to Medical conditions or safety concerns Scootin Rollin Supine to/from Sit: 3 Sit to/from Stand: 3 Sit to Stand (QC): 3 Weight Bearing Weight Bearing Restriction: Full Weight Bearing Location Restriction: LE Bilateral Wheelchair Training Does the Pt Use a Wheelchair?: Yes Wheelchair Distance: 9=245-52 ft Distance: 125' Wheelchair Level of Assist: 4 Wheel 50 ft with 2 turns (QC): 4 Type of Wheelchair: Manual Exercises Supine Ex: Scooting Seated Therapy Exercises: Sit to stand (5 reps) Treatments Pt is finishing breakfast so PT gives pt ed over what therapy will work on in anticipation of possible Monday discharge. Pt transfers from Supine to EOB at Mod A then EOB to Standing at Mod A. Pt SPT to [facility]. Pt propels [facility] to Therapy Gym. Pt completes Standing Ex at //bars with rest breaks in between each. Pt returns to room at end of tx. PT to see OT shortly, all needs met at end of tx. Assessment Current Status: Fair Progress PT has improved with safety & independence of transfers & mobility of [facility]. Pt following instructions better and able to complete tasks with more ease. PT Short Term Goals Short Term Goals Time Frame: Sep 26, 2016 Transfers (B,C,W/C) (FIM): 4 Gait (FIM): 2 Distance (FIM): 6=027-71 ft Gait Assistive Device: FWW Wheelchair Distance: 100'x2 PT Information Assoc Goals Information Assoc Goals PT Half-Way Goals Time Frame: Oct 10, 2016 Transfers (B,C,W/C) (FIM): 5 Sit to Lying (QC): 5 Lying-Sitting on Side/Bed(QC): 5 Sit to Stand (QC): 5 Rollin Roll Left to Right (QC): 5 Chair/Wjs-sa-Ibime Xfer(QC): 5 Car Transfer (QC): 5 Does the Patient Walk: Yes Gait (FIM): 5 Gait distance (FIM): 3=150 ft Walk 10 feet (QC): 5 Walk 10ft-Uneven Surface(QC): 5 Walk 50ft with 2 Turns (QC): 5 Walk 150 ft (QC): 5 Gait Level of Assist: 5 Gait Assistive Device: FWW Does the Pt use WC or Scooter?: No Stairs (FIM): 5 # of Steps: 12 1 Step (curb) (QC): 5 4 Steps (QC): 5 12 Steps (QC): 5 Picking up an Object (QC): 88 PT Plan Problem List Problem List: Activity Tolerance, Functional Strength, Safety, Balance, Gait, Transfer, Bed Mobility Treatment/Plan Treatment Plan: Continue Plan of Care Treatment Plan: Bed Mobility, Education, Functional Activity Mavis, Functional Strength, Group Therapy, Gait, Safety, Therapeutic Exercise, Transfers Treatment Duration: Oct 10, 2016 Frequency: At least 5-7 days/Wk (IRF) Estimated Hrs Per Day: 1.5 hours per day Patient and/or Family Agrees t: Yes Safety Risks/Education Patient Education: Transfer Techniques, Correct Positioning, W/C Management, Safety Issues Teaching Recipient: Patient Teaching Methods: Discussion Response to Teaching: Reinforcement Needed Time/GCodes Time In: 805 Time Out: 905 Total Billed Treatment Time: 60 Total Billed Treatment visit, FA x2 (30m), [facility] (10m) & EX (20m) ENRIQUE SOLIS CUSTOMER ACCOUNT COORDINATOR Sep 27, 2016 11:09
--- NOTE | 2016-09-27 14:53 | Speech Therapy Daily Note ---
Speech Daily Progress Note Subjective Date Seen by Provider: Sep 27, 2016 Time Seen by Provider: 10:50 The patient was laying in bed, asleep, upon entrance. The patient was easily roused with minimal verbal prompting. The patient agreed to participate in the speech, language, and dysphagia therapy session on this date via "yes" verbalization. Objective Orientation Information: The patient was able to state name, month and year (yes /no response). The patient was able to state he was in the hospital with a yes or no response. At the close of the session, the patient was able to state the day was "Monday." The patient was able to identify his presence in [place]. Phrase Completion: The patient was provided short, simple phrases and was asked to complete the phrases with one word. The patient demonstrated high accuracy on this task, displaying 90% accuracy with mild clinician verbal cueing. Confrontational Naming: The patient was provided physical ADL objects (cup, straw, brush, toothbrush, and socks). The patient demonstrated 100% accuracy with minimal clinician cueing. Open-Ended Questions: The patient provided one word answers, intermittently, to open-ended questions with moderate to maximum clinician verbal c ueing. Communication Comprehension: 3 Expression: 1 Social Cognition Social Interaction: 1 Problem Solvin Memory: 1 Speech Short Term Goals Short Term Goals Short Term Goals 1. The patient will repeat functional phrases with 90% accuracy and moderate clinician verbal prompting. REGRESSING 2. The patient will verbally identify ADL items with 90% accuracy and mild clinician verbal prompting. PROGRESSING 3. The patient will state basic orientation information (including personal information) with 90% accuracy and mild clinician verbal prompting. MAINTAINING 4. The patient will demonstrate swallowing strategies with 80% accuracy and mild clinician verbal prompting. PROGRESSING 5. The patient will demonstrate laryngeal, pharyngeal, and base of tongue strengthening exercises with 80% accuracy and moderate clinician verbal prompting. REGRESSING Time Frame-STG: One Week Speech Services Clerk Goals Services Clerk Goals 1. The patient will improve expressive and receptive communication for increased function and safety with ADL's in the least restrictive setting. MAINTAINING 2. The patient will tolerate the least restrictive diet without signs/symptoms of aspiration or laryngeal penetration. PROGRESSING Time Frame: Three Weeks Comprehension: 3 Expression: 2 Social Interaction: 3 Problem Solvin Memory: 3 Speech-Plan Treatment Plan Speech Therapy Treatment Plan: Continue Plan of Care Continue skilled speech pathology services to target expressive communication and swallowing safety. Treatment Duration: Oct 04, 2016 Frequency: Modified Program (IRF) (Five Times per Week) Estimated Hrs Per Day: .5 hour per day (45 Minutes Per Day) Rehab Potential: Fair Safety Risks/Education Teaching Recipient: Patient Teaching Methods: Demonstration, Discussion Response to Teaching: Unable to Comprehend, Reinforcement Needed Education Topics Provided: External Orientation Strategy Time Speech Therapy Time In: 10:50 Speech Therapy Time Out: 11:50 Total Billed Time: 60 Billed Treatment Time 1MICAELA ELIZ[address] ST Sep 27, 2016 14:53
[2016-09-27 18:22] VITALS: BP 120/83
[2016-09-27] MEDS: MELATONIN 3 MG TABLET PO SCH (20:38)
[2016-09-28] MEDS: oxyCODONE/APAP 5/325MG (PERCOCET 5) TABLET PO PRN ×3 (04:12→13:55)
[2016-09-28 05:05] VITALS: BP 132/76
[2016-09-28] MEDS: FERROUS SULF 325 MG (IRON) TAB PO SCH (06:21)
[2016-09-28] MEDS: metFORMIN 500 MG (GLUCOPHAGE) TAB PO SCH ×2 (06:21→18:24)
[2016-09-28] MEDS: RT-ALBUTEROL/IPRATROPIUM 3 ML (DUONEB) VIAL INH SCH ×3 (06:37→19:15)
[2016-09-28] MEDS: inSUlin ASPART (NovoLOG) 1 UNIT/0.01 ML (CHARGE PER UNIT) SC SCH ×3 (06:41→18:24)
[2016-09-28] MEDS: PARoxetine 20 MG (PAXIL) TAB PO SCH (08:13)
[2016-09-28] MEDS: PROPRANOLOL 20 MG (INDERAL) TABLET PO SCH ×3 (08:13→18:24)
[2016-09-28] MEDS: PARoxetine 10 MG (PAXIL) TAB PO SCH (08:13)
[2016-09-28] MEDS: ASPIRIN E.C. 81 MG (ECOTRIN) TAB PO SCH (08:13)
[2016-09-28] MEDS: MODAFINIL 100 MG TAB (PROVIGIL) NON-FORMULARY PO SCH (08:13)
[2016-09-28] MEDS: SENNA W/DOCUSATE (SENOKOT S) TABLET PO SCH ×2 (08:14→20:09)
[2016-09-28] MEDS: LACTULOSE SYRUP 10GM/15ML (ENULOSE) 30ML UDC PO SCH ×3 (08:14→20:09)
[2016-09-28] MEDS: PATCH REMOVAL TP SCH (08:14)
[2016-09-28] MEDS: NICOTINE 14 MG (NICODERM) PATCH TD SCH (08:14)
--- NOTE | 2016-09-28 09:26 | Physical Therapy Daily Note ---
PT Daily Note-Current Subjective Pt laying Supine in bed with head raised upon arrival. Pt agrees to PT. Mental Status Patient Orientation: Person, Unable to Assess Transfers Functional [place] Measure 0=Not Assessed/NA 4=Minimal Assistance 1=Total Assistance 5=Supervision or Setup 2=Maximal Assistance 6=Modified [place] 3=Moderate Assistance 7=Complete IndependenceIRFPAI Quality Coding Scale 6 Independent with activity with or without an assistive device 5 Patient requires set up or clean up by helper. Patient completes activity by themselves 4 Supervision or touching assist (CGA). [place] provide cues , steadying assist 3 The helper provides less than half the effort to complete the activity 2 The helper provides more than half the effort to complete the activity 1 Dependent. The helper does all the effort to complete an activity 7 Patient refused to complete or attempt activity 9 The patient did not perform the activity before the current illness or injury 88 Not attempted due to Medical conditions or safety concerns Scootin Rollin Supine to/from Sit: 3 Sit to/from Stand: 4 Sit to Stand (QC): 4 Chair/Ufw-oi-[place] Xfer(QC): 4 Bed to/from Chair: 4 Weight Bearing Weight Bearing Restriction: Full Weight Bearing Location Restriction: LE Bilateral Wheelchair Training Does the Pt Use a Wheelchair?: Yes Wheelchair Distance: 3=150 ft Distance: 150' Wheelchair Level of Assist: 5 Wheel 50 ft with 2 turns (QC): 4 Wheel 150 ft (QC): 4 Type of Wheelchair: Manual Exercises Seated Therapy Exercises: Ankle pumps, Sit to stand (5 reps), Long arc quads, Hip flexion, Kicking activity, Hip abd/add Seated Reps: 15 Treatments Pt transferred from Supine to EOB at Min A then EOB to standing at Min A. PT assisted pt putting on shorts. Pt transferred to [facility] using SPT at Min A. Pt completed 5 sit to stands from [facility] at //bars followed by Seated Ex in [facility]. Pt propels [facility] at SBA with occasional slight assist but pt usually self corrects. Pt returns to room to rest in [facility] and await ST coming shortly. Pt rests with all needs met and call light in hand at end of tx. PT Short Term Goals Short Term Goals Time Frame: Sep 26, 2016 Transfers (B,C,W/C) (FIM): 4 Gait (FIM): 2 Distance (FIM): 3=497-18 ft Gait Assistive Device: FWW Wheelchair Distance: 125' PT Chief Order Dispatcher Goals Chcf Goals PT Chcf Goals Time Frame: Oct 10, 2016 Transfers (B,C,W/C) (FIM): 5 Sit to Lying (QC): 5 Lying-Sitting on Side/Bed(QC): 5 Sit to Stand (QC): 5 Rollin Roll Left to Right (QC): 5 Chair/Shw-ws-Tpugu Xfer(QC): 5 Car Transfer (QC): 5 Does the Patient Walk: Yes Gait (FIM): 5 Gait distance (FIM): 3=150 ft Walk 10 feet (QC): 5 Walk 10ft-Uneven Surface(QC): 5 Walk 50ft with 2 Turns (QC): 5 Walk 150 ft (QC): 5 Gait Level of Assist: 5 Gait Assistive Device: FWW Does the Pt use WC or Scooter?: No Stairs (FIM): 5 # of Steps: 12 1 Step (curb) (QC): 5 4 Steps (QC): 5 12 Steps (QC): 5 Picking up an Object (QC): 88 PT Plan Problem List Problem List: Activity Tolerance, Functional Strength, Safety, Balance, Gait, Transfer, Bed Mobility Treatment/Plan Treatment Plan: Continue Plan of Care Treatment Plan: Bed Mobility, Education, Functional Activity Mavis, Functional Strength, Group Therapy, Gait, Safety, Therapeutic Exercise, Transfers Treatment Duration: Oct 10, 2016 Frequency: At least 5-7 days/Wk (IRF) Estimated Hrs Per Day: 1.5 hours per day Patient and/or Family Agrees t: Yes Safety Risks/Education Patient Education: Transfer Techniques, Correct Positioning, Safety Issues Teaching Recipient: Patient Teaching Methods: Demonstration Response to Teaching: Return Demonstration Time/GCodes Time In: 800 Time Out: 900 Total Billed Treatment Time: 60 Total Billed Treatment visit, WCThao (15m), FA (15m) & EX x2 (30m) ENRIQUE SOLIS PTA Sep 28, 2016 09:26
--- NOTE | 2016-09-28 10:01 | Speech Therapy Daily Note ---
Speech Daily Progress Note Subjective Date Seen by Provider: Sep 28, 2016 Time Seen by Provider: 09:00 The patient was seated upright in wheelchair upon entrance. The patient greeted the clinician via eye contact and agreed to participation in dysphagia and language therapy through verbalization. Objective Oral Dysphagia Trials: Due to observance of throat clearing following swallowing water throughout language tasks, the patient was re-evaluated by this clinician for his appropriateness of honey-thickened liquids. A new cup of honey-thickened liquid was provided to the patient to ensure consistency was accurate. Initially, the patient took two, consecutive large cup drinks. Following this trial, the patient displayed throat clearing behaviors. Once prompted and demonstrated small sips by the clinician, no additional signs/ symptoms of aspiration were demonstrated with honey-thickened liquids (single, small sips). Repetition: The patient is able to repeat single words (one at a time) and single digits (three at a time). Orientation: The patient is oriented to date, month, year, day, and city with the use of the in-room white board. Confrontational Naming: The patient displayed 100% accuracy with confrontational naming of ADL objects. One-Step and Two-Step: The patient was able to follow one and two step directions with 100% accuracy. Assessment Assessment Current Status: Good Progress Treatment Plan Continue Plan of Care Communication Comprehension: 3 Expression: 1 Social Cognition Social Interaction: 2 Problem Solvin Memory: 1 Speech Short Term Goals Short Term Goals Short Term Goals 1. The patient will repeat functional phrases with 90% accuracy and moderate clinician verbal prompting. REGRESSING 2. The patient will verbally identify ADL items with 90% accuracy and mild clinician verbal prompting. PROGRESSING 3. The patient will state basic orientation information (including personal information) with 90% accuracy and mild clinician verbal prompting. MAINTAINING 4. The patient will demonstrate swallowing strategies with 80% accuracy and mild clinician verbal prompting. PROGRESSING 5. The patient will demonstrate laryngeal, pharyngeal, and base of tongue strengthening exercises with 80% accuracy and moderate clinician verbal prompting. REGRESSING Time Frame-STG: One Week Speech Penitentiary Goals Washer And Crusher Tender Goals 1. The patient will improve expressive and receptive communication for increased function and safety with ADL's in the least restrictive setting. MAINTAINING 2. The patient will tolerate the least restrictive diet without signs/symptoms of aspiration or laryngeal penetration. PROGRESSING Time Frame: Three Weeks Comprehension: 3 Expression: 2 Social Interaction: 3 Problem Solvin Memory: 3 Speech-Plan Treatment Plan Speech Therapy Treatment Plan: Continue Plan of Care Continue skilled speech pathology to target functional expressive communication. Treatment Duration: Oct 04, 2016 Frequency: Modified Program (IRF) (Five Times per Week) Estimated Hrs Per Day: .5 hour per day (45 Minutes Per Day) Rehab Potential: Fair Safety Risks/Education Teaching Recipient: Patient Teaching Methods: Demonstration, Discussion Response to Teaching: Reinforcement Needed Education Topics Provided: Swallowing Strategies Time Speech Therapy Time In: 09:00 Speech Therapy Time Out: 10:00 Total Billed Time: 60 Billed Treatment Time 1, SLTS 1, MILAD MARROQUIN Sep 28, 2016 10:01
--- NOTE | 2016-09-28 10:28 | PM & R (SOAP) Progress Note ---
Subjective Time Seen by Provider: 08:00 Subjective/Events-last exam Patient was seen in his room this AM Patient More alert Patient min to mod assist for transfers TTWB RLE. Objective Exam Last Set of Vital Signs Vital Signs Date Time Temp Pulse Resp B/P (MAP) Pulse Ox O2 Delivery O2 Flow Rate FiO2 09/28/16 08:55 Room Air 09/28/16 06:37 92 09/28/16 05:05 98.3 79 22 132/76 Capillary Refill : Less Than 3 Seconds I&O Intake and Output 09/29/16 00:00 Intake Total 480 ml Balance 480 ml Intake Oral 480 ml # Voids 5 # Bowel Movements 1 General: Alert, Cooperative HEENT: Atraumatic, PERRLA, EOMI, Mucous Memb Moist/[place], Other (mild left labila droop) Neck: Supple, No JVD Lungs: Clear to Auscultation Heart: Regular Rate Abdomen: Normal Bowel Sounds, Soft, No Tenderness Extremities: Other (trace edema rt ankle) Neuro: Other (Mild left HP Aphasia and dysphagia Weakness prox rt leg due to frx and repair) Results Lab Laboratory Tests 09/25/16 11:04: Glucometer 84 09/25/16 15:59: Glucometer 145H 09/25/16 20:14: Glucometer 43*L 09/25/16 20:32: Glucometer 37*L 09/25/16 20:42: Glucometer 64L 09/25/16 20:59: Glucometer 161H 09/25/16 22:04: Glucometer 208H 09/26/16 01:35: Glucometer 93 09/26/16 05:20: Glucometer 104 09/26/16 10:57: Glucometer 93 09/26/16 15:40: Glucometer 128H 09/26/16 21:07: Glucometer 97 09/27/16 04:36: Glucometer 103 09/27/16 16:16: Glucometer 69L 09/27/16 20:04: Glucometer 175H 09/28/16 05:31: Glucometer 115H Microbiology 09/15/16 Urine Culture - Final, Complete Enterococcus Faecalis Assessment/Plan Assessment Fall with rt hip frx s/p repair ortho 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 Discharge set tentatively for later this week Team Conference later today-See report for full functional update and POC and ELOS -Will f/u with SW/Staff re discharge plans STEPHON ZAMORA MD Sep 28, 2016 10:28
--- NOTE | 2016-09-28 11:04 | Occupational Ther Daily Note ---
OT Current Status-Daily Note Subjective Pt alert, in wheelchair. Declines shower. Initially did not want to participate in therapy, shaking head no. Agreed to get dressed and go outside in w/c. Mental Status/Objective Patient Orientation: Person, Place, Time, Situation Functional [place] Measure 0=Not Assessed/NA 4=Minimal Assistance 1=Total Assistance 5=Supervision or Setup 2=Maximal Assistance 6=Modified [place] 3=Moderate Assistance 7=Complete [place] ADL-Treatment Functional [place] Measure 0=Not Assessed/NA 4=Minimal Assistance 1=Total Assistance 5=Supervision or Setup 2=Maximal Assistance 6=Modified [place] 3=Moderate Assistance 7=Complete IndependenceIRFPAI Quality Coding Scale 6 Independent with activity with or without an assistive device 5 Patient requires set up or clean up by helper. Patient completes activity by themselves 4 Supervision or touching assist (CGA). [place] provide cues , steadying assist 3 The helper provides less than half the effort to complete the activity 2 The helper provides more than half the effort to complete the activity 1 Dependent. The helper does all the effort to complete an activity 7 Patient refused to complete or attempt activity 9 The patient did not perform the activity before the current illness or injury 88 Not attempted due to Medical conditions or safety concerns Upper Body (FIM): 5 (After set up, pt is able to dress upper body. ) Lower Body Dressing (FIM): 3 (Pt throws brief, does not want to put on by self. Compromise with brief and pants and dons L foot in if therapist dons R foot. Mod A to stand to hike pants over hips. ) Toileting (FIM): 2 (Assistance needed to stand to manipulate clothing and complete hygiene on bedside commode. ) Transfers (B, C, W/C) (FIM): 3 (Pt requires mod A for stand pivot transfer. ) Other Treatment Pt required encouragement to maneuver w/c on own. Pt agreed to complete w/c mobility to maneuver through doors and hallways for UE strengthening and coordination. Pt drifted toward L during w/c mobility due to decreased strength in L UE compared to R UE. Pt had difficulty with keeping w/c straight through hallways and required assistance to manipulate w/c through doors. Pt unable to maneuver w/c over thresholds due to decreased strength. Decreased strength and activity tolerance throughout all tasks completed due to this increased time to complete each task. After therapy, pt lying in bed with call light/phone in reach. Safety measures in place. All needs met in room. OT Short Term Goals Short Term Goals Time Frame: Sep 26, 2016 Eating(FIM): 5 Grooming(FIM): 4 Bathing(FIM): 4 Upper Body Dressing(FIM): 4 Lower Body Dressing(FIM): 4 Toileting(FIM): 3 Transfers (B,C,W/C) (FIM): 4 Toilet/Commode Transfer(FIM): 3 Shower Transfer(FIM): 3 Additional Short Term Goals: 1-Demonstrate ADL Tasks, 2-Verbalize Understanding , 3-ImproveStrength/Mavis 1=Demonstrate adherence to instructed precautions during ADL tasks. 2=Patient will verbalize/demonstrate understanding of assistive devices/ modifications for ADL. 3=Patient will improve strength/tolerance for activity to enable patient to perform ADL's. OT Group Home Goals Group Home Goals Time Frame: Oct 10, 2016 Eating (FIM): 6 Eating (QC): 5 Groomin Oral Hygiene (QC): 5 Bathing(FIM): 4 Shower/Bathe Self (QC): 4 Upper Body Dressing(FIM): 5 Upper Body Dressing (QC): 5 Lower Body Dressing(FIM): 4 Lower Body Dressing (QC): 4 On/Off Footwear (QC): 4 Toileting(FIM): 5 Toileting Hygiene (QC): 4 Transfers (B,C,W/C) (FIM): 5 Toilet/Commode Transfer(FIM): 5 Toilet/Commode Transfer (QC): 4 Shower Transfer(FIM): 4 Comprehension(FIM): 3 Expression (FIM): 2 Social Interaction(FIM): 3 Problem Solving(FIM): 3 Memory(FIM): 3 Additional Goals: 1-Demonstrate ADL Tasks, 2-Verbalize Understanding, 3- ImproveStrength/Mavis 1=Demonstrate adherence to instructed precautions during ADL tasks. 2=Patient will verbalize/demonstrate understanding of assistive devices/ modifications for ADL. 3=Patient will improve strength/tolerance for activity to enable patient to perform ADL's. OT Education/Plan Discharge Recommendations Plan/Recommendations: Continue POC Treatment Plan/Plan of Care Patient would benefit from OT for education, treatment and training to promote independence in ADL's, mobility, safety and/or upper extremity function for ADL' s. Plan of Care: ADL Retraining, Caregiver Training, Cognitive Retraining, Functional Mobility, UE Funct Exercise/Act, UE Neuromus Re-Ed/Coord Treatment Duration: Oct 10, 2016 Frequency: At least 5-7 days/Wk (IRF) Estimated Hrs Per Day: 1.5 hours per day Agreement: Yes Rehab Potential: Fair Time/GCodes Start Time: 10:00 Stop Time: 11:00 Total Time Billed (hr/min): 60 Billed Treatment Time 1 visit-ADL 2 (30 min) FA 2 (30 min) AISHWARYA VÁZQUEZ Sep 28, 2016 11:04
[2016-09-28 18:00] VITALS: BP 131/77
[2016-09-28] MEDS: MELATONIN 3 MG TABLET PO SCH (20:09)
[2016-09-29] MEDS: oxyCODONE/APAP 5/325MG (PERCOCET 5) TABLET PO PRN ×4 (01:04→20:38)
[2016-09-29] MEDS: FERROUS SULF 325 MG (IRON) TAB PO SCH (06:16)
[2016-09-29] MEDS: metFORMIN 500 MG (GLUCOPHAGE) TAB PO SCH ×2 (06:16→17:15)
[2016-09-29 06:25] VITALS: BP 110/72
[2016-09-29] MEDS: inSUlin ASPART (NovoLOG) 1 UNIT/0.01 ML (CHARGE PER UNIT) SC SCH ×3 (06:52→17:33)
[2016-09-29] MEDS: RT-ALBUTEROL/IPRATROPIUM 3 ML (DUONEB) VIAL INH SCH ×3 (07:05→21:48)
--- NOTE | 2016-09-29 08:55 | PM & R (SOAP) Progress Note ---
Subjective Time Seen by Provider: 07:50 Subjective/Events-last exam Patient was seen in his room this AM Patient somewhat diaphoretic Discussed with RN Vitals checked OK will monitor Accuheks OK Patient Min to mod assist for transfers Patient somewhat more lethargic this AM. Objective Exam Last Set of Vital Signs Vital Signs Date Time Temp Pulse Resp B/P (MAP) Pulse Ox O2 Delivery O2 Flow Rate FiO2 09/29/16 07:06 86 Nasal Cannula 1.00 09/29/16 06:25 98.9 85 20 110/72 Capillary Refill : Less Than 3 Seconds I&O Intake and Output 09/30/16 00:00 Intake Total 200 ml Output Total 275 ml Balance -75 ml Intake Oral 200 ml Output Urine Total 275 ml # Voids 2 General: Alert, Cooperative HEENT: Atraumatic, PERRLA, EOMI, Mucous Memb Moist/[place], Other (mild left labila droop) Neck: Supple, No JVD Lungs: Clear to Auscultation Heart: Regular Rate Abdomen: Normal Bowel Sounds, Soft, No Tenderness Extremities: Other (trace edema rt ankle) Neuro: Other (Mild left HP Aphasia and dysphagia Weakness prox rt leg due to frx and repair) Results Lab Laboratory Tests 09/26/16 10:57: Glucometer 93 09/26/16 15:40: Glucometer 128H 09/26/16 21:07: Glucometer 97 09/27/16 04:36: Glucometer 103 09/27/16 16:16: Glucometer 69L 09/27/16 20:04: Glucometer 175H 09/28/16 05:31: Glucometer 115H 09/28/16 11:02: Glucometer 115H 09/28/16 16:37: Glucometer 138H 09/28/16 20:36: Glucometer 115H 09/29/16 04:57: Glucometer 176H Microbiology 09/15/16 Urine Culture - Final, Complete Enterococcus Faecalis Assessment/Plan Assessment Fall with rt hip frx s/p repair ortho 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 Discharge set tentatively for tomorrow to local Care center for ongoing care and therapies Team Conference held yesterday-See report for full functional update and POC. - STEPHON ZAMORA MD Sep 29, 2016 08:55
[2016-09-29 09:05] VITALS: BP 122/71
[2016-09-29] MEDS: PARoxetine 10 MG (PAXIL) TAB PO SCH (09:07)
[2016-09-29] MEDS: PROPRANOLOL 20 MG (INDERAL) TABLET PO SCH ×3 (09:07→17:15)
[2016-09-29] MEDS: NICOTINE 14 MG (NICODERM) PATCH TD SCH (09:07)
[2016-09-29] MEDS: MODAFINIL 100 MG TAB (PROVIGIL) NON-FORMULARY PO SCH (09:07)
[2016-09-29] MEDS: SENNA W/DOCUSATE (SENOKOT S) TABLET PO SCH ×2 (09:07→20:38)
[2016-09-29] MEDS: ASPIRIN E.C. 81 MG (ECOTRIN) TAB PO SCH (09:07)
[2016-09-29] MEDS: LACTULOSE SYRUP 10GM/15ML (ENULOSE) 30ML UDC PO SCH ×4 (09:07→20:38)
[2016-09-29] MEDS: PARoxetine 20 MG (PAXIL) TAB PO SCH (09:07)
[2016-09-29] MEDS: PATCH REMOVAL TP SCH (09:08)
--- NOTE | 2016-09-29 10:54 | Speech Therapy Daily Note ---
Speech Daily Progress Note Subjective Date Seen by Provider: Sep 29, 2016 Time Seen by Provider: 09:00 The patient was laying in bed, asleep upon entrance. The patient appeared increasingly lethargic on this date, as well as, wearing supplemental oxygen ( via nasal cannula) which has not been present in the past. The patient required maximum redirection and encouragement to participate in today's treatment session. The patient's increased lethargy was discussed with the patient's RN. Objective Dysphagia: Due to the patient's lethargy and increased oxygen needs, a repeat swallow evaluation was completed by the clinician. The honey-thickened water was removed from the bedside as it was too thin for the patient. An appropriate honey-thickened water was provided by the clinician. No signs/symptoms of aspiration were demonstrated with teaspoon size sips of honey-thickened water. No signs/symptoms of aspiration were displayed with pureed consistencies, however, increased oral holding was noted. Increased prompting was required by the clinician to elicit a swallow. Due to the patient's fatigue and redirection requirement, speech pathology recommends a pureed diet consistency with honey- thick liquids. The patient should continue to be upright and alert for all PO, medications should remain crushed and placed in a puree consistency, small bites and sips should be continued, as well as, 1:1 supervision to observe for possible pocketing and encouragement of swallowing function. The patient's RN was notified of the diet consistency changes. - Orientation: The patient was oriented to location, month, and year. The patient did not respond to questions regarding personal information (name, date). - One Step and Two Step Directions: The patient demonstrated high accuracy with one and two step, simple directions. - Automatics: The patient was able to count to five, as well as, state the days of the week. Assessment Assessment Current Status: Poor Progress Treatment Plan Continue Plan of Care Communication Comprehension: 3 Expression: 1 Social Cognition Social Interaction: 1 Problem Solvin Memory: 1 Speech Short Term Goals Short Term Goals Short Term Goals 1. The patient will repeat functional phrases with 90% accuracy and moderate clinician verbal prompting. REGRESSING 2. The patient will verbally identify ADL items with 90% accuracy and mild clinician verbal prompting. PROGRESSING 3. The patient will state basic orientation information (including personal information) with 90% accuracy and mild clinician verbal prompting. MAINTAINING 4. The patient will demonstrate swallowing strategies with 80% accuracy and mild clinician verbal prompting. PROGRESSING 5. The patient will demonstrate laryngeal, pharyngeal, and base of tongue strengthening exercises with 80% accuracy and moderate clinician verbal prompting. REGRESSING Time Frame-STG: One Week Speech Residential Goals Residential Goals 1. The patient will improve expressive and receptive communication for increased function and safety with ADL's in the least restrictive setting. MAINTAINING 2. The patient will tolerate the least restrictive diet without signs/symptoms of aspiration or laryngeal penetration. PROGRESSING Time Frame: Three Weeks Comprehension: 3 Expression: 2 Social Interaction: 3 Problem Solvin Memory: 3 Speech-Plan Treatment Plan Speech Therapy Treatment Plan: Continue Plan of Care Continue skilled speech pathology to target functional expressive communication. Treatment Duration: Oct 04, 2016 Frequency: Modified Program (IRF) (Five Times per Week) Estimated Hrs Per Day: .5 hour per day (45 Minutes Per Day) Rehab Potential: Fair Safety Risks/Education Teaching Recipient: Patient Teaching Methods: Discussion Response to Teaching: Reinforcement Needed Education Topics Provided: Swallowing Strategies, Swallowing Recommendations Time Speech Therapy Time In: 09:00 Speech Therapy Time Out: 10:00 Total Billed Time: 60 Billed Treatment Time 1, SLTS 1, MILAD MARROQUIN Sep 29, 2016 10:54
[2016-09-29 11:17] LABS: BASOPHILS % (AUTO) 0 % (0-10); EOSINOPHILS # (AUTO) 0.1 10^3/uL (0.0-0.3); EOSINOPHILS % (AUTO) 1 % (0-10); LYMPHOCYTES # (AUTO) 2.5 X 10^3 (1.0-4.0); LYMPHOCYTES % (AUTO) 14 % (12-44); MEAN CORPUSCULAR HEMOGLOBIN 33 PG (25-34); MEAN CORPUSCULAR HGB CONC 34 G/DL (32-36); MEAN CORPUSCULAR VOLUME 98 FL (80-99); MEAN PLATELET VOLUME 9.6 FL (7.4-10.4); MONOCYTES # (AUTO) 1.4 X 10^3 (0.0-1.0); MONOCYTES % (AUTO) 8 % (0-12); NEUTROPHILS # (AUTO) 13.6 X 10^3 (1.8-7.8); NEUTROPHILS % (AUTO) 77 % (42-75); PLATELET COUNT 264 10^3/uL (130-400); RED BLOOD COUNT 3.85 10^6/uL (4.35-5.85); RED CELL DISTRIBUTION WIDTH 16.2 % (10.0-14.5); WHITE BLOOD COUNT 17.6 10^3/uL (4.3-11.0)
--- NOTE | 2016-09-29 11:23 | Progress Note-Hospitalist ---
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 last night Pt is lethargic and was a bit sweaty this am, but he was under about 5 blankets Pt is not on Lovenox Patient Interview: Pt in shower upon interview Physical exam stable Pt doing well and working with PT Urinating well BM + wbc elevation noted after rounds but CMP nl so ordered CXR AFVSS, in shower, no distress, aphasic RRR, CTAB no rales noted but diminished BS noted no wheezing Aphasic Assessment: Hypoxia last night in COPD patient now with elevated wbc of 17k so obtaining CXR and giving Solumedrol IV 40mg IV Q 6hrs s/p UTI Enterococcus on Ampicillin initially then changed to PO Augmentin and it is tolerated and will be completed last weekend Acute right hip fracture s/p uncomplicated repair s/p 2 falls and xray was stable per ortho as recommended by radiology Mild post op anemia stable and no indication for transfusion Diabetes mellitus insulin-dependent Current smoker with wheezing periodically ordered Nebs Hypertension Remote stroke causing aphasia Thrombocytopenia Post op constipation resolved maintained on Lactulose Chronic right sided tic Plan: Fall risk Continue Lactulose Home O2 eval Recheck labs in am Check CXR Very difficult situation since it appears he has so many chronic issues and acute issue that he cannot be DC? Poor prognosis. Scribed by Sintia Reyes under the direct supervision of Dr. Crooks. LIBIA CROOKS DO Sep 29, 2016 11:23
[2016-09-29 11:42] LABS: ALANINE AMINOTRANSFERASE 28 U/L (0-55); ALBUMIN 3.5 GM/DL (3.2-4.5); ANION GAP 10 MMOL/L (5-14); ASPARTATE AMINO TRANSFERASE 41 U/L (5-34); BASOPHILS % (MANUAL) 1 %; BILIRUBIN,TOTAL 1.5 MG/DL (0.1-1.0); BLOOD UREA NITROGEN 24 MG/DL (7-18); BUN/CREATININE RATIO 32; CALCIUM 9.9 MG/DL (8.5-10.1); CARBON DIOXIDE 21 MMOL/L (21-32); CHLORIDE 105 MMOL/L (98-107); CREATININE SERUM 0.74 MG/DL (0.60-1.30); EOSINOPHILS % (MANUAL) 1 %; GFR ESTIMATED > 60; GLUCOSE 109 MG/DL (70-105); LYMPHOCYTES % (MANUAL) 12 %; NEUTROPHILS % (MANUAL) 76 %; POTASSIUM 4.3 MMOL/L (3.6-5.0); REACTIVE LYMPHOCYTES 2 %; SODIUM 136 MMOL/L (135-145); TOTAL PROTEIN 7.9 GM/DL (6.4-8.2)
[2016-09-29] MEDS ORDERED: methylPREDNISolone 40 MG/ML (Solu-MEDROL) VIAL IV SCH (12:00)
[2016-09-29] MEDS: ENOXAPARIN 40 MG/0.4 ML (LOVENOX) SYR SC SCH (12:00)
--- NOTE | 2016-09-29 12:01 | Occupational Ther Daily Note ---
OT Current Status-Daily Note Subjective Pt sleeping in bed with oxygen. Woken up for therapy. Agrees to take shower. O2 level when lying down: 90. Got out of bed and sat up, O2 level: 91. Sitting up after shower: 85. Mental Status/Objective Patient Orientation: Person, Place, Non-Verbal/Aphasic, Time, Situation Functional [place] Measure 0=Not Assessed/NA 4=Minimal Assistance 1=Total Assistance 5=Supervision or Setup 2=Maximal Assistance 6=Modified [place] 3=Moderate Assistance 7=Complete [place] Attachments: Oxygen ADL-Treatment Functional [place] Measure 0=Not Assessed/NA 4=Minimal Assistance 1=Total Assistance 5=Supervision or Setup 2=Maximal Assistance 6=Modified [place] 3=Moderate Assistance 7=Complete IndependenceIRFPAI Quality Coding Scale 6 Independent with activity with or without an assistive device 5 Patient requires set up or clean up by helper. Patient completes activity by themselves 4 Supervision or touching assist (CGA). [place] provide cues , steadying assist 3 The helper provides less than half the effort to complete the activity 2 The helper provides more than half the effort to complete the activity 1 Dependent. The helper does all the effort to complete an activity 7 Patient refused to complete or attempt activity 9 The patient did not perform the activity before the current illness or injury 88 Not attempted due to Medical conditions or safety concerns Eating (FIM): 5 (After set up, pt has demonstrated ability to use regular utensils to feed self, but at this time has built up handle on feeding utensil. Pt is on swallowing precautions by CONFIGURATION MANAGEMENT CONSULTANT.) Eating (QC): 5 (After set up, pt has demonstrated ability to use regular utensils to feed self, but at this time has built up handle on feeding utensil. Pt is on swallowing precautions by CONFIGURATION MANAGEMENT CONSULTANT.) Grooming (FIM): 5 (Pt has no teeth/dentures so declines to complete oral care. Pt is able to wash face and use cleansing cloth to wash hands. Pt is able to wash hands/face in shower.) Oral Hygiene (QC): 7 (Pt has no teeth/dentures so declines to complete oral care.) Bathing (FIM): 4 (Pt able to wash body needing assistance to wash feet. Used rolling shower chair and handheld shower. ) Bathing Location: L Arm, R Arm, L Upper Leg, R Upper Leg, Chest, Abdomen, Buttocks, Perineal Area Shower/Bathe Self (QC): 3 (Pt able to wash body needing assistance to wash feet. Used rolling shower chair and handheld shower. ) Upper Body (FIM): 5 (After set up, pt able to dress upper body while seated. ) Upper Body Dressing (QC): 5 (After set up, pt able to dress upper body while seated. ) Lower Body Dressing (FIM): 3 (Pt able to put feet through holes of clothing and pull up. Mod A while standing to hike pants over hips. Assistance required to don socks and shoes, pt refuses AE. ) Lower Body Dressing (QC): 2 (Pt able to put feet through holes of clothing and pull up. Mod A while standing to hike pants over hips. Assistance required to don socks and shoes, pt refuses AE. ) On/Off Footwear (QC): 2 (Pt is able to don L sock, declines to don R sock and shoes. Declines to attempt to doff socks.) Toileting (FIM): 3 (Pt is able to manipulate clothing to place urinal in bed. When sitting on BSC pt able to cleanse abelardo area. Assistance to cleanse buttocks. When using BSC pt requires assistance to manipulate clothing in standing.) Toileting Hygiene (QC): 2 (Pt is able to manipulate clothing to place urinal in bed. When sitting on BSC pt able to cleanse abelardo area. Assistance to cleanse buttocks. When using BSC pt requires assistance to manipulate clothing in standing.) Transfers (B, C, W/C) (FIM): 3 (Pt requires mod A for stand pivot transfer. ) Toilet/Commode Transfer (FIM): 3 (Mod A for transfer to BSC.) Toilet Transfer (QC): 3 (Mod A for transfer to BSC.) Shower Transfer(FIM): 3 (Pt requires mod A for transferring onto rolling shower chair, used to transport pt into shower. ) Pt takes increased time to complete each task due to aphasia, pain and needing encouragement for participation. Pt has refused to use AE for lower body dressing and to complete lower body dressing at times. Pt will compromise and don L side of lower body clothing then expect assistance for R side lower body clothing. Pt does have delayed motor processing which hinders how pt completes tasks. Physician came to check on pt during shower and ordered blood work up. Lab and respiratory came in to work with pt during OT session. After therapy, pt left in care of PT and Lab. All needs met in room. OT Short Term Goals Short Term Goals Time Frame: Sep 26, 2016 Eating(FIM): 5 Grooming(FIM): 4 Bathing(FIM): 4 Upper Body Dressing(FIM): 4 Lower Body Dressing(FIM): 4 Toileting(FIM): 3 Transfers (B,C,W/C) (FIM): 4 Toilet/Commode Transfer(FIM): 3 Shower Transfer(FIM): 3 Additional Short Term Goals: 1-Demonstrate ADL Tasks, 2-Verbalize Understanding , 3-ImproveStrength/Mavis 1=Demonstrate adherence to instructed precautions during ADL tasks. 2=Patient will verbalize/demonstrate understanding of assistive devices/ modifications for ADL. 3=Patient will improve strength/tolerance for activity to enable patient to perform ADL's. OT Skilled Nursing Goals Skilled Nursing Goals Time Frame: Oct 10, 2016 Eating (FIM): 6 (not met) Eating (QC): 5 (met-09/29/2016) Groomin (not met) Oral Hygiene (QC): 5 (not met) Bathing(FIM): 4 (met-09/29/2016) Shower/Bathe Self (QC): 4 (not met) Upper Body Dressing(FIM): 5 (met-09/29/2016) Upper Body Dressing (QC): 5 (met-09/29/2016) Lower Body Dressing(FIM): 4 (not met) Lower Body Dressing (QC): 4 (not met) On/Off Footwear (QC): 4 (not met) Toileting(FIM): 5 (not met) Toileting Hygiene (QC): 4 (not met) Transfers (B,C,W/C) (FIM): 5 (not met) Toilet/Commode Transfer(FIM): 5 (not met) Toilet/Commode Transfer (QC): 4 (not met) Shower Transfer(FIM): 4 (not met) Comprehension(FIM): 3 Expression (FIM): 2 Social Interaction(FIM): 3 Problem Solving(FIM): 3 Memory(FIM): 3 Additional Goals: 1-Demonstrate ADL Tasks, 2-Verbalize Understanding, 3- ImproveStrength/Mavis 1=Demonstrate adherence to instructed precautions during ADL tasks. 2=Patient will verbalize/demonstrate understanding of assistive devices/ modifications for ADL. 3=Patient will improve strength/tolerance for activity to enable patient to perform ADL's. OT Education/Plan Discharge Recommendations Plan/Recommendations: Continue POC Treatment Plan/Plan of Care Patient would benefit from OT for education, treatment and training to promote independence in ADL's, mobility, safety and/or upper extremity function for ADL' s. Plan of Care: ADL Retraining, Caregiver Training, Cognitive Retraining, Functional Mobility, UE Funct Exercise/Act, UE Neuromus Re-Ed/Coord Treatment Duration: Oct 10, 2016 Frequency: At least 5-7 days/Wk (IRF) Estimated Hrs Per Day: 1.5 hours per day Agreement: Yes Rehab Potential: Fair Time/GCodes Start Time: 10:00 Stop Time: 11:00 Total Time Billed (hr/min): 60 Billed Treatment Time 1 visit-ADL 4 (60 min) AISHWARYA VÁZQUEZ Sep 29, 2016 12:01
--- NOTE | 2016-09-29 13:52 | Physical Therapy Daily Note ---
PT Daily Note-Current Subjective Pt sitting in [facility] upon arrival. Pt appears lethargic upon arrival. Pt agrees to PT by shaking head. Mental Status Patient Orientation: Person, Unable to Assess Transfers Functional [place] Measure 0=Not Assessed/NA 4=Minimal Assistance 1=Total Assistance 5=Supervision or Setup 2=Maximal Assistance 6=Modified [place] 3=Moderate Assistance 7=Complete IndependenceIRFPAI Quality Coding Scale 6 Independent with activity with or without an assistive device 5 Patient requires set up or clean up by helper. Patient completes activity by themselves 4 Supervision or touching assist (CGA). [place] provide cues , steadying assist 3 The helper provides less than half the effort to complete the activity 2 The helper provides more than half the effort to complete the activity 1 Dependent. The helper does all the effort to complete an activity 7 Patient refused to complete or attempt activity 9 The patient did not perform the activity before the current illness or injury 88 Not attempted due to Medical conditions or safety concerns Transfers (B, C, W/C) (FIM): 3 Scootin Rollin Roll Left to Right (QC): 4 Supine to/from Sit: 3 Sit to/from Stand: 4 Sit to Lying (QC): 4 Sit to Stand (QC): 4 Chair/Vzk-fr-Vxtpk Xfer(QC): 3 Bed to/from Chair: 3 Car Transfer (QC): 88 Weight Bearing Weight Bearing Restriction: Full Weight Bearing Location Restriction: LE Bilateral Gait Training Gait (FIM): 88 Pt lacks strength to ambulate safely. Wheelchair Training Does the Pt Use a Wheelchair?: Yes Wheelchair (FIM): 4 Wheelchair Distance: 0=276-54 ft Distance: 125' Wheelchair Level of Assist: 4 Wheel 50 ft with 2 turns (QC): 4 Type of Wheelchair: Manual Stair Training Stairs (FIM): 88 Unsafe to ambulate stairs at this time. Exercises Supine Ex: Ankle pumps, Quad Set, Heel Slides, Straight leg raise, Hip abd/add Supine Reps: 15 Treatments Pt completes transfer from sitting in [facility] to standing at Min-Mod A for SPT to EOB at Min A. Pt doesn't ambulate due to safety. Pt completes Supine Ex for strengthening. Pt complete bed mobility testing. Pt transfers from Supine to EOB at Min A then EOB to standing at Min-Mod A. Pt transfers back to [facility] using SPT. Pt rests and begins eating lunch at end of tx with all needs met. Assessment Current Status: Fair Progress Pt was more lethargic during tx today but has fluctuated over the time he has spent in Therapy. Pt has improved with independence of transfers although fatigues easy. PT Short Term Goals Short Term Goals Time Frame: Sep 26, 2016 Transfers (B,C,W/C) (FIM): 4 Gait (FIM): 2 Distance (FIM): 9=110-83 ft Gait Assistive Device: FWW Wheelchair Distance: 150' PT Manufacturing Storeperson Goals Nursing Home Goals PT Manufacturing Storeperson Goals Time Frame: Oct 10, 2016 Transfers (B,C,W/C) (FIM): 5 Sit to Lying (QC): 5 Lying-Sitting on Side/Bed(QC): 5 Sit to Stand (QC): 5 Rollin Roll Left to Right (QC): 5 Chair/Ycl-ag-Hqeuo Xfer(QC): 5 Car Transfer (QC): 5 Does the Patient Walk: Yes Gait (FIM): 5 Gait distance (FIM): 3=150 ft Walk 10 feet (QC): 5 Walk 10ft-Uneven Surface(QC): 5 Walk 50ft with 2 Turns (QC): 5 Walk 150 ft (QC): 5 Gait Level of Assist: 5 Gait Assistive Device: FWW Does the Pt use WC or Scooter?: No Stairs (FIM): 5 # of Steps: 12 1 Step (curb) (QC): 5 4 Steps (QC): 5 12 Steps (QC): 5 Picking up an Object (QC): 88 PT Plan Problem List Problem List: Activity Tolerance, Functional Strength, Safety, Balance, Gait, Transfer, Bed Mobility Treatment/Plan Treatment Plan: Continue Plan of Care Treatment Plan: Bed Mobility, Education, Functional Activity Mavis, Functional Strength, Group Therapy, Gait, Safety, Therapeutic Exercise, Transfers Treatment Duration: Oct 10, 2016 Frequency: At least 5-7 days/Wk (IRF) Estimated Hrs Per Day: 1.5 hours per day Patient and/or Family Agrees t: Yes Safety Risks/Education Patient Education: Transfer Techniques, Correct Positioning, Safety Issues Teaching Recipient: Patient Teaching Methods: Discussion Response to Teaching: Verbalize Understanding Time/GCodes Time In: 1100 Time Out: 1200 Total Billed Treatment Time: 60 Total Billed Treatment visit, FA x4 (60m) ENRIQUE SOLIS SOUND EFFECTS TECHNICIAN Sep 29, 2016 13:52
--- NOTE | 2016-09-29 15:33 | Diagnostic Imaging Report ---
INDICATION: Elevated white count. COMPARISON: 09/18/2016. FINDINGS: There is infiltrate with blunting of the left costophrenic angle noted in the left lower lung. Right lung is clear. Right costophrenic angle is sharp. The heart is not enlarged. No pulmonary edema. IMPRESSION: Persistent left lower lobe infiltrate with blunting of the left costophrenic angle again noted. No appreciable change has occurred since the previous exam. Dictated by: Dictated on workstation # [id number]
[2016-09-29 17:13] VITALS: BP 114/64
[2016-09-29] MEDS ORDERED: INSU100V16 SC (18:34)
[2016-09-29] MEDS ORDERED: NICO-587 TD (18:34)
[2016-09-29] MEDS ORDERED: MELA3TAB PO (18:34)
[2016-09-29] MEDS ORDERED: ACET325T49 PO (18:34)
[2016-09-29] MEDS ORDERED: FERR-74 PO (18:34)
[2016-09-29] MEDS ORDERED: IPRA3AMP INH (18:34)
[2016-09-29] MEDS ORDERED: NFMET1000 PO (18:34)
[2016-09-29] MEDS ORDERED: OXYC-471 PO (18:34)
[2016-09-29] MEDS ORDERED: MODA200T39 PO (18:34)
[2016-09-29] MEDS ORDERED: SENN-20 PO (18:34)
[2016-09-29 18:40] VITALS: BP 92/58
[2016-09-29] MEDS: MELATONIN 3 MG TABLET PO SCH (20:38)
[2016-09-30 05:31] LABS: BASOPHILS % (AUTO) 0 % (0-10); EOSINOPHILS # (AUTO) 0.3 10^3/uL (0.0-0.3); EOSINOPHILS % (AUTO) 4 % (0-10); LYMPHOCYTES # (AUTO) 2.6 X 10^3 (1.0-4.0); LYMPHOCYTES % (AUTO) 35 % (12-44); MEAN CORPUSCULAR HEMOGLOBIN 33 PG (25-34); MEAN CORPUSCULAR HGB CONC 33 G/DL (32-36); MEAN CORPUSCULAR VOLUME 99 FL (80-99); MEAN PLATELET VOLUME 9.9 FL (7.4-10.4); MONOCYTES # (AUTO) 0.9 X 10^3 (0.0-1.0); MONOCYTES % (AUTO) 12 % (0-12); NEUTROPHILS # (AUTO) 3.7 X 10^3 (1.8-7.8); NEUTROPHILS % (AUTO) 49 % (42-75); PLATELET COUNT 206 10^3/uL (130-400); RED BLOOD COUNT 3.41 10^6/uL (4.35-5.85); WHITE BLOOD COUNT 7.6 10^3/uL (4.3-11.0)
[2016-09-30 05:48] LABS: ALANINE AMINOTRANSFERASE 24 U/L (0-55); ALBUMIN 3.2 GM/DL (3.2-4.5); ANION GAP 11 MMOL/L (5-14); ASPARTATE AMINO TRANSFERASE 35 U/L (5-34); BILIRUBIN,TOTAL 1.1 MG/DL (0.1-1.0); BLOOD UREA NITROGEN 27 MG/DL (7-18); BUN/CREATININE RATIO 40; CALCIUM 9.6 MG/DL (8.5-10.1); CARBON DIOXIDE 21 MMOL/L (21-32); CHLORIDE 105 MMOL/L (98-107); CREATININE SERUM 0.67 MG/DL (0.60-1.30); GFR ESTIMATED > 60; GLUCOSE 110 MG/DL (70-105); SODIUM 137 MMOL/L (135-145); TOTAL PROTEIN 6.9 GM/DL (6.4-8.2)
[2016-09-30] MEDS: FERROUS SULF 325 MG (IRON) TAB PO SCH (06:06)
[2016-09-30] MEDS: metFORMIN 500 MG (GLUCOPHAGE) TAB PO SCH (06:07)
[2016-09-30 06:22] VITALS: BP 116/77
[2016-09-30] MEDS: inSUlin ASPART (NovoLOG) 1 UNIT/0.01 ML (CHARGE PER UNIT) SC SCH ×2 (06:46→11:07)
[2016-09-30] MEDS: RT-ALBUTEROL/IPRATROPIUM 3 ML (DUONEB) VIAL INH SCH (07:21)
[2016-09-30] MEDS: LACTULOSE SYRUP 10GM/15ML (ENULOSE) 30ML UDC PO SCH ×2 (08:25→13:15)
[2016-09-30] MEDS: PROPRANOLOL 20 MG (INDERAL) TABLET PO SCH ×2 (08:25→11:07)
[2016-09-30] MEDS: PARoxetine 10 MG (PAXIL) TAB PO SCH (08:25)
[2016-09-30] MEDS: NICOTINE 14 MG (NICODERM) PATCH TD SCH (08:25)
[2016-09-30] MEDS: ASPIRIN E.C. 81 MG (ECOTRIN) TAB PO SCH (08:26)
[2016-09-30] MEDS: MODAFINIL 100 MG TAB (PROVIGIL) NON-FORMULARY PO SCH (08:26)
[2016-09-30] MEDS: PATCH REMOVAL TP SCH (08:26)
[2016-09-30] MEDS: PARoxetine 20 MG (PAXIL) TAB PO SCH (08:26)
[2016-09-30] MEDS: SENNA W/DOCUSATE (SENOKOT S) TABLET PO SCH (08:26)
--- NOTE | 2016-09-30 10:08 | Therapy Team Discharge Summary ---
Therapy Discharge Summary Discharge Recommendations Date of Discharge Therapy D/C Recommendations: 24 hr Supervision Speech-Language Pathology The patient was admitted to [facility] following a fall which resulted in a right hip fracture. To note, the patient experienced a CVA approximately one month ago. The patient presents with moderate expressive aphasia, mild to moderate receptive aphasia, moderate dysarthria, and moderate oropharyngeal dysphagia. Skilled speech pathology focused on swallowing strategies, functional expressive communication through ADL tasks, two-step direction following, and intelligibility strategies. The patient continued to wax and wane throughout his time at [facility]. A modified barium swallow evaluation was completed which revealed aspiration of nectar-thick liquids. At this time, the patient is consuming a pureed diet with honey-thickened liquids. While the patient displayed improvement with comprehension and expressive ( limited) communication goals progress was achieved. The patient did not meet problem solving or memory FIM goals placed. At this time, the patient will be discharged to a skilled care facility. Continued speech pathology services are warranted post discharge. PT Senior Living Goals Senior Living Goals PT Director Telehealth Goals Time Frame: Oct 10, 2016 Transfers (B,C,W/C) (FIM): 5 Roll Left to Right (QC): 5 Sit to Lying (QC): 5 Lying-Sitting on Side/Bed(QC): 5 Sit to Stand (QC): 5 Chair/Pvw-ru-Sidlq Xfer(QC): 5 Car Transfer (QC): 5 Does the Patient Walk: Yes Gait (FIM): 5 Gait distance (FIM): 3=150 ft Walk 10 feet (QC): 5 Walk 10ft-Uneven Surface(QC): 5 Walk 50ft with 2 Turns (QC): 5 Walk 150 ft (QC): 5 Gait Level of Assist: 5 Gait Assistive Device: FWW Does the Pt use WC or Scooter?: No Stairs (FIM): 5 # of Steps: 12 1 Step (curb) (QC): 5 4 Steps (QC): 5 12 Steps (QC): 5 Picking up an Object (QC): 88 OT Director Telehealth Goals Director Telehealth Goals Time Frame: Oct 10, 2016 Eating (FIM): 6 (not met) Eating (QC): 5 (met-09/29/2016) Oral Hygiene (QC): 5 (not met) Grooming(FIM): 5 (not met) Bathing(FIM): 4 (met-09/29/2016) Shower/Bathe Self (QC): 4 (not met) Upper Body Dressing(FIM): 5 (met-09/29/2016) Upper Body Dressing (QC): 5 (met-09/29/2016) Lower Body Dressing(FIM): 4 (not met) Lower Body Dressing (QC): 4 (not met) On/Off Footwear (QC): 4 (not met) Toileting(FIM): 5 (not met) Toileting Hygiene (QC): 4 (not met) Transfers (B,C,W/C) (FIM): 5 (not met) Toilet/Commode Transfer(FIM): 5 (not met) Toilet/Commode Transfer (QC): 4 (not met) Shower Transfer(FIM): 4 (not met) Comprehension(FIM): 3 Expression (FIM): 2 Social Interaction(FIM): 3 Problem Solving(FIM): 3 Memory(FIM): 3 Additional Goals: 1-Demonstrate ADL Tasks, 2-Verbalize Understanding, 3- ImproveStrength/Mavis 1=Demonstrate adherence to instructed precautions during ADL tasks. 2=Patient will verbalize/demonstrate understanding of assistive devices/ modifications for ADL. 3=Patient will improve strength/tolerance for activity to enable patient to perform ADL's. Speech Senior Living Goals Director Telehealth Goals 1. The patient will improve expressive and receptive communication for increased function and safety with ADL's in the least restrictive setting. MAINTAINING 2. The patient will tolerate the least restrictive diet without signs/symptoms of aspiration or laryngeal penetration. PROGRESSING Time Frame: Three Weeks Comprehension: 3 (MET) Expression: 2 (MET) Social Interaction: 3 (NOT MET) Problem Solvin (NOT MET) Memory: 3 (NOT MET) MILAD LIU Sep 30, 2016 10:08
--- NOTE | 2016-09-30 10:17 | PM & R (SOAP) Progress Note ---
Subjective Time Seen by Provider: 08:19 Subjective/Events-last exam Patient was seen in his room this AM Patient alert Discussed case with SW WBC has normalized to 7K approx from 17 K approx yesterday? Patient ready for discharge today to [facility] for ongoing care Objective Exam Last Set of Vital Signs Vital Signs Date Time Temp Pulse Resp B/P (MAP) Pulse Ox O2 Delivery O2 Flow Rate FiO2 09/30/16 08:19 Room Air 09/30/16 07:21 90 09/30/16 06:22 98.2 69 20 116/77 09/29/16 10:52 3.00 Capillary Refill : Less Than 3 Seconds I&O Intake and Output 10/01/16 00:00 Intake Total 600 ml Output Total 500 ml Balance 100 ml Intake Oral 600 ml Output Urine Total 500 ml General: Alert, Cooperative HEENT: Atraumatic, PERRLA, EOMI, Mucous Memb Moist/Hessmer, Other (mild left labila droop) Neck: Supple, No JVD Lungs: Clear to Auscultation Heart: Regular Rate Abdomen: Normal Bowel Sounds, Soft, No Tenderness Extremities: Other (trace edema rt ankle) Neuro: Other (Mild left HP Aphasia and dysphagia Weakness prox rt leg due to frx and repair) Results Lab Laboratory Tests 09/27/16 16:16: Glucometer 69L 09/27/16 20:04: Glucometer 175H 09/28/16 05:31: Glucometer 115H 09/28/16 11:02: Glucometer 115H 09/28/16 16:37: Glucometer 138H 09/28/16 20:36: Glucometer 115H 09/29/16 04:57: Glucometer 176H 09/29/16 08:04: Glucometer 155H 09/29/16 11:07: Glucometer 99 09/29/16 11:15: White Blood Count 17.6H, Red Blood Count 3.85L, Hemoglobin 12.7L, Hematocrit 38L , Mean Corpuscular Volume 98, Mean Corpuscular Hemoglobin 33, Mean Corpuscular Hemoglobin Concent 34, Red Cell Distribution Width 16.2H, Platelet Count 264, Mean Platelet Volume 9.6, Neutrophils (%) (Auto) 77H, Lymphocytes (%) (Auto) 14 , Monocytes (%) (Auto) 8, Eosinophils (%) (Auto) 1, Basophils (%) (Auto) 0, Neutrophils # (Auto) 13.6H, Lymphocytes # (Auto) 2.5, Monocytes # (Auto) 1.4H, Eosinophils # (Auto) 0.1, Basophils # (Auto) 0.0, Neutrophils % (Manual) 76, Lymphocytes % (Manual) 12, Monocytes % (Manual) 8, Eosinophils % (Manual) 1, Basophils % (Manual) 1, Reactive Lymphocytes 2, Blood Morphology Comment NORMAL , Sodium Level 136, Potassium Level 4.3, Chloride Level 105, Carbon Dioxide Level 21, Anion Gap 10, Blood Urea Nitrogen 24H, Creatinine 0.74, Estimat Glomerular Filtration Rate > 60, BUN/Creatinine Ratio 32, Glucose Level 109H, Calcium Level 9.9, Total Bilirubin 1.5H, Aspartate Amino Transf (AST/SGOT) 41H, Alanine Aminotransferase (ALT/SGPT) 28, Alkaline Phosphatase 267H, Total Protein 7.9, Albumin 3.5 09/29/16 16:24: Glucometer 106 09/29/16 20:16: Glucometer 72 09/30/16 04:30: White Blood Count 7.6, Red Blood Count 3.41L, Hemoglobin 11.2L, Hematocrit 34L, Mean Corpuscular Volume 99, Mean Corpuscular Hemoglobin 33, Mean Corpuscular Hemoglobin Concent 33, Red Cell Distribution Width 16.0H, Platelet Count 206, Mean Platelet Volume 9.9, Neutrophils (%) (Auto) 49, Lymphocytes (%) (Auto) 35, Monocytes (%) (Auto) 12, Eosinophils (%) (Auto) 4, Basophils (%) (Auto) 0, Neutrophils # (Auto) 3.7, Lymphocytes # (Auto) 2.6, Monocytes # (Auto) 0.9, Eosinophils # (Auto) 0.3, Basophils # (Auto) 0.0, Sodium Level 137, Potassium Level 4.0, Chloride Level 105, Carbon Dioxide Level 21, Anion Gap 11, Blood Urea Nitrogen 27H, Creatinine 0.67, Estimat Glomerular Filtration Rate > 60, BUN /Creatinine Ratio 40, Glucose Level 110H, Calcium Level 9.6, Total Bilirubin 1.1H, Aspartate Amino Transf (AST/SGOT) 35H, Alanine Aminotransferase (ALT/SGPT ) 24, Alkaline Phosphatase 240H, Total Protein 6.9, Albumin 3.2 Microbiology 09/15/16 Urine Culture - Final, Complete Enterococcus Faecalis Assessment/Plan Assessment Fall with rt hip frx s/p repair ortho 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 See orders. . - STEPHON ZAMORA MD Sep 30, 2016 10:17
[2016-09-30] MEDS: ENOXAPARIN 40 MG/0.4 ML (LOVENOX) SYR SC SCH (11:07)
--- NOTE | 2016-09-30 11:24 | Progress Note-Hospitalist ---
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 Pt is good today Pt not on abx and is receiving breathing treatments Does not need O2 per assessment RT Review: Home O2 eval was completed yesterday and does not need O2 Patient Interview: Pt would like to DC Physical exam stable. Pt confirms receiving breathing treatments AFVSS, no distress, aphasic, improved RRR, CTAB no rales noted but diminished BS noted noted subtle wheezing Aphasic Assessment: Hypoxia 2 nights in COPD patient with elevated wbc of 17k but CXR revealed no changes and now doing well s/p UTI Enterococcus on Ampicillin initially then changed to PO Augmentin and it is tolerated and will be completed last weekend Acute right hip fracture s/p uncomplicated repair s/p 2 falls and xray was stable per ortho as recommended by radiology Mild post op anemia stable and no indication for transfusion Diabetes mellitus insulin-dependent Current smoker with wheezing periodically ordered Nebs Hypertension Remote stroke causing aphasia Thrombocytopenia Post op constipation resolved maintained on Lactulose Chronic right sided tic Plan: Fall risk Continue Lactulose Home O2 eval but does not require it now Very difficult situation since it appears he has so many chronic issues and acute issue that he cannot be DC? Poor prognosis. Breathing treatments with DC Scribed by Sintia Reyes under the direct supervision of Dr. Crooks. LIBIA CROOKS DO Sep 30, 2016 11:24
--- NOTE | 2016-09-30 11:36 | Therapy Team Discharge Summary ---
Therapy Discharge Summary Discharge Recommendations Date of Discharge Therapy D/C Recommendations: 24 hr Supervision Physical Therapy Patient came to rehab following a right hip fracture, he also has a previous CVA. Patient had a fall at this facility and his weight bearing status changed from weight bearing as tolerated to toe touch weight bearing. Upon evaluation patient was max assist for bed mobility and transfers, and he was not able to ambulate, propel a wheelchair, or go up and down stairs. Patient has been performing bed mobility and transfer training, balance and endurance training, gait training, functional strengthening, and education. He is not compliant with his weight bearing status even with therapist cues. Patient has made some progress but continues to be non-compliant with his weight bearing status and he has not met any of his correction goals. Now, patient performs bed mobility with min assist, transfers with mod assist, and can propel a manual wheelchair 125' with min assist. Patient is being discharged from this facility today and will be discharged from PT at this time. PT Tariff Compiling Clerk Goals Tariff Compiling Clerk Goals PT Tariff Compiling Clerk Goals Time Frame: Oct 10, 2016 Transfers (B,C,W/C) (FIM): 5 Roll Left to Right (QC): 5 Sit to Lying (QC): 5 Lying-Sitting on Side/Bed(QC): 5 Sit to Stand (QC): 5 Chair/Cds-po-Cjgyd Xfer(QC): 5 Car Transfer (QC): 5 Does the Patient Walk: Yes Gait (FIM): 5 Gait distance (FIM): 3=150 ft Walk 10 feet (QC): 5 Walk 10ft-Uneven Surface(QC): 5 Walk 50ft with 2 Turns (QC): 5 Walk 150 ft (QC): 5 Gait Level of Assist: 5 Gait Assistive Device: FWW Does the Pt use WC or Scooter?: No Stairs (FIM): 5 # of Steps: 12 1 Step (curb) (QC): 5 4 Steps (QC): 5 12 Steps (QC): 5 Picking up an Object (QC): 88 OT Alf Goals Tariff Compiling Clerk Goals Time Frame: Oct 10, 2016 Eating (FIM): 6 (not met) Eating (QC): 5 (met-09/29/2016) Oral Hygiene (QC): 5 (not met) Grooming(FIM): 5 (not met) Bathing(FIM): 4 (met-09/29/2016) Shower/Bathe Self (QC): 4 (not met) Upper Body Dressing(FIM): 5 (met-09/29/2016) Upper Body Dressing (QC): 5 (met-09/29/2016) Lower Body Dressing(FIM): 4 (not met) Lower Body Dressing (QC): 4 (not met) On/Off Footwear (QC): 4 (not met) Toileting(FIM): 5 (not met) Toileting Hygiene (QC): 4 (not met) Transfers (B,C,W/C) (FIM): 5 (not met) Toilet/Commode Transfer(FIM): 5 (not met) Toilet/Commode Transfer (QC): 4 (not met) Shower Transfer(FIM): 4 (not met) Comprehension(FIM): 3 (MET) Expression (FIM): 2 (MET) Social Interaction(FIM): 3 (NOT MET) Problem Solving(FIM): 3 (NOT MET) Memory(FIM): 3 (NOT MET) Additional Goals: 1-Demonstrate ADL Tasks, 2-Verbalize Understanding, 3- ImproveStrength/Mavis 1=Demonstrate adherence to instructed precautions during ADL tasks. 2=Patient will verbalize/demonstrate understanding of assistive devices/ modifications for ADL. 3=Patient will improve strength/tolerance for activity to enable patient to perform ADL's. Speech Tariff Compiling Clerk Goals Tariff Compiling Clerk Goals 1. The patient will improve expressive and receptive communication for increased function and safety with ADL's in the least restrictive setting. MAINTAINING 2. The patient will tolerate the least restrictive diet without signs/symptoms of aspiration or laryngeal penetration. PROGRESSING Time Frame: Three Weeks Comprehension: 3 (MET) Expression: 2 (MET) Social Interaction: 3 (NOT MET) Problem Solvin (NOT MET) Memory: 3 (NOT MET) RUSSELL KNOWLES PT Sep 30, 2016 11:36
[2016-09-30 13:30] VITALS: BP 116/67
--- NOTE | 2016-10-04 09:49 | Therapy Team Discharge Summary ---
Therapy Discharge Summary Discharge Recommendations Date of Discharge Sep 30, 2016 at 13:35 Therapy D/C Recommendations: 24 hr Supervision Occupational Therapy Pt. has been seen by occupational therapy to increase overall strength and independence with daily tasks. Pt. has met some goals, but many left unmet. Please see above for goals met. Pt.discharged to nursing facility for ongoing care and 24 hour supervision. Pt.will have family support as needed as well. Goals to be followed up at nursing facility, and pt. would benefit from skilled occupational therapy services. PT Custodial Goals Portable Irrigation Operator Goals PT Custodial Goals Time Frame: Oct 10, 2016 Transfers (B,C,W/C) (FIM): 5 Roll Left to Right (QC): 5 Sit to Lying (QC): 5 Lying-Sitting on Side/Bed(QC): 5 Sit to Stand (QC): 5 Chair/Gto-dh-Pnulq Xfer(QC): 5 Car Transfer (QC): 5 Does the Patient Walk: Yes Gait (FIM): 5 Gait distance (FIM): 3=150 ft Walk 10 feet (QC): 5 Walk 10ft-Uneven Surface(QC): 5 Walk 50ft with 2 Turns (QC): 5 Walk 150 ft (QC): 5 Gait Level of Assist: 5 Gait Assistive Device: FWW Does the Pt use WC or Scooter?: No Stairs (FIM): 5 # of Steps: 12 1 Step (curb) (QC): 5 4 Steps (QC): 5 12 Steps (QC): 5 Picking up an Object (QC): 88 OT Custodial Goals Portable Irrigation Operator Goals Time Frame: Oct 10, 2016 Eating (FIM): 6 (not met) Eating (QC): 5 (met-09/29/2016) Oral Hygiene (QC): 5 (not met) Grooming(FIM): 5 (not met) Bathing(FIM): 4 (met-09/29/2016) Shower/Bathe Self (QC): 4 (not met) Upper Body Dressing(FIM): 5 (met-09/29/2016) Upper Body Dressing (QC): 5 (met-09/29/2016) Lower Body Dressing(FIM): 4 (not met) Lower Body Dressing (QC): 4 (not met) On/Off Footwear (QC): 4 (not met) Toileting(FIM): 5 (not met) Toileting Hygiene (QC): 4 (not met) Transfers (B,C,W/C) (FIM): 5 (not met) Toilet/Commode Transfer(FIM): 5 (not met) Toilet/Commode Transfer (QC): 4 (not met) Shower Transfer(FIM): 4 (not met) Comprehension(FIM): 3 (MET) Expression (FIM): 2 (MET) Social Interaction(FIM): 3 (NOT MET) Problem Solving(FIM): 3 (NOT MET) Memory(FIM): 3 (NOT MET) Additional Goals: 1-Demonstrate ADL Tasks, 2-Verbalize Understanding, 3- ImproveStrength/Mavis 1=Demonstrate adherence to instructed precautions during ADL tasks. 2=Patient will verbalize/demonstrate understanding of assistive devices/ modifications for ADL. 3=Patient will improve strength/tolerance for activity to enable patient to perform ADL's. Speech Portable Irrigation Operator Goals Custodial Goals 1. The patient will improve expressive and receptive communication for increased function and safety with ADL's in the least restrictive setting. MAINTAINING 2. The patient will tolerate the least restrictive diet without signs/symptoms of aspiration or laryngeal penetration. PROGRESSING Time Frame: Three Weeks Comprehension: 3 (MET) Expression: 2 (MET) Social Interaction: 3 (NOT MET) Problem Solvin (NOT MET) Memory: 3 (NOT MET) ANNALISE SMITH OT Oct 04, 2016 09:49
--- NOTE | 2016-10-07 08:44 | DISCHARGE SUMMARY ---
DATE OF SERVICE: HISTORY OF PRESENT ILLNESS: The patient is a 61-year-old male recently admitted to a group home due to decline in his functional independence following a stroke. He was on mechanical soft diet and thickened liquids. He was reported to have been ambulatory prior to fall with a resulting right hip fracture, but has had a decline in functional mobility since. He is somewhat aphasic due to a prior stroke. There is also history of prior head injury. He utilizes propranolol for tremors. He was followed by orthopedics and hospital service while on the surgical floor and had an ORIF with a TFN on 09/09/[address] Mcrae. PAST MEDICAL HISTORY: Hypertension, stroke with residual aphasia, dysphagia on mechanical soft diet with honey thickened liquids, insulin-dependent diabetes mellitus, insomnia, depression, tobaccoism, COPD. Had been residing in [place] until recent admission to group home. Has supportive family and niece that live nearby, Dr. Hafsa Jennings [place], PCP. MEDICAL COURSE: The patient was followed by Dr. Stover and hospitalist service while on rehab unit. He spiked a fever. He had a UTI. Cultures grew out enterococcus. He was placed on ampicillin, then switched over to p.o. Augmentin with good results. His fever resolved. He had an elevated white count which resolved upon discharge. He had a mild postop anemia. Medications were adjusted for his diabetes as necessary. He required nebulizer treatments p.r.n. as he has a history of tobaccoism and occasional wheezing. Medications were continued for his hypertension. His thrombocytopenia was stable. Postop constipation was treated. The propranolol was resumed for his tremors with improvement. Pulse was 71 on 09/30, respirations 18, blood pressure 116/67, O2 sat 94% on room air on 09/30/2016. CBC on 09/30/2016 showed WBC 7.6, H and H 11.2/34 platelet count 206k. Glucometer readings from 09/29 to 09/30 varied between 72 and 106. Chemistry on 09/30/2016 showed normal electrolytes. BUN was elevated at 27, creatinine 0.67, blood glucose 110, normal total protein and albumin. He had elevated liver function tests with alkaline phosphatase of 240, AST at 35 and total bilirubin 1.1. Chest x-ray on 09/29/2016 showed a persistent left lower lobe infiltrate with blunting of the left costophrenic angle again noted. No appreciable change has occurred since the previous exam and clinically, the patient had improved. The patient did have a modified barium swallow with speech therapy which confirmed he still had significant dysphagia and the patient was continued on mechanical soft and honey thick liquid diet. The patient did have a fall while on the unit and x-ray of the right hip did show some slight changes and orthopedics ordered that the patient be made toe-touch weightbearing right lower extremity for now and that did limit his progress somewhat. crop or grain farmworker discussed case with the patient's niece, who the patient would be staying with and it was decided upon to send patient back to group home in [place], [place] for ongoing care and therapies prior to consideration of return home with his niece, hopefully once his weightbearing is advanced as tolerated by orthopedics in outpatient followup. REHABILITATION COURSE: PT notes: Upon admission, the patient was max assist for bed mobility and transfers. He was not able to ambulate or propel a wheelchair. Once his weightbearing status was changed to toe touch weightbearing right, he had difficulty being compliant with his weightbearing status even with therapy clues. Upon discharge, the patient performs bed mobility with min assist, transfers with mod assist, can propel a manual wheelchair 125 feet with min assist. He will have ongoing therapies at receiving care facility in [place], [place]. Speech therapy notes: Upon admission, the patient presented with moderate expressive aphasia, mild to moderate receptive aphasia, moderate dysarthria and moderate oropharyngeal dysphagia. A modified barium swallow evaluation was completed which revealed aspiration with nectar thick liquids. Diet was changed to pureed with honey thickened liquids. It was recommended that the patient have followup speech therapy at care facility. OT notes: Upon admission, the patient is min assist for eating, mod assist for bathing, max assist for shower, bathing self, lower body dressing. Max assist for transfers. Upon discharge, the patient has met some goals but many left unmet due to various reasons including the fall with a change in weightbearing status right lower extremity. Upon discharge, the patient is set up for eating and oral hygiene, min assist for grooming and bathing, setup for upper body dressing, min assist for lower body dressing, mod assist for toileting hygiene. Patient is mod assist for comprehension, max assist for expression, social interaction, problem solving and memory. DISCHARGE INSTRUCTIONS: The patient will have follow up with Dr. Pereyra or group home physician in [place], [place]. Accu-Cheks q.i.d. AC and at bedtime. Diet is pureed with nectar thick liquids. The patient will have ongoing therapies as available at [facility]. DISCHARGE MEDICATIONS: 1. Tylenol 325 mg p.o. q. p.r.n. fever or mild pain. 2. Ferrous sulfate 325 mg p.o. daily. 3. NovoLog insulin 10 units subcu with meals. 4. Albuterol treatments t.i.d. 5. Melatonin 6 mg p.o. at bedtime. 6. Nicotine patch 14 mg topically daily. 7. Percocet generic 5/325 1-2 tablets p.o. q. 4 hours p.r.n. severe pain. 8. Senokot-S 1 tablet p.o. b.i.d. 9. Aspirin 81 mg p.o. daily. 10. Lactulose 30 mg p.o. t.i.d. 11. Metformin 1000 mg p.o. b.i.d. 12. Provigil 200 mg p.o. daily. 13. Paxil 30 mg p.o. daily. 14. Propranolol 20 mg p.o. t.i.d. DISCHARGE DIAGNOSES: 1. Rehabilitation ambulatory dysfunction secondary to fall with right intertrochanteric hip fracture with comminution status post TFN ORIF to the right hip Dr. Mcrae. 2. Fall with some change on x-ray, now patient toe-touch weightbearing right lower extremity. 3. Tobaccoism, currently abstaining and on patch. 4. Diabetes mellitus, insulin-dependent. 5. Mild postoperative anemia on replacement. 6. Hypertension, controlled on medication. 7. Late effects of stroke with left-sided weakness, aphasia, and dysphagia. 8. History of thrombocytopenia, none now. 9. Postoperative constipation, treated. 10. Chronic obstructive pulmonary disease on respiratory treatments. 11. Tremors, improved with propranolol. 12. Enterococcus urinary tract infection, treated. 13. Right lower infiltrate on chest x-ray, clinically improved with treatments. CONDITION AT DISCHARGE: Improved and stable. PROGNOSIS: Rehab prognosis appears good for some continued improvement, particularly once his weightbearing status is advanced. However, due to his multiple comorbidities, history of of falls, fractures and orthopedic procedures it may be difficult for his niece who works to care for him at home upon completion of therapies and advancement of weightbearing status by orthopedics at receiving [facility] unit in [place], [place]. Job ID: [id number] DocumentID: [id number] Dictated Date: 10/06/2016 10:43:39 Squad Boss Date: 10/07/2016 08:43:32 Dictated By: STEPHON STOVER MD
== END 2016-09-30 13:35 | DRG 560 ==
PROVIDERS: ADMIT Physical Medicine & Rehabilitation; ATTEND Physical Medicine & Rehabilitation
DX: S72.141D Displaced intertrochanteric fracture of right femur, subsequent encounter for closed fracture with routine healing (principal); I69.352 Hemiplegia and hemiparesis following cerebral infarction affecting left dominant side; I69.320 Aphasia following cerebral infarction; I69.391 Dysphagia following cerebral infarction; R13.12 Dysphagia, oropharyngeal phase; N39.0 Urinary tract infection, site not specified; I10 Essential (primary) hypertension; J44.9 Chronic obstructive pulmonary disease, unspecified; E87.6 Hypokalemia; E11.9 Type 2 diabetes mellitus without complications; G47.00 Insomnia, unspecified; F32.9 Major depressive disorder, single episode, unspecified; F17.200 Nicotine dependence, unspecified, uncomplicated; D64.9 Anemia, unspecified; K59.09 Other constipation; D69.6 Thrombocytopenia, unspecified; B95.2 Enterococcus as the cause of diseases classified elsewhere; R25.1 Tremor, unspecified; R09.02 Hypoxemia; Z79.84 Long term (current) use of oral hypoglycemic drugs; Z79.4 Long term (current) use of insulin
CPT/HCPCS: 36415; 71010; 71020; 73502; 74230; 76937; 80053; 81000; 82962; 85007; 85025; 85027; 87077; 87088; 87186; 94640; 94760; 94761

== ENCOUNTER 2016-10-10 10:10 | Inpatient (IN) | payer MEDICARE ==
[2016-10-10] VITALS (12 sets, daily range): BP systolic 130–164; BP diastolic 75–106
[~2016-10-10] VITALS: Ht 170.2 cm; Wt 72.7 kg
[~2016-10-10 10:10] MED LIST changes: +ACET325T49 PO; +INSU100V16 SC; +IPRA3AMP INH; +MELA3TAB PO; +NICO-587 TD
[2016-10-10] MEDS ORDERED: NS IV 1000 ML 1,000 ML IV PRN (11:07)
[2016-10-10] MEDS ORDERED: PHARMACY TO DOSE IV SCH (11:15)
[2016-10-10] MEDS ORDERED: NS IV 500 ML 500 ML ONE (12:44)
[2016-10-10 13:19] LABS: ANION GAP 9 MMOL/L (5-14); BLOOD UREA NITROGEN 11 MG/DL (7-18); BUN/CREATININE RATIO 18; CALCIUM 8.4 MG/DL (8.5-10.1); CARBON DIOXIDE 20 MMOL/L (21-32); CHLORIDE 112 MMOL/L (98-107); CREATININE SERUM 0.61 MG/DL (0.60-1.30); GFR ESTIMATED > 60; GLUCOSE 150 MG/DL (70-105); POTASSIUM 4.1 MMOL/L (3.6-5.0); SODIUM 141 MMOL/L (135-145)
[2016-10-10] MEDS ORDERED: VANCOMYCIN INJECTION 1,500 MG in NS IV 500 ML 500 ML IV NR (13:25)
[2016-10-10] MEDS ORDERED: LEVOFLOXACIN 750 MG/150 ML IV 150 ML IV SCH (13:30)
[2016-10-10] MEDS ORDERED: PIPERACILLIN SODIUM/TAZOBACTAM 4.5 GM in NS (IVPB) 100 ML IV NR (13:30)
--- NOTE | 2016-10-10 13:51 | History & Physical-Hospitalist ---
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 for evaluated of altered mentation. He had a sedated MRI done yesterday and all night seemed off from his baseline. When he awoke this morning he was more confused and had a low grade fever per their reports so he was transferred to the ER for evaluation. He was found to have a bilateral pneumonia, leukocytosis, and elevated lactic acid. He was resuscitated with 2.5L bolus (30cc/kg) and continued to have a MAP <65 so was started on Levophed and transferred to [facility] for ICU admission for septic shock. He is able to answer yes and no questions mostly and I am unsure if they are consistently appropriate so most of this history is obtained from the outside medical records. Source: patient, RN/MD, detention records, old records Exam Limitations: clinical condition Date Seen 10/10/16 Time Seen by Provider: 13:00 Attending Physician Stephanie Childers MD PCP Jose Ramon Pereyra MD Referring Physician Date of Admission Oct 10, 2016 at 12:46 Home Medications & Allergies Home Medications Reviewed patient Home Medication Reconciliation Form Allergies Allergies Coded Allergies lisinopril (Verified Allergy, Unknown, 09/12/16) Past Pyfedby-Dlkzyi-Wylqub Hx Patient Social History Employed/Student: unemployed Smoking Status: Current Everyday Smoker Cigaretts per day: 10 Recent Hopitalizations: Yes Seasonal Allergies Seasonal Allergies: No Surgeries Yes (Right hip ORIF on 09/07/16. ) Orthopedic Respiratory No COPD Cardiovascular High Cholesterol, Hypertension Neurological Yes (CVA; Non-verbal) Stroke, TIA Gastrointestinal Yes Chronic Constipation Musculoskeletal Yes Fractures Endocrine History of Endocrine Disorders: Yes Endocrine Disorders: Diabetes, Insulin dep HEENT History of HEENT Disorders: No Loss of Vision: Denies Hearing Impairment: Denies Cancer No Psychosocial Behavioral Health Disorders: Suicide Attempts Blood Transfusions History of Blood Disorders: No Family Medical History Family Hx: Diabetes mellitus 19 FATHER Neoplasm 19 MOTHER (LUNG CANCER) Review of Systems ROS-Unable to Obtain: limited due to aphasia and altered mentation Constitutional: No fever EENTM: No throat pain Respiratory: No cough Cardiovascular: No chest pain, No palpitations Gastrointestinal: No abdominal pain, No constipation, No diarrhea Genitourinary: No dysuria, No frequency Musculoskeletal: joint pain (hip pain) Skin: No lesions, No rash Physical Exam Physical Exam Vital Signs Capillary Refill : General Appearance: No Apparent Distress, Chronically ill HEENT: PERRL/EOMI, Pharynx Normal Neck: Non Tender, Supple Respiratory: Lungs Clear, Normal Breath Sounds, No Respiratory Distress Cardiovascular: Regular Rate, Rhythm, No Edema, No JVD, No Murmur Gastrointestinal: Normal Bowel Sounds, Non Tender, Soft Back: Normal Inspection, No CVA Tenderness Extremity: Normal Capillary Refill, No Calf Tenderness, No Pedal Edema, Other ( leg length discrepancy (right shorter than left)) Neurologic/Psychiatric: Alert, Aphasia, No Facial Droop, Other (oriented to self and place) Skin: Normal Color, Warm/Dry Results Results/Procedures Lab Laboratory Tests 10/10/16 12:54 Radiology Chest XR done at outside hospital show bilateral pneumonia. Procedures Central Line placed at outside facility Assessment/Plan Admission Diagnosis Septic Shock Diagnosis/Problems Diagnosis/Problems (1) Septic shock Status: Acute Assessment & Plan: hypotension refractory of 30cc/kg bolus so central line placed and started on Levophed Systolic BP of 151 upon arrival here on 2mcg/min of Levophed so titrated off Maintaining MAP >65 without vasopressor support, normal capillary refill, repeat lactic acid 1.68 Started on Vanc/Zosyn/Levaquin, will continue, day #1 Blood and urine cultures obtained at outside hospital, I discussed with ED MATERIALS ENGINEER who will forward results to us when available Continue NS at 100ml/hr (2) HCAP (healthcare-associated pneumonia) Status: Acute Assessment & Plan: Will start on broad spectrum abx Protecting airway and requiring minimal oxygen, will titrate as able Will obtain urine strep pneumo and legionella antigen, sputum cx Has history of COPD, no wheezing or signs of exacerbation at this time (3) CVA, old, aphasia Status: Chronic Assessment & Plan: at baseline not on statin, will not start with transaminitis but likely needs at discharge will also need to resume ASA when thrombocytopenia improves (4) CVA, old, hemiparesis Status: Chronic Assessment & Plan: left sided, at baseline will consult PT/OT (5) Hepatitis C Status: Chronic Assessment & Plan: has transaminitis at baseline though mildly elevated, will monitor likely due to shock hyperbilirubinemia is his baseline as well will resume lactulose but hold propanolol given hypotension (6) Insulin dependent diabetes mellitus Status: Chronic Assessment & Plan: Will monitor Accu Cheks AC QHS Continue home insulin (Insulin 70/30) 10 units daily Will add SSI, holding metformin (7) Depression Status: Chronic Assessment & Plan: On Paroxetine prior to admission, will continue Recent suicide attempt, mood appears stable today though (8) Thrombocytopenia Status: Acute Assessment & Plan: likely due to sepsis, will monitor has Hep C and likely cirrhosis as well but normal platelets 1 week ago (9) Tobacco abuse Status: Chronic Assessment & Plan: Encouraged smoking cessation (10) Prophylactic measure Assessment & Plan: Holding Lovenox tonight due to thrombocytopenia, will resume if stable in AM SCDs instead Pureed diet No indication for GI prophylaxis STEPHANIE CHILDERS MD Oct 10, 2016 13:51
[2016-10-10] MEDS: NOREPINEPHRINE 4 MG in D5W 250 ML (IVPB) 250 ML IV SCH ×2 (14:11→18:01)
[2016-10-10] MEDS: NS IV 1000 ML 1,000 ML IV SCH ×2 (14:12→21:34)
[2016-10-10] MEDS ORDERED: NICOTINE 14 MG (NICODERM) PATCH TD PRN (14:30)
[2016-10-10] MEDS ORDERED: ACETAMINOPHEN 325 MG TABLET/CAPLET (TYLENOL) PO PRN (14:30)
[2016-10-10] MEDS ORDERED: SENNA W/DOCUSATE (SENOKOT S) TABLET PO PRN (14:30)
--- NOTE | 2016-10-10 15:28 | Physical Therapy Evaluation ---
PT Evaluation-General Medical Diagnosis Admission Date Oct 10, 2016 at 12:46 Medical Diagnosis: pneumonia Onset Date: Oct 10, 2016 Therapy Diagnosis Therapy Diagnosis: impaired mobility, stength, endurance Height/Weight Height (Feet): 5 Height (Inches): 7.00 Weight (Pounds): 165 Weight (Ounces): 11.0 Precautions Precautions/Isolations: Fall Prevention, Standard Precautions Referral Physician: Cesilia Childers MD Reason for Referral: Evaluation/Treatment Medical History Pertinent Medical History: COPD, CVA, DM, HTN, Smoking, TBI Additional Medical History left hemiparesis, aphasia, hip fracture (ORIF on 09/07/16), high cholesterol, TIA , chronic constipation, suicide attempts Current History went to ER wiht fever and confusion, has bilateral pneumonia Reviewed History: Yes Social History Home: Retirement Entry Into Home: Level Entry Prior/Core FIM Prior Level of Function Functional [place] Measure 0=Not Assessed/NA 4=Minimal Assistance 1=Total Assistance 5=Supervision or Setup 2=Maximal Assistance 6=Modified [place] 3=Moderate Assistance 7=Complete [place] unknown PT Evaluation-Current Subjective Patient in bed pre tx, he indicates that he has some pain in his right leg but is unable to state how much. Pt/Family Goals unable to state a goal Objective Patient Orientation: Unable to Assess, Non-Verbal/Aphasic Attachments: Flores Catheter, IV ROM/Strength ROM Lower Extremities WNL except not tested in right hip because it is still sore from ORIF last month. Strenght Lower Extremities gross 3+/5 bilaterally Integumentary/Posture Bladder Incontinence: Flores Cath Neuromuscular (Tone, Coordination, Reflexes) NT Sensory Hearing: Impaired Sensation Right Lower Extremit: Impaired Sensation Left Lower Extremity: Impaired Transfers Functional [place] Measure 0=Not Assessed/NA 4=Minimal Assistance 1=Total Assistance 5=Supervision or Setup 2=Maximal Assistance 6=Modified [place] 3=Moderate Assistance 7=Complete [place] Transfers (B, C, W/C) (FIM): 2 Scootin Rollin Supine to/from Sit: 2 Sit to/from Stand: 4 cues for safety and hand placement, needs walker placed Gait Mode of Locomotion: Walk Anticipated Mode of Locomotion: Walk Gait (FIM): 2 Distance: 40' Gait Level of Assist: 4 Gait Persons Needed: 1 Gait Assistive Device: FWW Comments/Gait Description Patient ambulates slowly and left toes drag, needs help with guiding the walker , tries to push it too far out Balance Sitting Static: Fair Sitting Dynamic: Fair Standing Static: Poor Standing Dynamic: Poor Treatment Patient had to sit in a chair on the way walking back to his room. He was placed in the recliner at bedside post tx with nurse calllauren, all needs met. Nurse notified that he is in chair. Assessment/Needs Patient has impaired mobility, strength, endurance, he is at risk for a fall. Rehab Potential: Fair PT Shelter Goals Professor Of Environmental Studies Goals PT Professor Of Environmental Studies Goals Time Frame: Oct 17, 2016 Transfers (B,C,W/C) (FIM): 4 Gait (FIM): 2 Distance: 50' Gait Level of Assist: 4 Gait Assistive Device: FWW PT Plan Problem List Problem List: Activity Tolerance, Functional Strength, Safety, Balance, Gait, Transfer, Bed Mobility, ROM Treatment/Plan Treatment Plan: Continue Plan of Care Treatment Plan: Bed Mobility, Concurrent Therapy, Education, Functional Activity Mavis, Functional Strength, Gait, Safety, Therapeutic Exercise, Transfers Treatment Duration: Oct 17, 2016 Frequency: 6 times per week (once a day, six days a week) Estimated Hrs Per Day: .25 hour per day (15-30') Patient and/or Family Agrees t: Yes Safety Risks/Education Patient Education: Gait Training, Transfer Techniques, Correct Positioning, Safety Issues Teaching Recipient: Patient Teaching Methods: Demonstration, Discussion Response to Teaching: Reinforcement Needed Discharge Recommendations Plan Patient will perform bed mobility and transfer training, balance and endurance training, functional strengthening, gait training, and education, to improve functional mobility and independence at home. Therapy D/C Recommendations: Home w/ Family Support, Alf (TCU/NH) Time/GCodes Time In: 1455 Time Out: 1520 Total Billed Treatment Time: 25 Total Billed Treatment 1 visit EVM 15' GT 10' RUSSELL KNOWLES PT Oct 10, 2016 15:28
[2016-10-10] MEDS: ENOXAPARIN 40 MG/0.4 ML (LOVENOX) SYR SC SCH (16:12)
[2016-10-10] MEDS: inSUlin ASPART (NovoLOG) 1 UNIT/0.01 ML (CHARGE PER UNIT) SC SCH ×2 (16:39→21:35)
[2016-10-10] MEDS ORDERED: inSUlin ASPART (NovoLOG) 1 UNIT/0.01 ML (CHARGE PER UNIT) SC SCH (17:00)
[2016-10-10] MEDS ORDERED: LACTULOSE SYRUP 10GM/15ML (ENULOSE) 30ML UDC PO SCH (17:00)
[2016-10-10] MEDS ORDERED: DESV50TA PO (17:51)
[2016-10-10] MEDS ORDERED: BETH25TA PO (17:51)
[2016-10-10] MEDS ORDERED: RISP2TAB PO (17:51)
[2016-10-10] MEDS ORDERED: NYST1000 PO (17:51)
[2016-10-10] MEDS ORDERED: TAMS0.4C98 PO (17:51)
[2016-10-10] MEDS ORDERED: PHEN-640 PO (17:51)
[2016-10-10] MEDS: oxyCODONE/APAP 5/325MG (PERCOCET 5) TABLET PO PRN (20:23)
[2016-10-10] MEDS: RT-ALBUTEROL/IPRATROPIUM 3 ML (DUONEB) VIAL INH SCH (20:49)
[2016-10-10] MEDS: PIPERACILLIN SODIUM/TAZOBACTAM 4.5 GM in NS (IVPB) 100 ML IV SCH (21:35)
[2016-10-10] MEDS ORDERED: traZODone 50 MG (DESYREL) TAB ONE (22:18)
[2016-10-10] MEDS ORDERED: traZODone 50 MG (DESYREL) TAB PO ONE (22:45)
[2016-10-11] VITALS (14 sets, daily range): BP systolic 112–166; BP diastolic 75–119
[2016-10-11] MEDS: NOREPINEPHRINE 4 MG in D5W 250 ML (IVPB) 250 ML IV SCH ×2 (00:31→06:38)
[2016-10-11] MEDS: VANCOMYCIN INJECTION 1,000 MG in NS (IVPB) 250 ML IV SCH ×2 (01:38→14:25)
[2016-10-11] MEDS: PIPERACILLIN SODIUM/TAZOBACTAM 4.5 GM in NS (IVPB) 100 ML IV SCH ×3 (06:06→21:54)
[2016-10-11 06:11] LABS: BASOPHILS % (AUTO) 0 % (0-10); EOSINOPHILS # (AUTO) 0.3 10^3/uL (0.0-0.3); EOSINOPHILS % (AUTO) 8 % (0-10); LYMPHOCYTES # (AUTO) 0.8 X 10^3 (1.0-4.0); LYMPHOCYTES % (AUTO) 23 % (12-44); MEAN CORPUSCULAR HEMOGLOBIN 33 PG (25-34); MEAN CORPUSCULAR HGB CONC 34 G/DL (32-36); MEAN CORPUSCULAR VOLUME 98 FL (80-99); MEAN PLATELET VOLUME 10.3 FL (7.4-10.4); MONOCYTES # (AUTO) 0.5 X 10^3 (0.0-1.0); MONOCYTES % (AUTO) 14 % (0-12); NEUTROPHILS # (AUTO) 1.9 X 10^3 (1.8-7.8); NEUTROPHILS % (AUTO) 55 % (42-75); PLATELET COUNT 80 10^3/uL (130-400); RED CELL DISTRIBUTION WIDTH 14.3 % (10.0-14.5); WHITE BLOOD COUNT 3.4 10^3/uL (4.3-11.0)
[2016-10-11 06:23] LABS: INR 1.2 (0.8-1.4); PROTHROMBIN TIME PATIENT 15.2 SEC (12.2-14.7)
[2016-10-11] MEDS: oxyCODONE/APAP 5/325MG (PERCOCET 5) TABLET PO PRN ×2 (06:29→20:21)
[2016-10-11 06:32] LABS: ALANINE AMINOTRANSFERASE 32 U/L (0-55); ALBUMIN 2.7 GM/DL (3.2-4.5); ANION GAP 8 MMOL/L (5-14); ASPARTATE AMINO TRANSFERASE 39 U/L (5-34); BLOOD UREA NITROGEN 9 MG/DL (7-18); BUN/CREATININE RATIO 14; CALCIUM 8.4 MG/DL (8.5-10.1); CARBON DIOXIDE 22 MMOL/L (21-32); CHLORIDE 113 MMOL/L (98-107); CREATININE SERUM 0.66 MG/DL (0.60-1.30); GFR ESTIMATED > 60; GLUCOSE 90 MG/DL (70-105); POTASSIUM 3.5 MMOL/L (3.6-5.0); SODIUM 143 MMOL/L (135-145); TOTAL PROTEIN 5.7 GM/DL (6.4-8.2)
[2016-10-11] MEDS: inSUlin ASPART (NovoLOG) 1 UNIT/0.01 ML (CHARGE PER UNIT) SC SCH ×4 (06:38→20:21)
--- NOTE | 2016-10-11 07:02 | Pulmonary Consultation ---
History of Present Illness History of Present Illness Date of Consultation 10/11/16 06:57 Time Seen by Provider: 06:57 Date of Admission History of Present Illness 61yo with hx of CVA and left sided hemiparemsis, aphasia and recent hip fracture. PT was transferred here from [facility] secondary to hypotension and suspicion of sepsis. Pt required levophed during transportation however has not required pressors since he has been here. Pt was diagnosed with RLL pneumonia and placed vanco, levaquin and zosyn. CXR is pending for this morning. Labs reviewed. LA normal on admission. I am consulted for pulmonary/cc management. Allergies and Home Medications Allergies Coded Allergies: lisinopril (Verified Allergy, Unknown, 09/12/16) Home Medications Acetaminophen 325 Mg Tablet, 325 MG PO Q6H PRN for Temp over 100 F or Mild Pain for 30 Days, #100 Prescribed by: STEPHON ZAMORA on 09/29/161833 Aspirin 81 Mg Tablet.dr, 81 MG PO DAILY, (Reported) Bethanechol Chloride 25 Mg Tablet, 25 MG PO QID, (Reported) Desvenlafaxine Succinate 50 Mg Tab.er.24h, 50 MG PO DAILY, (Reported) Ferrous Sulfate 325 Mg Tablet, 325 MG PO DAILY@0700 for 30 Days, #30 Prescribed by: STEPHON ZAMORA on 09/29/161833 Insulin Aspart 100 Unit/1 Ml Susp, 10 UNIT SC WM for 30 Days, #1 Prescribed by: STEPHON ZAMORA on 09/29/161833 Ipratropium/Albuterol Sulfate 3 Ml Ampul.neb, 3 ML INH RTTID for 30 Days, #90 Prescribed by: STEPHON ZAMORA on 09/29/161833 Metformin HCl 1,000 Mg Tab, 1,000 MG PO BID for 30 Days, #60 Prescribed by: STEPHON ZAMORA on 09/29/161833 Modafinil 200 Mg Tablet, 200 MG PO DAILY for 30 Days, #30 Prescribed by: STEPHON ZAMORA on 09/29/161833 Nicotine 1 Each Patch.td24, 14 MG TD DAILY for 14 Days, #1 Prescribed by: STEPHON ZAMORA on 09/29/161833 Nystatin 100,000 Unit/1 Ml Oral.susp, 100,000 UNIT PO TID, (Reported) Oxycodone HCl/Acetaminophen 1 Each Tablet, 1-2 TAB PO Q4H PRN for PAIN-SEVERE for 10 Days, #30 Prescribed by: STEPHON ZAMORA on 09/29/16 1834 Phenazopyridine HCl 200 Mg Tablet, 1 TAB PO TID, (Reported) Propranolol HCl 20 Mg Tablet, 20 MG PO 0800,1200,1700, (Reported) Risperidone 2 Mg Tab.rapdis, 2 MG PO BID, (Reported) Sennosides/Docusate Sodium 1 Each Tablet, 1 EA PO BID for 30 Days, #60 Prescribed by: STEPHON ZAMORA on 09/29/16 1834 Tamsulosin HCl 0.4 Mg Cap, 0.4 MG PO BID, (Reported) Past Gphgndk-Wwzncz-Gjsbwu Hx Patient Social History Alcohol Use: Denies Use Recreational Drug Use: No Smoking Status: Current Everyday Smoker Recent Foreign Travel: No Contact w/Someone Who Travel: No Recent Infectious Disease Expo: No Recent Hopitalizations: Yes Seasonal Allergies Seasonal Allergies: No Surgeries History of Surgeries: Yes (Right hip ORIF on 09/07/16. ) Surgeries: Orthopedic Respiratory History of Respiratory Disorde: Yes Respiratory Disorders: COPD Currently Using CPAP: No Currently Using BIPAP: No Cardiovascular History of Cardiac Disorders: Yes Cardiac Disorders: High Cholesterol, Hypertension Neurological History of Neurological Disord: Yes (CEREBRAL BRAIN INJURY) Neurological Disorders: Stroke, TIA Gastrointestinal History of Gastrointestinal Di: Yes (HEP C) Gastrointestinal Disorders: Chronic Constipation, Hepatitis Musculoskeletal History of Musculoskeletal Dis: Yes Musculoskeletal Disorders: Fractures Endocrine History of Endocrine Disorders: Yes Endocrine Disorders: Diabetes, Insulin dep HEENT History of HEENT Disorders: No Loss of Vision: Denies Hearing Impairment: Denies Cancer History of Cancer: No Psychosocial History of Psychiatric Problem: Yes Behavioral Health Disorders: Suicide Attempts Blood Transfusions History of Blood Disorders: No Family Medical History Family Medial History: Diabetes mellitus 19 FATHER Neoplasm 19 MOTHER (LUNG CANCER) Review of Systems Time Seen by Provider: 07:12 Constitutional: Fever, Weakness, Malaise, No: Sweats Eyes: No: Pain, Vision change, Conjunctivae inflammation, Eyelid inflammation, Other, Redness Respiratory: Cough, Dry, Shortness of breath, SOB with excertion Cardiovascular: No: Chest Pain, Palpitations, Orthopnea, Paroxysmal Noc. Dyspnea, Edema, Lt Headedness, Other Gastrointestinal: No: Nausea, Vomiting, Abdominal Pain, Diarrhea, Constipation , Melena, Hematochezia, Other Neurological: Weakness, Confusion Exam Exam Vital Signs Date Time Temp Pulse Resp B/P (MAP) Pulse Ox O2 Delivery O2 Flow Rate FiO2 10/11/16 06:14 92 20 146/87 93 Room Air 10/11/16 05:00 87 16 137/85 93 Room Air 10/11/16 04:00 Room Air 10/11/16 04:00 98.0 87 16 129/80 94 Room Air 10/11/16 03:00 89 22 159/119 94 Room Air 10/11/16 02:00 100 36 166/94 94 Room Air 10/11/16 01:36 100 10/11/16 01:00 107 18 152/93 93 Room Air 10/11/16 00:00 Room Air 10/11/16 00:00 100.2 107 18 135/100 93 Room Air 10/10/16 23:00 111 26 130/83 95 Room Air 10/10/16 22:00 107 23 139/77 94 Room Air 10/10/16 21:00 110 26 139/106 96 Room Air 10/10/16 20:54 94 Room Air 10/10/16 20:00 Room Air 10/10/16 20:00 101 21 147/92 95 Room Air 10/10/16 19:09 98 10/10/16 19:00 99.8 99 17 150/75 95 Room Air 10/10/16 18:00 93 18 134/80 97 Nasal Cannula 3.00 10/10/16 17:00 89 18 157/95 97 Nasal Cannula 3.00 10/10/16 16:40 Room Air 10/10/16 16:00 86 164/103 96 Nasal Cannula 3.00 10/10/16 15:00 88 17 136/101 95 Nasal Cannula 3.00 10/10/16 14:12 85 10/10/16 14:00 79 17 139/88 96 Nasal Cannula 3.00 10/10/16 13:00 89 18 132/80 97 Nasal Cannula 3.00 10/10/16 12:40 98.8 90 12 151/100 97 Nasal Cannula 3.00 10/10/16 12:40 97 Nasal Cannula 3.00 General Appearance: No Apparent Distress, Chronically ill HEENT: PERRL/EOMI, Pharynx Normal Neck: Non Tender, Supple Respiratory: Lungs Clear, Normal Breath Sounds, No Respiratory Distress Cardiovascular: Regular Rate, Rhythm, No Edema, No JVD, No Murmur Capillary Refill: Less Than 3 Seconds Extremity: Normal Capillary Refill, No Calf Tenderness, No Pedal Edema, Other ( leg length discrepancy (right shorter than left)) Neurologic/Psychiatric: Alert, Aphasia, No Facial Droop, Other (oriented to self and place) Skin: Normal Color, Warm/Dry Results Lab Laboratory Tests 10/10/16 12:54 10/11/16 05:16 Assessment/Plan Assessment/Plan Septic shock - resolved Sepsis secondary to pneumonia - improving -CXR is pending -continue Abx - D/C Levaquin -await cultures -Continue IVF CVA hx with aphasia and hemiparesis hx of hep C IDDM Tobacco dependance -Education Thrombocytopenia - monitor Pt is doing much better today. Will D/C [facility], central line and transfer patient to [facility] with tele. 255 Diagnosis/Problems Problems/Diagonsis (1) Septic shock Status: Acute Assessment & Plan: hypotension refractory of 30cc/kg bolus so central line placed and started on Levophed Systolic BP of 151 upon arrival here on 2mcg/min of Levophed so titrated off Maintaining MAP >65 without vasopressor support, normal capillary refill, repeat lactic acid 1.68 Started on Vanc/Zosyn/Levaquin, will continue, day #1 Blood and urine cultures obtained at outside hospital, I discussed with ED CELLARS SUPERVISOR who will forward results to us when available Continue NS at 100ml/hr (2) HCAP (healthcare-associated pneumonia) Status: Acute Assessment & Plan: Will start on broad spectrum abx Protecting airway and requiring minimal oxygen, will titrate as able Will obtain urine strep pneumo and legionella antigen, sputum cx Has history of COPD, no wheezing or signs of exacerbation at this time (3) CVA, old, aphasia Status: Chronic Assessment & Plan: at baseline not on statin, will not start with transaminitis but likely needs at discharge will also need to resume ASA when thrombocytopenia improves (4) CVA, old, hemiparesis Status: Chronic Assessment & Plan: left sided, at baseline will consult PT/OT (5) Hepatitis C Status: Chronic Assessment & Plan: has transaminitis at baseline though mildly elevated, will monitor likely due to shock hyperbilirubinemia is his baseline as well will resume lactulose but hold propanolol given hypotension (6) Insulin dependent diabetes mellitus Status: Chronic Assessment & Plan: Will monitor Accu Cheks AC QHS Continue home insulin (Insulin 70/30) 10 units daily Will add SSI, holding metformin (7) Depression Status: Chronic Assessment & Plan: On Paroxetine prior to admission, will continue Recent suicide attempt, mood appears stable today though (8) Thrombocytopenia Status: Acute Assessment & Plan: likely due to sepsis, will monitor has Hep C and likely cirrhosis as well but normal platelets 1 week ago (9) Tobacco abuse Status: Chronic Assessment & Plan: Encouraged smoking cessation (10) Prophylactic measure Assessment & Plan: Holding Lovenox tonight due to thrombocytopenia, will resume if stable in AM SCDs instead Pureed diet No indication for GI prophylaxis Clinical Quality Measures DVT/VTE Risk/Contraindication: Risk Factor Score Per Nursin RFS Level Per Nursing on Admit: 4+=Very High VARSHA SARAVIA DO Oct 11, 2016 07:02
[2016-10-11] MEDS: RT-ALBUTEROL/IPRATROPIUM 3 ML (DUONEB) VIAL INH SCH ×3 (07:20→21:03)
--- NOTE | 2016-10-11 07:31 | Diagnostic Imaging Report ---
INDICATION: Dyspnea and sepsis. TIME: 07:14 a.m. COMPARISON: Comparison is made to study of 09/29/2016. FINDINGS: Overall heart size and pulmonary vascularity are within normal limits. There is increased density in the lung bases with blunting of left costophrenic sulcus. No pneumothorax is identified. Advanced degenerative changes are noted in the shoulder with probable mildly impacted fracture in the proximal right humerus. IMPRESSION: Mild increase in basilar atelectasis and/or pneumonitis with associated left pleural fluid or thickening. Multiple old left rib fractures are noted and degenerative changes are seen in the shoulders. Right humeral fracture is noted. Dictated by: Dictated on workstation # [id number]
--- NOTE | 2016-10-11 09:05 | Progress Note-Hospitalist ---
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 He had a sedated MRI done yesterday and all night seemed off from his baseline. When he awoke this morning he was more confused and had a low grade fever per their reports so he was transferred to the ER for evaluation. He was found to have a bilateral pneumonia, leukocytosis, and elevated lactic acid. He was resuscitated with 2.5L bolus (30cc/kg) and continued to have a MAP <65 so was started on Levophed and transferred to [facility] for ICU admission for septic shock. He is able to answer yes and no questions mostly and I am unsure if they are consistently appropriate so most of this history is obtained from the outside medical records. Subjective/Events-last exam He continues to complain of hip pain but otherwise no complaints. Limited ability to take history given aphasia. Seems less confused though. Nursing reports doing well overnight. Other pressors. Objective Exam Vital Signs Vital Sign - Last 12Hours 10/10/16 12:40 Temp 98.8 Pulse 90 Resp 12 B/P (MAP) 151/100 Pulse Ox 97 O2 Delivery Nasal Cannula O2 Flow Rate 3.00 Capillary Refill : Less Than 3 Seconds General Appearance: No Apparent Distress, WD/WN Neck: Non Tender, Supple Respiratory: Lungs Clear, Normal Breath Sounds, No Respiratory Distress Cardiovascular: Regular Rate, Rhythm, No Edema, No JVD, No Murmur Gastrointestinal: Normal Bowel Sounds, Non Tender, Soft Extremity: Non Tender, No Calf Tenderness, No Pedal Edema Neurologic/Psychiatric: Alert, Oriented x3 Skin: Normal Color, Warm/Dry Results/Procedures Lab Laboratory Tests 10/10/16 12:54 10/11/16 05:16 Procedures Central Line placed at outside facility Assessment/Plan Assessment and Plan Assess & Plan/Chief Complaint HCAP Diagnosis/Problems Diagnosis/Problems (1) HCAP (healthcare-associated pneumonia) Status: Acute Assessment & Plan: Continue on broad spectrum abx while awaiting cultures Titrate O2 as able Erine strep pneumo and legionella antigen, sputum cx pending Has history of COPD, no wheezing or signs of exacerbation at this time (2) Septic shock Status: Resolved Assessment & Plan: Off Levophed since yesterday, shock resolved Started on Vanc/Zosyn/Levaquin, will continue, day #2 Blood and urine cultures obtained at outside hospital, I discussed with ED TRADE MARK EXAMINER who will forward results to us when available DC fluids (3) CVA, old, aphasia Status: Chronic Assessment & Plan: at baseline not on statin, will not start with transaminitis but likely needs at discharge will also need to resume ASA when thrombocytopenia improves (4) CVA, old, hemiparesis Status: Chronic Assessment & Plan: left sided, at baseline will consult PT/OT (5) Hepatitis C Status: Chronic Assessment & Plan: transaminitis back to baseline hyperbilirubinemia is his baseline as well Updated med rec, no longer on lactulose so DC'd Needs usg as outpatient if not done (6) Insulin dependent diabetes mellitus Status: Chronic Assessment & Plan: Will monitor Accu Cheks AC QHS Outside facility sent updated med list and no longer on insulin, DC'd Will add SSI, holding metformin (7) Depression Status: Chronic Assessment & Plan: On Paroxetine prior to admission, will continue Recent suicide attempt, mood appears stable today though Will likely need to DC back to behavoiral unit when ready (8) Thrombocytopenia Status: Acute Assessment & Plan: likely due to sepsis, will monitor has Hep C and likely cirrhosis as well but normal platelets 1 week ago Dropped from 90 to 80 since yesterday, likely dilutional- will trend (9) Tobacco abuse Status: Chronic Assessment & Plan: Encouraged smoking cessation (10) Hypokalemia Status: Acute Assessment & Plan: Will replace (11) Prophylactic measure Assessment & Plan: Lovenox Pureed diet No indication for GI prophylaxis Saline lock Multiple recent infections/antibiotic use will add probiotic STEPHANIE JOLLY MD Oct 11, 2016 09:05
[2016-10-11] MEDS ORDERED: KCL 20 MEQ TAB (K-DUR) PO NR (09:15)
[2016-10-11] MEDS ORDERED: ENOXAPARIN 40 MG/0.4 ML (LOVENOX) SYR SC SCH (09:15)
[2016-10-11] MEDS: PARoxetine 20 MG (PAXIL) TAB PO SCH (09:24)
--- NOTE | 2016-10-11 11:52 | Physical Therapy Daily Note ---
PT Daily Note-Current Subjective Patient just complete with OT and agrees to PT. Pain Numeric Pain Scale: 0-No Pain Location: No Pain Reported Mental Status Patient Orientation: Non-Verbal/Aphasic (speech is improving from last hospital stay), Normal For Age Transfers Functional [place] Measure 0=Not Assessed/NA 4=Minimal Assistance 1=Total Assistance 5=Supervision or Setup 2=Maximal Assistance 6=Modified [place] 3=Moderate Assistance 7=Complete IndependenceIRFPAI Quality Coding Scale 6 Independent with activity with or without an assistive device 5 Patient requires set up or clean up by helper. Patient completes activity by themselves 4 Supervision or touching assist (CGA). [place] provide cues , steadying assist 3 The helper provides less than half the effort to complete the activity 2 The helper provides more than half the effort to complete the activity 1 Dependent. The helper does all the effort to complete an activity 7 Patient refused to complete or attempt activity 9 The patient did not perform the activity before the current illness or injury 88 Not attempted due to Medical conditions or safety concerns Transfers (B, C, W/C) (FIM): 4 Scootin Sit to/from Stand: 4 Weight Bearing Weight Bearing Restriction: Partial Weight Bearing Location Restriction: R LE Weight Bearing: Patient performs PWB or NWB right LE with FWW Gait Training Gait (FIM): 1 Distance (FIM): 1=up to 49 ft Distance: 25' Gait Level of Assist: 4 Gait Persons Needed: 1 Gait Assistive Device: FWW Patient performs NWB for majority of gait training, however, does perform PWB at time. Exercises Seated Therapy Exercises: Ankle pumps, Long arc quads, Shoulder Abd Seated Reps: 30 (3 sets to increase strength and improve mobility) Assessment Patient progressing with treatment plan. PT Snf Goals Snf Goals PT Snf Goals Time Frame: Oct 17, 2016 Transfers (B,C,W/C) (FIM): 4 Gait (FIM): 2 Distance: 50' Gait Level of Assist: 4 Gait Assistive Device: FWW PT Plan Treatment/Plan Treatment Plan: Continue Plan of Care Treatment Plan: Bed Mobility, Concurrent Therapy, Education, Functional Activity Mavis, Functional Strength, Gait, Safety, Therapeutic Exercise, Transfers Treatment Duration: Oct 17, 2016 Frequency: 6 times per week (once a day, six days a week) Estimated Hrs Per Day: .25 hour per day (15-30') Patient and/or Family Agrees t: Yes Time/GCodes Time In: 1115 Time Out: 1138 Total Billed Treatment Time: 23 Total Billed Treatment 1 visit EX 15 min GT 8 min THEA HORNE PT Oct 11, 2016 11:52
[2016-10-11] MEDS: LACTOBACILLUS Acidoph/Bulgar (LACTINEX/FLORANEX) TAB PO SCH ×2 (12:04→17:06)
[2016-10-11] MEDS ORDERED: TROUGH ORDER-PHARMACY XX NR (12:30)
[2016-10-11] MEDS: ENOXAPARIN 40 MG/0.4 ML (LOVENOX) SYR SC SCH (14:24)
--- NOTE | 2016-10-11 14:33 | Occupational Therapy Eval ---
OT Evaluation-General/PLF Medical Diagnosis Admission Date Oct 10, 2016 at 12:46 Medical Diagnosis: pneumonia Onset Date: Oct 10, 2016 Therapy Diagnosis Therapy Diagnosis: decr self care, decr funct mobility, decr activ tolerance, weakness Height/Weight Height (Feet): 5 Height (Inches): 7.00 Weight (Pounds): 165 Weight (Ounces): 0.0 Precautions Precautions/Isolations: Aspiration, Fall Prevention, Standard Precautions Safety Interventions: Bed Exit Alarm Weight Bear Status Weight Bearing Restriction: Partial Weight Bearing Location Restriction: R LE WBS (Ord/Comment): Patient performs PWB or NWB right LE with FWW Referral Physician: Cesilia Childers MD Referral Reason: Evaluation/Treatment Medical History Pertinent Medical History: COPD, CVA, DM, HTN, Smoking, TBI Additional Medical History TBI, CVA with L hemiplegia and aphasia, recent hip fx with ORIF on 09-07-16. Recent suicide attempt - to [facility]. Chronic constipation, Hepatitis C. Depression. Was recently on IRF and discharged to skilled unit. Current History Admitted from [facility] with bilat pneumonia and septic shock. Reviewed History: Yes Social History Home: Longterm (had lived with niece) Entry Into Home: Level Entry ADL-Prior Level of Function ADL PLOF Comments When patient was discharged from [facility], could feed himself with setup and built up handled silverware. On pureed diet and thickened liquids. Grooming setup. bathing with min assist, using rolling shower chair. Upper body dressing setup. Lower body dressing mod assist help with standing, help with socks and shoes. Toileting mod assist to BSC. OT Current Status Subjective Pt seen in room, up in recliner, agreeable to OT. No pain reported but indicated leg and hip were sore. Appearance Alert, cooperative Current Upper Extremity ROM grossly WFl bilat Upper Extremity Strength grossly 4/5 bilat ADL-Treatment ADL-Current Pt donned shirt with setup. Also donned pants, getting them over his feet but needing mod assist to stand and to pull them up. Slipper socks already on. Pt was able to get a drink and was indifferent to offer of built up handles for silverware. Functional status similar to status at time of discharge from IRF. Pt agreeable to POC. Care transferred to PT. Functional [place] Measure 0=Not Assessed/NA 4=Minimal Assistance 1=Total Assistance 5=Supervision or Setup 2=Maximal Assistance 6=Modified [place] 3=Moderate Assistance 7=Complete IndependenceIRFPAI Quality Coding Scale 6 Independent with activity with or without an assistive device 5 Patient requires set up or clean up by helper. Patient completes activity by themselves 4 Supervision or touching assist (CGA). [place] provide cues , steadying assist 3 The helper provides less than half the effort to complete the activity 2 The helper provides more than half the effort to complete the activity 1 Dependent. The helper does all the effort to complete an activity 7 Patient refused to complete or attempt activity 9 The patient did not perform the activity before the current illness or injury 88 Not attempted due to Medical conditions or safety concerns Education OT Patient Education: Purpose of tx/functional activities, Rehab process, Safety issues, Transfer techniques Teaching Recipient: Patient Teaching Methods: Discussion Response to Teaching: Verbalize Understanding, Return Demonstration, Reinforcement Needed OT Prison Goals Prison Goals Time Frame: Oct 18, 2016 Eating (FIM): 5 Grooming(FIM): 5 Bathing(FIM): 4 Upper Body Dressing(FIM): 5 Lower Body Dressing(FIM): 3 Toileting(FIM): 3 Toilet/Commode Transfer(FIM): 3 Additional Goals: 2-Verbalize Understanding, 3-ImproveStrength/Mavis 1=Demonstrate adherence to instructed precautions during ADL tasks. 2=Patient will verbalize/demonstrate understanding of assistive devices/ modifications for ADL. 3=Patient will improve strength/tolerance for activity to enable patient to perform ADL's. OT Education/Plan Problem List/Assessment Assessment: Decreased Activ Tolerance, Decreased UE Strength, Dependent Transfers, Impaired Funct Balance, Impaired Self-Care Skills Pt would benefit from skilled OT to maximize his independence in basic self care to allow him to be discharged to least restrictive and safe environment Discharge Recommendations Plan/Recommendations: Continue POC Treatment Plan/Plan of Care Treatment,Training & Education: Yes Patient would benefit from OT for education, treatment and training to promote independence in ADL's, mobility, safety and/or upper extremity function for ADL' s. Plan of Care: ADL Retraining, Functional Mobility, UE Funct Exercise/Act Treatment Duration: Oct 18, 2016 Frequency: 5 times per week Estimated Hrs Per Day: .5 hour per day Agreement: Yes Rehab Potential: Fair Time/GCodes Start Time: 10:55 Stop Time: 11:15 Total Time Billed (hr/min): 20 Billed Treatment Time visit, 20 minutes evaluation moderate intensity SAMPSON REYNOLDS OT Oct 11, 2016 14:33
[2016-10-12] VITALS: BP 140/85
[2016-10-12] MEDS: VANCOMYCIN INJECTION 1,000 MG in NS (IVPB) 250 ML IV SCH (01:45)
[2016-10-12 04:00] VITALS: BP 161/80
[2016-10-12] MEDS: oxyCODONE/APAP 5/325MG (PERCOCET 5) TABLET PO PRN (05:57)
[2016-10-12] MEDS: PIPERACILLIN SODIUM/TAZOBACTAM 4.5 GM in NS (IVPB) 100 ML IV SCH (05:57)
[2016-10-12] MEDS: inSUlin ASPART (NovoLOG) 1 UNIT/0.01 ML (CHARGE PER UNIT) SC SCH ×2 (05:57→12:37)
[2016-10-12] MEDS: LACTOBACILLUS Acidoph/Bulgar (LACTINEX/FLORANEX) TAB PO SCH ×3 (05:57→15:26)
[2016-10-12 06:04] LABS: BASOPHILS % (AUTO) 1 % (0-10); EOSINOPHILS # (AUTO) 0.4 10^3/uL (0.0-0.3); EOSINOPHILS % (AUTO) 9 % (0-10); LYMPHOCYTES # (AUTO) 1.4 X 10^3 (1.0-4.0); LYMPHOCYTES % (AUTO) 33 % (12-44); MEAN CORPUSCULAR HEMOGLOBIN 33 PG (25-34); MEAN CORPUSCULAR HGB CONC 34 G/DL (32-36); MEAN CORPUSCULAR VOLUME 96 FL (80-99); MEAN PLATELET VOLUME 9.9 FL (7.4-10.4); MONOCYTES # (AUTO) 0.6 X 10^3 (0.0-1.0); MONOCYTES % (AUTO) 14 % (0-12); NEUTROPHILS # (AUTO) 1.8 X 10^3 (1.8-7.8); NEUTROPHILS % (AUTO) 44 % (42-75); PLATELET COUNT 90 10^3/uL (130-400); RED BLOOD COUNT 3.13 10^6/uL (4.35-5.85); RED CELL DISTRIBUTION WIDTH 14.3 % (10.0-14.5); WHITE BLOOD COUNT 4.2 10^3/uL (4.3-11.0)
[2016-10-12 06:12] LABS: PROTHROMBIN TIME PATIENT 13.6 SEC (12.2-14.7)
[2016-10-12 06:36] LABS: ALANINE AMINOTRANSFERASE 30 U/L (0-55); ALBUMIN 3.1 GM/DL (3.2-4.5); ANION GAP 11 MMOL/L (5-14); ASPARTATE AMINO TRANSFERASE 38 U/L (5-34); BILIRUBIN,TOTAL 1.1 MG/DL (0.1-1.0); BLOOD UREA NITROGEN 9 MG/DL (7-18); BUN/CREATININE RATIO 13; CALCIUM 8.9 MG/DL (8.5-10.1); CARBON DIOXIDE 21 MMOL/L (21-32); CHLORIDE 109 MMOL/L (98-107); CREATININE SERUM 0.69 MG/DL (0.60-1.30); GFR ESTIMATED > 60; GLUCOSE 97 MG/DL (70-105); POTASSIUM 3.6 MMOL/L (3.6-5.0); SODIUM 141 MMOL/L (135-145); TOTAL PROTEIN 6.4 GM/DL (6.4-8.2)
--- NOTE | 2016-10-12 06:57 | Diagnostic Imaging Report ---
INDICATION: Shortness of air, sepsis. COMPARISON: 10/11/2016. FINDINGS: Single frontal radiographic view of the chest was obtained and demonstrates normal cardiac silhouette. Pulmonary vasculature appears slightly prominent on today's study. This may be accentuated by low inspiratory volumes; however, pulmonary interstitium is also diffusely prominent. There are persistent linear opacities within the left lower lung field. No large effusion or pneumothorax is seen on either side. Left-sided rib fractures are noted. IMPRESSION: Findings suspicious for pulmonary vascular congestion and interstitial pulmonary edema. Followup is recommended. Dictated by: Dictated on workstation # [id number]
[2016-10-12] MEDS: RT-ALBUTEROL/IPRATROPIUM 3 ML (DUONEB) VIAL INH SCH ×2 (07:30→14:48)
[2016-10-12 07:48] LABS: STREP PNEUMOCOCCUS ANTIG Negative
[2016-10-12 07:49] LABS: LEGIONELLA PNEU ANTIGEN URINE Negative
[2016-10-12 08:00] VITALS: BP 128/90
[2016-10-12] MEDS: PARoxetine 20 MG (PAXIL) TAB PO SCH (08:35)
--- NOTE | 2016-10-12 09:17 | Occupational Ther Daily Note ---
OT Current Status-Daily Note Subjective Pt seen in room, up in bed, agreeable to OT. No pain mentioned. Appearance Alert, cooperative, delayed verbal responses Mental Status/Objective Functional [place] Measure 0=Not Assessed/NA 4=Minimal Assistance 1=Total Assistance 5=Supervision or Setup 2=Maximal Assistance 6=Modified [place] 3=Moderate Assistance 7=Complete [place] ADL-Treatment Pt had just finished breakfast. When questioned, he said that he did not need adapted silverware. Pt moved from supine to sit with min assist, skilled cues for sequencing. Sat EOB without assistance to bathe. Pt washed all areas except bottom and lower legs/feet, bath packs, leaning back to get abelardo in front (he had been incontinent in bed). He was able to get L slipper sock on with setup and R one when foot propped up on stool. Pt stood (skilled cues for hand placement) with FWW for Depends to be applied and helped hold hospital gown out of the way. He wanted to get dressed but did not have any clean pants. Care transferred to PT. Education OT Patient Education: Modified ADL techniques, Progress toward Goal/Update tx plan, Purpose of tx/functional activities, Transfer techniques Teaching Recipient: Patient Teaching Methods: Demonstration, Discussion Response to Teaching: Reinforcement Needed OT Short Term Goals Short Term Goals 1=Demonstrate adherence to instructed precautions during ADL tasks. 2=Patient will verbalize/demonstrate understanding of assistive devices/ modifications for ADL. 3=Patient will improve strength/tolerance for activity to enable patient to perform ADL's. OT Turner Machine Goals Custodial Goals Time Frame: Oct 18, 2016 Eating (FIM): 5 Grooming(FIM): 5 Bathing(FIM): 4 Upper Body Dressing(FIM): 5 Lower Body Dressing(FIM): 3 Toileting(FIM): 3 Toilet/Commode Transfer(FIM): 3 Additional Goals: 2-Verbalize Understanding, 3-ImproveStrength/Mavis 1=Demonstrate adherence to instructed precautions during ADL tasks. 2=Patient will verbalize/demonstrate understanding of assistive devices/ modifications for ADL. 3=Patient will improve strength/tolerance for activity to enable patient to perform ADL's. OT Education/Plan Problem List/Assessment Pt would benefit from skilled OT to maximize his independence in basic self care to allow him to be discharged to least restrictive and safe environment Discharge Recommendations Plan/Recommendations: Continue POC Treatment Plan/Plan of Care Patient would benefit from OT for education, treatment and training to promote independence in ADL's, mobility, safety and/or upper extremity function for ADL' s. Plan of Care: ADL Retraining, Functional Mobility, UE Funct Exercise/Act Treatment Duration: Oct 18, 2016 Frequency: 5 times per week Estimated Hrs Per Day: .5 hour per day Agreement: Yes Rehab Potential: Fair Time/GCodes Start Time: 08:40 Stop Time: 08:55 Total Time Billed (hr/min): 15 Billed Treatment Time visit, 15 minutes ADL SAMPSON REYNOLDS OT Oct 12, 2016 09:17
[2016-10-12] MEDS ORDERED: LEVO750T9 PO (10:33)
--- NOTE | 2016-10-12 10:47 | Physical Therapy Daily Note ---
PT Daily Note-Current Subjective Pt sitting at EOB putting socks on with OT upon arrival. Pt agrees to PT. Pain Location: No Pain Reported Mental Status Patient Orientation: Person, Non-Verbal/Aphasic Attachments: IV Transfers Functional [place] Measure 0=Not Assessed/NA 4=Minimal Assistance 1=Total Assistance 5=Supervision or Setup 2=Maximal Assistance 6=Modified [place] 3=Moderate Assistance 7=Complete IndependenceIRFPAI Quality Coding Scale 6 Independent with activity with or without an assistive device 5 Patient requires set up or clean up by helper. Patient completes activity by themselves 4 Supervision or touching assist (CGA). [place] provide cues , steadying assist 3 The helper provides less than half the effort to complete the activity 2 The helper provides more than half the effort to complete the activity 1 Dependent. The helper does all the effort to complete an activity 7 Patient refused to complete or attempt activity 9 The patient did not perform the activity before the current illness or injury 88 Not attempted due to Medical conditions or safety concerns Scootin Sit to/from Stand: 4 Bed to/from Chair: 4 Weight Bearing Weight Bearing Restriction: Partial Weight Bearing Location Restriction: R LE Gait Training Distance: 25' Gait Level of Assist: 4 Gait Persons Needed: 1 Gait Assistive Device: FWW Pt only walks short distance and fatigues. Pt has slow but steady gait. Treatments Pt transfers from EOB to standing to put brief on then ambulates to restroom. After attempting to use restroom with little success, pt wants to return to recliner to rest. Pt rests with chair alarm on and all needs met at end of tx. Assessment Current Status: Fair Progress Pt fatigues easy and doesn't ambulate far. PT Senior Living Goals Meat Cutter Goals PT Meat Cutter Goals Time Frame: Oct 17, 2016 Transfers (B,C,W/C) (FIM): 4 Gait (FIM): 2 Distance: 50' Gait Level of Assist: 4 Gait Assistive Device: FWW PT Plan Problem List Problem List: Activity Tolerance, Functional Strength, Safety, Balance, Gait, Transfer Treatment/Plan Treatment Plan: Continue Plan of Care Treatment Plan: Bed Mobility, Concurrent Therapy, Education, Functional Activity Mavis, Functional Strength, Gait, Safety, Therapeutic Exercise, Transfers Treatment Duration: Oct 17, 2016 Frequency: 6 times per week (once a day, six days a week) Estimated Hrs Per Day: .25 hour per day (15-30') Patient and/or Family Agrees t: Yes Safety Risks/Education Patient Education: Gait Training, Transfer Techniques, Correct Positioning, Safety Issues Teaching Recipient: Patient Teaching Methods: Discussion Response to Teaching: Reinforcement Needed Time/GCodes Time In: 855 Time Out: 915 Total Billed Treatment Time: 20 Total Billed Treatment visit, FA (20m) ENRIQUE SOLIS PTA Oct 12, 2016 10:47
[2016-10-12] MEDS ORDERED: LEVOFLOXACIN 750 MG TAB (LEVAQUIN) PO SCH (11:00)
--- NOTE | 2016-10-12 11:54 | Pulmonary Progress Note ---
Subjective Time Seen by Provider: 11:51 Subjective/Events-last exam PT appears improved no complications noted. Exam Exam Vital Signs Date Time Temp Pulse Resp B/P (MAP) Pulse Ox O2 Delivery O2 Flow Rate FiO2 10/12/16 08:00 98.9 88 20 128/90 93 Room Air 10/12/16 07:30 93 Room Air 10/12/16 04:00 99.6 81 17 161/80 94 Room Air 10/12/16 00:00 98.3 80 19 140/85 94 Room Air 10/11/16 21:04 93 Room Air 10/11/16 21:00 Room Air 10/11/16 20:00 100.0 91 21 151/94 96 Room Air 10/11/16 16:00 99.6 90 20 146/88 96 Room Air 10/11/16 13:35 96 Room Air 10/11/16 12:00 99.2 91 18 132/82 95 Room Air 10/11/16 12:00 Room Air General Appearance: No Apparent Distress, WD/WN HEENT: PERRL/EOMI, Pharynx Normal Neck: Non Tender, Supple Respiratory: Lungs Clear, Normal Breath Sounds, No Respiratory Distress Cardiovascular: Regular Rate, Rhythm, No Edema, No JVD, No Murmur Capillary Refill: Less Than 3 Seconds Extremity: Non Tender, No Calf Tenderness, No Pedal Edema Neurologic/Psychiatric: Alert, Oriented x3 Skin: Normal Color, Warm/Dry Results Lab Laboratory Tests 10/10/16 12:54 10/11/16 05:16 10/12/16 05:20 Assessment/Plan Assessment/Plan Septic shock - resolved Sepsis secondary to pneumonia - improving -CXR reviewed - Levaquin only currently -await cultures CVA hx with aphasia and hemiparesis hx of hep C IDDM Tobacco dependance -Education Thrombocytopenia - monitor Clinical Quality Measures DVT/VTE Risk/Contraindication: Risk Factor Score Per Nursin RFS Level Per Nursing on Admit: 4+=Very High VARSHA SARAVIA DO Oct 12, 2016 11:54
[2016-10-12 12:00] VITALS: BP 157/85
[2016-10-12] MEDS: ENOXAPARIN 40 MG/0.4 ML (LOVENOX) SYR SC SCH (15:27)
[2016-10-12 16:09] VITALS: BP 135/78
--- NOTE | 2016-10-25 12:04 | Discharge Summary-Hospitalist ---
Diagnosis/Chief Complaint Date of Admission Oct 10, 2016 at 12:46 Date of Discharge Oct 12, 2016 at 17:55 Discharge Date: Oct 12, 2016 Admission Diagnosis Septic Shock Discharge Diagnosis HCAP (1) HCAP (healthcare-associated pneumonia) Status: Acute Assessment & Plan: Deescalated to oral Levaquin Has history of COPD, no wheezing or signs of exacerbation at this time (2) Septic shock Status: Resolved Assessment & Plan: shock resolved Blood and urine cultures obtained at outside hospital, I discussed with ED ORE TRIMMER who will forward results to us when available (3) CVA, old, aphasia Status: Chronic Assessment & Plan: at baseline not on statin, will not start with transaminitis but likely needs at follow up will also need to resume ASA when thrombocytopenia improves as outpatient (4) CVA, old, hemiparesis Status: Chronic Assessment & Plan: left sided, at baseline will consult PT/OT (5) Hepatitis C Status: Chronic Assessment & Plan: transaminitis back to baseline hyperbilirubinemia is his baseline as well Updated med rec, no longer on lactulose so DC'd Needs usg as outpatient if not done (6) Insulin dependent diabetes mellitus Status: Chronic Assessment & Plan: Will monitor Accu Cheks AC QHS Outside facility sent updated med list and no longer on insulin, DC'd Will add SSI, holding metformin (7) Depression Status: Chronic Assessment & Plan: On Paroxetine prior to admission, will continue Recent suicide attempt, mood appears stable today though Will likely need to DC back to behavoiral unit when ready (8) Thrombocytopenia Status: Acute Assessment & Plan: likely due to sepsis, will monitor has Hep C and likely cirrhosis as well but normal platelets 1 week ago Improved to 90 at discharge (9) Tobacco abuse Status: Chronic Assessment & Plan: Encouraged smoking cessation (10) Hypokalemia Status: Resolved (11) Prophylactic measure Assessment & Plan: Lovenox Pureed diet No indication for GI prophylaxis Saline lock Multiple recent infections/antibiotic use will add probiotic Discharge Summary Procedures Central Line placed at outside facility Discharge Physical Examination Allergies: Coded Allergies: lisinopril (Verified Allergy, Unknown, 09/12/16) Hospital Course Admitted with Septic shock form outside facility due to HCAP. Was started on Broad spectrum abx and improved. transitioned to oral antibiotics as discharge. He was discharged back to [facility] to help with treatment for depression. Discharge Home Medications: Active Scripts Active Levaquin (Levofloxacin) 750 Mg Tablet 750 Mg PO DAILY 4 Days Senna-Time S Tablet (Sennosides/Docusate Sodium) 1 Each Tablet 1 Ea PO BID 30 Days Acetaminophen 325 Mg Tablet 325 Mg PO Q6H PRN 30 Days Oxycodone-Acetaminophen 5-325 (Oxycodone HCl/Acetaminophen) 1 Each Tablet 1-2 Tab PO Q4H PRN 10 Days Ferrous Sulfate 325 Mg Tablet 325 Mg PO DAILY@0700 30 Days Nicotine Patch (Nicotine) 1 Each Patch.td24 14 Mg TD DAILY 14 Days Iprat-Albut 0.5-3(2.5) mg/3 ml (Ipratropium/Albuterol Sulfate) 3 Ml Ampul.neb 3 Ml INH RTTID 30 Days Modafinil 200 Mg Tablet 200 Mg PO DAILY 30 Days Glucophage (Metformin HCl) 1,000 Mg Tab 1,000 Mg PO BID 30 Days Reported Pristiq ER (Desvenlafaxine Succinate) 50 Mg Tab.er.24h 50 Mg PO DAILY Flomax (Tamsulosin HCl) 0.4 Mg Cap 0.4 Mg PO BID Bethanechol Chloride 25 Mg Tablet 25 Mg PO QID Nystatin 100,000 Unit/1 Ml Oral.susp 100,000 Unit PO TID Aspir 81 (Aspirin) 81 Mg Tablet. 81 Mg PO DAILY Instructions to patient/family Please see electronic discharge instructions given to patient. Clinical Quality Measures DVT/VTE Risk/Contraindication: Risk Factor Score Per Nursin RFS Level Per Nursing on Admit: 4+=Very High STEPHANIE JOLLY MD Oct 25, 2016 12:04
== END 2016-10-12 17:55 | DRG 871 ==
LOC: ICU 12:46 → 4TH 10-11 10:23
PROVIDERS: ADMIT Family Medicine; ATTEND Family Medicine
DX: A41.9 Sepsis, unspecified organism (principal); R65.21 Severe sepsis with septic shock; J44.0 Chronic obstructive pulmonary disease with (acute) lower respiratory infection; J18.9 Pneumonia, unspecified organism; I69.354 Hemiplegia and hemiparesis following cerebral infarction affecting left non-dominant side; I69.320 Aphasia following cerebral infarction; S72.141D Displaced intertrochanteric fracture of right femur, subsequent encounter for closed fracture with routine healing; I10 Essential (primary) hypertension; E11.9 Type 2 diabetes mellitus without complications; D69.6 Thrombocytopenia, unspecified; F17.210 Nicotine dependence, cigarettes, uncomplicated; B18.2 Chronic viral hepatitis C; K74.60 Unspecified cirrhosis of liver; F32.9 Major depressive disorder, single episode, unspecified; K59.09 Other constipation; E78.00 Pure hypercholesterolemia, unspecified; E87.6 Hypokalemia; Z79.4 Long term (current) use of insulin; Z91.5 Personal history of self-harm; Z87.820 Personal history of traumatic brain injury
CPT/HCPCS: 36415; 71010; 80048; 80053; 80202; 82962; 83605; 85025; 85610; 85730; 87449; 87899; 94640; 94760

== ENCOUNTER 2018-05-24 15:36 | Emergency (ER) | payer MEDICARE ==
[~2018-05-24] VITALS: Ht 167.6 cm; Wt 79.4 kg
[~2018-05-24 15:36] MED LIST changes: +BETH25TA PO; +DESV50TA PO; -FERR-74 PO; +FERR325T18 PO; -IPRA3AMP INH; +IPRA3AMP31 INH; +LEVO750T9 PO; -LOSA25TA21 PO; +LOSA25TA41 PO; +NYST1000 PO; +PHEN-640 PO; +RISP2TAB PO; +TAMS0.4C98 PO
--- OUTSIDE RECORDS SUMMARY | 2018-05-24 15:45 | XMS REPORT | Clinical Summary ---
Author Author [facility] Organization [facility] Address Unknown Phone Unavailable Care Team Providers Care Relations Director Name Role Phone Rojas Hawk MD PCP Allergies Active Allergy Reactions Severity Noted Date Comments Lisinopril Cough 07/14/2016 Current Medications Prescription Sig. Disp. Refills Start End Date Status Date acetaminophen (TYLENOL) Take 325 mg by mouth Active 325 MG tablet every 4 (four) hours as needed for pain. lactulose (CHRONULAC) 10 Take 20 g by mouth 3 Active gram/15 mL solution (three) times a day. Titrate for 2-3 BMs daily propranolol (INDERAL) 20 Take 20 mg by mouth 3 Active MG tablet (three) times a day. aspirin (ADULT LOW DOSE Take 1 tablet (81 mg 07/20/19 Active ASPIRIN) 81 MG EC total) by mouth daily. 17 tabletIndications: Prevention for a Blood Clot going to the Brain losartan (COZAAR) 25 MG Take 1 tablet (25 mg 30 tablet 0 08/11/19 Active tabletIndications: high total) by mouth daily. 17 blood pressure metformin (GLUCOPHAGE) Take 1 tablet (1,000 mg 60 tablet 0 08/11/19 Active 1000 mg tablet total) by mouth 2 (two) 17 times a day with meals. modafinil (PROVIGIL) 200 Take 1 tablet (200 mg 30 tablet 0 08/10/ Active MG tabletIndications: total) by mouth daily. 17 Recurring Sleep Episodes During the Day PARoxetine (PAXIL) 30 MG Take 1 tablet (30 mg 30 tablet 0 08/11/19 Active tabletIndications: total) by mouth every 17 Anxiousness associated morning. with Depression famotidine (PEPCID) 20 MG Take 1 tablet (20 mg 60 tablet 0 08/11/19 Active tabletIndications: total) by mouth 2 (two) 17 gastroesophageal reflux times a day. disease Active Problems Problem Noted Date Aphasia 08/10/2016 Cerebral dysfunction 08/10/2016 Ataxia 08/10/2016 Gait abnormality 08/10/2016 Maxillary sinus and orbital fracture (HCC) 07/31/2016 Last Assessment & Plan: Multiple minimally displaced fractures seen within the medial and lateral cantor of the left maxillary sinus and the orbital floor. Spoke to Oralmaxillofacial surgery at [facility] who recommended -amoxicillin x 1 week, 08/06 -ocean nasal spray prn, -afrin x 2 days completed - f/u in office in 7-10 days. Anemia 07/22/2016 Last Assessment & Plan: 08/05/16 Hgb 12.3, normocytic-trending down -Monitor trends Hypertension 07/19/2016 Last Assessment & Plan: Trends 107-133 08/08/16 decreased losartan to 25mg daily -Cont Propranolol and Losartan at current dose Thrush, oral 07/19/2016 Last Assessment & Plan: Yellow coating to tongue -Continue Nystatin S&S Moderate malnutrition ([facility]) 07/19/2016 Hypokalemia 07/18/2016 Last Assessment & Plan: K 3.3 as of 07/18/2016. Plan: Replace per protocol. Thrombotic stroke ([facility]) 07/18/2016 Overview: IMO Update L ast Assessment & Plan: Formatting of this note may be different from the original. 07/12/16 CT Head at OSH showed hypoattenuation with loss of abarca-white matter differentiation in the left frontoparietal lobes and right basal ganglia concerning for subacute infarcts. 07/13/16 MRI brain at OSH showed moderate sized area of acute/early subacute ischemia w/in the right basal ganglia extending into the right periventricular white matter and small linear area of acute/early subacute ischemia w/in the periventricular white matter right posterior temporal lobe. Carotid dopplers were w/o significant stenosis ECHO without mass or thrombi, bubble study was incomplete Neuro recommended initiation of ASA once Plts >50k, no Plavix or AC even if indicated d/t chronic thrombocytopenia LDL 56, A1C 4.9 -Continue ASA -Multidisciplinary rehab efforts per PMR -No DVT ppx in setting of chronic thrombocytopenia -Follow-up with Neuro as OP CVA (cerebral vascular accident) ([facility]) 07/14/2016 Last Assessment & Plan: Outside MRI with evidence of acute and subacute infarct. Repeat CT head here confirming, no mass effect. Carotid US with no severe ischemia. ECHO showed no mass/thrombi, but bubble study was incomplete. Neurology following. Plan: Video swallow to evaluate dysphagia. No Plavix or AC d/t chronic thrombocytopenia; Resume ASA once platelets > 50,000. Continue PT/OT/ST with plan to DC to [facility] inpatient rehab once feeding issues resolved. Dysphagia 07/14/2016 Last Assessment & Plan: -Pureed diet w/honey thickened liquids Thrombocytopenia (HCC) 07/14/2016 Last Assessment & Plan: 08/05/16 Platelets 132-improving Suspect chronically low d/t liver disease (hx of hep c), ?cirrhosis -monitor trends -no DVT ppx in setting of chronic thrombocytopenia Type 2 diabetes mellitus with complication, without long-term current use of insulin (HCC) Last Assessment & Plan: BS 116-154 last 24 hours Continue current oral meds with CC diet and follow up as outpatient for further management On Metformin, Lantus, and Regular insulin HEART DOCTOR A1c 4.9 08/03/16 Lantus HS Dc'd Rare SSI last 24 hours -Continue Metformin BID -SSI level 3 -accuchecks achs -Avoid hypoglycemia -Monitor and adjust if BG increases Hypomagnesemia 07/14/2016 Last Assessment & Plan: Mag 1.6 today. Plan: Replace per protocol as needed. Expressive aphasia 07/14/2016 Last Assessment & Plan: Severe secondary to CVA. Plan: Continue ST. Tobacco dependence 07/14/2016 Last Assessment & Plan: Nicotine patch daily Cerebrovascular accident (CVA) due to occlusion of cerebral artery (HCC) 08/2016 Nicotine dependence 07/13/2016 Benign essential hypertension 10/08/2014 Chronic hepatitis C virus infection (HCC) 08/28/2008 Resolved Problems Problem Noted Date Resolved Date Urinary tract infection 07/14/2016 07/18/2016 Last Assessment & Plan: Received Rocephin 1 gm prior to transfer (at [facility]) Continue Rocephin Day 06/10 Social History Tobacco Use Types Packs/Day Years Used Date Current Every Day Smoker Cigarettes 1 Smokeless Tobacco: Never Used Alcohol Use Drinks/Week oz/Week Comments No Sex Assigned at Date Recorded Not on file Last Filed Vital Signs Vital Sign Reading Time Taken Blood Pressure 107/58 08/10/2016 7:31 AM CDT Pulse 58 08/10/2016 7:31 AM CDT Temperature 36.7 C (98.1 F) 08/10/2016 7:31 AM CDT Respiratory Rate 18 08/10/2016 7:31 AM CDT Oxygen Saturation 94% 08/10/2016 7:31 AM CDT Inhaled Oxygen - - Concentration Weight 76.3 kg (168 lb 3.2 oz) 08/08/2016 9:32 AM CDT Height 165.1 cm (5' 5") 08/08/2016 9:32 AM CDT Body Mass Index 27.99 08/08/2016 9:32 AM CDT Plan of Treatment Health Maintenance Due Date Last Done Comments Diabetes Mellitus 1955 Ophthalmology Exam Medicare Annual Wellness 1955 Td # 1955 Diabetes Mellitus Foot 1965 Exam Pneumococcal Immunization 1974 19-64 Low/Medium Risk# (1 of 1 - PPSV23) Colorectal Screening via 2005 Colonoscopy Zoster Vaccine# (1 of 2) 2005 Diabetes Mellitus 01/14/2017 07/15/2016 Hemoglobin A1C Lipid Screening 07/15/2017 07/15/2016 Tobacco Cessation 07/15/2017 07/15/2016 Counseling # Influenza Vaccine (Season 12/07/2018 Ended) Results Not on filefrom Last 3 Months
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
[2018-05-24] MEDS ORDERED: LOSA25TA41 (16:43)
[2018-05-24] MEDS ORDERED: MIRT15TA6 (16:43)
[2018-05-24] MEDS ORDERED: OLAN2.5T27 (16:43)
[2018-05-24] MEDS ORDERED: TRAZ-189 (16:43)
[2018-05-24 16:58] LABS: HEMATOCRIT 38 % (40-54); HEMOGLOBIN 13.8 G/DL (13.3-17.7); MEAN CORPUSCULAR HEMOGLOBIN 32 PG (25-34); MEAN CORPUSCULAR HGB CONC 36 G/DL (32-36); MEAN CORPUSCULAR VOLUME 88 FL (80-99); WHITE BLOOD COUNT 5.3 10^3/uL (4.3-11.0)
[2018-05-24 16:59] LABS: BASOPHILS # (AUTO) 0.1 10^3/uL (0.0-0.1); BASOPHILS % (AUTO) 1 % (0-10); EOSINOPHILS # (AUTO) 0.4 10^3/uL (0.0-0.3); EOSINOPHILS % (AUTO) 8 % (0-10); LYMPHOCYTES % (AUTO) 37 % (12-44); MEAN PLATELET VOLUME 10.4 FL (7.4-10.4); MONOCYTES # (AUTO) 0.6 X 10^3 (0.0-1.0); MONOCYTES % (AUTO) 12 % (0-12); NEUTROPHILS # (AUTO) 2.3 X 10^3 (1.8-7.8); NEUTROPHILS % (AUTO) 42 % (42-75); PLATELET COUNT 146 10^3/uL (130-400); RED CELL DISTRIBUTION WIDTH 14.4 % (10.0-14.5)
[2018-05-24 17:17] LABS: ALANINE AMINOTRANSFERASE 28 U/L (0-55); ALKALINE PHOSPHATASE 92 U/L (40-136); BILIRUBIN,TOTAL 1.5 MG/DL (0.1-1.0); BUN/CREATININE RATIO 27; CALCIUM 9.5 MG/DL (8.5-10.1); CARBON DIOXIDE 20 MMOL/L (21-32); CHLORIDE 105 MMOL/L (98-107); CREATININE SERUM 1.12 MG/DL (0.60-1.30); GFR ESTIMATED > 60; GLUCOSE 137 MG/DL (70-105); SODIUM 138 MMOL/L (135-145); TOTAL PROTEIN 7.5 GM/DL (6.4-8.2)
[2018-05-24 17:18] LABS: ACETAMINOPHEN < 10 UG/ML (10-30); ALBUMIN 4.2 GM/DL (3.2-4.5); SALICYLATE < 0.3 MG/DL (5.0-20.0)
[2018-05-24 17:32] LABS: BILIRUBIN,URINE 1+ (NEGATIVE); CLARITY,URINE CLEAR; COLOR,URINE YELLOW; GLUCOSE, URINE (UA) NEGATIVE (NEGATIVE); KETONES,URINE TRACE (NEGATIVE); LEUKOCYTE ESTERASE ,URINE NEGATIVE (NEGATIVE); NITRITE,URINE NEGATIVE (NEGATIVE); PROTEIN,URINE NEGATIVE (NEGATIVE); WBC,URINE 0-2 /HPF
[2018-05-24 17:33] LABS: AMPHETAMINE SCREEN, URINE NEGATIVE (NEGATIVE); BARBITURATE SCREEN URINE NEGATIVE (NEGATIVE); BENZODIAZEPINES SCREEN URINE NEGATIVE (NEGATIVE); CANNABINOID SCREEN, URINE POSITIVE (NEGATIVE); COCAINE SCREEN URINE NEGATIVE (NEGATIVE); METHADONE STAT NEGATIVE (NEGATIVE); METHAMPHETAMINE SCREEN URINE S NEGATIVE (NEGATIVE); OPIATE SCREEN URINE NEGATIVE (NEGATIVE); OXYCODONE STAT NEGATIVE (NEGATIVE); PROPOXYPHENE STAT NEGATIVE (NEGATIVE); TRICYCLIC ANTIDEPRESSANTS SCRE NEGATIVE (NEGATIVE)
--- NOTE | 2018-05-24 17:48 | NUR ---
Called [facility] for [facility] after hours line and informed of need for mental health screen. Facesheet and labs faxed to [phone]
--- NOTE | 2018-05-24 18:51 | NUR ---
Information faxed to [facility] [place] at [phone].
--- NOTE | 2018-05-24 19:16 | NUR ---
191 - Sally called with [facility] and was ready for screening with patient after get brief summary of what was going on. Code is [phone] 1921- screening pt
--- NOTE | 2018-05-24 20:15 | NUR ---
Spoke to Sally and stated that [facility].
--- NOTE | 2018-05-24 20:16 | NUR ---
Brother came out of room to tell us he was willing to go anywhere.
--- NOTE | 2018-05-24 20:22 | NUR ---
Brother decided to leave and rent room, because he hasn't got any sleep. Brother left name and number. Brother was informed that when we got a room or had any updates that I would call him.
[2018-05-24] MEDS ORDERED: OLANZapine 5 MG ODT (ZyPREXA ZYDIS) PO ONE (21:00)
--- NOTE | 2018-05-24 21:01 | NUR ---
Pt wanted something to help him sleep, so I lowered his head of bed, turned off the light and gave him a warm blanket. Door was left open so pt was in site.
--- NOTE | 2018-05-24 21:58 | NUR ---
[facility] called and said that "they are too swamped to take anyone."
--- NOTE | 2018-05-24 22:53 | NUR ---
Pt information and screen was faxed to [facility] at this time.
[2018-05-24 22:54] VITALS: BP 101/69
--- NOTE | 2018-05-24 22:57 | NUR ---
Sally with [facility] ([facility]) just called and stated she sent over his screening, so we can fax it to facilities.
--- NOTE | 2018-05-24 22:57 | NUR ---
Faxed pt information/screening to [facility] at this time.
--- NOTE | 2018-05-24 22:58 | NUR ---
Pt information/screening faxed to [facility] at this time.
--- NOTE | 2018-05-25 00:51 | NUR ---
Called [facility] and spoke with Taryn. Taryn stated they did not get the fax and their machine was acting up so she gave me another fax to fax the info to.
--- NOTE | 2018-05-25 00:52 | NUR ---
Patient is sleeping in room 4.
--- NOTE | 2018-05-25 01:42 | NUR ---
Spoke to Taryn with [facility] and after answering her questions she is preparring to get their ER doc to talk to Dr. Chau.
[2018-05-25 03:10] VITALS: BP 134/80
--- NOTE | 2018-05-25 03:29 | NUR ---
Brother: Kiran Paniagua
== END 2018-05-25 07:45 ==
LOC: EDUNIT# 15:36 → ER FS 15:41
DX: F05 Delirium due to known physiological condition (principal); R45.850 Homicidal ideations; J44.9 Chronic obstructive pulmonary disease, unspecified; E78.00 Pure hypercholesterolemia, unspecified; E11.9 Type 2 diabetes mellitus without complications; B19.20 Unspecified viral hepatitis C without hepatic coma; I10 Essential (primary) hypertension; F17.210 Nicotine dependence, cigarettes, uncomplicated; Z86.73 Personal history of transient ischemic attack (TIA), and cerebral infarction without residual deficits; Z91.5 Personal history of self-harm; Z80.1 Family history of malignant neoplasm of trachea, bronchus and lung; Z87.19 Personal history of other diseases of the digestive system; Z98.890 Other specified postprocedural states; Z87.820 Personal history of traumatic brain injury; Z88.8 Allergy status to other drugs, medicaments and biological substances; Z79.82 Long term (current) use of aspirin; Z79.84 Long term (current) use of oral hypoglycemic drugs
CPT/HCPCS: 36415; 80053; 80306; 80320; 80329; 81000; 85025